=== PATIENT | female | born 1945 | race Caucasian/White ===

== ENCOUNTER → 2017-11-18 | Day surgery (SDC) | payer MEDICARE ==
[2017-11-17 08:44] VITALS: BMI 34.2
[~2017-11-18] MED LIST: Fentanyl 100 MCG/2 ML VIAL ONE; Midazolam HCl 2 mg/2 ml Vial ONE
[2017-11-18 08:33] LABS: #Eosinphils 0.1 thou/uL (0.0-0.7); #Lymphocytes 1.4 thou/uL (1.20-3.40); #Monocytes 0.7 thou/uL (0.11-0.59); #Neutrophils 5.2 thou/uL (1.40-6.50); %Basophils 0.3 % (0.0-1.0); %Lymphocytes 18.5 % (21.0-51.0); %Monocytes 9.3 % (0.0-10.0); %Neutrophils 69.9 % (42.0-75.0); Hemoglobin 14.2 g/dL (12.0-16.0); Mean Corpuscular HGB CONC 32.6 g/dL (32.0-36.0); Mean Corpuscular Hemoglobin 28.7 pg (27.0-31.0); Mean Platelet Volume 7.5 fL (7.4-10.4); Platelet Count 220 thou/uL (130-400); RBC Distribution Width 13.8 % (11.5-14.5); Red Blood Cell (RBC) Count 4.94 mill/uL (4.20-5.40); White Blood Cell (WBC) Count 7.4 thou/uL (4.8-10.8)
[2017-11-18 08:39] LABS: PTT 28.5 SEC (22.9-36.1); Prothrombin Time 12.9 SEC (12.0-14.7)
[2017-11-18 08:54] LABS: Anion Gap 9 mmol/L (10-20); BUN (Urea Nitrogen) 18 mg/dL (9.8-20.1); Calc. Creatinine Clearance 124 mL/min (70-130); Calcium 9.5 mg/dL (7.8-10.44); Carbon Dioxide 29 mmol/L (23-31); Chloride 98 mmol/L (98-107); Estimated GFR-MDRD 87; Glucose 85 mg/dL (83-110); Potassium 3.6 mmol/L (3.5-5.1); Sodium 132 mmol/L (136-145)
--- NOTE | 2017-11-18 11:54 | OP ---
DATE OF PROCEDURE: 11/18/2017 PROCEDURE: Placement of a dual chamber pacing system with His-bundle pacing and recording. CLINICAL INDICATION: 1. A remote history of atrial fibrillation previously ablated with severe intraatrial delay and a ma rkedly prolonged AL interval. This was symptomatic. 2. Underlying narrow QRS complex. SUCTION PLATE ROLLER HAND: Chester Kline M.D. ASA CLASSIFICATION: II. ANESTHESIA: Versed 2 mg, fentanyl 25 mcg. ADDITIONAL CARDIAC MEDICATIONS: None. ESTIMATED BLOOD LOSS: Less than 5 mL. TOTAL FLUOROSCOPY TIME: 12.1 minutes. ACUTE COMPLICATIONS: None. METHODS: After informed consent was obtained, the patient taken to the EP lab in fasting state, left shoulder prepped and draped. Using a 15 blade, a 1 inch incision was made in the left shoulder. Alonso vie and blunt dissection used to form a pocket in the pectoralis fascia. Using a micropuncture needl e on 2 occasions the left axillary vein was accessed and wires were inserted into the central venous systems. The wires used to place a short 9 and a short 7 [place]an sheath into the central venous syste m. The dilators were removed. The sheaths were used to deploy affixed and a deflectable sheath into the right atrium. The deflectable sheath was used to place a pacing lead in the His-bundle. The ot her sheath was used to locate a map of the His for facilitation after the His catheter was placed. T he mapping catheter was removed and an atrial lead was placed in the lateral wall of the right atrium . The sheaths were removed. Hemostasis was achieved with direct pressure. Leads were secured to th e pectoral fascia with 2-0 silk. The wound is irrigated. The leads were connected to the appropriat e ports, dual chamber pacemaker was inserted into the pocket and secured to the pectoral fascia with 2-0 silk. The pocket was closed with 2-0 and 4-0 Vicryl. Skin was closed simple running subcuticula r 5-0 Monocryl. Dermabond applied across the wound. RESULTS: 1. Pacing lead thresholds; atrial threshold acutely 1.7 volts at 0.5 milliseconds, impedance 1074 oh ms. 2. RV threshold was 0.6 volts at 0.5 milliseconds, impedance 728 ohms. This was capturing the His-b undle rather than the ventricle. 3. Signal analysis P-wave amplitude 1.6 millivolts. R-wave amplitude 2.7 millivolts. 4. Serial numbers of the device was a Medtronic model A2DR01, serial number [id number], atrial lead was a Medtronic model 3830-59, serial number was [id number], RV was a Medtronic model 3830-69, serial number [id number]. IMPRESSION: Successful insertion and testing of a dual chamber pacing system with His-bundle capture . RECOMMENDATION: Antibiotic prophylaxis.
--- NOTE | 2017-11-18 13:51 | RAD ---
CHEST 1 VIEW: Date: 11/18/17 HISTORY: Cardiac pacer placement. COMPARISON: 08/16/14. FINDINGS: Cardiac silhouette is magnified and upper limits of normal in size. Pulmonary vasculature is also upp er limits of normal. Mediastinum is midline with aortic calcification. A dual lead left subclavian ca rdiac electronic device is now in place with leads overlying the right atrium and right ventricle. Th ere is no evidence of pneumothorax. Healing right humeral shaft fracture is partially visualized. Car diac monitor leads overlie the chest. IMPRESSION: 1. Left subclavian cardiac electronic pacer is in good radiographic position. 2. Atherosclerosis. POS: [facility]
== END ==
LOC: CCL 07:29
PROVIDERS: ATTEND Internal Medicine Cardiovascular Disease
DX: I44.0 Atrioventricular block, first degree (principal); I48.1 Persistent atrial fibrillation; F31.9 Bipolar disorder, unspecified; E03.9 Hypothyroidism, unspecified; E78.5 Hyperlipidemia, unspecified; Z88.0 Allergy status to penicillin; Z88.5 Allergy status to narcotic agent; Z91.013 Allergy to seafood; Z88.8 Allergy status to other drugs, medicaments and biological substances; Z79.51 Long term (current) use of inhaled steroids; Z79.01 Long term (current) use of anticoagulants; Z79.899 Other long term (current) drug therapy
CPT/HCPCS: 33208; 71045; 80048; 85025; 85610; 85730; 93005; 93609; C1730; C1785; C1898; 93010; J2250; J3010; J3370

== ENCOUNTER 2018-07-15 05:59 | Inpatient (IN) | payer MEDICARE ==
[2018-07-15] MEDS ORDERED: Succinylcholine Chloride 20 MG/ML 10 ml SYRINGE FS ONE (06:06)
[2018-07-15] MEDS ORDERED: Propofol 1,000 MG/100 ML VIAL IV ONE (06:17)
[2018-07-15 06:21] LABS: #Eosinphils 0.4 thou/uL (0.0-0.7); #Lymphocytes 1.1 thou/uL (1.20-3.40); #Monocytes 0.5 thou/uL (0.11-0.59); #Neutrophils 5.2 thou/uL (1.40-6.50); %Basophils 0.4 % (0.0-1.0); %Eosinophils 5.1 % (0.0-10.0); %Lymphocytes 14.9 % (21.0-51.0); %Neutrophils 72.6 % (42.0-75.0); Hemoglobin 12.9 g/dL (12.0-16.0); Mean Corpuscular HGB CONC 34.3 g/dL (32.0-36.0); Mean Corpuscular Volume 87.3 fL (78.0-98.0); Mean Platelet Volume 7.7 fL (7.4-10.4); Platelet Count 202 thou/uL (130-400); RBC Distribution Width 13.3 % (11.5-14.5); Red Blood Cell (RBC) Count 4.32 mill/uL (4.20-5.40); White Blood Cell (WBC) Count 7.2 thou/uL (4.8-10.8)
[2018-07-15] MEDS ORDERED: Labetalol HCl 100 MG/20 ML VIAL ONE (06:27)
[2018-07-15 06:29] LABS: INR-International Normal Ratio 1.2; PTT 35.6 SEC (22.9-36.1); Prothrombin Time 14.9 SEC (12.0-14.7)
[2018-07-15] MEDS ORDERED: Fentanyl 100 MCG/2 ML VIAL ONE (06:32)
[2018-07-15 06:35] LABS: ALT (SGPT) 13 U/L (8-55); AST (SGOT) 16 U/L (5-34); Albumin 3.7 g/dL (3.4-4.8); Alkaline Phosphatase 121 U/L (40-150); Anion Gap 11 mmol/L (10-20); BUN (Urea Nitrogen) 19 mg/dL (9.8-20.1); Bilirubin, Total 0.4 mg/dL (0.2-1.2); Calc. Creatinine Clearance 0 mL/min (70-130); Calcium 9.7 mg/dL (7.8-10.44); Carbon Dioxide 25 mmol/L (23-31); Chloride 97 mmol/L (98-107); Estimated GFR-MDRD 82; Glucose 128 mg/dL (83-110); Protein, Total 6.7 g/dL (6.0-8.3); Sodium 129 mmol/L (136-145)
[2018-07-15] MEDS ORDERED: diphenhydrAMINE 50 MG/ML VIAL ONE (06:37)
[2018-07-15 06:39] LABS: CKMB 4.8 ng/mL (0-6.6); Troponin I Less than 0.010 ng/mL (< 0.028)
[2018-07-15 06:48] LABS: Bilirubin Negative (Negative); Blood, Urine Small (Negative); Clarity TURBID (Clear); Glucose, Urine (Dipstick) Negative (Negative); Leukocyte Negative (Negative); Nitrite Negative (Negative); Protein, Urine (Dipstick) 100 mg/dL (Neg-Trace); Specific Gravity, Urine 1.012 (1.002-1.036); Urobilinogen 0.2 mg/dL (0.2-1.0); pH, Urine 7.5 (5.0-9.0)
[2018-07-15 06:50] LABS: Bacteria/HPF None Seen HPF (None Seen); Hyaline Casts/LPF 4-6 HYALINE CAST LPF (0-3 Hyaline); Pathc Cast-AUWi Flag 0.43 (0-2.49); Squamous Epithelial 0-3 HPF (0-3); WBC/HPF 0-3 HPF (0-3)
[2018-07-15 07:21] LABS: Actual Bicarbonate (HCO3a) 25.4 mEq/L (22-28); Base Excess (BEa) -1.2 mEq/L (-2.0 to +3.0); CO2 Tension 50.6 mmHg (35.0-45.0); O2 Tension (PaO2) 73.6 mmHg (> 70.0); pH, Arterial 7.32 (7.35-7.45)
[2018-07-15 07:22] LABS: Analyzer IN Cardio ER; Calcium, Ionized 1.21 mmol/L (1.12-1.30); Carboxyhemoglobin (COHb) 0.3 gm% (0.0-3.0); Potassium - ABG Lab 3.6 mmol/L (3.70-5.30); Puncture Site RRA
[2018-07-15] MEDS ORDERED: [UNRECOGNIZED DRUG - OTHER] IV SCH (07:45)
[2018-07-15] MEDS ORDERED: HUM PROTHROMBIN CPLX IV SCH (07:45)
[2018-07-15] MEDS ORDERED: ADMIXTURE FEE IV SCH (07:45)
[2018-07-15] MEDS ORDERED: niCARdipine 20MG In NaCl 20 MG/200 ML BAG ONE (07:47)
--- NOTE | 2018-07-15 09:13 | RAD ---
RADIOGRAPH CHEST 1 VIEW: Date: 07/15/18. Time: 6:18 a.m. HISTORY: A 73-year-old female in respiratory distress. COMPARISON: 07/08/18. FINDINGS: There is a new endotracheal tube with distal tip at the level of the clavicular heads, 6 cm superior to the parrish. Again noted is the left subclavian dual-lead pacemaker. There is no interval change in the diffuse pulmonary venous engorgement and cardiomegaly. No consolidation. Lateral costophreni c angles are sharp. This is a supine image, which would be insensitive for pneumothorax detection. An NG tube has been placed, which extends inferior to the diaphragm, inferior to the field of view. IMPRESSION: 1. Status post intubation with endotracheal tube and nasogastric tube. 2. Evidence for mild congestive heart failure: cardiomegaly and pulmonary venous congestion, simila r to 07/08/18. GEOVANNA [] POS: [facility]
[2018-07-15] MEDS: Sodium Chloride 0.9% 1,000 ML IV SCH (10:16)
--- NOTE | 2018-07-15 12:29 | CT ---
PRELIMINARY REPORT/[facility]/EMERGENTY AFTER-HOURS PROCEDURE Addendum created by Beronica Sharma MD on 07/15/2018 7:20 AM Central Time ([place] & [place]) Critical results: THIS REPORT CONTAINS FINDINGS THAT MAY BE CRITICAL TO PATIENT CARE. The findings were verbally commun icated via telephone conference with OCHOA CLEMENTS at 7:20 AM CDT on 07/15/2018. The findings were a cknowledged and understood. Initial Report created on 07/15/2018 7:15 AM Central Time ([place] & [place]) CT Angiography Head With Intravenous Contrast CLINICAL HISTORY: The patient is a 73 years female; Signs and symptoms; Speech disturbance and weakness; Aphasia; Addit ional info: F73 presents to ed via ems for stroke-like symptoms including left sided weakness, diffic ult to understand speech, and right side neglect. Lsn 2330 last night. Per ems, BP was 209/102. Examination order is timed 07/15/2018 6:48 AM. TECHNIQUE: Axial computed tomographic angiography images of the head with intravenous contrast using CT angiogra phy protocol. MIP reconstructed images were created and reviewed. COMPARISON: No relevant prior studies available. FINDINGS: There are very small foci of contrast extravasation at the medial margin of the hemorrhage, Tamazight an d coronal images 40 through 42. There are multiple studies that contrast extravasation, even small ar eas with primary intracranial hemorrhage independently predicts propensity for hematoma expansion and increased mortality. (AJNR Vol. 29 (3), 2008.) There is calcification in both intracranial internal carotid arteries and intracranial left vertebral artery. There is no significant intracranial vascular stenosis or occlusion. There is no evidence of aneurysm . There is origin of bilateral posterior cerebral arteries with associated small basilar artery t erminating at level of superior cerebellar arteries. IMPRESSION: Small amount of contrast extravasation at medial margin of right basal ganglia hemorrhage which has b een shown to predict propensity for hematoma expansion and is associated with increased mortality. Thank you for allowing us to participate in the care of your patient. Dictated and Authenticated by: Beronica Sharma MD 07/15/2018 7:15 AM Central Time ([place] & [place]) FINAL REPORT CT ANGIOGRAM OF HEAD: Date: 07/15/18 HISTORY: Stroke-like symptoms. Intracranial hemorrhage. COMPARISON: None. TECHNIQUE: CT angiogram of head performed in axial plane. 3D reformatted images submitted for interpretation. FINDINGS/IMPRESSION: This report is in agreement with the preliminary report by [facility]. There is no evidence of vascular occ lusion or aneurysm noted at the comanche of [place]. With regards to the hematoma, there does appear to be a small amount of extravasated contrast along t he medial margin. Refer to preliminary report by [facility] for further details. POS: [facility]
--- NOTE | 2018-07-15 12:31 | CT ---
PRELIMINARY REPORT/[facility]/EMERGENTY AFTER-HOURS PROCEDURE CT Head Without Intravenous Contrast CLINICAL HISTORY: The patient is a 73 years female; Signs and symptoms; Speech disturbance and weakness, extremity and weakness, facial; Left; Slurred speech; Additional info: F73 presents to ed via ems for stroke-like s ymptoms including left sided weakness, difficult to understand speech, and right side neglect. Lsn 23 30 last night. Per ems, BP was 209/102. Examination order is timed 07/15/2018 6:46 AM. TECHNIQUE: Axial computed tomography images of the head/brain without intravenous contrast. COMPARISON: No relevant prior studies available. FINDINGS: BRAIN: There is a large hemorrhage centered in right basal ganglia and temporal lobe measuring 5.3 cm x 3.5 cm. There is mild surrounding edema. There is mass effect with partial effacement of the right lateral ventricle and approximately 6 mm of [id number] midline shift. Basilar cisterns are widely patent. There is intraventricular extension of hemorrhage and there is blood in right greater than l eft lateral ventricles. VENTRICLES: No hydrocephalus. BONES/JOINTS: No acute fracture. SOFT TISSUES: Unremarkable as visualized. VASCULATURE: There are bilateral carotid and left vertebral arteries calcifications. SINUSES: There is mucosal thickening in the paranasal sinuses which is greatest in left aortic sinus. There is no air-fluid level. MASTOID AIR CELLS: There is minimal opacification in the left mastoid which is typically not clinical ly significant. IMPRESSION: Large hemorrhage centered in right basal ganglia with intraventricular extension of hemorrhage and ri ght-to-left midline shift. Location suggests hypertensive etiology and correlate clinically. Critical results: THIS REPORT CONTAINS FINDINGS THAT MAY BE CRITICAL TO PATIENT CARE. The findings were verbally commun icated via telephone conference with OCHOA CLEMENTS at 7:00 AM CDT on 07/15/2018. The findings were a cknowledged and understood. Thank you for allowing us to participate in the care of your patient. Dictated and Authenticated by: Beronica Sharma MD 07/15/2018 7:00 AM Central Time ([place] & [place]) FINAL REPORT NONCONTRAST HEAD CT: Date: 07/15/18 COMPARISON: 02/12/13. FINDINGS/IMPRESSION: This report is in agreement with the preliminary report by [facility]. There is a large intraparenchymal he morrhage centered in the right basal ganglion. There is associated mass effect and midline shift as d escribed in the preliminary report by [facility]. Intraventricular hemorrhage is noted. POS: [facility]
--- NOTE | 2018-07-15 12:32 | PRG ---
DATE OF SERVICE: 07/15/2018 I personally examined the patient, spoke with the family, reviewed records and imaging and agree with documentation of Kelin Byrne PA-C dated 07/15/2018. Briefly Kerry Landaverde was brought to the emergency department by family this morning when she had a l oss of control of the left side of her body. She was intubated and CT examination of the brain revea led intracerebral hemorrhage in the basal ganglia. There was some extension into the ventricular sys tem. The hemorrhage was medium in size and caused a small amount of right to left midline shift. In our Intensive Care Unit she is beginning to follow commands. She will hold up fingers at the reques t of her nurse. She does not move the left side of her body at all, but the right side is working. CT examination of the brain will be repeated. She is on a new anticoagulants and has already been gi [place] [facility] for it. If this follow up scan shows no increase in size of the hemorrhage then I will p erform 1 more scan tomorrow morning. We will continue to follow her neurological examination. I inf ormed the family that the likelihood of dependence for care in a alf placement at first, per haps an inpatient rehabilitation thereafter. We discussed issues that will come up next week includi ng tracheostomy and gastrostomy. They understand that surgical intervention is not recommended typic ally for these hemorrhages unless they are expanding and becoming life threatening. In her case, asaf n the surgery would be extremely high risk given her anticoagulant use.
--- NOTE | 2018-07-15 13:54 | CT ---
CT BRAIN WITHOUT CONTRASTS: Comparison: 07-15-18 at 6:47 a.m. History: Intracranial hemorrhage. Technique: Multiple contiguous axial images were obtained in a CT of the brain without contrast. FINDINGS: The right basal ganglia/periventricular hemorrhage appears to have slightly enlarged compared to the prior examination. This enlargement mainly has occurred in its width. Currently it measures 5.6 x 3.7 cm in size. There is also a slight increase in the interventricular hemorrhage compared to the prior examination and slight increase size of the lateral ventricles. No abdominal herniation is seen. Mid line shift to the left is seen of approximately 8 mm. The calvarium and overlying soft tissues are unremarkable. The visualized paranasal sinuses and masto id air cells are well aerated. IMPRESSION: Slight enlargement of the right cerebral hemorrhage and slight increase in interventricular hemorrhag e. POS: [facility]
[2018-07-15] MEDS ORDERED: ISOVUE-370 76%-LOCM 1 ML ONE (14:19)
--- NOTE | 2018-07-15 21:10 | HP ---
HISTORY OF PRESENT ILLNESS: This is Ms. Landaverde, who is a 73-year-old female, who was brought to our Emergency Department transferred from home. Her is in the room and states that she was normal at about 03:30, got up and went to the bathroom, and then the next time that he checked on her, she did not respond to him. When she was nonresponsive, he called 911 and they brought her to the ER. The patient was hypertensive on exam. The patient has known atrial fibrillation, is on a blood thinner for that. She also has a history of hyperlipidemia, hypertension, and arrhythmias. The patient has had 5 ablations and a pacemaker placed. REVIEW OF SYSTEMS: Unable to obtain review of systems. The patient is intubated. ALLERGIES: CODEINE, FISH-CONTAINING PRODUCTS, PENICILLIN, PROPAFENONE, SHELLFISH DERIVATIVES. PAST MEDICAL HISTORY: Cardiac history of arrhythmias, AFib, hyperlipidemia, hypertension. PAST SURGICAL HISTORY: 5 ablations, pacemaker placement, appendectomy, cholecystectomy, and hysterectomy. PSYCHIATRIC HISTORY: Bipolar disorder. SOCIAL HISTORY: The patient denies any alcohol or drug use. She is a nonsmoker. MEDICATIONS: Per , the patient is on Xarelto; however, the patient is intubated, unable to obtain more clear medications at this time. PHYSICAL EXAMINATION: VITAL SIGNS: Blood pressure 149/81, heart rate is 60, respirations are 12 on ventilation, temperature is 96.1, and O2 sats 98% on ventilator. CONSTITUTIONAL: The patient is afebrile, hypertensive on arrival to the ED, but is on a Cardene drip and blood pressures is coming down. HEAD: Atraumatic, normocephalic. EYES: Pupils are equal, round, reactive to light. ENT: Moist mucous membranes. No bleeding in the nares. Warm mouth. RESPIRATORY: The patient is intubated and breathing normally. She is on ventilator and symmetrical chest rise. CARDIOVASCULAR: Regular heart rhythm and sounds. NEUROLOGIC: Per the ER exam, the patient is alert and oriented x1. Upon arrival to the ER she was Right facial droop, left-sided hemiparesis; however, during my exam, the patient was heavily sedated, would withdraw on painful stimuli. IMAGING: CT head shows large hemorrhage centered in right basal ganglia with some right to left midline shift with hypertensive etiology. ASSESSMENT AND PLAN: The patient has an intracerebral hemorrhage and basal ganglia, which has a small amounts of right to left midline shift. We have admitted her to the intensive care unit. We will maintain her blood pressure below 140. We will repeat the CT scan this afternoon after the reversal agents are in and another scan in the morning continue to monitor neuro checks every 2 hours. ORIN
[2018-07-15] MEDS: Lisinopril 20 MG TAB PO SCH (21:30)
[2018-07-15] MEDS: Pravastatin Sodium 20 MG TAB PO SCH (21:31)
[2018-07-15] MEDS: Pantoprazole 40 MG VIAL IVP SCH (21:31)
[2018-07-15] MEDS: Escitalopram Oxalate 20 mg Tablet PO SCH (21:31)
[2018-07-15] MEDS: TROSPIUM 20 MG TABLET PO SCH (21:31)
--- NOTE | 2018-07-16 04:13 | CON ---
DATE OF CONSULTATION: 07/15/2018 HISTORY OF PRESENT ILLNESS: Ms. Landaverde is a 73-year-old female. History obtained from her , who stated both her and her got about 4:00 in the morning go to the bathroom. When she got u p later this morning, she would not respond, he call 911, they brought her to the emergency room. He says she was gurgling in bed where she subsequently was intubated. In the emergency room, I was con sulted for assistance with her management. PAST MEDICAL HISTORY: 1. Remarkable for atrial fibrillation with multiple ablations. 2. Hypertension. 3. Anticoagulation with Xarelto prior to admission. 4. Lipid disorder. 5. Hypertension. 6. History of an appendectomy, cholecystectomy, and hysterectomy. SOCIAL HISTORY: She is a nonsmoker, nondrinker, nondrug user. REVIEW OF SYSTEMS: Unobtainable because patient is intubated. The patient will awaken and follow co mmands with her right side. PHYSICAL EXAMINATION: HEENT: Pupils react. Sclerae is anicteric. NECK: Supple. LUNGS: Clear. HEART: Regular rate and rhythm. ABDOMEN: Soft. She is left hemiplegic. EXTREMITIES: Without asymmetry or edema. LABORATORY AND X-RAY FINDINGS: Chest CT x2 has been done. Second CT shows enlargement in width of t he blood and an increase in intraventricular blood. White count 7.2, hemoglobin 12.9, platelets 202,000. Sodium 129, potassium 4, chloride 97, bicarbona te 25, BUN 19, creatinine 0.7. pH 7.32, pCO2 of 50, pO2 of 73. IMPRESSION: Status post intubation for parenchymal brain hemorrhage. The progression of the blood d oes not mean she is still bleeding in my opinion. The bleeding could have stopped easily after her a nticoagulants were reversed. Neurosurgery is following, I will be happy following the other physicians caring for her and is a patient of mine. I met with him and answered all of his questions. Obviously, she is currently not weanable. Critical care time 30 minutes.
[2018-07-16 05:35] LABS: Anion Gap 13 mmol/L (10-20); BUN (Urea Nitrogen) 21 mg/dL (9.8-20.1); Calc. Creatinine Clearance 118 mL/min (70-130); Calcium 9.3 mg/dL (7.8-10.44); Carbon Dioxide 20 mmol/L (23-31); Chloride 99 mmol/L (98-107); Estimated GFR-MDRD 81; Glucose 142 mg/dL (83-110); Potassium 4.1 mmol/L (3.5-5.1); Sodium 128 mmol/L (136-145)
[2018-07-16 05:37] LABS: Band 1 % (5-11); Hemoglobin 12.3 g/dL (12.0-16.0); Lymphocytes 1 % (21-51); MDiff Complete? YES; Mean Corpuscular HGB CONC 33.6 g/dL (32.0-36.0); Mean Corpuscular Hemoglobin 29.2 pg (27.0-31.0); Mean Corpuscular Volume 86.8 fL (78.0-98.0); Mean Platelet Volume 8.1 fL (7.4-10.4); Monocytes 4 % (0-10); Neutrophil 94 % (42-75); PLT Morphology Comment Appears Adequate; Platelet Count 190 thou/uL (130-400); RBC Distribution Width 13.4 % (11.5-14.5); RBC Morphology Normal; Red Blood Cell (RBC) Count 4.22 mill/uL (4.20-5.40); White Blood Cell (WBC) Count 8.8 thou/uL (4.8-10.8)
[2018-07-16] MEDS: Sodium Chloride 0.9% 1,000 ML IV SCH (06:07)
[2018-07-16 07:15] LABS: Actual Bicarbonate (HCO3a) 22.3 mEq/L (22-28); Base Excess (BEa) -0.9 mEq/L (-2.0 to +3.0); CO2 Tension 32.4 mmHg (35.0-45.0); Calcium, Ionized 1.21 mmol/L (1.12-1.30); Carboxyhemoglobin (COHb) 0.9 gm% (0.0-3.0); Hemoglobin (Hb) 12.3 g/dL (12.0-16.0); O2 Tension (PaO2) 84.7 mmHg (> 70.0); Potassium - ABG Lab 4.2 mmol/L (3.70-5.30); Puncture Site RR; pH, Arterial 7.46 (7.35-7.45)
--- NOTE | 2018-07-16 07:46 | PRG ---
DATE OF SERVICE: 07/16/2018 I saw Ms. Landaverde in her ICU room this morning and reviewed her imaging. Ms. Landaverde was admitted yest erday with spontaneous intracerebral hemorrhage in the setting of anticoagulation use. This involved the deep nuclei of the right hemisphere and left her with a dense left hemiparesis. She followed co mmands yesterday. Overnight, her blood pressures have been in the 140s to 150s, her heart rates in t he 70s-80s. When I am speaking with her this morning Ms. Landaverde continues to hold up 2 fingers on he r right hand when I asked her to. She wiggles her right toes when I ask her to. She responds approp riately to questions. She remains on the ventilator, however. CT image of the brain this morning looks exactly like it did yesterday afternoon. Her second follow up scan showed small increase in size in the cerebral hemorrhage from the morning scan, but there has been stability overnight. I am not going to recommend surgery for Ms. Landaverde. This intracerebral hemorrhage is nonsurgical int racerebral hemorrhage, will be managed on the medical service and we will continue to follow.
--- NOTE | 2018-07-16 08:42 | CT ---
PRELIMINARY REPORT/[facility]/EMERGENCY AFTER HOURS PROCEDURE: EXAM: CT Head Without Intravenous Contrast EXAM DATE/TIME: 07/16/2018 3:31 AM CLINICAL HISTORY: 73 years old, female; Condition or disease; Other: Ich; Patient HX: F/u ich TECHNIQUE: Axial computed tomography images of the head/brain without intravenous contrast. COMPARISON: CT Brain WO Con 07/15/2018 12:49 PM FINDINGS: Brain: Normal. No hemorrhage. No significant white matter disease. No edema. Ventricles: Stable large right basal ganglia intraparenchymal hemorrhage extending into the ventricles with stable interventricular blood and stable leftward midline shift. Bones/joints: Normal. No acute fracture. Sinuses: Dependent fluid/mucus in the left sphenoid sinus may signify sinusitis. Mastoid air cells: Normal as visualized. No mastoid effusion. Soft tissues: Normal. IMPRESSION: 1. Stable large right basal ganglia intraparenchymal hemorrhage extending into the ventricles with st able interventricular blood and stable leftward midline shift. 2. Dependent fluid/mucus in the left sphenoid sinus may signify sinusitis. Thank you for allowing us to participate in the care of your patient. Dictated and Authenticated by: Usama Fletcher MD 07/16/2018 3:46 AM Central Time ([place] & [place]) FINAL REPORT BRAIN CT WITHOUT IV CONTRAST: EMERGENCY AFTER HOURS EXAM TIME: 3:31 a.m. DATE: 05/28/18. COMPARISON: 07/15/18.. FINDINGS/IMPRESSION: Large stable right basal ganglia intraparenchymal hemorrhage with intraventricular hemorrhage with st able left-sided midline shift. No new hemorrhage. POS: [facility]
--- NOTE | 2018-07-16 09:12 | RAD ---
CHEST 1 VIEW: HISTORY: Ventilated patient. COMPARISON: Chest radiograph 07/15/18. FINDINGS: The patient is intubated with endotracheal tube tip at the level of the clavicles. Dense left retroc ardiac opacity and layering left effusion. Mild edema. Cardiac device is similar. Enteric tube tip below the diaphragm and out of the field of view. IMPRESSION: 1. Similar exam of the chest. 2. The fracture of the right humeral diaphysis appears relatively acute. Also, lucency adjacent to the fracture. This is concerning for a possible pathologic fracture versus healing as the fracture w as seen in November 18, 2017. Dedicated humeral radiograph is highly recommended. POS: [facility]
[2018-07-16] MEDS: Pantoprazole 40 MG VIAL IVP SCH ×2 (09:24→21:09)
[2018-07-16] MEDS: Amlodipine 10 MG TAB PO SCH (09:25)
[2018-07-16] MEDS: Cyanocobalamin (Vitamin B-12) 1,000 MCG TAB PO SCH (09:25)
[2018-07-16] MEDS: Lisinopril 20 MG TAB PO SCH ×2 (09:26→21:08)
[2018-07-16] MEDS: Ascorbic Acid 500 mg Chewable Tablet PO SCH (09:26)
[2018-07-16] MEDS: TROSPIUM 20 MG TABLET PO SCH ×2 (09:26→21:10)
[2018-07-16] MEDS: OXcarbazepine 300 MG TAB PO SCH (09:27)
--- NOTE | 2018-07-16 13:17 | PRG ---
DATE OF SERVICE: 07/16/2018 Ms. Landaverde has had another CT this morning. There is no progression of her bleed. There is no progr ession of her midline shift. She is still hemiplegic. She still remains mechanically ventilated. We will start nutritional support today. PHYSICAL EXAMINATION: VITAL SIGNS: Heart rate 77, blood pressure 149/68, respiratory rate per mechanical ventilation, oxim etry is 100%. LUNGS: Lungs are clear. HEART: Regular rhythm, no S3. ABDOMEN: Soft and nontender. EXTREMITIES: Without asymmetry. LABORATORY DATA: White count 8.8, hemoglobin 12.3, platelets 190. Sodium 128, potassium 4.1, chlori de 109, bicarbonate 20, BUN 21, creatinine 0.7, glucose 142. Sodium 146, potassium 3.2, pO2 84. IMPRESSION: 1. Parenchymal brain hemorrhage. 2. Status post anticoagulation for atrial fibrillation. 3. 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 She is not receiving any IV fluids at this time other than normal saline 50 mL an hour. We will defe r to Neurosurgery as to whether or not they want to give her hypertonic saline, but I would not think that would be necessary at this point. We will continue mechanical ventilation and start nutritiona l support, serial exams. I met with the family and answered all their questions. Critical care time was 30 minutes.
[2018-07-16] MEDS ORDERED: Ondansetron ODT 4 MG TAB PER TUBE PRN (16:46)
[2018-07-16] MEDS ORDERED: Famotidine/PF 20 mg/2ml Vial SLOW IVP PRN (16:46)
[2018-07-16] MEDS ORDERED: Acetaminophen 650 MG Suppository PR PRN (16:46)
[2018-07-16] MEDS ORDERED: Ondansetron HCl/PF 4 MG/2 ML Vial IVP PRN (16:46)
[2018-07-16] MEDS: Escitalopram Oxalate 20 mg Tablet PO SCH (21:08)
[2018-07-16] MEDS: Pravastatin Sodium 20 MG TAB PO SCH (21:10)
[2018-07-17] MEDS: Sodium Chloride 0.9% 1,000 ML IV SCH ×2 (02:00→16:09)
[2018-07-17] MEDS: Labetalol HCl 100 MG/20 ML VIAL SLOW IVP PRN (04:22)
[2018-07-17 08:18] LABS: Anion Gap 11 mmol/L (10-20); BUN (Urea Nitrogen) 29 mg/dL (9.8-20.1); Calc. Creatinine Clearance 125 mL/min (70-130); Calcium 9.5 mg/dL (7.8-10.44); Carbon Dioxide 20 mmol/L (23-31); Chloride 102 mmol/L (98-107); Estimated GFR-MDRD 87; Glucose 169 mg/dL (83-110); Potassium 4.1 mmol/L (3.5-5.1); Sodium 129 mmol/L (136-145)
[2018-07-17] MEDS: Lisinopril 20 MG TAB PO SCH ×2 (08:37→21:03)
[2018-07-17] MEDS: Amlodipine 10 MG TAB PO SCH (08:37)
[2018-07-17] MEDS: Ascorbic Acid 500 mg Chewable Tablet PO SCH (08:37)
[2018-07-17] MEDS: TROSPIUM 20 MG TABLET PO SCH ×2 (08:37→21:04)
[2018-07-17] MEDS: Pantoprazole 40 MG VIAL IVP SCH ×2 (08:37→21:03)
[2018-07-17] MEDS: OXcarbazepine 300 MG TAB PO SCH (08:38)
[2018-07-17] MEDS: Cyanocobalamin (Vitamin B-12) 1,000 MCG TAB PO SCH (09:13)
--- NOTE | 2018-07-17 09:26 | RAD ---
SUPINE PORTABLE CHEST 1 VIEW: History A 73-year-old female with a history of respiratory insufficiency. COMPARISON: 07/16/18. FINDINGS: Life support tubes are again noted in place. Left ICD. Bilateral vascular congestion with cardiomeg cliff and probable small pleural effusions greater on the left. No new process. IMPRESSION: Stable congestion and cardiomegaly and small pleural effusions. POS: [facility]
--- NOTE | 2018-07-17 09:56 | PRG ---
DATE OF SERVICE: 07/17/2018 SUBJECTIVE: I saw Ms. Kerry Landaverde in her ICU room this morning. Her was at the bedside and we spoke. Nurses do not report any events. She remains on the ventilator. Overnight, the T-max wa s 99.6, blood pressures have been up to the 170s. On examination, Ms. Landaverde does not open her eyes for me and asked her to lift her thumbs, she does so quickly. She wiggles her toes. She squee zes my hands. She is following commands on the right side. The left is plegic. Yesterday sodium was 128. In the next 24 hours, Ms. Landaverde is at some risk for swelling from this hemorrhage, we can minimize t hat risk by fluid restricting and bump her sodium up. If that does not work, we can use 1.5 normal s carol ann as her IV fluid of choice. We will make sure not to give her any hypotonic fluids. She contin ues to hold steady on her neurological examination, which is reassuring. I do not think she will req uire surgical intervention. I believe we can manage her with medications should swelling be an issue .
--- NOTE | 2018-07-17 09:57 | PRG ---
DATE OF SERVICE: 07/17/2018 Thirty-five minutes critical care time. SUBJECTIVE: The patient remains intubated in the ICU. According to the nurse, she will give a thumb s up some of the right side, but she is flaccid on the left side. I could not get the patient to do much at all for me this morning. Of note, she is still on a Precedex drip. PHYSICAL EXAMINATION: VITAL SIGNS: Her temperature is 100.2 and that is her maximum temperature, pulse 70, blood pressure 172/74, O2 sat 97%, 24-hour intake 2422, output 1195. HEENT: Unremarkable. Both pupils are 4 mm and reactive. Sclerae are anicteric. Oropharynx clear. NECK: No JVD. LUNGS: Clear without wheezing or rhonchi. CARDIAC: S1, S2 regular, without murmur. ABDOMEN: Soft, obese, nontender, nondistended. EXTREMITIES: No clubbing, cyanosis, or edema. LABORATORY DATA AND IMAGING: Sodium 129, potassium 4.1, chloride 102, CO2 20, BUN 29, creatinine 0.6 , glucose 169. Chest x-ray shows proper ET tube placement. She has some perihilar infiltrative corea ges. ASSESSMENT: 1. Parenchymal brain hemorrhage. 2. Status post being anticoagulated for atrial fibrillation. 3. Mild hyponatremia. PLAN: 1. She is not weanable secondary to her neurologic status. Neurosurgery is monitoring her sodium le kathy. I think she probably is somewhat overloaded with fluid. She is not getting continuous IV fluid s at this point, but is getting tube feeds. 2. Reorder labs for tomorrow. 3. I reviewed the rest of her medication. 4. Discussed with at bedside.
[2018-07-17 15:32] LABS: Anion Gap 11 mmol/L (10-20); BUN (Urea Nitrogen) 37 mg/dL (9.8-20.1); Calc. Creatinine Clearance 107 mL/min (70-130); Calcium 9.2 mg/dL (7.8-10.44); Carbon Dioxide 22 mmol/L (23-31); Chloride 101 mmol/L (98-107); Estimated GFR-MDRD 73; Glucose 140 mg/dL (83-110); Potassium 3.9 mmol/L (3.5-5.1); Sodium 130 mmol/L (136-145)
[2018-07-17] MEDS ORDERED: Pancrelipase DR 12000 1 CAP FS PRN (19:40)
[2018-07-17] MEDS ORDERED: Sodium Bicarbonate Tab 325 MG TAB PER TUBE PRN (19:40)
--- NOTE | 2018-07-17 20:52 | EKG ---
Test Reason : Blood Pressure : / mmHG Vent. Rate : 060 BPM Atrial Rate : 060 BPM P-R Int : 154 ms QRS Dur : 144 ms QT Int : 530 ms P-R-T Axes : 010 017 027 degrees QTc Int : 530 ms Poor data quality, interpretation may be adversely affected AV sequential or dual chamber electronic pacemaker Confirmed by OCHOA CLEMENTS ([id number]), editor continuity and script FRANCINE CHAVIS ([id number]) on 07/17/2018 8:51:38 PM Referred By: Confirmed By:OCHOA CLEMENTS
[2018-07-17] MEDS: Escitalopram Oxalate 20 mg Tablet PO SCH (21:03)
[2018-07-17] MEDS: Acetaminophen 325 MG TAB PER TUBE PRN (21:04)
[2018-07-17] MEDS: Pravastatin Sodium 20 MG TAB PO SCH (21:04)
[2018-07-17] MEDS ORDERED: Mannitol 12.5 GM/50 ML IV SCH (22:15)
[2018-07-18 05:30] LABS: #Lymphocytes 0.5 thou/uL (1.20-3.40); #Monocytes 0.9 thou/uL (0.11-0.59); #Neutrophils 7.6 thou/uL (1.40-6.50); %Basophils 0.1 % (0.0-1.0); %Eosinophils 0.1 % (0.0-10.0); %Lymphocytes 5.5 % (21.0-51.0); %Monocytes 10.1 % (0.0-10.0); %Neutrophils 84.2 % (42.0-75.0); Hemoglobin 11.2 g/dL (12.0-16.0); Mean Corpuscular HGB CONC 34.5 g/dL (32.0-36.0); Mean Corpuscular Hemoglobin 30.1 pg (27.0-31.0); Mean Corpuscular Volume 87.3 fL (78.0-98.0); Platelet Count 150 thou/uL (130-400); RBC Distribution Width 13.9 % (11.5-14.5); Red Blood Cell (RBC) Count 3.73 mill/uL (4.20-5.40)
[2018-07-18 05:35] LABS: Anion Gap 10 mmol/L (10-20); BUN (Urea Nitrogen) 35 mg/dL (9.8-20.1); Calc. Creatinine Clearance 118 mL/min (70-130); Calcium 9.3 mg/dL (7.8-10.44); Carbon Dioxide 23 mmol/L (23-31); Chloride 104 mmol/L (98-107); Estimated GFR-MDRD 81; Glucose 132 mg/dL (83-110); Potassium 3.6 mmol/L (3.5-5.1); Sodium 133 mmol/L (136-145)
[2018-07-18 06:59] LABS: pH, Arterial 7.51 (7.35-7.45)
[2018-07-18 07:00] LABS: Actual Bicarbonate (HCO3a) 24.2 mEq/L (22-28); Base Excess (BEa) 1.8 mEq/L (-2.0 to +3.0); CO2 Tension 30.8 mmHg (35.0-45.0); Carboxyhemoglobin (COHb) 1.1 gm% (0.0-3.0); Hemoglobin (Hb) 11.5 g/dL (12.0-16.0); O2 Tension (PaO2) 72.8 mmHg (> 70.0); Potassium - ABG Lab 3.6 mmol/L (3.70-5.30)
[2018-07-18 07:01] LABS: Calcium, Ionized 1.25 mmol/L (1.12-1.30); Puncture Site RR
--- NOTE | 2018-07-18 08:37 | CT ---
PRELIMINARY REPORT/[facility]/EMERGENTY AFTER-HOURS PROCEDURE CT Head Without Intravenous Contrast CLINICAL HISTORY: 73 years old, female; Signs and symptoms; Altered mental status/memory loss; Confusion or disorientat ion; Patient HX: AMS; Change in mental status TECHNIQUE: Axial computed tomography images of the head/brain without intravenous contrast. COMPARISON: CT Brain WO Con 07/16/2018 3:31 AM FINDINGS: Large right-sided parenchymal hemorrhage centered in the right basal ganglia measuring approximately 6.1 x 3.8 cm (AP x TV) with right greater than left extension into the lateral ventricles on both katerine es and into the fourth ventricle. Surrounding vasogenic edema effaces the right cerebral hemispheric sulci and results in 9 mm midline shift to the left and minimal right-sided uncal deviati on, grossly unchanged. Subtle left parietal subarachnoid hemorrhage also unchanged. No new hemorrhage. Orbits are unremarkable. Persistent opacification of the sphenoid sinus with high density material. Mastoid air cells are clear. No acute fracture. Soft tissues unremarkable. IMPRESSION: 1. Intracranial hemorrhages as described above, grossly unchanged from prior examination. 2. No new hemorrhage. THIS REPORT CONTAINS FINDINGS THAT MAY BE CRITICAL TO PATIENT CARE. The findings were verbally commun icated via telephone conference with LUIS ARMANDO Byrne at 1:01 AM CDT on 07/18/2018. The findings were acknowl edged and understood. Thank you for allowing us to participate in the care of your patient. Dictated and Authenticated by: Joshua Bansal MD 07/18/2018 1:02 AM Central Time ([place] & [place]) FINAL REPORT BRAIN CT WITHOUT IV CONTRAST EMERGENCY AFTER HOURS EXAM TIME: 12:45 a.m. DATE: 07/18/18. COMPARISON: 07/16/18. FINDINGS/IMPRESSION: Stable large intraparenchymal hemorrhages with considerable mass effect and midline shift as well as intraventricular hemorrhage unchanged from 07/16/18. POS: [facility]
--- NOTE | 2018-07-18 08:45 | PRG ---
DATE OF SERVICE: 07/18/2018 SUBJECTIVE: I saw Ms. Landaverde in ICU this morning. I came in to see her last night as she was not fo llowing commands that she had done before. When I saw her, her eyes were open and she had a bit of f orced up left gaze. There is some very low amplitude twitching of muscles in the right upper extremi ty. For this reason, we started Keppra. We give her half gram per kilo of mannitol and get a CAT sc an. Overnight, her blood pressures have been in the 120s to 150s. Her temperature maxed out yesterd ay at 102 degrees Fahrenheit. On neurological examination this morning, Ms. Landaverde follows commands. When I talked to her loudly enough, she does lift 2 fingers on the right hand. She holds up her th umb. She wiggles her toes. This is the response that I got prior to the episode yesterday evening. CT of the brain showed improvement in her intracerebral hemorrhage. The hemorrhage size is slightly smaller. There is edema around it. The shift is stable. There is no worse than it has been previo usly. Ms. Landaverde's sodium which was in the high 120s on admission has slowly climbed to 133, which is gener al direction that we would prefer. We will continue with her fluid restriction. We gave her a bolus of mannitol last night and that has nudged her in the correct direction. I think the chances of whitney gical intervention are quite low.
[2018-07-18 09:23] LABS: Bilirubin Negative (Negative); Blood, Urine Moderate (Negative); Clarity CLEAR (Clear); Glucose, Urine (Dipstick) Negative (Negative); Leukocyte Negative (Negative); Nitrite Negative (Negative); Protein, Urine (Dipstick) 30 mg/dL (Neg-Trace); Specific Gravity, Urine 1.026 (1.002-1.036); Urobilinogen 0.2 mg/dL (0.2-1.0); pH, Urine 5.5 (5.0-9.0)
[2018-07-18 09:25] LABS: Bacteria/HPF 1+ HPF (None Seen); Hyaline Casts/LPF 0-3 HYALINE CAST LPF (0-3 Hyaline); Pathc Cast-AUWi Flag 0.14 (0-2.49); Squamous Epithelial 0-3 HPF (0-3)
--- NOTE | 2018-07-18 09:31 | ULT ---
BILATERAL LOWER EXTREMITY VENOUS DUPLEX ULTRASOND INCLUDING COLOR AND SPECTRAL DOPPLER IMAGING: HISTORY: A 73-year-old female with inactivity, altered mental status, respiratory distress. FINDINGS: Exam performed from groin to ankle including visualized greater saphenous, common femoral, superficia l femoral, profunda femoral, popliteal, and trifurcation and posterior tibial vein regions. Visualized greater saphenous, common femoral, superficial femoral, profunda femoral, popliteal, trifu rcation, and posterior tibial vein regions demonstrate no evidence for intraluminal thrombus. There is phasic flow with normal compressibility and normal augmentation. There is some minimal lower leg subcutaneous diffuse edema. IMPRESSION: No evidence for deep venous thrombosis. Minimal superficial subcutaneous edema in the lower legs. POS: [facility]
--- NOTE | 2018-07-18 09:32 | PRG ---
DATE OF SERVICE: 07/18/2018 A 35 minutes critical care time. SUBJECTIVE: This patient remains intubated on mechanical ventilation. She had a fever last night. She was cultured and started on antibiotics. Dr. Ghotra thought she might be having seizures, and she was started on Keppra. PHYSICAL EXAMINATION: VITAL SIGNS: On exam, temperature is 98.5 with a T-max of 102.0, pulse is 68, blood pressure 159/68. A 24-hour intake 2668 and output 2735. HEENT EXAM: Does not open her eyes spontaneously. Oropharynx, endotracheal tube in place. NECK: Without adenopathy or JVD. LUNGS: Clear without wheezing or rhonchi. CARDIAC: S1 and S2 regular without audible murmur. ABDOMEN: Soft and protuberant. EXTREMITIES: No clubbing or cyanosis. She has trace edema. NEUROLOGICAL: She can move her right side to commands. IMAGING: Chest x-ray shows a properly placed endotracheal tube about 4 cm above the parrish. The jinny g may looked clear. She has cardiomegaly, so it was difficult to see the left base. LABORATORY DATA: White blood cell count 9.0, hematocrit 32.5, platelet count 150. PH 7.51, pCO2 of 30, pO2 of 72 that is on SIMV rate 14, tidal volume 500, PEEP 5, pressure support 10, FiO2 30%. Sodi um 133, potassium 3.6, chloride 104, CO2 of 23, BUN 35, creatinine 0.7, glucose 132. ASSESSMENT: 1. Acute respiratory failure, requiring mechanical ventilation. 2. Cerebrovascular accident with parenchymal brain hemorrhage. 3. Status post being anticoagulated for atrial fibrillation. 4. Hyponatremia, which is better. 5. Fever. 6. Possible seizure. PLAN: 1. I will decrease the patient's ventilatory rate. 2. I would assume she is probably going to need a tracheostomy feeding tube given that it is going t o take some time for her neurologic status to improve. 3. She was started on Levaquin last night for fever. Culture results will be followed. I spent a significant amount of time talking with the family at bedside.
[2018-07-18] MEDS: Amlodipine 10 MG TAB PO SCH (09:38)
[2018-07-18] MEDS: Ascorbic Acid 500 mg Chewable Tablet PO SCH (09:38)
[2018-07-18] MEDS: Cyanocobalamin (Vitamin B-12) 1,000 MCG TAB PO SCH (09:39)
[2018-07-18] MEDS: Lisinopril 20 MG TAB PO SCH ×2 (09:42→19:47)
[2018-07-18] MEDS: OXcarbazepine 300 MG TAB PO SCH (09:42)
[2018-07-18] MEDS: Pantoprazole 40 MG VIAL IVP SCH ×2 (09:42→19:47)
[2018-07-18] MEDS: TROSPIUM 20 MG TABLET PO SCH ×2 (09:43→19:47)
--- NOTE | 2018-07-18 09:53 | RAD ---
SEMIUPRIGHT PORTABLE CHEST 1 VIEW: HISTORY: A 73-year-old female with a history of respiratory insufficiency. COMPARISON: 07/17/18. FINDINGS: Stable left support tubes. Cardiomegaly with bilateral vascular congestion and some pleural effusion s. IMPRESSION: Stable vascular congestion and pleural effusions and cardiomegaly. Continued short-term followup. POS: [facility]
[2018-07-18 15:38] LABS: Sodium 136 mmol/L (136-145)
[2018-07-18] MEDS: Sodium Chloride 0.9% 1,000 ML IV SCH (18:12)
[2018-07-18] MEDS: Escitalopram Oxalate 20 mg Tablet PO SCH (19:46)
[2018-07-18] MEDS: Pravastatin Sodium 20 MG TAB PO SCH (19:47)
[2018-07-18] MEDS: Labetalol HCl 100 MG/20 ML VIAL SLOW IVP PRN (20:14)
[2018-07-19 03:46] LABS: #Eosinphils 0.1 thou/uL (0.0-0.7); #Lymphocytes 0.6 thou/uL (1.20-3.40); #Monocytes 0.6 thou/uL (0.11-0.59); #Neutrophils 6.7 thou/uL (1.40-6.50); %Eosinophils 1.1 % (0.0-10.0); %Lymphocytes 7.3 % (21.0-51.0); %Monocytes 7.6 % (0.0-10.0); %Neutrophils 84.1 % (42.0-75.0); Mean Corpuscular Volume 88.5 fL (78.0-98.0); Mean Platelet Volume 7.9 fL (7.4-10.4); Platelet Count 136 thou/uL (130-400); RBC Distribution Width 13.6 % (11.5-14.5); Red Blood Cell (RBC) Count 3.55 mill/uL (4.20-5.40); White Blood Cell (WBC) Count 7.9 thou/uL (4.8-10.8)
[2018-07-19 04:03] LABS: Anion Gap 9 mmol/L (10-20); BUN (Urea Nitrogen) 29 mg/dL (9.8-20.1); Calc. Creatinine Clearance 144 mL/min (70-130); Calcium 9.2 mg/dL (7.8-10.44); Carbon Dioxide 26 mmol/L (23-31); Chloride 104 mmol/L (98-107); Estimated GFR-MDRD Greater than 90; Glucose 122 mg/dL (83-110); Potassium 3.5 mmol/L (3.5-5.1); Sodium 135 mmol/L (136-145)
[2018-07-19 06:48] LABS: Actual Bicarbonate (HCO3a) 27.3 mEq/L (22-28); Base Excess (BEa) 4.4 mEq/L (-2.0 to +3.0); CO2 Tension 34.5 mmHg (35.0-45.0); Carboxyhemoglobin (COHb) 0.8 gm% (0.0-3.0); Hemoglobin (Hb) 11.6 g/dL (12.0-16.0); O2 Tension (PaO2) 72.5 mmHg (> 70.0); pH, Arterial 7.52 (7.35-7.45)
[2018-07-19 06:49] LABS: ALV-art Gradient 96.775 (0-20); Calcium, Ionized 1.24 mmol/L (1.12-1.30); Potassium - ABG Lab 3.4 mmol/L (3.70-5.30); Puncture Site RR
--- NOTE | 2018-07-19 07:33 | PRG ---
DATE OF SERVICE: 07/19/2018 SUBJECTIVE: I saw Ms. Landaverde in her ICU room this morning. Her is at the bedside. No event s were reported yesterday. She is back on Precedex for sedation and it is running in the low dose. As I entered the room, Ms. Landaverde starts to prepare her hand for her examination. She knows that I a m going to ask her to move her fingers and thumb and indeed she follows commands quite well. She patel ses her right thumb quickly. She holds up two fingers nicely. She wiggles her toes to command. The re is no movement on the left side for me. She has not opened her eyes for me yet. Ms. Landaverde is past the plateau of her intracerebral edema. I think she will be able to be managed me dically, henceforth. The likelihood of surgical intervention is quite low. We should keep her sodiu m towards the normal range as her hyponatremia will worsen any swelling. As such, she is under fluid restriction and should not get hypotonic fluids. The patient's is aware that he will be approached with questions regarding trach and PEG this week. She may wake to the point that she does not need those in the 1-2 days, but I think it is hig hly likely that she will and he understands this.
[2018-07-19] MEDS: Amlodipine 10 MG TAB PO SCH (08:23)
[2018-07-19] MEDS: Ascorbic Acid 500 mg Chewable Tablet PO SCH (08:23)
[2018-07-19] MEDS: OXcarbazepine 300 MG TAB PO SCH (08:24)
[2018-07-19] MEDS: TROSPIUM 20 MG TABLET PO SCH ×2 (08:24→20:27)
[2018-07-19] MEDS: Pantoprazole 40 MG VIAL IVP SCH ×2 (08:24→20:27)
[2018-07-19] MEDS: Lisinopril 20 MG TAB PO SCH ×2 (08:24→20:27)
--- NOTE | 2018-07-19 08:25 | RAD ---
CHEST 1 VIEW: Date: 07/19/18 COMPARISON: 07/18/18. HISTORY: Ventilated patient. Respiratory distress. FINDINGS: Portable semiupright chest radiograph demonstrates an endotracheal tube, nasogastric tube, and left-s ided transvenous pacemaker, unchanged. Large cardiac silhouette. Pulmonary vessels are prominent. Pat enrique interstitial opacities throughout the lung parenchyma. No consolidation or masses. No pneumothora x or osseous abnormalities. IMPRESSION: No significant interval change. POS: [facility]
[2018-07-19] MEDS: Cyanocobalamin (Vitamin B-12) 1,000 MCG TAB PO SCH (08:37)
[2018-07-19] MEDS ORDERED: Potassium Phosphate 9 MMOL in Sodium Chloride 0.9% 100 ML IVPB PRN ×2 (13:00→14:01)
[2018-07-19] MEDS ORDERED: Magnesium 2 GM/NS 0.9% 100 ML 2 GM in Premix Bag 1 BAG IVPB PRN ×2 (13:00→14:01)
[2018-07-19] MEDS ORDERED: Potassium Phosphate 12 MMOL in Sodium Chloride 0.9% 250 ML 250 ML IV PRN ×2 (13:00→14:01)
[2018-07-19] MEDS ORDERED: Potassium Phosphate 15 MMOL in Sodium Chloride 0.9% 250 ML 250 ML IV PRN ×2 (13:00→14:01)
[2018-07-19] MEDS ORDERED: Magnesium Oxide 400 MG TAB PO PRN ×4 (13:00→14:01)
[2018-07-19] MEDS ORDERED: Potassium Chloride 20 MEQ TAB PO PRN ×2 (13:00→14:01)
[2018-07-19] MEDS ORDERED: CCU ELECTROLYTE REPLACEMENT PROTOCOL FS PRN ×2 (13:00→14:01)
[2018-07-19] MEDS ORDERED: Potassium Chloride 40 MEQ in Premix Bag 1 BAG IVPB PRN ×2 (13:00→14:01)
[2018-07-19] MEDS ORDERED: Potassium Chloride 40 MEQ in Sodium Chloride 0.9% 250 ML 250 ML IVPB PRN ×2 (13:00→14:01)
[2018-07-19] MEDS: Sodium Chloride 0.9% 1,000 ML IV SCH (14:48)
[2018-07-19 15:21] LABS: Sodium 133 mmol/L (136-145)
--- NOTE | 2018-07-19 17:59 | PRG ---
DATE OF SERVICE: 07/19/2018 SUBJECTIVE: Monique Landaverde had been hemodynamically stable. OBJECTIVE: Blood pressure 143/57, heart rate 60, respiratory rate 16, oximetry is 95. OBJECTIVE: LUNGS: Clear. HEART: Regular rhythm. ABDOMEN: Soft. IMAGING: She had another CT done yesterday that showed no change in the parenchymal brain hemorrhage , still left hemiplegic. Chest radiograph today is unchanged. LABORATORY DATA: Blood gas shows pH 7.5, CO2 of 34, PO2 72. This is on an FIO2 of 30%. Essentially unchanged as well. IMPRESSION: Hemorrhagic cerebrovascular with midline shift, clinically stable. I doubt she will be weanable without a trach and a PEG, but will give her another couple of days and by Thursday, if the re is no significant neurological improvement, we will follow up consult surgery for the above. I me t with the and answered all of his questions.
[2018-07-19] MEDS: Escitalopram Oxalate 20 mg Tablet PO SCH (20:27)
[2018-07-19] MEDS: Pravastatin Sodium 20 MG TAB PO SCH (20:27)
[2018-07-19] MEDS: Labetalol HCl 100 MG/20 ML VIAL SLOW IVP PRN (21:43)
--- NOTE | 2018-07-20 02:17 | CON ---
DATE OF CONSULTATION: 07/19/2018 HISTORY: Kerry Landaverde is a 73-year-old white female with a history of paroxysmal atrial fibrillation and has undergone multiple ablations. In November , she had a pacemaker placed. She has been on Xarelto chronically. She initially was doing well on 07/15/2018, the morning of admission at 3:30 a.m. when she got to go the bathroom. However, when her awoke later in the morning, she was found to be unresponsive. She was taken to [facility], intubated and transferred here. She was found to have an intracranial bleed. PAST MEDICAL HISTORY: Atrial fibrillation status post ablations, hyperlipidemia , hypertension and bipolar disorder. OPERATIONS: Radiofrequency ablation of atrial fibrillation, appendectomy, pacemaker, cholecystectomy, hysterectomy. SOCIAL HISTORY: She does not smoke or drink. REVIEW OF SYSTEMS: Unobtainable due to patient being unresponsive. PHYSICAL EXAMINATION: VITAL SIGNS: Blood pressure 145/70, pulse of 64, sinus rhythm at the present time. She did have an episode of atrial fibrillation earlier today with heart rates in the 120s to 130s. HEENT: Pupils are sluggish. CHEST: Clear. CARDIAC: S1 and S2 are normal, without any S3, S4 or murmurs. ABDOMEN: Normal bowel sounds, without tenderness or organomegaly. EXTREMITIES: Revealed no clubbing, cyanosis or edema. NEUROLOGIC: Patient is unresponsive. IMAGING DATA AND LABORATORY DATA: EKG today revealed atrial fibrillation with rate of 123 per minute. The end of the tracing appears that the patient returned to sinus rhythm; however, there is ventricular spike and does not appear that there is a ventricular capture as is the case on prolonged rhythm strip that is present. Sodium 135, potassium 3.5, chloride 104, carbon dioxide 26, BUN 29, creatinine 0.58, BNP 133.1, hemoglobin 11.7, hematocrit 31.4, white count 7900, platelets 136,000. IMPRESSION: 1. Spontaneous intracranial hemorrhage. The patient's denies that she had any falls. This is while she was on Xarelto. 2. Paroxysmal atrial fibrillation status post multiple ablations. She had an episode today with heart rate of 120-130. 3. Status post pacemaker placement. It appears that the ventricular lead is not pacing. In looking at her chest films, the admission film from 07/15/2018 shows possible prolapse of the ventricular lead up into the presumably the left internal jugular vein. It also appears that there has been movement in the atrial lead. 4. Chest x-ray the following day does not have the appearance of the prolapse. However, in looking at the remainder of the films, it appears that there has been some movement in the ventricular lead, and now it has essentially formed a J in the ventricle. 5. Hyperlipidemia. 6. Hypertension. 7. History of bipolar disorder. PLAN: [employer] has been called to check the ventricular thresholds. At the present time, I am somewhat hesitant to place her on any suppressant medication for her paroxysmal atrial fibrillation until I am certain that we have normal function of the ventricular lead. Certainly with her intracranial hemorrhage, her long-term prognosis is poor. Addendum: Pacemaker was interrogated and appears to be functioning normally. The ventricular lead is positioned for His pacing. There is still narrow complex QRS with a pause just before it. However, there is definite movement of the leads appearing on chest x-rays and this may need to be addressed in the future depending upon her neurological outcome. ORIN
[2018-07-20 05:49] LABS: #Eosinphils 0.2 thou/uL (0.0-0.7); #Lymphocytes 0.5 thou/uL (1.20-3.40); #Monocytes 0.6 thou/uL (0.11-0.59); #Neutrophils 7.1 thou/uL (1.40-6.50); %Eosinophils 2.3 % (0.0-10.0); %Lymphocytes 6.2 % (21.0-51.0); %Monocytes 7.2 % (0.0-10.0); %Neutrophils 84.3 % (42.0-75.0); Mean Corpuscular HGB CONC 34.3 g/dL (32.0-36.0); Mean Corpuscular Hemoglobin 30.5 pg (27.0-31.0); Mean Corpuscular Volume 88.7 fL (78.0-98.0); Mean Platelet Volume 8.1 fL (7.4-10.4); Platelet Count 170 thou/uL (130-400); RBC Distribution Width 13.6 % (11.5-14.5); Red Blood Cell (RBC) Count 3.62 mill/uL (4.20-5.40); White Blood Cell (WBC) Count 8.4 thou/uL (4.8-10.8)
[2018-07-20 05:58] LABS: Anion Gap 10 mmol/L (10-20); BUN (Urea Nitrogen) 28 mg/dL (9.8-20.1); Calc. Creatinine Clearance 152 mL/min (70-130); Calcium 9.2 mg/dL (7.8-10.44); Carbon Dioxide 24 mmol/L (23-31); Chloride 104 mmol/L (98-107); Estimated GFR-MDRD Greater than 90; Glucose 120 mg/dL (83-110); Potassium 3.8 mmol/L (3.5-5.1); Sodium 134 mmol/L (136-145)
[2018-07-20] MEDS: OXcarbazepine 300 MG TAB PO SCH (10:50)
--- NOTE | 2018-07-20 11:22 | PRG ---
DATE OF SERVICE: 07/20/2018 Ms. Landaverde was seen in her ICU room this morning. She remains on the ventilator. Her is at the bedside. I reviewed the vital signs, they are stable. Neurological function is stable as well. To a soft voice she will squeeze my hand, she lifted her thumb, she wiggles her toes, she even attempted open her eyes when asked her to do so. She got the left and right lids open about a few millimeters. Ms. Landaverde seems to tolerate Etomidate sedation well. Her neurological function remained stable and I believe that she will not require any surgical intervention. The next step in her care would be a tracheostomy and gastrostomy and placement in a fpc until she is strong enough for rehabilitation. I would like to scan her brain in about 4 weeks. Between now and the follow up scan, I think we should avoid blood thinning medications. 15min MTDD
--- NOTE | 2018-07-20 11:23 | PRG ---
DATE OF SERVICE: 07/20/2018 Ms. Landaverde remains intubated on the ventilator, not responsive. PHYSICAL EXAMINATION: VITAL SIGNS: Blood pressure 120/60, pulse in the 70s. LUNGS: Clear. CARDIAC: Normal S1, normal S2. ABDOMEN: Soft, nontender. EXTREMITIES: Mild edema. ASSESSMENT: 1. Status post intracranial hemorrhage. 2. History of atrial fibrillation. 3. Pacemaker with increasing battery output to maintain threshold, but still functioning normally. PLAN: Continue supportive care. We will continue to follow with you.
--- NOTE | 2018-07-20 11:24 | RAD ---
PORTABLE CHEST: 07/20/2018 PROVIDED CLINICAL HISTORY: Respiratory insufficiency. COMPARISON: 07/19/2018 FINDINGS: The tip of the endotracheal tube projects slightly cranial to the thoracic inlet on the current study . An enteric catheter is again noted. There is a somewhat more conspicuous left perihilar parenchym al opacity. Prominence in each hilar region and cardiomegaly persist. No evidence for pneumothorax. Blunting of the left costophrenic angle may reflect pleural fluid. IMPRESSION: 1. Endotracheal tube positioning as above. 2. Development of left suprahilar parenchymal opacity. Followup recommended. POS: [facility]
[2018-07-20 11:31] LABS: Actual Bicarbonate (HCO3a) 25.6 mEq/L (22-28); Base Excess (BEa) 2.2 mEq/L (-2.0 to +3.0); CO2 Tension 35.3 mmHg (35.0-45.0); Hemoglobin (Hb) 11.3 g/dL (12.0-16.0); O2 Tension (PaO2) 69.9 mmHg (> 70.0); pH, Arterial 7.48 (7.35-7.45)
[2018-07-20 11:32] LABS: ALV-art Gradient 98.375 (0-20); Calcium, Ionized 1.25 mmol/L (1.12-1.30); Potassium - ABG Lab 3.69 mmol/L (3.70-5.30); Puncture Site RR
[2018-07-20] MEDS: Ascorbic Acid 500 mg Chewable Tablet PO SCH (14:46)
[2018-07-20] MEDS: Cyanocobalamin (Vitamin B-12) 1,000 MCG TAB PO SCH (14:46)
[2018-07-20] MEDS: Amlodipine 10 MG TAB PO SCH (14:46)
[2018-07-20] MEDS: Lisinopril 20 MG TAB PO SCH ×2 (14:47→19:55)
[2018-07-20] MEDS: Pantoprazole 40 MG VIAL IVP SCH ×2 (14:47→19:56)
[2018-07-20] MEDS: TROSPIUM 20 MG TABLET PO SCH ×2 (14:47→19:56)
[2018-07-20] MEDS: Sodium Chloride 0.9% 1,000 ML IV SCH (14:48)
[2018-07-20 16:10] LABS: Sodium 134 mmol/L (136-145)
--- NOTE | 2018-07-20 17:07 | PDOC.PN ---
- Subjective Encounter Start Date: 07/19/18 Encounter Start Time: 19:00 Subjective: f/u for spontaneous ICH conservatively managed remaining on mech -: ventilation. Mild response to voice and minimal movement of extremities. - Objective MAR Reviewed: Yes Vital Signs & Weight: Vital Signs (12 hours) Temp Pulse Resp BP Pulse Ox 07/20/18 14:49 73 127/66 07/20/18 14:47 141/57 H 07/20/18 14:46 67 141/57 H 07/20/18 14:00 16 07/20/18 12:30 67 141/57 H 07/20/18 12:00 15 07/20/18 10:15 60 129/47 L 07/20/18 10:00 15 07/20/18 08:00 98.3 F 67 15 95 07/20/18 07:14 63 130/60 07/20/18 07:00 98.3 F 07/20/18 06:00 18 Weight Admit Weight 229 lb 4.492 oz Weight 233 lb 11.04 oz Most Recent Monitor Data Heart Rate from ECG 65 NIBP 119/46 NIBP BP-Mean 72 Respiration from ECG 17 SpO2 98 I&O: 07/19/18 07/20/18 07/21/18 06:59 06:59 06:59 Intake Total 1510.8 2462 100 Output Total 1930 1750 370 Balance -419.2 712 -270 Result Diagrams: 07/20/18 05:28 07/20/18 15:08 Additional Labs: Microbiology 07/18/18 08:55 Urine cerna catheter Urine Culture - Final Enterococcus species 07/17/18 22:18 Venous blood - Left Hand Blood Culture - Preliminary NO GROWTH AT 48 HOURS 07/17/18 22:12 Venous blood - Right Hand Blood Culture - Preliminary NO GROWTH AT 48 HOURS Laboratory Tests 07/18/18 07/19/18 04:55 03:33 Hgb 11.2 L 11.0 L Radiology Reviewed by me: Yes (CT brain - R-sided ICH with 9mm L-shift, edema) EKG Reviewed by me: Yes (Tele - AV pacing) Phys Exam - Physical Examination minimal response to name, mech ventilated ETT in place HEENT: PERRLA, sclera anicteric, oral pharynx no lesions Neck: no nodes, no JVD, supple Respiratory: no wheezing, no rales, no rhonchi, clear to auscultation bilateral Cardiovascular: RRR, no significant murmur Gastrointestinal: soft, non-tender, no distention, positive bowel sounds Musculoskeletal: no edema, pulses present L hemiplegia, minimal response to name or commands Skin: no rash, normal turgor, cap refill <2 seconds Deviation from normal: Cerna with clear urine Dx/Plan (1) Spontaneous intraparenchymal intracranial hemorrhage, acute Code(s): I62.9 - NONTRAUMATIC INTRACRANIAL HEMORRHAGE, UNSPECIFIED Status: Acute Comment: spontaneous R-sided hemorrhage, conservative mgmt, no anticoagulation, halfway placement (2) Left hemiplegia Code(s): G81.94 - HEMIPLEGIA, UNSPECIFIED AFFECTING LEFT NONDOMINANT SIDE Status: Acute Comment: Secondary to #1, LTAC/halfway care options (3) Acute respiratory failure with hypoxia Code(s): J96.01 - ACUTE RESPIRATORY FAILURE WITH HYPOXIA Status: Acute Comment: SIMV, likely will need Trach/PEG and slow wean at LTAC (4) Atrial fibrillation Code(s): I48.91 - UNSPECIFIED ATRIAL FIBRILLATION Status: Chronic Comment: Rate-control measures, Pacer with normal functioning, no anticoagulation due to ICH - Plan continue antibiotics, PT/OT, licensed social worker, respiratory therapy, DVT proph w/ SCDs Continue critical support -: Likely will need halfway mgmt with Trach/PEG -: Nutritional support with TF's -: CM for LTAC options -: No anticoagulation or antiplatelet therapy * AM lab: BMP, CBC
--- NOTE | 2018-07-20 17:23 | PDOC.PN ---
- Subjective Encounter Start Date: 07/20/18 Encounter Start Time: 16:30 Subjective: f/u for spontaneous R-sided ICH conservatively managed on mech vent -: support. - Objective MAR Reviewed: Yes Vital Signs & Weight: Vital Signs (12 hours) Temp Pulse Resp BP Pulse Ox 07/20/18 14:49 73 127/66 07/20/18 14:47 141/57 H 07/20/18 14:46 67 141/57 H 07/20/18 14:00 16 07/20/18 12:30 67 141/57 H 07/20/18 12:00 15 07/20/18 10:15 60 129/47 L 07/20/18 10:00 15 07/20/18 08:00 98.3 F 67 15 95 07/20/18 07:14 63 130/60 07/20/18 07:00 98.3 F 07/20/18 06:00 18 Weight Admit Weight 229 lb 4.492 oz Weight 233 lb 11.04 oz Most Recent Monitor Data Heart Rate from ECG 65 NIBP 119/46 NIBP BP-Mean 72 Respiration from ECG 17 SpO2 98 I&O: 07/19/18 07/20/18 07/21/18 06:59 06:59 06:59 Intake Total 1510.8 2462 100 Output Total 1930 1750 370 Balance -419.2 712 -270 Result Diagrams: 07/20/18 05:28 07/20/18 15:08 Additional Labs: Microbiology 07/18/18 08:55 Urine cerna catheter Urine Culture - Final Enterococcus species 07/17/18 22:18 Venous blood - Left Hand Blood Culture - Preliminary NO GROWTH AT 48 HOURS 07/17/18 22:12 Venous blood - Right Hand Blood Culture - Preliminary NO GROWTH AT 48 HOURS Laboratory Tests 07/18/18 07/19/18 04:55 03:33 Hgb 11.2 L 11.0 L Radiology Reviewed by me: Yes (PCXR - no significant change, lines/tubes in place) EKG Reviewed by me: Yes (Tele - AV pacing) Phys Exam - Physical Examination sedate on mech vent ETT in place HEENT: PERRLA, sclera anicteric, oral pharynx no lesions Neck: no nodes, no JVD, supple, full ROM Respiratory: no wheezing, no rales, no rhonchi, clear to auscultation bilateral S1, S2 Cardiovascular: RRR, no significant murmur, no rub, gallop Gastrointestinal: soft, non-tender, no distention, positive bowel sounds Musculoskeletal: no edema, pulses present L hemiplegia, minimal response to stimulus Skin: no rash, normal turgor, cap refill <2 seconds Deviation from normal: Cerna with clear urine Dx/Plan (1) Spontaneous intraparenchymal intracranial hemorrhage, acute Code(s): I62.9 - NONTRAUMATIC INTRACRANIAL HEMORRHAGE, UNSPECIFIED Status: Acute Comment: spontaneous R-sided hemorrhage, conservative mgmt, no anticoagulation, jail placement options (2) Left hemiplegia Code(s): G81.94 - HEMIPLEGIA, UNSPECIFIED AFFECTING LEFT NONDOMINANT SIDE Status: Acute Comment: Secondary to #1, LTAC/jail care options (3) Acute respiratory failure with hypoxia Code(s): J96.01 - ACUTE RESPIRATORY FAILURE WITH HYPOXIA Status: Acute Comment: SIMV, likely will need Trach/PEG and slow wean at LTAC (4) Atrial fibrillation Code(s): I48.91 - UNSPECIFIED ATRIAL FIBRILLATION Status: Chronic Comment: Rate-control measures, Pacer with normal functioning, no anticoagulation due to ICH - Plan rn social services, speech therapy, respiratory therapy, DVT proph w/SCDs Continue critical support -: Likely will need Trach/PEG -: Nutritional support with TF's -: CM for LTAC options -: AM lab: BMP, CBC * PCXR in am
--- NOTE | 2018-07-20 17:41 | EKG ---
Test Reason : Blood Pressure : / mmHG Vent. Rate : 123 BPM Atrial Rate : 131 BPM P-R Int : 000 ms QRS Dur : 090 ms QT Int : 340 ms P-R-T Axes : 000 061 -67 degrees QTc Int : 486 ms Atrial fibrillation with rapid ventricular response Abnormal ECG When compared with ECG of 15-JUL-2018 06:36, Atrial fibrillation has replaced Electronic ventricular pacemaker Vent. rate has increased BY [address] Aditi CASTILLO ([id number]) on 07/20/2018 5:40:47 PM Referred By: AALIYAH Confirmed By:DR. Aditi CASTILLO
--- NOTE | 2018-07-20 18:55 | PRG ---
DATE OF SERVICE: 07/20/2018 Parten follow commands with her right side. She is still flaccid on the left. PHYSICAL EXAMINATION: VITAL SIGNS: Her vital signs remained stable. Heart rate is 85, respiratory rate is 14, blood press ure 152/82. LUNGS: Clear. HEART: Regular rhythm. ABDOMEN: Soft. IMAGING: Chest radiograph is hazy at the left base. I suspect this is just atelectasis with mucus p lugging. IMPRESSION: Respiratory failure associated with cerebrovascular accident. I have placed a consult f or tracheostomy and PEG. I met with her and answered all of his questions. He is agreeable to this approach.
[2018-07-20] MEDS: Escitalopram Oxalate 20 mg Tablet PO SCH (19:55)
[2018-07-20] MEDS: Pravastatin Sodium 20 MG TAB PO SCH (19:56)
[2018-07-21] MEDS: Sodium Chloride 0.9% 1,000 ML IV SCH ×2 (05:45→20:13)
[2018-07-21 05:50] LABS: Anion Gap 12 mmol/L (10-20); BUN (Urea Nitrogen) 24 mg/dL (9.8-20.1); Calc. Creatinine Clearance 155 mL/min (70-130); Calcium 9.2 mg/dL (7.8-10.44); Carbon Dioxide 23 mmol/L (23-31); Chloride 104 mmol/L (98-107); Estimated GFR-MDRD Greater than 90; Glucose 116 mg/dL (83-110); Sodium 135 mmol/L (136-145)
[2018-07-21 05:52] LABS: Band 1 % (5-11); Eosinophils 2 % (0-10); Hemoglobin 11.5 g/dL (12.0-16.0); Lymphocytes 10 % (21-51); MDiff Complete? YES; Mean Corpuscular HGB CONC 34.2 g/dL (32.0-36.0); Mean Corpuscular Hemoglobin 30.3 pg (27.0-31.0); Mean Corpuscular Volume 88.5 fL (78.0-98.0); Mean Platelet Volume 8.5 fL (7.4-10.4); Monocytes 3 % (0-10); Neutrophil 84 % (42-75); PLT Morphology Comment Appears Adequate; Platelet Count 206 thou/uL (130-400); RBC Distribution Width 13.5 % (11.5-14.5); Red Blood Cell (RBC) Count 3.81 mill/uL (4.20-5.40); White Blood Cell (WBC) Count 9.6 thou/uL (4.8-10.8)
[2018-07-21 07:52] LABS: Actual Bicarbonate (HCO3a) 24.2 mEq/L (22-28); Base Excess (BEa) 1.6 mEq/L (-2.0 to +3.0); CO2 Tension 31.5 mmHg (35.0-45.0); O2 Tension (PaO2) 76.8 mmHg (> 70.0)
[2018-07-21 07:53] LABS: Calcium, Ionized 1.25 mmol/L (1.12-1.30); Carboxyhemoglobin (COHb) 1.2 gm% (0.0-3.0); Hemoglobin (Hb) 11.9 g/dL (12.0-16.0); Potassium - ABG Lab 3.87 mmol/L (3.70-5.30); Puncture Site RR
[2018-07-21 07:54] LABS: ALV-art Gradient 97.725 (0-20)
--- NOTE | 2018-07-21 08:53 | CON ---
DATE OF CONSULTATION: 07/20/2018 ELECTROPHYSIOLOGIC CONSULTATION REPORT REFERRING PHYSICIAN: Brittanie Arora M.D. I am seeing Ms. Landaverde at our [facility] as an electrophysiology data governance consultant. Her problems a re: 1. Acute presentation with hemorrhagic stroke in the setting of Xarelto use. A. History of persistent atrial fibrillation to a left atrial ablation procedure on 06/30/2017 with atrial flutter in the septum and ablation of atrial flutter and in the anterior roof. B. Prior ablation on 08/26/2016. Mitral isthmus and CT ablation as well as coronary sinus ablation. C. Ablation on 12/23/2015 for atypical atrial flutter. D. Atrial ablation on 03/15/2011, isolating the pulmonary veins. E. Paroxysmal recurrence of atrial arrhythmias still documented. 2. Prolonged DC prompting a dual chamber pacemaker with His bundle and ventricular pacing on 018 with Medtronic Advisa device. A. Adequate lead parameters are seen slightly higher RV threshold was still adequately pacing. 3. MONI VASc score of 3 with hypertension, age, and gender, on Xarelto anticoagulation. 4. Bipolar disorder. 5. History of seizure disorder. 6. History of dyslipidemia. 7. History of reactive airway disease. ALLERGIES: CODEINE, FISH CONTAINING PRODUCTS, PENICILLIN, PROPAFENONE, SHELLFISH. MEDICATIONS AT HOME: Included ubidecarenone, pravastatin, Trileptal, lisinopril, Lexapro, Xarelto, v itamin C, vitamin B12, VESIcare, Webster Thyroid, amlodipine. SUBJECTIVE: Ms. Landaverde is here with symptoms of acute stroke. She was diagnosed to have an intracra nial bleed in the basal ganglia, small amount of right to left midline shift. She has been monitored since I was requested to evaluate regarding her pacemaker function and arrhythmia. Currently, she is intubated and sedated. She has signs of neurologic dysfunction, most of the histor y obtained from the chart and the family. Since that she presented in the ER on 07/15/2018 with sign s of acute mental status change, poor responsiveness, marked hypertension. She was diagnosed with __ ___ stroke based on her first CT scan. Anticoagulants were held. She is admitted for supportive jovi sures. She has no new symptoms since then. Trach and PEG tube placement will be planned in the near future. OBJECTIVE DATA: VITAL SIGNS: Blood pressure 133/57, heart rate is 71, respiration is 12. The patient is afebrile. GENERAL: Woman in no apparent distress. NECK: Supple. Jugular veins not distended. CHEST: Coarse without crackles. CARDIOVASCULAR: Heart sounds are regular to rate and rhythm. No murmur or gallop. ABDOMEN: Benign. Bowel sounds positive. EXTREMITIES: No edema, clubbing or cyanosis. NEUROLOGIC: The patient with poor responsiveness, some distribution signs, but still responds to aureliano bal stimuli per the . DATABASE: The telemetry strips reveal sinus rhythm, intermittent episodes of atrial flutter appears to be atypical atrial tachycardia. Other EKGs do reveal sinus rhythm with ventricular pacing with na rrow QRS. LABORATORY DATA: White cells are 8.1 and hemoglobin 11, platelet count is 170. Sodium 134, potassiu m 3.8, BUN is 28, creatinine 0.56. Chest x-ray is reviewed revealing adequate lead positions in the atrium and the ventricle and His bun dle. Interrogation device reveals a Trekeatronic Advisa DR dual chamber pacemaker, but longevity of 2.9 7 volts, which is up to 3 years. Lead parameters are adequate sensing 3 and 6 millivolts respectivel y. Capture thresholds in the RV is 2.75 volts at 0.6 milliseconds, RA 1 volt at 0.4 milliseconds. T he patient has intermittent atrial arrhythmias documented, but with low burden. ASSESSMENT AND PLAN: Ms. Landaverde is a 73-year-old woman with history of atrial arrhythmias, also DC p rolongation with associated fatigue. She has a dual chamber pacemaker with His bundle territory paci ng in place. Unfortunately, she is admitted for post-intracranial bleed and she is now off Xarelto. 1. I find her pacing function is adequate, slightly elevated RV/His bundle pacing thresholds, but wi th unexpected in this kind of lead position. Still adequate battery voltage left for about 2 years o f function. Continue routine monitoring. 2. Atrial arrhythmias with intermittent recurrence. At this point, she has contraindication for ant icoagulation, mostly she is in sinus rhythm, likely will hold off oral anticoagulation indefinitely. 3. Acute hemorrhagic stroke, on supportive measures. Discussed with Dr. Arora and the family, will follow with you.
--- NOTE | 2018-07-21 09:13 | RAD ---
PORTABLE AP CHEST RADIOGRAPH: DATE: 07-21-18 History: On ventilator. Comparison: 07-20-18 FINDINGS: Endotracheal tube and nasogastric tubes are stable in position. Dual lead left subclavian cardiac pac emaking device remains in place. The cardiac silhouette is enlarged. There is increase in perihilar i nterstitial densities with interstitial and patchy parenchymal changes in the right infrahilar region . Greater parenchymal opacity was appreciated within the left midlung zone on prior study. Linear sca rring versus atelectasis is seen in the right midlung zone. Again noted is partial visualization of a fracture proximal right humerus. Vascular calcification seen in the thoracic aorta. IMPRESSION: 1. Increased perihilar interstitial and patchy parenchymal densities which could be related to infect ious process or element of pulmonary edema. 2. Cardiomegaly. 3. Lines and tubes stable in position. 4. Stable remote fracture right proximal humerus. POS: [facility]
[2018-07-21] MEDS: Lisinopril 20 MG TAB PO SCH ×2 (10:08→21:04)
[2018-07-21] MEDS: Ascorbic Acid 500 mg Chewable Tablet PO SCH (10:09)
[2018-07-21] MEDS: Amlodipine 10 MG TAB PO SCH (10:10)
[2018-07-21] MEDS: OXcarbazepine 300 MG TAB PO SCH (10:11)
[2018-07-21] MEDS: TROSPIUM 20 MG TABLET PO SCH ×2 (10:11→21:04)
[2018-07-21] MEDS: Pantoprazole 40 MG VIAL IVP SCH ×2 (10:12→21:03)
[2018-07-21] MEDS: Cyanocobalamin (Vitamin B-12) 1,000 MCG TAB PO SCH (10:13)
--- NOTE | 2018-07-21 12:53 | ULT ---
BILATERAL LOWER EXTREMITY VENOUS ULTRASOUND WITH DOPPLER: Comparison: 07-18-18 History: Stroke. Risk for a DVT. Technique: Grayscale, color flow, doppler imaging using spectral waveform analysis performed of the r ight and left lower extremity venous systems. FINDINGS: Bilaterally there is compressibility, presence of flow and augmentation of the common femoral vein, f emoral vein, and popliteal vein. There is flow in bilateral posterior tibial veins, greater saphenous veins and profunda femoral veins. IMPRESSION: No evidence of thrombus in the left or right lower extremity venous system. POS: [facility]
[2018-07-21] MEDS ORDERED: Esmolol 100 MG/10 ML VIAL ONE (14:27)
--- NOTE | 2018-07-21 15:34 | HP ---
HISTORY OF PRESENT ILLNESS: Kerry Landaverde is a 73-year-old female suffering a hemorrhagic stroke with respiratory failure and dysphagia. I have been asked by Dr. Duval to place a PEG tube and trach. T his was facilitate ventilatory weaning and provide feedings. The patient had been on anticoagulants and given Kcentra. She was initially seen in the emergency room, found by her family the morning whe n she lost control left side of her body. She is intubated. CAT scan of brain revealed intracerebra l hemorrhage of the basal ganglion. into the ventricular system. was medium in size, c aused a small amount of right to left midline shift. She is treated nonoperatively, monitored in the ICU, required ventilatory support. She is followed up with CAT scans. She has been stable. She collins s had uncontrolled hypertension, she is on Precedex. PAST SURGICAL HISTORY: Laparoscopic cholecystectomy that I performed in the past, ablations in the p ast, pacemaker placement, appendectomy, hysterectomy. PAST MEDICAL HISTORY: Cardiac history of arrhythmias, atrial fibrillation, hyperlipidemia, hypertens ion. ALLERGIES: CODEINE, IODINE, PENICILLIN. REVIEW OF SYSTEMS: Not possible. DRUG USE: None. TOBACCO USE: None. MEDICATIONS: The patient has been on Xarelto as outpatient. PHYSICAL EXAMINATION: GENERAL: Patient is intubated, sedated, and not communicative. Nurses report she follows commands w ere not on sedation. VITAL SIGNS: Dashawn 5 feet, 7 inches. Weight 234 pounds, 36 BMI, pulse 72, blood pressure 154/60, he art rate 75. HEENT: Unremarkable. LUNGS: Clear to auscultation. CARDIAC: Regular rate and rhythm without murmur. ABDOMEN: Soft, nontender. EXTREMITIES: Unremarkable. ASSESSMENT AND PLAN: 1. Respiratory failure, plan tracheostomy, risks and benefits explained, she consents. 2. Dysphagia, basal ganglion hemorrhage, hypertensive stroke. Plan PEG tube. Risks and benefits di scussed, they consent. 3. History of coronary disease with tachyarrhythmias with pacemaker, defibrillator.
[2018-07-21 15:41] LABS: Sodium 136 mmol/L (136-145)
--- NOTE | 2018-07-21 15:43 | PRG ---
DATE OF SERVICE: 07/21/2018 SUBJECTIVE: I saw Ms. Landaverde in the ICU this morning. She is scheduled for trach and PEG today. I spoke with her . Ms. Landaverde continues to do well in the Precedex for sedation. allows her to participate in examination, but not be bothered by the endotracheal tube significantly. Her vital signs have been stable. Her blood pressure is being well controlled. On neurological exam ination, she attempts to open her eyes to voice. There is some opening of the right lid and lifting of the eyebrow. She does squeeze her right hand. She held up her thumb, she shows me 2 fingers and she wiggles her toes. She is not moving the left side, which is stable. Her sodium is in the low 130s, which is improved from her admission, still not up in the normal range . Ms. Landaverde is due for trach and PEG today. After that, we can start looking at placement in a [facility] acute care followed by inpatient rehabilitation. Eventually, we have to consider IVC filter plac ement and serial ultrasounds of lower extremities will be helpful in . I would not put her back on anticoagulation until resolution of this hemorrhage. Please call Neurosurgery with any further q uestions.
--- NOTE | 2018-07-21 17:42 | PRG ---
DATE OF SERVICE: 07/21/2018 SUBJECTIVE: I met with her today. He is on board with a trach and a PEG. This is scheduled for this afternoon. She had no significant change overnight. OBJECTIVE: VITAL SIGNS: Heart rates in the 70s, blood pressure has been stable, she has been afebrile. LUNGS: Clear. HEART: Regular rhythm. ABDOMEN: Soft. LABORATORY DATA: White count 9.6, hemoglobin 11.5, platelets 206,000. Sodium 135, potassium 4, chloride 104, bicarbonate 23, BUN 24, creatinine 0.55, pH 7.50, CO2 of 31, pO2 of 76. IMPRESSION: Respiratory failure after a hemorrhagic cerebrovascular accident, clinically stable. PLAN: Trach and PEG and then hopefully T-collar trial starting tomorrow. I met with the and answered all of his questions. MTDD
--- NOTE | 2018-07-21 18:06 | PRG ---
DATE OF SERVICE: 07/21/2018 ELECTROPHYSIOLOGY FOLLOWUP NOTE SUBJECTIVE: Ms. Landaverde remains intubated and sedated. No new developments overnight. OBJECTIVE DATA: VITAL SIGNS: Blood pressure is 125/84, heart rate 71, respirations 18 and temperature 99.4 degrees F ahrenheit. GENERAL: Reveals woman with no apparent distress, intubated and sedated. She has no apparent distre ss. She is somewhat poorly responsive, but responds to verbal stimuli of the . NECK: Supple. Jugular veins are not distended. CHEST: Coarse. No crackles. CARDIOVASCULAR: Heart sounds are regular to rate and rhythm. Left precordial pacing insertion site is well healed. ABDOMEN: Benign. Bowel sounds positive. EXTREMITIES: Lower extremities without edema, clubbing or cyanosis. LABORATORY DATA: White blood cells 9.6, hemoglobin 11.5, platelet count is 206,000. Sodium 135, pot assium 4, BUN is 24, creatinine 0.55. I reviewed the rhythm strips revealing sinus rhythm with His b undle pacing with intermittent atrial rhythm with variable AV conduction is seen and seems to be in a trial tachycardia with 1:1 conducted complexes. ASSESSMENT AND PLAN: Ms. Landaverde is a 73-year-old woman with history of multiple atrial arrhythmias. She has been on Xarelto for anticoagulation. She developed intracranial hemorrhage. She has an adequately functioning dual chamber pacemaker in place with His bundle pacing and the RV i s well documented. At this point, she remains stable from the arrhythmia standpoint. She has occasional atrial tachycar denver episodes, but no true atrial fibrillation. At this point, I would continue to hold anticoagulati on indefinitely. Routine monitoring of her device is advised. Intracranial hemorrhage. So far, poor recovery. She is going to receive supportive measures with PE G and trach placement and likely transfer. At this point, I will sign off. Thank you for the consult. I would be happy to see this lady back i n the future if felt necessary.
[2018-07-21] MEDS ORDERED: Lidocaine 1% (PF) 30 ML VIAL ONE (18:27)
[2018-07-21] MEDS ORDERED: Lidocaine 2% PF Inj 2 ML VIAL ONE (18:27)
[2018-07-21] MEDS ORDERED: Bupivacaine HCl 0.5%/Epinephrine 1:200,000/PF 30 ml Vial ONE (18:27)
--- NOTE | 2018-07-21 20:05 | PDOC.PN ---
- Subjective Encounter Start Date: 07/21/18 Encounter Start Time: 11:00 Subjective: f/u for resp failure and ICH. Planning Trach/PEG with nutrional support -: planned. - Objective MAR Reviewed: Yes Vital Signs & Weight: Vital Signs (12 hours) Temp Pulse Pulse Pulse Resp BP BP 07/21/18 18:25 70 138/62 07/21/18 18:00 17 07/21/18 16:00 99.4 F 17 07/21/18 14:54 73 07/21/18 14:00 18 07/21/18 12:55 71 125/84 07/21/18 12:00 99.3 F 16 07/21/18 10:40 72 154/60 H 07/21/18 10:10 71 152/64 H 07/21/18 10:08 152/64 H 07/21/18 10:00 17 07/21/18 08:45 75 74 139/61 BP Pulse Ox Pulse Ox 07/21/18 18:25 07/21/18 18:00 07/21/18 16:00 07/21/18 14:54 07/21/18 14:00 07/21/18 12:55 07/21/18 12:00 07/21/18 10:40 07/21/18 10:10 07/21/18 10:08 07/21/18 10:00 07/21/18 08:45 139/61 98 98 Weight Admit Weight 229 lb 4.492 oz Weight 234 lb 9.149 oz Most Recent Monitor Data Heart Rate from ECG 72 NIBP 138/62 NIBP BP-Mean 88 Respiration from ECG 17 SpO2 100 I&O: 07/20/18 07/21/18 07/22/18 06:59 06:59 06:59 Intake Total 2462 1559.1 312 Output Total 1750 1565 800 Balance 712 -5.9 -488 Result Diagrams: 07/21/18 04:58 07/21/18 15:22 Additional Labs: Microbiology 07/18/18 08:55 Urine cerna catheter Urine Culture - Final Enterococcus species 07/21/18 07:50 Bronchial Washing Respiratory Culture - Preliminary 07/17/18 22:18 Venous blood - Left Hand Blood Culture - Preliminary NO GROWTH AT 48 HOURS 07/17/18 22:12 Venous blood - Right Hand Blood Culture - Preliminary NO GROWTH AT 48 HOURS Laboratory Tests 07/18/18 07/19/18 04:55 03:33 Hgb 11.2 L 11.0 L Radiology Reviewed by me: Yes (LLE sono - no DVT) EKG Reviewed by me: Yes (Tele - SR, intermittent pacing) Phys Exam - Physical Examination sedate, opens eyes briefly ETT in place HEENT: sclera anicteric, oral pharynx no lesions Neck: no nodes, no JVD, supple, full ROM Respiratory: no wheezing, no rales, no rhonchi, clear to auscultation bilateral S1, S2 Cardiovascular: RRR, no significant murmur, no rub, gallop Gastrointestinal: soft, non-tender, no distention, positive bowel sounds Musculoskeletal: no edema, pulses present L hemiplegia Skin: no rash, normal turgor, cap refill <2 seconds Dx/Plan (1) Spontaneous intraparenchymal intracranial hemorrhage, acute Code(s): I62.9 - NONTRAUMATIC INTRACRANIAL HEMORRHAGE, UNSPECIFIED Status: Acute Comment: spontaneous R-sided hemorrhage, conservative mgmt, no anticoagulation, jail placement options (2) Left hemiplegia Code(s): G81.94 - HEMIPLEGIA, UNSPECIFIED AFFECTING LEFT NONDOMINANT SIDE Status: Acute Comment: Secondary to #1, LTAC/jail care options (3) Acute respiratory failure with hypoxia Code(s): J96.01 - ACUTE RESPIRATORY FAILURE WITH HYPOXIA Status: Acute Comment: SIMV, likely will need Trach/PEG and slow wean at LTAC (4) Atrial fibrillation Code(s): I48.91 - UNSPECIFIED ATRIAL FIBRILLATION Status: Chronic Comment: Rate-control measures, Pacer with normal functioning, no anticoagulation due to ICH - Plan continue antibiotics, PT/OT, social welfare administrator, DVT proph w/SCDs Continue critical support -: Plan for Trach/PEG -: Pulmonary supportive measures -: Continue Keppra 500mg IV q12h -: AM lab: BMP, CBC * .
[2018-07-21] MEDS: Pravastatin Sodium 20 MG TAB PO SCH (21:04)
[2018-07-21] MEDS: Escitalopram Oxalate 20 mg Tablet PO SCH (21:05)
--- NOTE | 2018-07-22 02:43 | OP ---
DATE OF PROCEDURE: 07/21/2018 PREOPERATIVE DIAGNOSES: Hemorrhagic basal ganglion bleed with neurological deficit respiratory failu re, dysphagia, offered general anesthesia, local 0.5% Marcaine with epinephrine 30 mL Xylocaine, 10 m L PROCEDURE PERFORMED: Percutaneous endoscopic gastrostomy tube, #8 Shiley low pressure cuff tracheost nicko tube. PROCEDURE IN DETAIL: The patient was taken to the operating room where under general anesthesia, nec k and chest prepared with ChloraPrep, draped in routine fashion. Incision made through an old thyroi dectomy scar, carried down through the skin and subcutaneous tissue. Flaps dissected free superiorly and inferiorly. Strap muscles reflected laterally. Trachea identified, cleared and strap sutures o f 3-0 Prolene placed on either side and anterior window of the trachea below the cricoid cartilage in size over two tracheal rings and under direct visualization, endotracheal tube withdrawn and #8 Shil ey low pressure cuff and tracheostomy tube inserted. Balloon inflated. Good carbon dioxide return n oted. Good hemostasis noted. Skin on either side approximated with 3-0 Prolene. Sterile dressings applied. Patient tolerated the procedure well. Endoscope placed under direct visualization and air insufflation passed out the esophagus, stomach, p ylorus identified, no gross abnormalities noted. Good indentation noted on the left subcostal area, prepared with ChloraPrep. Stab incision made and trocar catheter introduced percutaneously, visualiz ed endoscopically into the gastric lumen. A snare placed around this. A wire advanced, grasped with snare and brought out through the mouth as the endoscope was removed. Feeding tube located, connect ed to the wire and pulled back down through the mouth and fixated at the abdominal wall with fixation device, tube tailored to length and feeding device secured. Patient tolerated the procedure well.
[2018-07-22 05:19] LABS: #Eosinphils 0.1 thou/uL (0.0-0.7); #Lymphocytes 0.5 thou/uL (1.20-3.40); #Monocytes 0.6 thou/uL (0.11-0.59); #Neutrophils 9.8 thou/uL (1.40-6.50); %Basophils 0.1 % (0.0-1.0); %Eosinophils 0.8 % (0.0-10.0); %Lymphocytes 4.4 % (21.0-51.0); %Monocytes 5.2 % (0.0-10.0); %Neutrophils 89.5 % (42.0-75.0); Hemoglobin 11.3 g/dL (12.0-16.0); Mean Corpuscular HGB CONC 33.8 g/dL (32.0-36.0); Mean Corpuscular Volume 88.7 fL (78.0-98.0); Mean Platelet Volume 7.8 fL (7.4-10.4); Platelet Count 212 thou/uL (130-400); RBC Distribution Width 13.4 % (11.5-14.5); Red Blood Cell (RBC) Count 3.77 mill/uL (4.20-5.40); White Blood Cell (WBC) Count 10.9 thou/uL (4.8-10.8)
[2018-07-22 05:35] LABS: Anion Gap 12 mmol/L (10-20); BUN (Urea Nitrogen) 26 mg/dL (9.8-20.1); Calc. Creatinine Clearance 147 mL/min (70-130); Calcium 9.2 mg/dL (7.8-10.44); Carbon Dioxide 22 mmol/L (23-31); Chloride 105 mmol/L (98-107); Estimated GFR-MDRD Greater than 90; Glucose 110 mg/dL (83-110); Potassium 4.2 mmol/L (3.5-5.1); Sodium 135 mmol/L (136-145)
[2018-07-22] MEDS ORDERED: Famotidine 20 MG TAB PER TUBE PRN (07:45)
[2018-07-22 07:49] LABS: Actual Bicarbonate (HCO3a) 25.3 mEq/L (22-28); O2 Tension (PaO2) 91.3 mmHg (> 70.0); pH, Arterial 7.49 (7.35-7.45)
[2018-07-22 07:50] LABS: Base Excess (BEa) 2.3 mEq/L (-2.0 to +3.0); Calcium, Ionized 1.25 mmol/L (1.12-1.30); Carboxyhemoglobin (COHb) 0.8 gm% (0.0-3.0); Hemoglobin (Hb) 12.3 g/dL (12.0-16.0); Potassium - ABG Lab 4.19 mmol/L (3.70-5.30); Puncture Site RRA
[2018-07-22] MEDS ORDERED: Furosemide 40 MG/4 ML VIAL SLOW IVP SCH (08:45)
--- NOTE | 2018-07-22 08:53 | PRG ---
DATE OF SERVICE: 07/22/2018. SUBJECTIVE: Ms. Landaverde is up in the chair. She is awake. She responds to her , stimuli. Jen radha says when he asked her to squeeze her hands, she does. OBJECTIVE: VITAL SIGNS: Her blood pressure is 122/59, pulse 74, usually regular with occasional irregularity, l ooks like she has intermittent atrial fibrillation. LUNGS: Clear. CARDIAC: Normal S1, normal S2. X-RAY FINDINGS: Chest x-ray looks like some pulmonary vascular congestion. ASSESSMENT: 1. Congestive heart failure, diastolic. Appears volume overloaded. 2. History of hyponatremia with long-term diuretic therapy. 3. Paroxysmal atrial fibrillation. 4. Intracranial hemorrhage. PLAN: 1. Give her one dose of furosemide only, would not have her on a maintenance dose. 2. I will be out tomorrow and my partners are available if needed for consultation.
--- NOTE | 2018-07-22 09:08 | RAD ---
CHEST 1 VIEW: HISTORY: Dyspnea. COMPARISON: 07/21/18. FINDINGS: Cardiac silhouette magnified and enlarged. Pulmonary vasculature remains engorged with patchy bilate ral areas of infiltrate throughout each lung, similar in appearance to the prior study. Mediastinum is midline with aortic calcification and a dual-lead left subclavian cardiac electronic device. Trac heostomy appliance now overlies the upper midline mediastinum. Nasogastric tube is no longer visuali zed. IMPRESSION: 1. New tracheostomy appliance in good radiographic position. 2. Interval removal of nasogastric tube. 3. Pulmonary vascular congestion and other findings are otherwise stable. POS: [facility]
[2018-07-22] MEDS: Pantoprazole 40 MG VIAL IVP SCH ×2 (09:44→20:56)
[2018-07-22] MEDS: Cyanocobalamin (Vitamin B-12) 1,000 MCG TAB PO SCH (09:45)
[2018-07-22] MEDS: OXcarbazepine 300 MG TAB PO SCH (09:45)
[2018-07-22] MEDS: TROSPIUM 20 MG TABLET PO SCH ×2 (09:46→20:56)
[2018-07-22] MEDS: Lisinopril 20 MG TAB PO SCH ×2 (09:46→20:55)
[2018-07-22] MEDS: Amlodipine 10 MG TAB PO SCH (09:46)
[2018-07-22] MEDS: Ascorbic Acid 500 mg Chewable Tablet PO SCH (09:46)
[2018-07-22 15:52] LABS: Sodium 136 mmol/L (136-145)
--- NOTE | 2018-07-22 17:08 | PRG ---
DATE OF SERVICE: 07/22/2018 SUBJECTIVE: Kerry Landaverde was placed on a chair this morning. She is now on a trach collar. She is doing reasonably well on a trach collar. I met with the and daughter and suggested that we continue to try to leave her on trach collar and then nocturnally ventilated for rest. OBJECTIVE: VITAL SIGNS: Heart rates 120, respiratory rates 20, oximetry is 99, blood pressure 150/69. LUNGS: Clear. HEART: Regular rhythm. ABDOMEN: Soft. She has no signs of muscle weakness or muscle fatigue on exam. NEUROLOGIC: She still hemiparetic on the left. LABORATORY DATA: White count 10.9, hemoglobin 11.3, platelets 212. Sodium 135 , potassium 4.2, chloride 105, bicarbonate 22, BUN 26, creatinine 0.5, pH 7.9, CO2 of 34, PO2 91. IMPRESSION: Respiratory failure associated with a right hemispheric brain hemorrhage. We will continue with nocturnal ventilation, can use sedatives at night. During the day, we will try to keep her awake and off of mechanical ventilation support. The and daughter answered all their questions. Critical care time is 35 minutes. MTDD
--- NOTE | 2018-07-22 17:13 | PDOC.PN ---
- Subjective Encounter Start Date: 07/22/18 Encounter Start Time: 17:20 Subjective: f/u for R ICH with L hemiplegia on prior mech vent now with noctural vent -: planned, s/p Trach/PEG POD #1. - Objective MAR Reviewed: Yes Vital Signs & Weight: Vital Signs (12 hours) Temp Pulse Resp BP Pulse Ox 07/22/18 14:05 120 H 22 H 99 07/22/18 12:20 95 07/22/18 12:00 99 07/22/18 10:43 71 100/40 L 07/22/18 10:00 18 07/22/18 09:46 74 122/59 L 07/22/18 08:00 99.2 F 18 98 07/22/18 07:32 74 122/59 L 07/22/18 06:00 19 Weight Admit Weight 229 lb 4.492 oz Weight 236 lb 12.423 oz Most Recent Monitor Data Heart Rate from ECG 115 NIBP 136/83 NIBP BP-Mean 94 Respiration from ECG 23 SpO2 95 I&O: 07/21/18 07/22/18 07/23/18 06:59 06:59 06:59 Intake Total 1559.1 1044 40 Output Total 1565 1592 2355 Balance -5.9 545 -1235 Result Diagrams: 07/22/18 04:58 07/22/18 15:27 Additional Labs: Microbiology 07/18/18 08:55 Urine cerna catheter Urine Culture - Final Enterococcus species 07/21/18 07:50 Bronchial Washing Respiratory Culture - Preliminary 07/17/18 22:18 Venous blood - Left Hand Blood Culture - Preliminary NO GROWTH AT 48 HOURS 07/17/18 22:12 Venous blood - Right Hand Blood Culture - Preliminary NO GROWTH AT 48 HOURS Laboratory Tests 07/18/18 07/19/18 04:55 03:33 Hgb 11.2 L 11.0 L Radiology Reviewed by me: Yes (PCXR - trach in place, +pulm edema) EKG Reviewed by me: Yes (Tele - AV pacing) Phys Exam - Physical Examination awake, tracks with eyes HEENT: sclera anicteric, oral pharynx no lesions trach in place Neck: no nodes, no JVD, supple, full ROM Respiratory: no wheezing, no rales, no rhonchi, clear to auscultation bilateral S1, S2 Cardiovascular: RRR, no significant murmur, no rub, gallop PEG in place Gastrointestinal: soft, non-tender, no distention, positive bowel sounds Musculoskeletal: no edema, pulses present L hemiplegia Skin: normal turgor, cap refill <2 seconds Dx/Plan (1) Spontaneous intraparenchymal intracranial hemorrhage, acute Code(s): I62.9 - NONTRAUMATIC INTRACRANIAL HEMORRHAGE, UNSPECIFIED Status: Acute Comment: spontaneous R-sided hemorrhage, conservative mgmt, no anticoagulation, [place] [facility] placement options, s/p Trach/PEG on 07/21/18 (2) Left hemiplegia Code(s): G81.94 - HEMIPLEGIA, UNSPECIFIED AFFECTING LEFT NONDOMINANT SIDE Status: Acute Comment: Secondary to #1, LTAC/[place] [facility] care options (3) Acute respiratory failure with hypoxia Code(s): J96.01 - ACUTE RESPIRATORY FAILURE WITH HYPOXIA Status: Acute Comment: Trialing nocturnal ventilation, T-collar for daytime, pulmonary support (4) Atrial fibrillation Code(s): I48.91 - UNSPECIFIED ATRIAL FIBRILLATION Status: Chronic Comment: Rate-control measures, Pacer with normal functioning, no anticoagulation due to ICH - Plan continue antibiotics, PT/OT, social services assistant, speech therapy, respiratory therapy, DVT proph w/SCDs Continue pulmonary support -: T-collar for daytime and nocturnal ventilation per Pulmonology -: TF's with Vital High Protein with goal 60ml/h -: PT for ROM exercises -: CM for LTAC options * AM lab: BMP, CBC
--- NOTE | 2018-07-22 18:26 | PRG ---
DATE OF SERVICE: 07/22/2018 Kerry Landaverde is doing well. Tracheostomy site is healthy. There is no bleeding. Her abdomen is sof t and nontender. Tube feedings are working and tube feedings are yet to be started. The patient is doing well status post tracheostomy and PEG tube. I will see as needed. Please call if necessary.
[2018-07-22] MEDS: Sodium Chloride 0.9% 1,000 ML IV SCH (19:15)
[2018-07-22] MEDS: Pravastatin Sodium 20 MG TAB PO SCH (20:55)
[2018-07-22] MEDS: Escitalopram Oxalate 20 mg Tablet PO SCH (20:55)
[2018-07-23] MEDS: Acetaminophen 325 MG TAB PER TUBE PRN (00:34)
[2018-07-23] MEDS: Diltiazem HCl 125 MG, Admixture Fee 1 EACH in Sodium Chloride 0.9% 100 ML IVPB SCH ×2 (00:42→12:32)
[2018-07-23 03:38] LABS: #Eosinphils 0.3 thou/uL (0.0-0.7); #Lymphocytes 0.7 thou/uL (1.20-3.40); #Monocytes 0.8 thou/uL (0.11-0.59); #Neutrophils 9.3 thou/uL (1.40-6.50); %Basophils 0.1 % (0.0-1.0); %Eosinophils 2.6 % (0.0-10.0); %Lymphocytes 6.6 % (21.0-51.0); %Monocytes 7.5 % (0.0-10.0); %Neutrophils 83.2 % (42.0-75.0); Hemoglobin 12.2 g/dL (12.0-16.0); Mean Corpuscular HGB CONC 33.1 g/dL (32.0-36.0); Mean Corpuscular Hemoglobin 29.3 pg (27.0-31.0); Mean Corpuscular Volume 88.5 fL (78.0-98.0); Mean Platelet Volume 7.6 fL (7.4-10.4); Platelet Count 253 thou/uL (130-400); RBC Distribution Width 13.3 % (11.5-14.5); Red Blood Cell (RBC) Count 4.18 mill/uL (4.20-5.40); White Blood Cell (WBC) Count 11.2 thou/uL (4.8-10.8)
[2018-07-23] MEDS ORDERED: Digoxin 0.5 MG/2 ML AMP ONE (03:40)
[2018-07-23 03:56] LABS: Anion Gap 14 mmol/L (10-20); BUN (Urea Nitrogen) 23 mg/dL (9.8-20.1); Calc. Creatinine Clearance 154 mL/min (70-130); Calcium 9.5 mg/dL (7.8-10.44); Carbon Dioxide 23 mmol/L (23-31); Chloride 103 mmol/L (98-107); Estimated GFR-MDRD Greater than 90; Glucose 107 mg/dL (83-110); Potassium 3.5 mmol/L (3.5-5.1); Sodium 136 mmol/L (136-145)
[2018-07-23] MEDS ORDERED: Digoxin 0.5 MG/2 ML AMP SLOW IVP SCH (04:00)
[2018-07-23] MEDS: Amlodipine 10 MG TAB PO SCH (10:04)
[2018-07-23] MEDS: Ascorbic Acid 500 mg Chewable Tablet PO SCH (10:04)
[2018-07-23] MEDS: TROSPIUM 20 MG TABLET PO SCH ×2 (10:04→20:20)
[2018-07-23] MEDS: Lisinopril 20 MG TAB PO SCH ×2 (10:04→20:19)
[2018-07-23] MEDS: OXcarbazepine 300 MG TAB PO SCH (10:05)
[2018-07-23] MEDS: Pantoprazole 40 MG VIAL IVP SCH ×2 (10:05→20:19)
[2018-07-23] MEDS: Polyethylene Glycol 3350 17 GM Packet PER TUBE SCH (10:05)
[2018-07-23] MEDS: Cyanocobalamin (Vitamin B-12) 1,000 MCG TAB PO SCH (10:21)
[2018-07-23] MEDS ORDERED: Bisacodyl 10 MG SUPP PR PRN (11:16)
--- NOTE | 2018-07-23 11:18 | PDOC.PN ---
- Subjective Encounter Start Date: 07/23/18 Encounter Start Time: 11:17 Non-verbal. Family's concern is constipation and concern for her being able to manage secretions. - Objective Vital Signs & Weight: Vital Signs (12 hours) Temp Pulse Resp BP Pulse Ox 07/23/18 11:04 78 21 H 100 07/23/18 08:00 97.4 F L 78 L 07/23/18 06:23 75 17 100 07/23/18 06:20 100 07/23/18 06:00 17 07/23/18 05:00 98.2 F 07/23/18 04:39 118 H 07/23/18 04:00 17 07/23/18 03:41 118 H 07/23/18 02:23 130 H 124/69 07/23/18 02:22 122 H 19 100 07/23/18 02:00 17 07/23/18 00:00 20 Weight Admit Weight 229 lb 4.492 oz Weight 219 lb 9.286 oz Most Recent Monitor Data Heart Rate from ECG 80 NIBP 126/61 NIBP BP-Mean 87 Respiration from ECG 19 SpO2 100 I&O: 07/22/18 07/23/18 07/24/18 06:59 06:59 06:59 Intake Total 1044 1807 Output Total 1592 3675 150 Balance -548 -1868 -150 Result Diagrams: 07/23/18 03:15 07/23/18 03:15 Phys Exam - Physical Examination Constitutional: NAD Trach, PEG Respiratory: no wheezing, no rales, no rhonchi, clear to auscultation bilateral Cardiovascular: RRR, no significant murmur, no rub Gastrointestinal: soft, non-tender, no distention, positive bowel sounds Musculoskeletal: no edema Awake, but non-interactive. Dx/Plan (1) Acute respiratory failure with hypoxia Code(s): J96.01 - ACUTE RESPIRATORY FAILURE WITH HYPOXIA Status: Acute Comment: Trialing nocturnal ventilation, T-collar for daytime, pulmonary support (2) Left hemiplegia Code(s): G81.94 - HEMIPLEGIA, UNSPECIFIED AFFECTING LEFT NONDOMINANT SIDE Status: Acute Comment: Secondary to #1, LTAC/senior care care options (3) Spontaneous intraparenchymal intracranial hemorrhage, acute Code(s): I62.9 - NONTRAUMATIC INTRACRANIAL HEMORRHAGE, UNSPECIFIED Status: Acute Comment: spontaneous R-sided hemorrhage, conservative mgmt, no anticoagulation, senior care placement options, s/p Trach/PEG on 07/21/18 (4) Atrial fibrillation Code(s): I48.91 - UNSPECIFIED ATRIAL FIBRILLATION Status: Chronic Comment: Rate-control measures, Pacer with normal functioning, no anticoagulation due to ICH (5) Constipation Code(s): K59.00 - CONSTIPATION, UNSPECIFIED Status: Acute Comment: Miralax ordered. Add Dulcolax. - Plan * CM working on LTACH placement.
--- NOTE | 2018-07-23 12:27 | PRG ---
DATE OF SERVICE: 07/23/2018 SUBJECTIVE: Kerry Landaverde is interacting with her . She is stable on a tracheostomy collar; h owever, we will continue with nighttime ventilation. OBJECTIVE: LUNGS: Clear. HEART: Regular rhythm. ABDOMEN: Soft. LABORATORY DATA: White count 11.2, hemoglobin 12.2, platelets 253,000. Sodium 136, potassium 3.5, chloride 103, bicarbonate 23, BUN 23, creatinine 0.56. IMPRESSION: Status post parenchymal brain hemorrhage on the right with left hemiparesis and left hem ineglect. She still had some midline shift on her last CT. So, her neurological status will probabl y continue to improve slowly. We will continue to keep family updated, which I have done today. We will continue getting her up in a chair. She is constipated, so she will be given laxatives today. We will start working on long-term acute care placement during the week next week.
[2018-07-23] MEDS: Sodium Chloride 0.9% 1,000 ML IV SCH (18:35)
[2018-07-23] MEDS: Escitalopram Oxalate 20 mg Tablet PO SCH (20:18)
[2018-07-23] MEDS: Pravastatin Sodium 20 MG TAB PO SCH (20:19)
[2018-07-24] MEDS: Diltiazem HCl 125 MG, Admixture Fee 1 EACH in Sodium Chloride 0.9% 100 ML IVPB SCH (01:02)
[2018-07-24 05:43] LABS: #Eosinphils 0.2 thou/uL (0.0-0.7); #Lymphocytes 0.6 thou/uL (1.20-3.40); #Monocytes 0.7 thou/uL (0.11-0.59); #Neutrophils 7.5 thou/uL (1.40-6.50); %Basophils 0.2 % (0.0-1.0); %Eosinophils 2.3 % (0.0-10.0); %Lymphocytes 6.9 % (21.0-51.0); %Monocytes 8.1 % (0.0-10.0); %Neutrophils 82.5 % (42.0-75.0); Hemoglobin 11.6 g/dL (12.0-16.0); Mean Corpuscular HGB CONC 31.8 g/dL (32.0-36.0); Mean Corpuscular Hemoglobin 28.4 pg (27.0-31.0); Mean Corpuscular Volume 89.3 fL (78.0-98.0); Mean Platelet Volume 7.6 fL (7.4-10.4); Platelet Count 240 thou/uL (130-400); RBC Distribution Width 13.3 % (11.5-14.5); Red Blood Cell (RBC) Count 4.09 mill/uL (4.20-5.40); White Blood Cell (WBC) Count 9.1 thou/uL (4.8-10.8)
[2018-07-24 06:16] LABS: Anion Gap 11 mmol/L (10-20); BUN (Urea Nitrogen) 21 mg/dL (9.8-20.1); Calc. Creatinine Clearance 0 mL/min (70-130); Carbon Dioxide 24 mmol/L (23-31); Chloride 104 mmol/L (98-107); Estimated GFR-MDRD Greater than 90; Glucose 124 mg/dL (83-110); Potassium 3.9 mmol/L (3.5-5.1); Sodium 135 mmol/L (136-145)
[2018-07-24] MEDS ORDERED: guaiFENesin 100 MG/5 ML UDCUP PER TUBE SCH (09:30)
[2018-07-24] MEDS: Polyethylene Glycol 3350 17 GM Packet PER TUBE SCH (09:40)
[2018-07-24] MEDS: Lisinopril 20 MG TAB PO SCH ×2 (09:40→21:03)
[2018-07-24] MEDS: TROSPIUM 20 MG TABLET PO SCH ×2 (09:40→21:03)
[2018-07-24] MEDS: Pantoprazole 40 MG VIAL IVP SCH (09:40)
[2018-07-24] MEDS: Ascorbic Acid 500 mg Chewable Tablet PO SCH (09:40)
[2018-07-24] MEDS: OXcarbazepine 300 MG TAB PO SCH (09:41)
[2018-07-24] MEDS: Amlodipine 10 MG TAB PO SCH (09:41)
[2018-07-24] MEDS: Diabetic Tussin 200 MG/10 ML UDCUP PER TUBE SCH ×4 (09:56→21:04)
[2018-07-24] MEDS: Cyanocobalamin (Vitamin B-12) 1,000 MCG TAB PO SCH (10:08)
--- NOTE | 2018-07-24 10:14 | PRG ---
DATE OF SERVICE: 07/24/2018 SUBJECTIVE: Patient is nonverbal. The patient's family reports no new concerns. She did have a bow el movement. OBJECTIVE: VITAL SIGNS: T-max 100.1, pulse 87-90, BP 141/67, O2 sat 97%. GENERAL APPEARANCE: Patient is not currently interactive to external stimuli, lying comfortably with a trach in place on the trach mask. HEART: Irregular without murmurs. LUNGS: Clear anteriorly. ABDOMEN: Soft, nondistended. Bowel sounds are present. EXTREMITIES: Warm and dry without significant edema. Good pulses palpable. LABORATORY DATA: White count 9.1, hemoglobin 11.6, platelets 240. Sodium 135, potassium 3.9, BUN 21 , creatinine 0.5, glucose 124. IMPRESSION AND PLAN: 1. Acute respiratory failure with hypoxia. Patient had a trach placed and is doing well with a noct urnal ventilator support continuing to allow some recovery time from the stroke and see if she can co ntinue to wean. She did have suction or bronchial washing cultures growing Serratia and staph. She remains on the Levaquin. 2. Spontaneous intraparenchymal intracranial hemorrhage with left hemiplegia. Patient had some pers istent midline shift on the last imaging study in anticipation is that she may continue to have some improvement. Currently, she is stable with a trach and PEG. Continue to work on LTAC placement. 3. Atrial fibrillation with a reasonably good rate control on IV Cardizem. Plan is to transition to an oral Cardizem. 4. Constipation, resolved. 5. Urinary tract infection grew Enterococcus sensitive to the Levaquin. We will repeat a UA now. 6. We will repeat a chest x-ray. Nurses report increased thickening of secretions. We will add abraham e guaifenesin as well. She also has a bad IV site in the right forearm which will be removed. 7. I anticipate transitioning as much of her medications as we can over to the PEG. We will need to add some free water boluses. 8. We will discontinue the Weiss for a pureed wick external catheter system.
[2018-07-24 11:10] LABS: Bilirubin Negative (Negative); Blood, Urine Moderate (Negative); Clarity CLEAR (Clear); Glucose, Urine (Dipstick) Negative (Negative); Leukocyte Trace (Negative); Nitrite Negative (Negative); Protein, Urine (Dipstick) 100 mg/dL (Neg-Trace); pH, Urine 7.5 (5.0-9.0)
[2018-07-24 11:12] LABS: Bacteria/HPF None Seen HPF (None Seen); Hyaline Casts/LPF 0-3 HYALINE CAST LPF (0-3 Hyaline); Pathc Cast-AUWi Flag 0.14 (0-2.49); RBC/HPF 21-50 HPF (0-3); Squamous Epithelial None Seen HPF (0-3)
--- NOTE | 2018-07-24 11:19 | RAD ---
PORTABLE CHEST: Date: 07/24/18 PROVIDED CLINICAL HISTORY: Fever. FINDINGS: Comparison with 07/22/18 Cardiac and mediastinal silhouette is unchanged in appearance. Tracheostomy appliance is again seen i n similar position. Vascular calcification involves the aortic arch. Left subclavian cardiac pacing d evice is again seen. Left basilar pleural and/or parenchymal opacity may be present. Right lung appea rs free of significant opacity. There is no evidence for pneumothorax. IMPRESSION: Left basilar pleural and/or parenchymal opacity is suspected. POS: CHON
--- NOTE | 2018-07-24 11:49 | PRG ---
DATE OF SERVICE: 07/24/2018 SERVICE: Pulmonary Medicine. INTERVAL HISTORY: The patient is doing fine from a respiratory standpoint. She has a gummy material coming out of her endotracheal tube. She has started to run some low grade temperatures. Urinalysis and chest x-ray were performed this morning by Erinn. Otherwise, there has been no interval change to her condition. Her neurologic injury is roughly the same. She is now starting to move her left leg spontaneously; however. Otherwise, there were no reported events overnight. The patient cannot provide any additional elements of the history. PHYSICAL EXAMINATION: VITAL SIGNS: T-max 100.1, pulse 89, blood pressure 152/78, respirations 28, saturation 100% on T-collar at 28% FiO2. GENERAL: The patient is awake. She is alert and has her eyes open spontaneously. She looks about the room and attends. HEENT: Normocephalic, atraumatic. Sclerae are white, conjunctivae pink. Oral mucosa is moist without lesions. LUNGS: Decent air entry. There is no prolonged expiratory phase. Rhonchi are present. No wheezing or crackles are appreciated. HEART: Normal rate, regular. ABDOMEN: Soft, nontender, nondistended. Bowel sounds are positive. MUSCULOSKELETAL: No cyanosis or clubbing. There is no pitting in the bilateral lower extremities. NEUROLOGIC: The patient is spontaneously moving her bilateral lower extremities and right upper extremity. She has better strength on the right upper and lower extremity. She does have some spasticity bilaterally. Her left arm is flaccid. She is following some simple commands with the right hand and will attend. LABORATORY DATA: WBC 9.1, hemoglobin 11.6, platelets 240,000. INR 1.2. Basic metabolic profile is essentially unremarkable except for sodium of 135. BUN and creatinine fall within the normal limits. Bronchial washings from 12th are growing Serratia and Staph aureus. Both of these things are sensitive to fluoroquinolones. Blood cultures x2 remain unremarkable. IMAGING DATA: Chest x-ray demonstrates tracheostomy tube in good position. Infiltrate is identified. There appears to be a plate of atelectasis in the right mid lung zone versus fluid in the fissure. ASSESSMENT: 1. Acute hypoxic respiratory failure. 2. Healthcare-associated pneumonia secondary to MSSA and serratia. 3. Intracerebral cerebral hemorrhage, status post PEG tube and tracheostomy. DISCUSSION AND PLAN: The patient is stable for transition out of the hospital. I will interrupt her IV fluids as she is tolerating tube feeds. I will watch her volume status fairly closely. I will convert most of her medications over to p.o. equivalent. Pulmonary Critical Care will continue to follow along while patient remains in this location. ORIN
--- NOTE | 2018-07-24 17:43 | ADD-PRG ---
DATE OF SERVICE: 07/21/2018 Critical care time 30 minutes. ORIN
[2018-07-24] MEDS: Pravastatin Sodium 20 MG TAB PO SCH (21:03)
[2018-07-24] MEDS: Escitalopram Oxalate 20 mg Tablet PO SCH (21:03)
[2018-07-24] MEDS: levETIRAcetam 500 MG TAB PO SCH (21:03)
[2018-07-25] MEDS: Diabetic Tussin 200 MG/10 ML UDCUP PER TUBE SCH ×6 (01:56→21:12)
[2018-07-25] MEDS: Polyethylene Glycol 3350 17 GM Packet PER TUBE SCH (09:17)
[2018-07-25] MEDS: Ascorbic Acid 500 mg Chewable Tablet PO SCH (09:18)
[2018-07-25] MEDS: levETIRAcetam 500 MG TAB PO SCH ×2 (09:19→21:11)
[2018-07-25] MEDS: OXcarbazepine 300 MG TAB PO SCH (09:19)
[2018-07-25] MEDS: TROSPIUM 20 MG TABLET PO SCH ×2 (09:20→21:12)
[2018-07-25] MEDS: Amlodipine 10 MG TAB PO SCH (09:20)
[2018-07-25] MEDS: Lisinopril 20 MG TAB PO SCH ×2 (09:20→21:12)
--- NOTE | 2018-07-25 10:29 | PRG ---
DATE OF SERVICE: 07/25/2018 SERVICE: Pulmonary Medicine. INTERVAL HISTORY: The patient is doing fine from a respiratory standpoint. She cannot provide any additional elements of the history. She was off mechanical ventilator for over 24 hours. She is still breathing comfortably. There has been no interval change to her condition. She is up in a neuro chair today. PHYSICAL EXAMINATION: VITAL SIGNS: Afebrile, pulse 87, blood pressure 154/99, respirations 24, saturation 100% on 28% FiO2 via T-collar. GENERAL: The patient is awake. She is somnolent. HEENT: Normocephalic, atraumatic. Sclerae are white, conjunctivae pink. Oral mucosa is moist without lesions. LUNGS: Decent air entry with rhonchi present. No crackles or wheezing appreciated. There is no prolonged expiratory phase. HEART: Normal rate, regular. ABDOMEN: Soft, nontender, nondistended. Bowel sounds are positive. MUSCULOSKELETAL: No cyanosis or clubbing. There is trace pitting in the bilateral lower extremities. ASSESSMENT: 1. Acute hypoxic respiratory failure, resolving. 2. Healthcare-associated pneumonia secondary to MSSA and serratia. 3. Intracranial hemorrhage, status post PEG tube and tracheostomy, DISCUSSION AND PLAN: We will continue her mobilization efforts and have the patient work with physical therapy as much as tolerated. The ventilator will be discontinued. I had a conversation with the patient's today and he would like her to be a DNR with no chest compressions or chemical codes. That being said, if she needs to return to mechanical ventilation for the time being , he is okay with that. Pulmonary or Critical Care will continue to follow along. Hopefully, she will be able to move on an LTAC facility this week. Dr. Duval will resume care in the morning. ORIN
[2018-07-25] MEDS: Labetalol HCl 100 MG/20 ML VIAL SLOW IVP PRN (11:02)
--- NOTE | 2018-07-25 14:57 | PDOC.PN ---
- Subjective Encounter Start Date: 07/25/18 Encounter Start Time: 12:15 Non-verbal. - Objective Resuscitation Status: Resuscitation Status DNR:Do Not Resuscitate Vital Signs & Weight: Vital Signs (12 hours) Temp Pulse Resp BP Pulse Ox 07/25/18 14:08 80 23 H 100 07/25/18 11:17 78 25 H 98 07/25/18 11:02 93 181/100 H 07/25/18 10:52 98.1 F 07/25/18 09:20 87 170/101 H 07/25/18 07:49 96 07/25/18 07:00 99.4 F 07/25/18 06:28 100 07/25/18 06:25 93 22 H 100 07/25/18 04:00 100.0 F H Weight Admit Weight 229 lb 4.492 oz Weight 216 lb 11.43 oz Most Recent Monitor Data Heart Rate from ECG 82 NIBP 161/89 NIBP BP-Mean 103 Respiration from ECG 23 SpO2 100 I&O: 07/24/18 07/25/18 07/26/18 06:59 06:59 06:59 Intake Total 2581 2924.5 120 Output Total 2490 2220 700 Balance 91 704.5 -580 Result Diagrams: 07/24/18 05:31 07/24/18 05:31 Phys Exam - Physical Examination Constitutional: NAD Trach Respiratory: no wheezing, no rales, no rhonchi, clear to auscultation bilateral Cardiovascular: RRR, no significant murmur, no rub Gastrointestinal: soft, non-tender, no distention, positive bowel sounds Musculoskeletal: no edema Dx/Plan (1) Acute respiratory failure with hypoxia Code(s): J96.01 - ACUTE RESPIRATORY FAILURE WITH HYPOXIA Status: Acute Comment: Trialing nocturnal ventilation, T-collar for daytime as tolerated, pulmonary support (2) Left hemiplegia Code(s): G81.94 - HEMIPLEGIA, UNSPECIFIED AFFECTING LEFT NONDOMINANT SIDE Status: Acute Comment: Secondary to #1, LTAC/mcc care options (3) Spontaneous intraparenchymal intracranial hemorrhage, acute Code(s): I62.9 - NONTRAUMATIC INTRACRANIAL HEMORRHAGE, UNSPECIFIED Status: Acute Comment: spontaneous R-sided hemorrhage, conservative mgmt, no anticoagulation, mcc placement options, s/p Trach/PEG on 07/21/18 (4) Atrial fibrillation Code(s): I48.91 - UNSPECIFIED ATRIAL FIBRILLATION Status: Chronic Comment: Rate-control measures, Pacer with normal functioning, no anticoagulation due to ICH (5) Constipation Code(s): K59.00 - CONSTIPATION, UNSPECIFIED Status: Acute Comment: Miralax ordered. Add Dulcolax. (6) Hypertension Code(s): I10 - ESSENTIAL (PRIMARY) HYPERTENSION Status: Acute Comment: Transitioned from IV cardizem to PEG. BP up. May need titration if BP remains up. ACEI, Amlodipine as well. (7) HCAP (healthcare-associated pneumonia) Code(s): J18.9 - PNEUMONIA, UNSPECIFIED ORGANISM Status: Acute Comment: Priscilla. Respiratory support. - Plan * Stable for transition to LTAC.
[2018-07-25] MEDS: Escitalopram Oxalate 20 mg Tablet PO SCH (21:11)
[2018-07-25] MEDS: Acetaminophen 325 MG TAB PER TUBE PRN (21:12)
[2018-07-25] MEDS: Pravastatin Sodium 20 MG TAB PO SCH (21:12)
[2018-07-26] MEDS: Diabetic Tussin 200 MG/10 ML UDCUP PER TUBE SCH ×6 (01:06→20:24)
[2018-07-26 06:05] LABS: #Eosinphils 0.3 thou/uL (0.0-0.7); #Lymphocytes 1.1 thou/uL (1.20-3.40); #Monocytes 0.7 thou/uL (0.11-0.59); #Neutrophils 9.4 thou/uL (1.40-6.50); %Lymphocytes 9.6 % (21.0-51.0); %Monocytes 5.8 % (0.0-10.0); %Neutrophils 81.5 % (42.0-75.0); Hemoglobin 13.5 g/dL (12.0-16.0); Mean Corpuscular HGB CONC 32.5 g/dL (32.0-36.0); Mean Corpuscular Hemoglobin 28.9 pg (27.0-31.0); Mean Platelet Volume 7.4 fL (7.4-10.4); Platelet Count 260 thou/uL (130-400); RBC Distribution Width 13.3 % (11.5-14.5); Red Blood Cell (RBC) Count 4.67 mill/uL (4.20-5.40); White Blood Cell (WBC) Count 11.5 thou/uL (4.8-10.8)
[2018-07-26 06:29] LABS: Anion Gap 12 mmol/L (10-20); BUN (Urea Nitrogen) 26 mg/dL (9.8-20.1); Calc. Creatinine Clearance 143 mL/min (70-130); Calcium 9.6 mg/dL (7.8-10.44); Carbon Dioxide 24 mmol/L (23-31); Chloride 102 mmol/L (98-107); Estimated GFR-MDRD Greater than 90; Glucose 143 mg/dL (83-110); Potassium 4.1 mmol/L (3.5-5.1); Sodium 134 mmol/L (136-145)
[2018-07-26] MEDS ORDERED: Furosemide 20 MG/2 ML VIAL SLOW IVP SCH (09:15)
--- NOTE | 2018-07-26 09:22 | PRG ---
DATE OF SERVICE: 07/26/2018 Ms. Landaverde is sitting up in the neuro chair. She is not responsive currently. PHYSICAL EXAMINATION: VITAL SIGNS: Her blood pressure 150/105, pulse 90. LUNGS: Clear. CARDIAC: Normal S1, normal S2. ABDOMEN: Soft, nontender. EXTREMITIES: No edema. ASSESSMENT: 1. Status post intracranial hemorrhage. 2. History of paroxysmal atrial fibrillation. 3. History of mild reactive airway disease. 4. History of hyponatremia with prolonged treatment with diuretics. PLAN: 1. Give her a single dose of furosemide 20 mg IV x1. She may need this once a week. Her blood pres sure seems to be very much volume related. 2. She is currently on amlodipine and lisinopril. I am hesitant to give her beta blockers, may caus e some wheezing. If necessary, we could give her a very cardioselective beta asia such as Bystoli c.
[2018-07-26] MEDS: Lisinopril 20 MG TAB PO SCH ×2 (09:53→20:23)
[2018-07-26] MEDS: levETIRAcetam 500 MG TAB PO SCH ×2 (09:53→20:23)
[2018-07-26] MEDS: Ascorbic Acid 500 mg Chewable Tablet PO SCH (09:53)
[2018-07-26] MEDS: Amlodipine 10 MG TAB PO SCH (09:54)
[2018-07-26] MEDS: TROSPIUM 20 MG TABLET PO SCH ×2 (09:54→20:23)
[2018-07-26] MEDS: Polyethylene Glycol 3350 17 GM Packet PER TUBE SCH (09:55)
[2018-07-26] MEDS: OXcarbazepine 300 MG TAB PO SCH (09:55)
--- NOTE | 2018-07-26 16:22 | PDOC.PN ---
- Subjective Encounter Start Date: 07/26/18 Encounter Start Time: 12:30 -: non-verbal - Objective Resuscitation Status: Resuscitation Status DNR:Do Not Resuscitate Vital Signs & Weight: Vital Signs (12 hours) Temp Pulse Pulse Pulse Resp BP BP 07/26/18 14:12 86 22 H 07/26/18 13:11 99 96 144/82 H 07/26/18 12:00 99.5 F 07/26/18 10:59 97 24 H 07/26/18 09:54 96 156/107 H 07/26/18 09:53 156/107 H 07/26/18 08:07 07/26/18 08:05 88 18 07/26/18 08:00 98.8 F BP Pulse Ox Pulse Ox Pulse Ox 07/26/18 14:12 100 07/26/18 13:11 145/77 H 100 100 07/26/18 12:00 07/26/18 10:59 100 07/26/18 09:54 07/26/18 09:53 07/26/18 08:07 94 L 07/26/18 08:05 94 L 07/26/18 08:00 100 Weight Admit Weight 229 lb 4.492 oz Weight 215 lb 6.266 oz Most Recent Monitor Data Heart Rate from ECG 99 NIBP 146/84 NIBP BP-Mean 107 Respiration from ECG 26 SpO2 100 I&O: 07/25/18 07/26/18 07/27/18 06:59 06:59 06:59 Intake Total 2924.5 1673 380 Output Total 2220 1500 800 Balance 704.5 173 -420 Result Diagrams: 07/26/18 05:54 07/26/18 05:54 Phys Exam - Physical Examination Constitutional: NAD non-interactive Respiratory: no wheezing, no rales, no rhonchi, clear to auscultation bilateral Cardiovascular: RRR, no significant murmur Gastrointestinal: soft, no distention, positive bowel sounds Musculoskeletal: no edema Skin: no rash Dx/Plan (1) Acute respiratory failure with hypoxia Code(s): J96.01 - ACUTE RESPIRATORY FAILURE WITH HYPOXIA Status: Acute Comment: Discussed with Pulmonology. Continue nocturnal ventilation, T-collar for daytime as tolerated, pulmonary support (2) Left hemiplegia Code(s): G81.94 - HEMIPLEGIA, UNSPECIFIED AFFECTING LEFT NONDOMINANT SIDE Status: Acute Comment: Secondary to #1, LTAC/[facility] care options (3) Spontaneous intraparenchymal intracranial hemorrhage, acute Code(s): I62.9 - NONTRAUMATIC INTRACRANIAL HEMORRHAGE, UNSPECIFIED Status: Acute Comment: spontaneous R-sided hemorrhage, conservative mgmt, no anticoagulation, [facility] placement options, s/p Trach/PEG on 07/21/18 (4) Atrial fibrillation Code(s): I48.91 - UNSPECIFIED ATRIAL FIBRILLATION Status: Chronic Comment: Rate-control measures, Pacer with normal functioning, no anticoagulation due to ICH (5) Constipation Code(s): K59.00 - CONSTIPATION, UNSPECIFIED Status: Acute Comment: Miralax ordered. Add Dulcolax. (6) Hypertension Code(s): I10 - ESSENTIAL (PRIMARY) HYPERTENSION Status: Acute Comment: Transitioned from IV cardizem to PEG. BP up. May need titration if BP remains up. ACEI, Amlodipine as well. Better today. (7) HCAP (healthcare-associated pneumonia) Code(s): J18.9 - PNEUMONIA, UNSPECIFIED ORGANISM Status: Acute Comment: Priscilla. Respiratory support. - Plan * Working on LTAC placement.
[2018-07-26] MEDS: Escitalopram Oxalate 20 mg Tablet PO SCH (20:23)
[2018-07-26] MEDS: Pravastatin Sodium 20 MG TAB PO SCH (20:23)
--- NOTE | 2018-07-26 22:46 | PRG ---
DATE OF SERVICE: 07/26/2018 Ms. Landaverde remains on a trach collar. She is having some secretion issues. I recommended that she a gain being nocturnally ventilated. I have asked the nurse to relay this to the respiratory therapist. PHYSICAL EXAMINATION: GENERAL: She is afebrile, heart rates in the 90s, respiratory rates in the 20s. Blood pressure 136/ 81. LUNGS: Remarkable for bilateral rhonchi. HEART: Regular rhythm. ABDOMEN: Soft. EXTREMITIES: Without asymmetry. LABORATORY DATA: White count 11.5, hemoglobin 13.5, platelets 260. Sodium 135, potassium 3.9, chlor darryn 104, bicarbonate 24, BUN 21, creatinine 0.54. There is no blood gas. IMPRESSION: 1. Respiratory failure, stroke associated with a hemorrhagic cerebrovascular accident. Neurological status continues to slowly improve, although it is tiny steps each day that her sees and the n we see. 2. Retained secretions respiratory failure. I think she would benefit from continued nocturnal vent ilation. 3. Status post trach and PEG. 4. We are awaiting evaluation again for long-term acute care. At this point in time I do not think s he can be cared for in a assisted.
[2018-07-27] MEDS: Diabetic Tussin 200 MG/10 ML UDCUP PER TUBE SCH ×6 (01:14→20:37)
[2018-07-27] MEDS: Ascorbic Acid 500 mg Chewable Tablet PO SCH (08:57)
[2018-07-27] MEDS: Amlodipine 10 MG TAB PO SCH (08:57)
[2018-07-27] MEDS: levETIRAcetam 500 MG TAB PO SCH ×2 (08:57→20:36)
[2018-07-27] MEDS: TROSPIUM 20 MG TABLET PO SCH ×2 (08:58→20:37)
[2018-07-27] MEDS: Polyethylene Glycol 3350 17 GM Packet PER TUBE SCH (08:58)
[2018-07-27] MEDS: OXcarbazepine 300 MG TAB PO SCH (08:58)
[2018-07-27] MEDS: Lisinopril 20 MG TAB PO SCH ×2 (08:58→20:36)
--- NOTE | 2018-07-27 12:49 | PDOC.PN ---
- Subjective Encounter Start Date: 07/27/18 Encounter Start Time: 11:05 Non verbal. has no new concerns. - Objective Resuscitation Status: Resuscitation Status DNR:Do Not Resuscitate Vital Signs & Weight: Vital Signs (12 hours) Temp Pulse Pulse Pulse Resp BP BP 07/27/18 10:03 93 24 H 07/27/18 08:58 142/65 H 07/27/18 08:57 91 142/65 H 07/27/18 08:51 94 82 143/78 H 07/27/18 07:52 07/27/18 07:00 100.0 F H 07/27/18 06:57 87 21 H 07/27/18 06:00 22 H 07/27/18 04:00 21 H 07/27/18 03:00 98.8 F 07/27/18 02:56 88 07/27/18 02:54 07/27/18 02:00 21 H 07/27/18 01:00 89 150/82 H BP Pulse Ox Pulse Ox Pulse Ox 07/27/18 10:03 100 07/27/18 08:58 07/27/18 08:57 07/27/18 08:51 142/65 H 100 100 07/27/18 07:52 100 07/27/18 07:00 07/27/18 06:57 100 07/27/18 06:00 07/27/18 04:00 07/27/18 03:00 07/27/18 02:56 07/27/18 02:54 100 07/27/18 02:00 07/27/18 01:00 Weight Admit Weight 229 lb 4.492 oz Weight 216 lb 0.848 oz Most Recent Monitor Data Heart Rate from ECG 86 NIBP 142/65 NIBP BP-Mean 82 Respiration from ECG 22 SpO2 100 I&O: 07/26/18 07/27/18 07/28/18 06:59 06:59 06:59 Intake Total 1673 2124 Output Total 1500 1300 0 Balance 173 824 0 Result Diagrams: 07/26/18 05:54 07/26/18 05:54 Phys Exam - Physical Examination Constitutional: NAD Up in chair. Trach with mask. Appears to be sleeping. Respiratory: no wheezing, no rales, no rhonchi, clear to auscultation bilateral Cardiovascular: RRR, no significant murmur, no rub Gastrointestinal: soft, non-tender, no distention, positive bowel sounds Musculoskeletal: no edema Dx/Plan (1) Acute respiratory failure with hypoxia Code(s): J96.01 - ACUTE RESPIRATORY FAILURE WITH HYPOXIA Status: Acute Comment: Discussed with Pulmonology. Continue nocturnal ventilation, T-collar for daytime as tolerated, pulmonary support (2) Left hemiplegia Code(s): G81.94 - HEMIPLEGIA, UNSPECIFIED AFFECTING LEFT NONDOMINANT SIDE Status: Acute Comment: Secondary to #1, LTAC/snf care options (3) Spontaneous intraparenchymal intracranial hemorrhage, acute Code(s): I62.9 - NONTRAUMATIC INTRACRANIAL HEMORRHAGE, UNSPECIFIED Status: Acute Comment: spontaneous R-sided hemorrhage, conservative mgmt, no anticoagulation, snf placement options, s/p Trach/PEG on 07/21/18 (4) Atrial fibrillation Code(s): I48.91 - UNSPECIFIED ATRIAL FIBRILLATION Status: Chronic Comment: Rate-control measures, On Cardizem per PEG. Pacer with normal functioning, no anticoagulation due to ICH (5) Constipation Code(s): K59.00 - CONSTIPATION, UNSPECIFIED Status: Acute Comment: Miralax ordered. Add Dulcolax. (6) Hypertension Code(s): I10 - ESSENTIAL (PRIMARY) HYPERTENSION Status: Acute Comment: Transitioned from IV cardizem to PEG. BP up. May need titration if BP remains up. ACEI, Amlodipine as well. Better today. (7) HCAP (healthcare-associated pneumonia) Code(s): J18.9 - PNEUMONIA, UNSPECIFIED ORGANISM Status: Acute Comment: Levaquin. Respiratory support. - Plan * .
--- NOTE | 2018-07-27 13:41 | PRG ---
DATE OF SERVICE: 07/27/2018 SUBJECTIVE: Kerry Landaverde is hemodynamically stable overnight. She did well with nocturnal ventilati on. OBJECTIVE: VITAL SIGNS: Pulse is 93, blood pressure 142/65. She is on a trach collar during the day now. Inta ke and output positive 824. Weight is reportedly 216 pounds. LUNGS: Are remarkable for mild rhonchi. HEART: Regular rhythm. ABDOMEN: Soft. EXTREMITIES: Without asymmetry. Bronchial washings are growing 2 organisms, I suspect these are tracheal colonizers. LABORATORY DATA: White count is 11.5, hemoglobin 13.5, platelets 260,000. Sodium 134, potassium 4.1 , chloride 102, bicarbonate 24, BUN 26, creatinine 0.55. IMPRESSION: 1. Respiratory failure after a massive intracranial hemorrhage. We will continue with nocturnal [place] tilation. 2. Status post tracheostomy and PEG placement. We will continue attempts at placement in the long-term acute care hospital.
[2018-07-27] MEDS: Escitalopram Oxalate 20 mg Tablet PO SCH (20:36)
[2018-07-27] MEDS: Pravastatin Sodium 20 MG TAB PO SCH (20:37)
[2018-07-28] MEDS: Diabetic Tussin 200 MG/10 ML UDCUP PER TUBE SCH ×6 (01:18→21:16)
[2018-07-28] MEDS: Amlodipine 10 MG TAB PO SCH (09:51)
[2018-07-28] MEDS: Polyethylene Glycol 3350 17 GM Packet PER TUBE SCH (09:51)
[2018-07-28] MEDS: Ascorbic Acid 500 mg Chewable Tablet PO SCH (09:51)
[2018-07-28] MEDS: levETIRAcetam 500 MG TAB PO SCH ×2 (09:51→21:16)
[2018-07-28] MEDS: OXcarbazepine 300 MG TAB PO SCH (09:51)
[2018-07-28] MEDS: Lisinopril 20 MG TAB PO SCH ×2 (09:51→21:15)
[2018-07-28] MEDS: TROSPIUM 20 MG TABLET PO SCH ×2 (09:52→21:16)
--- NOTE | 2018-07-28 12:15 | CT ---
NONCONTRAST HEAD CT: HISTORY: Follow-up exam. Change in mental status. COMPARISON: 07/18/2018 FINDINGS: Redemonstration of a parenchymal hemorrhage, centered in the right deep awad matter structures, curre ntly measuring 5.5 cm anteroposterior x 3.2 cm mediolateral (previously measuring 5.6 cm x 3.3 cm). There is associated vasogenic edema, sulcal effacement, and mass effect upon the lateral ventricle. There is persistent right to left subfalcine herniation, currently measuring 1 cm (previously measuri ng 0.7 cm). There is evidence of intraventricular hemorrhage. There is evidence of right uncal olga iation with effacement of the right ambient cisterns. IMPRESSION: Redemonstration of a parenchymal hematoma, as well as intraventricular hemorrhage. There is increase d hypoattenuation, suggesting edema, in the right cerebrum. There is increased mass effect with righ t to left subfalcine herniation, as well as right uncal herniation. The results of the study were discussed with Dr. Duval on 07/28/2018 at 4:36 p.m. CODE CR POS: CHON
[2018-07-28 14:16] VITALS: BMI 34.4
--- NOTE | 2018-07-28 16:04 | PDOC.PN ---
- Subjective Encounter Start Date: 07/28/18 Encounter Start Time: 12:20 Non-verbal. - Objective Resuscitation Status: Resuscitation Status DNR:Do Not Resuscitate Vital Signs & Weight: Vital Signs (12 hours) Temp Pulse Pulse Pulse Resp BP BP 07/28/18 14:25 84 20 07/28/18 12:00 99.4 F 07/28/18 11:24 88 19 07/28/18 09:51 85 148/79 H 07/28/18 08:43 108 H 95 150/83 H 07/28/18 08:00 07/28/18 07:10 07/28/18 07:00 99.0 F 07/28/18 06:34 85 148/79 H 07/28/18 06:33 85 21 H 07/28/18 06:00 20 BP Pulse Ox Pulse Ox Pulse Ox 07/28/18 14:25 99 07/28/18 12:00 07/28/18 11:24 99 07/28/18 09:51 07/28/18 08:43 147/75 H 100 100 07/28/18 08:00 99 07/28/18 07:10 99 07/28/18 07:00 07/28/18 06:34 07/28/18 06:33 99 07/28/18 06:00 Weight Admit Weight 229 lb 4.492 oz Weight 220 lb 0.341 oz Most Recent Monitor Data Heart Rate from ECG 84 NIBP 166/79 NIBP BP-Mean 112 Respiration from ECG 23 SpO2 100 I&O: 07/27/18 07/28/18 07/29/18 06:59 06:59 06:59 Intake Total 2124 1700 60 Output Total 1300 1475 0 Balance 824 225 60 Result Diagrams: 07/26/18 05:54 07/26/18 05:54 Phys Exam - Physical Examination Constitutional: NAD Trach with collar. Respiratory: no wheezing, no rales, no rhonchi, clear to auscultation bilateral Cardiovascular: RRR, no significant murmur Gastrointestinal: soft, no distention, positive bowel sounds Musculoskeletal: no edema Status slightly variable, but generally appears to be a little less responsive and interactive. Appears to be asleep basically all of the time Dx/Plan (1) Acute respiratory failure with hypoxia Code(s): J96.01 - ACUTE RESPIRATORY FAILURE WITH HYPOXIA Status: Acute Comment: Discussed with Pulmonology. Continue nocturnal ventilation, T-collar for daytime as tolerated, pulmonary support (2) Left hemiplegia Code(s): G81.94 - HEMIPLEGIA, UNSPECIFIED AFFECTING LEFT NONDOMINANT SIDE Status: Acute Comment: Secondary to #1, LTAC/senior living care options (3) Spontaneous intraparenchymal intracranial hemorrhage, acute Code(s): I62.9 - NONTRAUMATIC INTRACRANIAL HEMORRHAGE, UNSPECIFIED Status: Acute Comment: spontaneous R-sided hemorrhage, conservative mgmt, no anticoagulation, senior living placement options, s/p Trach/PEG on 07/21/18. Repeat CT today with some blood in the ventrical. Possibly some slight progression of the midline shift. (4) Atrial fibrillation Code(s): I48.91 - UNSPECIFIED ATRIAL FIBRILLATION Status: Chronic Comment: Rate-control measures, On Cardizem per PEG. Pacer with normal functioning, no anticoagulation due to ICH (5) Constipation Code(s): K59.00 - CONSTIPATION, UNSPECIFIED Status: Acute Comment: Miralax, Dulcolax ordered. (6) Hypertension Code(s): I10 - ESSENTIAL (PRIMARY) HYPERTENSION Status: Acute Comment: Transitioned from IV cardizem to PEG. BP up. May need titration if BP remains up. ACEI, Amlodipine as well. Better today. (7) HCAP (healthcare-associated pneumonia) Code(s): J18.9 - PNEUMONIA, UNSPECIFIED ORGANISM Status: Acute Comment: Levaquin. Respiratory support. - Plan * Continuing to try to wean off of the trach. LTAC process ongoing. .
--- NOTE | 2018-07-28 16:30 | PRG ---
DATE OF SERVICE: 07/28/2018 Ms. Landaverde seemed a little less responsive this morning. I did get her to weakly hold up two fingers . She still has a right lateral gaze preference and left hemiplegia. PHYSICAL EXAMINATION: VITAL SIGNS: Blood pressures 140/64 this afternoon, heart rate 84, respirations 20. She is still sl eeping with mechanical ventilation and is not mechanically ventilated during the day. At this point, she is handling her secretions reasonably well. LUNGS: Remarkable for mild rhonchi. HEART: Regular rhythm. ABDOMEN: Soft and nontender. LABORATORY DATA: White count 11.5, hemoglobin 13.5, platelets 260. Sodium 134, potassium 4.1, chloride 102, bicarb 24, BUN 26, creatinine 0.55, pH 7.49, CO2 of 34, PO2 91 on the . We are were no longer doing blood gases on her during the day. Head CT was ordered, which shows more midline shift on her CT with some intraventricular blood. Plan to discuss this with Neurosurgery. I was paged by Radiology this morning and they placed in their dictation that they contacted me, they did not. They left a message with my office to return a call and within 5 minutes, I returned the c all. I am in a position interpreting the film, was not available. I placed a call to Neurosurgery and will make further recommendations after that. We will continue n octurnal ventilation for now.
--- NOTE | 2018-07-28 19:03 | PRG ---
DATE OF SERVICE: 07/28/2018 NEUROSURGERY PROGRESS NOTE I was called by colleagues in Pulmonary Medicine/Critical Care to evaluate a CT scan done today on Joshua Landaverde. Evidently, she did not follow commands today and interaction with her has been m ore limited. A CT scan was done and I have reviewed it. When I measured the midline shift at the fo ramen of [place] or in the body of the third ventricle, I see improvement from the scan done 10 days ag o. The blood products seem to be resolving. The intraparenchymal clot is less. There is a temporal evolution of the subarachnoid blood in the ventricles and less density. There is some surrounding e dawn around the hemorrhages there often is, but in all, there has been significant an expected in sca donta since her last scan. The waxing and waning neurological symptoms could be related to hyponatrem ia, urinary tract infection or the temporal evolution of the intraparenchymal clot. I do not recomme nd any surgical intervention and I have discussed the case with Dr. Duval.
--- NOTE | 2018-07-28 19:26 | PRG ---
DATE OF SERVICE: 07/28/2018 I reviewed Ms. Landaverde's CT with Dr. Ghotra. He actually feels that the evolution of her CT scan i s normal evolution of a hemorrhagic stroke and he does not feel the midline shift is worse. This aft ernoon, she was more alert than she was this morning. We will continue to support her.
[2018-07-28] MEDS: Pravastatin Sodium 20 MG TAB PO SCH (21:15)
[2018-07-28] MEDS: Escitalopram Oxalate 20 mg Tablet PO SCH (21:15)
[2018-07-29] MEDS: Diabetic Tussin 200 MG/10 ML UDCUP PER TUBE SCH ×4 (02:13→13:16)
[2018-07-29] MEDS: Amlodipine 10 MG TAB PO SCH (08:58)
[2018-07-29] MEDS: TROSPIUM 20 MG TABLET PO SCH (08:58)
[2018-07-29] MEDS: Ascorbic Acid 500 mg Chewable Tablet PO SCH (08:58)
[2018-07-29] MEDS: OXcarbazepine 300 MG TAB PO SCH (08:58)
[2018-07-29] MEDS: Lisinopril 20 MG TAB PO SCH (08:58)
[2018-07-29] MEDS: Polyethylene Glycol 3350 17 GM Packet PER TUBE SCH (08:59)
[2018-07-29] MEDS: levETIRAcetam 500 MG TAB PO SCH (08:59)
[2018-07-29 10:12] VITALS: BP 134/76
--- NOTE | 2018-07-29 15:41 | PRG ---
DATE OF SERVICE: 07/29/2018 SUBJECTIVE: Kerry Landaverde is better today. Still weakly follows commands. She made eye contact with her earlier. He thinks she is better than she was yesterday. OBJECTIVE: VITAL SIGNS: Heart rate 85, respiratory 23, oximetry is 100% on trach collar, blood pressure 157/75. LUNGS: Clear. HEART: Regular rhythm. ABDOMEN: Soft. There is no new lab. IMPRESSION: 1. Status post hemorrhagic cerebrovascular accident. 2. Respiratory failure with nocturnal ventilation to help atelectasis and facilitation for secretion clearance. 3. Status post trach and PEG. PLAN: Continued neurological close surveillance. It is reasonable for her to be transferred to a [facility] at this time. In my opinion, I met with her and answered all of his questions.
[2018-07-29 15:42] VITALS: TEMP 98.6
--- NOTE | 2018-07-31 09:28 | PDOC.PN ---
- Subjective Encounter Start Date: 07/29/18 Encounter Start Time: 11:00 -: non-verbal - Objective Resuscitation Status: Resuscitation Status DNR:Do Not Resuscitate Vital Signs & Weight: Weight Admit Weight 229 lb 4.492 oz Weight 216 lb 14.958 oz Most Recent Monitor Data Heart Rate from ECG 86 NIBP 132/63 NIBP BP-Mean 86 Respiration from ECG 22 SpO2 100 I&O: 07/30/18 07/31/18 08/01/18 06:59 06:59 06:59 Intake Total 1014 Balance 1014 Result Diagrams: 07/26/18 05:54 07/26/18 05:54 Phys Exam - Physical Examination Constitutional: NAD Up in chair with trach collar. Non-responsive. Respiratory: no wheezing, no rales, no rhonchi, clear to auscultation bilateral Cardiovascular: no significant murmur Gastrointestinal: soft, no distention Appears asleep. Does not respond to voice. Dx/Plan (1) Acute respiratory failure with hypoxia Code(s): J96.01 - ACUTE RESPIRATORY FAILURE WITH HYPOXIA Status: Acute Comment: Discussed with Pulmonology. Continue nocturnal ventilation, T-collar for daytime as tolerated, pulmonary support (2) Left hemiplegia Code(s): G81.94 - HEMIPLEGIA, UNSPECIFIED AFFECTING LEFT NONDOMINANT SIDE Status: Acute Comment: Secondary to #1, LTAC/correction care options (3) Spontaneous intraparenchymal intracranial hemorrhage, acute Code(s): I62.9 - NONTRAUMATIC INTRACRANIAL HEMORRHAGE, UNSPECIFIED Status: Acute Comment: spontaneous R-sided hemorrhage, conservative mgmt, no anticoagulation, correction placement options, s/p Trach/PEG on 07/21/18. Repeat CT today with some blood in the ventrical. Possibly some slight progression of the midline shift. Per Neurosurg, normal evolutionary changes. (4) Atrial fibrillation Code(s): I48.91 - UNSPECIFIED ATRIAL FIBRILLATION Status: Chronic Comment: Rate-control measures, On Cardizem per PEG. Pacer with normal functioning, no anticoagulation due to ICH (5) Constipation Code(s): K59.00 - CONSTIPATION, UNSPECIFIED Status: Acute Comment: Miralax, Dulcolax ordered. (6) Hypertension Code(s): I10 - ESSENTIAL (PRIMARY) HYPERTENSION Status: Acute Comment: Transitioned from IV cardizem to PEG. BP up. May need titration if BP remains up. ACEI, Amlodipine as well. Better today. (7) HCAP (healthcare-associated pneumonia) Code(s): J18.9 - PNEUMONIA, UNSPECIFIED ORGANISM Status: Acute Comment: Priscilla. Respiratory support. - Plan * Patient was accepted to LTAC. Transfer papers signed.
--- NOTE | 2018-07-31 13:40 | DIS ---
DATE OF ADMISSION: 07/15/2018 DATE OF DISCHARGE: 07/29/2018 DISCHARGE DIAGNOSES: 1. Spontaneous intraparenchymal intracranial hemorrhage. 2. Acute respiratory failure with hypoxia. 3. Left hemiplegia. 4. Atrial fibrillation. 5. Hypertension. 6. Constipation. 7. Healthcare-acquired pneumonia, hospital-acquired pneumonia. HISTORY: This patient is a 73-year-old female with a history of atrial fibrillation and multiple abl ations. The patient remained on Xarelto. She was in her usual health until the day of admission. A t that time, the patient had gotten up to go to the bathroom and subsequently the found her u nresponsive. The patient was subsequently brought to the emergency department where a stroke alert w as called and the patient subsequently had a CT scan of the brain showing a large hemorrhage centered in the right basal ganglia and right intraventricular extension of the hemorrhage with a right to le ft midline shift. Neurosurgery was called to evaluate the patient. She had reversal agents for the Xarelto and was subsequently admitted to the hospital. The patient was unresponsive enough and she r equired intubation for airway support. Follow up CT scans did not show progressive bleeds. HOSPITAL COURSE: The patient remained in the ICU and maintained on ventilator support with ultimatel y require vent for a trach placement and PEG tube as she was not showing signs of significant neurolo gical recovery. The patient did have some improvement at times being able to respond modestly to her . She was tolerating the trach and the PEG tube feeds well. She did develop some low grade fever, white count and a chest x-ray was consistent with possible early pneumonia, now which was subs equently appropriately treated with antibiotic regimen. She also developed some constipation x1 requ iring treatment, but was most concerned at best. With the patient on the trach and the PEG tube, she had a slight regression with less responsiveness and a repeat CT scan was obtained which only reveal ed a normal evolutionary changes of the cerebral hemorrhage. With patient's weaning from the trach a nd requiring nocturnal ventilator support, it was felt that this would be a slow growing process and she would benefit from long-term treatment. Therefore, the patient was evaluated for and accepted to [facility] in [place]. The patient will be transferred to that facility and further treatment will be per their care plan.
== END 2018-07-29 16:40 | DRG 4 ==
LOC: ERS 05:59 → CCU 07:36
PROVIDERS: ADMIT Neurological Surgery; ATTEND Neurological Surgery
PROC: 0B110F4 Bypass Trachea to Cutaneous with Tracheostomy Device, Open Approach (ICD-10-PCS; principal; 2018-07-21)
PROC: 5A1955Z Respiratory Ventilation, Greater than 96 Consecutive Hours (ICD-10-PCS; 2018-07-21)
PROC: 0DH63UZ Insertion of Feeding Device into Stomach, Percutaneous Approach (ICD-10-PCS; 2018-07-21)
DX: I62.9 Nontraumatic intracranial hemorrhage, unspecified (principal); J96.01 Acute respiratory failure with hypoxia; J18.9 Pneumonia, unspecified organism; G93.6 Cerebral edema; G81.94 Hemiplegia, unspecified affecting left nondominant side; I16.1 Hypertensive emergency; E22.2 Syndrome of inappropriate secretion of antidiuretic hormone; J98.11 Atelectasis; N39.0 Urinary tract infection, site not specified; I50.32 Chronic diastolic (congestive) heart failure; Y95 Nosocomial condition; I48.91 Unspecified atrial fibrillation; E78.5 Hyperlipidemia, unspecified; Z88.5 Allergy status to narcotic agent; Z88.0 Allergy status to penicillin; Z91.048 Other nonmedicinal substance allergy status; Z95.810 Presence of automatic (implantable) cardiac defibrillator; R13.10 Dysphagia, unspecified; I10 Essential (primary) hypertension; Z91.013 Allergy to seafood; F31.9 Bipolar disorder, unspecified; R29.810 Facial weakness; B95.61 Methicillin susceptible Staphylococcus aureus infection as the cause of diseases classified elsewhere; B96.89 Other specified bacterial agents as the cause of diseases classified elsewhere; Z66 Do not resuscitate; K59.00 Constipation, unspecified; B96.20 Unspecified Escherichia coli [E. coli] as the cause of diseases classified elsewhere; R56.9 Unspecified convulsions; Z79.899 Other long term (current) drug therapy; Z79.01 Long term (current) use of anticoagulants
CPT/HCPCS: 31500; 36415; 36416; 51702; 70450; 70496; 71045; 80048; 80053; 81001; 81003; 81015; 82553; 82805; 83880; 84295; 84484; 85007; 85025; 85027; 85610; 85730; 87040; 87070; 87077; 87086; 87186; 87205; 93005; 93010; 93970; 94002; 94003; 94640; 94760; 96365; 96366; 96375; C9113; C9132; G8978-GP-CN; G8979-GP-CK; G8979-GP-CL; G8987-GO-CN; G8988-GO-CJ; G9159-GN-CN; G9160-GN-CM; J0670; J1160; J1200; J1940; J1953; J1956; J2001; J2150; J2270; J2704; J3010; J7050; J7620

== ENCOUNTER 2018-10-05 13:11 | Inpatient (IN) | payer MEDICARE ==
[2018-10-05] MEDS ORDERED: Ketorolac Tromethamine 30 MG/ML VIAL ONE (16:27)
[2018-10-05] MEDS ORDERED: Morphine 4 MG/ML VIAL ONE (19:32)
[2018-10-05] MEDS: cefTRIAXone\\ROCEPHIN 1 GM in Sodium Chloride 0.9% 100 ML IVPB SCH (22:36)
[2018-10-05] MEDS ORDERED: Simvastatin 5 MG TAB PER TUBE SCH (23:00)
[2018-10-05] MEDS ORDERED: OXcarbazepine 300 MG TAB PER TUBE SCH (23:00)
[2018-10-05] MEDS ORDERED: OXcarbazepine 600 MG TAB PER TUBE SCH (23:00)
[2018-10-05] MEDS ORDERED: Escitalopram Oxalate 20 mg Tablet PER TUBE SCH (23:00)
[2018-10-05] MEDS ORDERED: Lisinopril 20 MG TAB PER TUBE SCH (23:00)
[2018-10-05 23:41] VITALS: BMI 38.7
[2018-10-06 05:11] LABS: #Eosinphils 0.2 thou/uL (0.0-0.7); #Lymphocytes 0.7 thou/uL (1.20-3.40); #Monocytes 0.5 thou/uL (0.11-0.59); #Neutrophils 3.4 thou/uL (1.40-6.50); %Basophils 0.4 % (0.0-1.0); %Eosinophils 4.5 % (0.0-10.0); %Monocytes 10.7 % (0.0-10.0); %Neutrophils 70.5 % (42.0-75.0); Hemoglobin 10.1 g/dL (12.0-16.0); Mean Corpuscular HGB CONC 33.9 g/dL (32.0-36.0); Mean Corpuscular Hemoglobin 29.3 pg (27.0-31.0); Mean Corpuscular Volume 86.5 fL (78.0-98.0); Mean Platelet Volume 8.1 fL (7.4-10.4); Platelet Count 204 thou/uL (130-400); RBC Distribution Width 14.6 % (11.5-14.5); Red Blood Cell (RBC) Count 3.44 mill/uL (4.20-5.40); White Blood Cell (WBC) Count 4.9 thou/uL (4.8-10.8)
--- NOTE | 2018-10-06 05:16 | HP ---
CHIEF COMPLAINT: Shortness of breath. HISTORY OF PRESENT ILLNESS: This patient is a 73-year-old female known to me from previous admission in July, at which time, the patient had a hemorrhagic and a parenchymal CVA with severe left-sided paralysis. The patient had a history of atrial fibrillation with multiple ablations and was on anticoagulation when, I believe, it occurred. The patient subsequently required a trach and a PEG and remained fairly encephalopathic. She was discharged from the hospital and transferred to [facility]. The patient was noted to have DVT soon afterward in her left lower extremity. The patient then was transferred to [facility], where she had an IVC filter placed and was referred back to the [facility]. At the [facility], the patient completed her course of treatment and had her trach removed and was subsequently transferred to the [facility] in [place], [place]. The patient stayed there for a period of time and improved with her rehab and was subsequently transferred to [facility], where she has been for approximately 1 week. Today, they noted that the patient just did not appear right, therefore, in assessing her, they did find that her oxygen levels were low. She was subsequently given oxygen and sent to the [facility]. The patient was unable to describe much else in the way of symptoms. The patient denies any cough, chest pain, fevers, or chills. Also note, that the patient has had the indwelling Weiss catheter persistently since she was discharged from this facility. It has been changed out appropriately, but no one has attempted to discontinue that. REVIEW OF SYSTEMS: All systems were reviewed and pertinent positives and negatives noted in the history of present illness. PAST MEDICAL HISTORY: Notable for the above-mentioned CVA with left-sided paralysis; COPD; dysphagia; CHF; hypothyroidism; atrial fibrillation, status post multiple ablations; hyperlipidemia; and hypertension. PAST SURGICAL HISTORY: Multiple cardiac ablations, pacemaker placement, appendectomy, cholecystectomy, hysterectomy, trach placement with removal and PEG tube placement. SOCIAL HISTORY: The patient is a nondrinker, nonsmoker, non-drug user. She is . Her is her surrogate decision maker and she is FULL CODE. FAMILY HISTORY: Reviewed, nothing pertinent to the current admission. ALLERGIES: CODEINE, FISH PRODUCTS, PENICILLIN, PROPAFENONE, SHELLFISH. CURRENT MEDICATIONS: 1. Amlodipine 5 mg one per PEG daily. 2. Bruner Thyroid 120 mg one per PEG daily. 3. CoQ10 100 mg one per PEG daily. 4. Escitalopram 20 mg per PEG at bedtime. 5. Lisinopril 20 mg b.i.d. 6. Pravastatin 20 mg daily. 7. Trileptal 300 mg p.o. q.a.m. and 600 mg p.o. at bedtime. 8. VESIcare 5 mg daily. 9. B12 1000 mcg daily. 10. Vitamin C 500 mg daily. 11. Xarelto 20 mg at bedtime. PHYSICAL EXAMINATION: VITAL SIGNS: Blood pressure 157/71, pulse 62, respirations 20, O2 saturation 95% on 1 L oxygen. GENERAL APPEARANCE: Age-appropriate female. She is awake and alert and conversant. HEENT: PERRL. No OP lesions. NECK: Supple and symmetrical. HEART: Regular rate and rhythm without murmurs. LUNGS: Clear bilaterally. ABDOMEN: Soft, nontender, and nondistended. Positive bowel sounds. PEG tube in place and appears healthy. EXTREMITIES: Left lower extremity has significant pitting edema. Right lower extremity has no edema. NEUROLOGIC: The patient has persistent left-sided paralysis; however, her mental status alertness has substantially improved from her previous stay at the time of her previous discharge in July. LABORATORY DATA: White count 9.0, hemoglobin 10.5, and platelets 240. Sodium 131, potassium 4.2, chloride 94, CO2 is 31, BUN 12, creatinine 0.65, glucose 139, calcium 9.3. Troponin less than 0.01. BNP 402. Urinalysis; moderate blood, positive nitrites, moderate leukocyte esterase, 11 to 20 red cells, greater than 50 white cells, and 3+ bacteria. Chest x-ray shows cardiomegaly with some pulmonary edema. IMPRESSION AND PLAN: 1. Acute respiratory failure with O2 saturations at 88% in the fdc requiring some supplemental oxygen, appears to be improving. 2. Acute congestive heart failure. The patient has some pulmonary edema on her chest x-ray, likely accounting for her hypoxia and acute respiratory failure. The patient has received a dose of Lasix in the emergency department. She seems to be significantly improved with that. At this point, we will obtain an echocardiogram. Continue with her usual home medications including the KISHAN inhibitor. She may need to have her pacemaker interrogated as well to determine if she is still having any arrhythmia that might be accounting for her decompensation. 3. Urinary tract infection. The patient has a chronic indwelling Weiss catheter since her previous stroke. I am not sure that there is a strong indication to continue with that. She has obviously had it for a couple of months now, will need some aggressive bladder training should that be removed. 4. History of hemorrhagic cerebrovascular accident with left-sided weakness. Dr. Ghotra felt this apparently reached out to the patient's about the patient getting a followup CT scan. I do not see there is a strong indication for that now, but I will try to talk to Neurosurgery about that. We will also discuss with them the ongoing use of the Xarelto. 5. Hypertension. Continue with amlodipine and lisinopril. 6. Hyperlipidemia. Continue with pravastatin. 7. History of hypothyroidism. Continue with Bruner Thyroid. 8. Continue with Trileptal for seizure prophylaxis. Job ID: [id number]
[2018-10-06 05:26] LABS: Anion Gap 11 mmol/L (10-20); BUN (Urea Nitrogen) 14 mg/dL (9.8-20.1); Calc. Creatinine Clearance 130 mL/min (70-130); Calcium 9.7 mg/dL (7.8-10.44); Carbon Dioxide 29 mmol/L (23-31); Chloride 95 mmol/L (98-107); Estimated GFR-MDRD Greater than 90; Glucose 88 mg/dL (83-110); Potassium 3.8 mmol/L (3.5-5.1); Sodium 131 mmol/L (136-145)
[2018-10-06] MEDS: Lisinopril 20 MG TAB PER TUBE SCH ×2 (08:35→22:03)
[2018-10-06] MEDS: OXcarbazepine 300 MG TAB PER TUBE SCH ×2 (08:35→22:04)
[2018-10-06] MEDS ORDERED: Amlodipine 5 MG TAB PER TUBE SCH (09:00)
[2018-10-06] MEDS ORDERED: Escitalopram Oxalate 10 mg Tablet PER TUBE SCH (09:00)
[2018-10-06] MEDS ORDERED: Lisinopril 20 MG TAB PER TUBE SCH (09:00)
--- NOTE | 2018-10-06 09:36 | RAD ---
PORTABLE CHEST: History: Respiratory distress. Comparison: Prior day's exam. FINDINGS: Heart size is enlarged. A pacemaker is present. Hilar regions are slightly prominent centrally which appears to be related to pulmonary vessels. No interval change since the prior exam. IMPRESSION: Cardiomegaly. Chronic lung change. Stable exam. POS: DERICK
--- NOTE | 2018-10-06 12:43 | PDOC.PN ---
- Subjective Encounter Start Date: 10/06/18 Encounter Start Time: 10:30 Feeling better in general. Breathing is ok. No new complaints. reports that the ED provider in [facility] said she would be going back to a swing bed at discharge. - Objective Resuscitation Status - Order Detail: 10/05/18 21:11 Resuscitation Status Routine Resuscitation Status: FULL: Full Resuscitation Discussed with: patient, Vital Signs & Weight: Vital Signs (12 hours) Temp Pulse Resp BP Pulse Ox 10/06/18 11:08 97.0 F L 71 15 150/74 H 96 10/06/18 08:35 67 10/06/18 08:31 97.8 F 67 15 148/67 H 95 10/06/18 03:05 97.5 F L 70 15 107/56 L 95 Weight Admit Weight 225 lb 4.8 oz Weight 225 lb 4.8 oz I&O: 10/05/18 10/06/18 10/07/18 06:59 06:59 06:59 Intake Total 115 Output Total 200 Balance -85 Result Diagrams: 10/06/18 04:27 10/06/18 04:27 Phys Exam - Physical Examination Constitutional: NAD Sleepy, but awakens easily. Appropriate. Respiratory: no wheezing, no rales, no rhonchi Cardiovascular: RRR, no significant murmur, no rub Gastrointestinal: soft, non-tender, no distention, positive bowel sounds PEG. Musculoskeletal: no edema Left hemiplegia. Psychiatric: normal affect Deviation from normal: A little somnolent Dx/Plan (1) Hx of spontaneous intraparenchymal intracranial hemorrhage Code(s): Z86.79 - PERSONAL HISTORY OF OTHER DISEASES OF THE CIRCULATORY SYSTEM Status: Acute (2) CHF (congestive heart failure) Code(s): I50.9 - HEART FAILURE, UNSPECIFIED Status: Acute (3) Acute respiratory failure with hypoxia Code(s): J96.01 - ACUTE RESPIRATORY FAILURE WITH HYPOXIA Status: Acute Comment: Discussed with Pulmonology. Continue nocturnal ventilation, T-collar for daytime as tolerated, pulmonary support (4) Hypertension Code(s): I10 - ESSENTIAL (PRIMARY) HYPERTENSION Status: Acute Comment: Transitioned from IV cardizem to PEG. BP up. May need titration if BP remains up. ACEI, Amlodipine as well. Better today. (5) Left hemiplegia Code(s): G81.94 - HEMIPLEGIA, UNSPECIFIED AFFECTING LEFT NONDOMINANT SIDE Status: Acute Comment: Secondary to #1, LTAC/penitentiary care options (6) Atrial fibrillation Code(s): I48.91 - UNSPECIFIED ATRIAL FIBRILLATION Status: Chronic Comment: Rate-control measures, On Cardizem per PEG. Pacer with normal functioning, no anticoagulation due to ICH - Plan * Resuming PEG feeds with pureed food and thickened liquids. * PT/OT consult. * Talked with Dr. Ghotra. He had recommended the CT head in follow up to determine if the patient could potentially go back on oral anticoagulation. * Clarified with patient's . She was not on any anticoagulation since the bleed. * Echo results pending. * Urine cx pending.
--- NOTE | 2018-10-06 14:01 | CT ---
CT BRAIN NONCONTRAST: DATE: 10/06/2018. TIME: 11:51 a.m. HISTORY: A 73-year-old female for followup of hemorrhagic CVA. COMPARISON: CT of 07/28/2018. FINDINGS: The previously demonstrated 5.5 x 3.5 cm hematoma occupying the entire right basal ganglia has become much lower in density. It is currently approximately 4.5 x 3.5 cm and has moderately low attenuatio n. Its center has density that is similar to brain parenchyma. The extrinsic mass effect, including compression and distortion of the ventricles, has improved. Currently, there is a mildly degree of extrinsic compression of the right lateral ventricle. The previously demonstrated subfalcine herniat ion has improved. At the level of the bodies of the lateral ventricles, the septum pellucidum is abdiaziz fted onlu 0.2 cm to the left of midline now. There is no acute new hemorrhage. No calvarial fractur e. IMPRESSION: Interval decrease in density of the large, late subacute hematoma in the right basal ganglia, with in terval decrease in the associated mass effect. GEOVANNA Gayle POS: CHON
[2018-10-06] MEDS: traMADol HCl 50 MG TAB PO PRN ×2 (16:09→22:16)
[2018-10-06] MEDS ORDERED: OXcarbazepine 600 MG TAB PER TUBE SCH (21:00)
[2018-10-06] MEDS ORDERED: Pravastatin Sodium 40 MG TAB PER TUBE SCH (21:00)
[2018-10-06] MEDS: cefTRIAXone\\ROCEPHIN 1 GM in Sodium Chloride 0.9% 100 ML IVPB SCH (22:01)
[2018-10-06] MEDS: Simvastatin 5 MG TAB PER TUBE SCH (22:03)
[2018-10-06] MEDS: Escitalopram Oxalate 20 mg Tablet PER TUBE SCH (22:03)
[2018-10-07 05:40] LABS: #Eosinphils 0.3 thou/uL (0.0-0.7); #Lymphocytes 0.8 thou/uL (1.20-3.40); #Monocytes 0.6 thou/uL (0.11-0.59); #Neutrophils 4.9 thou/uL (1.40-6.50); %Basophils 0.2 % (0.0-1.0); %Eosinophils 4.7 % (0.0-10.0); %Lymphocytes 11.9 % (21.0-51.0); %Monocytes 8.6 % (0.0-10.0); %Neutrophils 74.6 % (42.0-75.0); Hemoglobin 9.4 g/dL (12.0-16.0); Mean Corpuscular HGB CONC 34.2 g/dL (32.0-36.0); Mean Corpuscular Hemoglobin 29.3 pg (27.0-31.0); Mean Corpuscular Volume 85.9 fL (78.0-98.0); Mean Platelet Volume 7.6 fL (7.4-10.4); Platelet Count 230 thou/uL (130-400); RBC Distribution Width 14.5 % (11.5-14.5); Red Blood Cell (RBC) Count 3.22 mill/uL (4.20-5.40); White Blood Cell (WBC) Count 6.5 thou/uL (4.8-10.8)
[2018-10-07 05:48] LABS: Anion Gap 9 mmol/L (10-20); BUN (Urea Nitrogen) 13 mg/dL (9.8-20.1); Calc. Creatinine Clearance 146 mL/min (70-130); Calcium 9.1 mg/dL (7.8-10.44); Carbon Dioxide 30 mmol/L (23-31); Chloride 95 mmol/L (98-107); Estimated GFR-MDRD Greater than 90; Glucose 142 mg/dL (83-110); Potassium 3.3 mmol/L (3.5-5.1); Sodium 131 mmol/L (136-145)
[2018-10-07] MEDS: OXcarbazepine 300 MG TAB PER TUBE SCH ×2 (10:03→20:06)
[2018-10-07] MEDS: Lisinopril 20 MG TAB PER TUBE SCH ×2 (10:04→20:07)
[2018-10-07] MEDS: traMADol HCl 50 MG TAB PO PRN ×2 (10:04→20:06)
[2018-10-07] MEDS: Carvedilol 3.125 MG TAB PO SCH ×2 (10:04→17:31)
--- NOTE | 2018-10-07 14:24 | PDOC.PN ---
- Subjective Encounter Start Date: 10/07/18 Encounter Start Time: 12:40 Feels well today. No specific complaints. - Objective Resuscitation Status - Order Detail: 10/05/18 21:11 Resuscitation Status Routine Resuscitation Status: FULL: Full Resuscitation Discussed with: patient, Vital Signs & Weight: Vital Signs (12 hours) Temp Pulse Pulse Resp BP BP Pulse Ox 10/07/18 13:43 97.9 F 60 17 123/65 97 10/07/18 09:54 98.2 F 61 16 179/84 H 97 10/07/18 09:05 60 186/86 H 10/07/18 04:00 98.6 F 67 19 144/67 H 96 Weight Admit Weight 225 lb 4.8 oz Weight 225 lb 5 oz I&O: 10/06/18 10/07/18 10/08/18 06:59 06:59 06:59 Intake Total 115 1317 Output Total 200 1700 Balance -85 -383 Result Diagrams: 10/07/18 05:23 10/07/18 05:23 Phys Exam - Physical Examination Constitutional: NAD Respiratory: no wheezing, no rales, no rhonchi, clear to auscultation bilateral Cardiovascular: RRR, no significant murmur, no rub Gastrointestinal: soft, non-tender, no distention, positive bowel sounds Musculoskeletal: no edema Left hemiplegia Psychiatric: normal affect, A&O x 3 Dx/Plan (1) Hx of spontaneous intraparenchymal intracranial hemorrhage Code(s): Z86.79 - PERSONAL HISTORY OF OTHER DISEASES OF THE CIRCULATORY SYSTEM Status: Acute Comment: Still has some residual blood products on CT. Avoid anticoag. (2) CHF (congestive heart failure) Code(s): I50.9 - HEART FAILURE, UNSPECIFIED Status: Acute Qualifiers: Heart failure type: diastolic Heart failure chronicity: acute Qualified Code(s): I50.31 - Acute diastolic (congestive) heart failure Comment: Started on Coreg. Add Lasix 20 mg per PEG qod. (3) Acute respiratory failure with hypoxia Code(s): J96.01 - ACUTE RESPIRATORY FAILURE WITH HYPOXIA Status: Acute Comment: Improved with resolution of the pulmonary edema. Wean oxygen. (4) Hypertension Code(s): I10 - ESSENTIAL (PRIMARY) HYPERTENSION Status: Acute Comment: Stopped amlodipine and started coreg. Continue lisinopril. (5) Left hemiplegia Code(s): G81.94 - HEMIPLEGIA, UNSPECIFIED AFFECTING LEFT NONDOMINANT SIDE Status: Acute Comment: Post hemorrhagic cva. (6) Atrial fibrillation Code(s): I48.91 - UNSPECIFIED ATRIAL FIBRILLATION Status: Chronic Comment: NSR now. Off anticoag. (7) UTI (urinary tract infection) Status: Acute Comment: Pseudomonas. Attempt to discontinue the Weiss. Rocephin. (8) Pseudomonas aeruginosa infection Code(s): A49.8 - OTHER BACTERIAL INFECTIONS OF UNSPECIFIED SITE Status: Acute Comment: Await sensitivities. (9) Weiss catheter in place Code(s): Z92.89 - PERSONAL HISTORY OF OTHER MEDICAL TREATMENT Status: Acute Comment: Has had Weiss for almost two months now. Attempt to remove. - Plan * Discussed plan with patient and her daughter.
[2018-10-07] MEDS: Escitalopram Oxalate 20 mg Tablet PER TUBE SCH (20:06)
[2018-10-07] MEDS: Simvastatin 5 MG TAB PER TUBE SCH (21:57)
[2018-10-07] MEDS: cefTRIAXone\\ROCEPHIN 1 GM in Sodium Chloride 0.9% 100 ML IVPB SCH (21:57)
--- NOTE | 2018-10-08 01:48 | CON ---
DATE OF CONSULTATION: HISTORY OF PRESENT ILLNESS: The patient is a 73-year-old female who is status post intracranial hemorrhage and percutaneous endoscopic gastrostomy placement. She went to [facility] for a while and returned because of acute respiratory difficulties. The nursing personnel here have noticed difficulty with her PEG infusions with PEG tube feedings being difficult to place. She denies any abdominal pain. PAST MEDICAL HISTORY: Includes cerebrovascular accident, COPD, congestive heart failure, atrial fibrillation, hyperlipidemia, hypertension. PAST SURGICAL HISTORY: Includes cardiac ablation, pacemaker, appendectomy, cholecystectomy, hysterectomy, PEG placement. SOCIAL HISTORY: She does not smoke or drink. MEDICATIONS: Include, 1. Norvasc 5 mg per PEG daily. 2. [place] Thyroid 120 mg per PEG daily. 3. CoQ10 one per PEG daily. 4. Citalopram 20 mg per PEG at bedtime. 5. Lisinopril 20 mg b.i.d. per PEG. 6. Pravastatin 20 mg p.o. q.p.m. per PEG. 7. Trileptal 300 mg q.a.m. and 600 mg p.o. at bedtime per PEG. 8. VESIcare 5 mg per PEG daily. 9. Vitamin C 500 mg per PEG daily. 10. Xarelto 20 mg p.o. at bedtime. ALLERGIES: CODEINE, FISH PRODUCTS, PENICILLIN, SHELLFISH. FAMILY HISTORY: Negative for GI or liver disease. REVIEW OF SYSTEMS: CONSTITUTIONAL: No fever or chills. No weight loss. EYES: No blurred vision or double vision. ENT: No sore throat or ear aches. CARDIOVASCULAR: No chest pain or palpitation. PULMONARY: No shortness of breath, cough, or wheeze. GI: See above. : No hematuria or dysuria. MUSCULOSKELETAL: No joint pain or muscle weakness. SKIN: No rashes. NEUROLOGIC: No numbness. PHYSICAL EXAMINATION: GENERAL: Shows a female, in no acute distress. VITAL SIGNS: Temperature is 97.9, pulse is 60, respiratory rate is 16, blood pressure 123/65. HEENT: Unremarkable. NECK: Supple. CHEST: Clear. CARDIOVASCULAR: Regular rate and rhythm. ABDOMEN: Soft and nontender without organomegaly or masses. The PEG site appears normal. There is no erythema or tenderness around the PEG bumper. Trying to flush the PEG is quite difficult and resistant. EXTREMITIES: Normal. NEUROLOGIC: Shows sequelae over previous intracerebral bleed. LABORATORY DATA: CBC shows a hemoglobin of 9.4, hematocrit 27.6, white blood cell count 6.5. Chemistries show a sodium of 133, potassium 3.3, creatinine 0.56, glucose 142. ASSESSMENT: Percutaneous endoscopic gastrostomy dysfunction - I am not sure why the patient's percutaneous endoscopic gastrostomy is having resistant. It possibly could have a distal clog or the bumper could be misplaced. RECOMMENDATIONS: To Radiology for tube check. Job ID: [id number]
[2018-10-08] MEDS: Lisinopril 20 MG TAB PER TUBE SCH ×2 (08:57→20:46)
[2018-10-08] MEDS: OXcarbazepine 300 MG TAB PER TUBE SCH ×2 (08:58→20:46)
[2018-10-08] MEDS: traMADol HCl 50 MG TAB PO PRN ×2 (08:58→15:58)
[2018-10-08] MEDS: Carvedilol 3.125 MG TAB PO SCH ×2 (08:58→15:59)
--- NOTE | 2018-10-08 12:08 | PQF ---
CLINICAL DOCUMENTATION IMPROVEMENT CLARIFICATION FORM: ICD-10 Updated PLEASE DO AN ADDENDUM TO THE PROGRESS NOTE WITH ANY DOCUMENTATION UPDATES OR ADDITIONS AND CARRY THROUGH TO DC SUMMARY. THANK YOU. DATE: 10/08/18 ATTN: Dr. Pham Please exercise your independent, professional judgment in responding to the clarification form. Clinical indicators are provided on the bottom of this form for your review Please check appropriate box(s): [ x ] UTI please specify if due to or related to (as applicable): [ x ] Indwelling archibald catheter [ ] Unable to determine etiology [ ] Other diagnosis [ ] Unable to determine In addition, please specify: Present on Admission (POA): [ x ] Yes [ ] No [ ] Unable to determine For continuity of documentation, please document condition throughout progress notes and discharge summary. Thank You. CLINICAL INDICATORS - SIGNS / SYMPTOMS / LABS PN 10/07: UTI. Acute. Pseudomonas RISKS: H&P 10/05: Urinary tract infection. The pt has a chronic indwelling Archibald catheter since her previous stroke. Hx of Atrial fib; COPD; CHF; HTN TREATMENT: ORDER 10/05: IV ROCEPHIN 1 GM ORDER 10/07: DISCONTINUE ARCHIBALD NOW Thank you, Gisella (This form is maintained as a part of the permanent medical record) 2014 [employer], [email or web address]. All Rights Reserved Gisella Griffin RN, BSN [email or web address] Office: [phone] [facility] CENTERJermaine
--- NOTE | 2018-10-08 12:08 | RAD ---
GASTROGRAFIN FLUOROSCOPIC TUBE CHECK: INDICATIONS: Malfunctioning percutaneous endoscopic gastrostomy tube. FINDINGS: A PEG catheter is seen within the region of the proximal gastric body and fundus, and [address] was injected into the PEG tube, which demonstrated an intraluminal gastric folds in the region of the fundus and proximal body. There is no evidence of leak. The visualized bowel gas pattern is ene bstructed. The lung bases are clear. There is an IVC filter seen to the right of the midline, at L3 -L4. There is diffuse osteopenia. IMPRESSION: The percutaneous endoscopic gastrostomy tube catheter is in the expected position, in the region of t he proximal gastric body. There is contrast opacification of the intraluminal space of the stomach, indicative of intraluminal placement of the catheter. Gastrografin 30 mL was administered into the c atheter via antegrade forward push. Findings were called to Dr. Villareal at 10:30 a.m. on 10/08/2018. CODE ROHAN POS: CHON
--- NOTE | 2018-10-08 15:41 | PRG ---
DATE OF SERVICE: 10/08/2018 SUBJECTIVE: The patient is without new complaints. OBJECTIVE: VITAL SIGNS: Temperature 99.2, pulse 60, respiratory rate 20, and blood pressure 160/70. CHEST: Clear. CARDIOVASCULAR: Regular rate and rhythm. ABDOMEN: Benign. PEG site is normal. The patient underwent a tube check by Radiology, and the tube check showed that the PEG was in the expected position. ASSESSMENT: Percutaneous endoscopic gastrostomy complication. RECOMMENDATIONS: 1. We will review tube check with the radiologist. 2. We will resume tube feedings. 3. We will resume PEG use for medications. 4. Recall if more problems with percutaneous endoscopic gastrostomy. Job ID: [id number]
[2018-10-08] MEDS: Escitalopram Oxalate 20 mg Tablet PER TUBE SCH (20:46)
[2018-10-08] MEDS: Simvastatin 5 MG TAB PER TUBE SCH (20:46)
[2018-10-08 20:47] VITALS: BP 172/71
[2018-10-08 22:08] VITALS: TEMP 98.2
--- NOTE | 2018-10-08 22:43 | CON ---
DATE OF CONSULTATION: 10/08/2018 REASON FOR CONSULTATION: Evaluation of urinary tract findings. HISTORY OF PRESENT ILLNESS: A 73-year-old patient with a history of prior CVA with hemorrhagic transformation and a severe left-sided plegia, atrial fibrillation and prior ablations, who required a tracheostomy and gastrostomy tube placement in the past and was transferred to [facility]. She developed a deep vein thrombosis in the left lower extremity and had an IVC filter placed. Subsequently, tracheostomy was removed and she was [facility] in [place], [place]. She improved with rehabilitation and had transferred to [facility] for about a week and then she developed hypoxemia and labored breathing. She did not have any headaches. No visual symptoms. No sore throat, odynophagia, or dysphagia. No vomiting. No evidence of aspiration. No cough. No chest pain. No abdominal pain. The patient has had an indwelling Weiss catheter since the transfer from [facility]. Initial findings; BP 150/70, pulse is 62, respirations 20, O2 saturation 95% Neck supple. Showed s1s2, no s3, regular rate. With clear lung sounds Soft and not distended. Gastrostomy tube appeared well with normal-appearing . There was pitting edema in the lower extremities, on the left side mostly. She has a persistent left-sided plegia, but much improved mental state, able to interact with examiner and have a conversation.Initial white cell count 9000, hemoglobin 10. Sodium 131, creatinine 0.65. BNP is 402. Urinalysis with greater than 50 wbc's. Chest x-ray with cardiomegaly. The patient has had 2 sets of blood cultures, which have been negative at 48 hours and Pseudomonas aeruginosa retrieved from the Weiss catheter from 2 different samples obtained on the . First organism was resistant to quinolones, piperacillin, tazobactam, and aztreonam. The 2nd organism with a similar profile. The patient was given ceftriaxone on the . Voiding without difficulty, without any dysuria after removal of the Weiss catheter. PMHx: CVA with hemorrhagic transformation, Atrial fibrillation, ablations, trach and peg (tracheostomy removed), HTN, hyperlipidemia, hypothyroidism PSHx: cholecystectomy, hysterectomy, pacemaker placement Social history: never smoker, Allergy history: PCN, codeine FHx: non contributory PEx: The T-max was 99.2, blood pressure 160/70, pulse 60. Skin exam with no areas of skin breakdown. The patient had a Weiss catheter, has been removed recently, peripheral IV access. G-tube exit site appears normal. Ocular movements conjugate. Oral cavity is moist with no lesions. Neck is supple to flexion and extension, and jugular vein distention is not present. Lungs with symmetric clear breath sounds. Her heart exam showed S1, S2 with regular rate without murmurs. Abdomen is soft, not distended or tender, maybe mild tenderness around the gastrostomy tube site. The suprapubic area appears normal. She has a left hemiplegia, and some edema in the left lower extremity. Pulses 1+ in dorsalis pedis. The right side, she moves well. She is awake, oriented, follows commands, recognizes her family members in the room, pleasant. Latest labs revealed a sodium 131, creatinine 0.56. White cell count 6.5, hemoglobin 9.4, platelets 230 with 74% neutrophils. Urinalysis with greater than 50 wbc's and 3+ bacteria. ASSESSMENT: 1. Atrial fibrillation with prior ablations. 2. Prior ischemic cerebrovascular accident with hemorrhagic transformation. 3. Prior deep vein thrombosis and inferior vena cava filter. 4. Development of hypoxemia with admission for that. 5. Abnormal urinalysis in the setting of indwelling Weiss catheter with the organisms as described above. DISCUSSION: At this point in time, there is no a firm clinical or laboratory evidence to suggest an invasive urinary tract infection. I would recommend withholding antimicrobial therapy at this point in time in preparation for discharge planning. Consider repeating the urinalysis and the urine culture in the next few days. The patient is at risk for development of invasive UTIs if she does not have proper emptying of her bladder and I would verify proper post-void residual following removal of the Weiss catheter. Job ID: [id number] [facility]
== END 2018-10-08 21:31 | disposition swing bed (61) | DRG 291 ==
LOC: ERS 13:11 → ERHOLD 15:57 → 2NO 22:06
PROVIDERS: ADMIT Family Medicine; ATTEND Family Medicine
DX: I11.0 Hypertensive heart disease with heart failure (principal); J96.01 Acute respiratory failure with hypoxia; T83.511A Infection and inflammatory reaction due to indwelling urethral catheter, initial encounter; I69.354 Hemiplegia and hemiparesis following cerebral infarction affecting left non-dominant side; N39.0 Urinary tract infection, site not specified; J44.9 Chronic obstructive pulmonary disease, unspecified; R13.10 Dysphagia, unspecified; E03.9 Hypothyroidism, unspecified; Z95.0 Presence of cardiac pacemaker; E78.5 Hyperlipidemia, unspecified; Z88.5 Allergy status to narcotic agent; Z88.0 Allergy status to penicillin; Z91.013 Allergy to seafood; Z79.899 Other long term (current) drug therapy; Z79.01 Long term (current) use of anticoagulants; Z86.718 Personal history of other venous thrombosis and embolism; Y84.6 Urinary catheterization as the cause of abnormal reaction of the patient, or of later complication, without mention of misadventure at the time of the procedure
CPT/HCPCS: 36415; 70450; 71045; 76000; 80048; 85025; 87077; 87086; 87186; 93306; 96374; 96375; G8978-GP-CN; G8979-GP-CL; G8981-GP-CN; G8982-GP-CL; G8987-GO-CM; G8988-GO-CK; G8996-GN-CL; G8997-GN-CK; J0696; J1885; J2270; J7050

== ENCOUNTER 2018-11-08 13:42 | Inpatient (IN) | payer MEDICARE ==
[2018-11-08 14:13] LABS: #Eosinphils 0.1 thou/uL (0.0-0.7); #Lymphocytes 0.6 thou/uL (1.20-3.40); #Monocytes 0.3 thou/uL (0.11-0.59); %Basophils 0.1 % (0.0-1.0); %Eosinophils 0.8 % (0.0-10.0); %Lymphocytes 4.8 % (21.0-51.0); %Neutrophils 92.3 % (42.0-75.0); Hemoglobin 10.8 g/dL (12.0-16.0); Mean Corpuscular HGB CONC 33.4 g/dL (32.0-36.0); Mean Corpuscular Hemoglobin 29.3 pg (27.0-31.0); Mean Corpuscular Volume 87.7 fL (78.0-98.0); Mean Platelet Volume 7.2 fL (7.4-10.4); Platelet Count 257 thou/uL (130-400); RBC Distribution Width 14.9 % (11.5-14.5); Red Blood Cell (RBC) Count 3.68 mill/uL (4.20-5.40)
[2018-11-08 14:20] LABS: PTT 32.4 SEC (22.9-36.1); Prothrombin Time 13.4 SEC (12.0-14.7)
[2018-11-08 14:28] LABS: ALT (SGPT) 14 U/L (8-55); AST (SGOT) 20 U/L (5-34); Albumin 3.2 g/dL (3.4-4.8); Alkaline Phosphatase 90 U/L (40-150); Anion Gap 15 mmol/L (10-20); BUN (Urea Nitrogen) 13 mg/dL (9.8-20.1); Bilirubin, Total 0.4 mg/dL (0.2-1.2); CK (CPK) 98 U/L (29-168); Calc. Creatinine Clearance 0 mL/min (70-130); Calcium 10.3 mg/dL (7.8-10.44); Carbon Dioxide 29 mmol/L (23-31); Chloride 91 mmol/L (98-107); Estimated GFR-MDRD Greater than 90; Globulin 3.6 g/dL (2.4-3.5); Glucose 102 mg/dL (83-110); Lipase Less than 4 U/L (8-78); Potassium 4.4 mmol/L (3.5-5.1); Protein, Total 6.8 g/dL (6.0-8.3); Sodium 131 mmol/L (136-145)
[2018-11-08 14:32] LABS: Bilirubin Negative (Negative); Blood, Urine Negative (Negative); Clarity CLEAR (Clear); Glucose, Urine (Dipstick) Negative (Negative); Leukocyte Large (Negative); Nitrite Negative (Negative); Protein, Urine (Dipstick) Negative (Neg-Trace); pH, Urine 6.5 (5.0-9.0)
[2018-11-08 14:34] LABS: Bacteria/HPF None Seen HPF (None Seen); Pathc Cast-AUWi Flag 1.59 (0-2.49); Squamous Epithelial 0-3 HPF (0-3)
[2018-11-08 14:43] LABS: Crystals/HPF 2+ CA OXALATE HPF (Negative); Hyaline Casts/LPF 0-3 HYALINE CAST LPF (0-3 Hyaline); Other Casts/LPF None Seen LPF (0-3 Hyaline)
--- NOTE | 2018-11-08 15:06 | CT ---
NONCONTRAST CT HEAD: DATE: 11/08/2018. HISTORY: Patient with a history of recent hemorrhagic CVA. The patient presents today with new onset of left- sided facial weakness and visual change as well as facial droop. COMPARISON: 10/06/2018 and 07/28/2018. FINDINGS: Expected evolutionary changes in blood products is noted. The previously noted hematoma occupying th e entire right basal ganglia is again lower in density compared to the prior study on 10/06 and certa inly much lower in density than on the study of 07/28/2018. The area of hemorrhage has decreased in s ize over successive CT scan examinations. The area of hemorrhage and adjacent edema on the study of 10/06/2018 measured 6.1 cm x 3.5 cm, and a similar slice selection of this measures 5.7 cm x 3.2 cm. There is persistent very slight mass effect on the right lateral ventricle, but there is no hydrocep halus. There does not appear to be significant shift of the midline structures. No new area of acute hemorrhage is visualized. No acute cortical infarction is seen on this examinat ion and, again, the overall distribution of the low-density area occupying the entire right basal angie glia is similar in craniocaudal dimensions as well. There is a stable low-density area within the right donato likely related to a lacunar infarction of in determinate age, but this is stable compared to the study on 10/06/2018 and was also probably present on the study of 07/28/2018, although there is artifact through this region on that exam. There has been no other interval change compared to the prior exam. IMPRESSION: 1. Continued interval decrease in density of the large, late subacute hematoma in the right basal ga nglia. While there is slight extrinsic compression on the body of the right lateral ventricle, there is no shift of the midline structures. 2. No new area of hemorrhage or infarction is seen. 3. Low-density area within the right posterior limb internal capsule extending into the right cerebr al peduncle and right pona is again seen and stable compared to prior studies. 4. The above findings were discussed with Dr. Tucker in the emergency department at 11/08/2018 at 135 4 hours. CODE CR POS: CHON
[2018-11-08] MEDS ORDERED: cefTRIAXone\\ROCEPHIN 1 GM VIAL ONE (15:26)
--- NOTE | 2018-11-08 15:30 | RAD ---
PORTABLE AP CHEST X-RAY: 11/08/2018 HISTORY: Altered mental status. COMPARISON: 10/06/2018 FINDINGS: A dual-lead left subclavian cardiac pacemaker device remains in place. The cardiac silhouette is mag nified by projection but does appear enlarged. Again noted is prominence of the central pulmonary va sculature, similar to the prior exam. There is linear increased density seen in the region of the mi nor fissure, which is seen on prior studies, including a study on 07/19/2018, that may represent [facility] pleural thickening or a small amount of fluid within the minor fissure. No new focal area of cons olidation or pleural fluid is seen. No other interval change. IMPRESSION: 1. Cardiomegaly and mild pulmonary vascular congestion with greater prominence of the central pulmon yancy vasculature. 2. Fluid versus pleural thickening within the region of the minor fissure. 3. Findings probably related to a remote fracture of the right proximal humerus, incompletely imaged , seen on prior study of 10/05/2018. POS: CHON
[2018-11-08] MEDS ORDERED: Acetaminophen 325 MG TAB ONE (15:43)
[2018-11-08] MEDS ORDERED: Senokot S 8.6-50 MG TAB PO PRN (16:49)
[2018-11-08] MEDS ORDERED: Furosemide 20 MG TAB PO SCH (18:00)
[2018-11-08] MEDS ORDERED: Polyethylene Glycol 3350 17 GM Packet PO PRN (18:00)
[2018-11-08 18:04] VITALS: BMI 35.1
--- NOTE | 2018-11-08 18:17 | RAD ---
ABDOMEN ONE VIEW: HISTORY: A 73-year-old female with a history of abdominal pain. FINDINGS: Monitor leads overly the chest. Gas and fecal material throughout the colon and dilated rectum. IVC filter in place. Evidence for cholecystectomy. Gastrostomy tube in place. IMPRESSION: Extensive solid fecal material throughout the colon with dilated rectum. No evidence for other signi ficant acute process. POS: [facility]
[2018-11-08] MEDS: levETIRAcetam 500 MG TAB PO SCH (20:28)
[2018-11-08] MEDS: Escitalopram Oxalate 20 mg Tablet PER TUBE SCH (20:29)
[2018-11-08] MEDS: Carvedilol 6.25 MG TAB PO SCH (20:29)
[2018-11-08] MEDS: Oxybutynin 5 MG TAB PO SCH (20:29)
[2018-11-08] MEDS: hydrALAZINE 25 MG TAB PO SCH (20:29)
[2018-11-08] MEDS: Famotidine/PF 20 mg/2ml Vial SLOW IVP SCH (20:30)
[2018-11-08] MEDS: Lisinopril 20 MG TAB PO SCH (20:30)
[2018-11-08] MEDS: OXcarbazepine 300 MG TAB PO SCH (20:36)
[2018-11-08] MEDS: Acetaminophen 325 MG TAB PO PRN (20:53)
--- NOTE | 2018-11-09 00:21 | HP ---
CHIEF COMPLAINT: Worsening left-sided droop. HISTORY OF PRESENT ILLNESS: The patient is a 73-year-old female with history of hemorrhagic CVA while being on Xarelto, atrial fibrillation, status post 5 ablations, currently in sinus, hypothyroidism, who was brought into the hospital for possible worsening left-sided weakness. The patient has had a history of intraparenchymal bleed which causing her to have left hemiplegia and severe dysphagia, requiring her to have a PEG tube placement. The patient also, however, currently is able to eat a mechanical soft diet per and currently does not have a tracheostomy tube. The patient's who is at the bedside states that she currently appears at her normal baseline; however, he stated that he was told that she did have some worsening left-sided droopiness. Per the patient's , he stated that she was recently treated for pneumonia with Levaquin, which ended on Thursday. The patient denies any fevers or chills. No nausea, vomiting, or diarrhea. The patient's also states that she has a history of DVTs and currently has an IVC filter, most of the DVTs were on the left leg. The patient was having some urinary frequency and some incontinence at this time. She underwent a Weiss catheter placed on Thursday. PAST MEDICAL HISTORY: 1. The patient has a history of CVA, hemorrhagic with left-sided weakness. She also has a history of dysphagia. Currently, she is on PEG tube, but also is able to tolerate orals. She has history of atrial fibrillation with status post 5 ablations, currently in sinus. 2. Hypothyroidism. 3. Hyperlipidemia. 4. Hypertension. 5. COPD. PAST SURGICAL HISTORY: 1. She has had multiple cardiac ablations. 2. Pacemaker placement. 3. Appendectomy. 4. Cholecystectomy. 5. Hysterectomy. 6. Trach placement and removal. 7. PEG placement. SOCIAL HISTORY: The patient is a nondrinker, nonsmoker. Currently, she is a full code. She currently lives in a fpc, however, her is her decision maker. FAMILY HISTORY: No history of heart disease or cancer or strokes. ALLERGIES: SHE IS ALLERGIC TO CODEINE, FISH PRODUCTS, PENICILLIN, SHELLFISH, AND PROPAFENONE. CURRENT MEDICATIONS: She is on; 1. Amlodipine 5 mg daily. 2. [place] thyroid 120 mg daily. 3. Escitalopram 20 mg daily. 4. Lisinopril 20 mg b.i.d. 5. Pravastatin 20 mg daily. 6. Trileptal 300 mg in the morning and 600 at bedtime. 7. VESIcare 5 mg daily. PHYSICAL EXAMINATION: VITAL SIGNS: Are as of the following; she is afebrile at 98.8. Her heart rate is 64, respirations 16, saturation 96% on 3 L, and blood pressure 137/87. GENERAL: She is awake, alert, and oriented x3. Does not appear in any distress. CV: S1, S2 present. Regularly regular. LUNGS: Clear to auscultation. No rhonchi or wheezes noted. ABDOMEN: Bowel sounds are present x2. Mild pain upon tenderness to her suprapubic area. EXTREMITIES: She has flaccid paralysis on her left lower extremity. She is able to move her right. NEUROLOGIC: She has flaccid paralysis on her left upper extremity and left lower extremity. She does have some mild facial droop on the left lip area. However, the patient is able to follow commands and has 5/5 strength to her right upper extremity and 5/5 to her left lower extremity. SKIN: Intact. No cuts, lesions, or bruises noted. The patient does have a Weiss catheter. HEENT: Normocephalic, atraumatic. No lymphadenopathy noted. LABORATORY DATA: As of the following; WBCs of 13.0, hemoglobin of 10.8, hematocrit of 32.2, and platelets of 257. Chemistry; sodium of 131, potassium of 4.4, BUN of 13, and creatinine 0.64. Her proBNP is elevated at 288.6. Her lipase is 4. Her urine had large amount of leukocyte esterase and had 11 to 20 wbc's, no squamous epithelial cells. She did have a chest x-ray, which appeared similar. No acute abnormalities were noted. She had a brain CT, which indicated no acute changes; however, had some decrease intensity to her subacute hematoma in the right basal ganglia. ASSESSMENT AND PLAN: The patient is a very pleasant 73-year-old female who presents to the hospital for possible worsening left-sided facial droop. 1. Possible worsening left-sided facial droop. The patient's CT head was stable from her prior, actually her hematoma was residing. We will get an MRI of the brain tomorrow to make sure that these are no significant changes from her prior scans. The patient's is at the bedside states that she appears to be stable and back to her baseline. Also, we will treat her with antibiotics for possible urinary tract infection; however, she recently had two antibiotics which she finished on Thursday. We will await cultures. If cultures are negative, may discontinue the antibiotics. 2. History of atrial fibrillation, currently in sinus. The patient is currently not on any aspirin given her recent significant bleed, which was about 3 months ago. 3. Hypothyroidism. We will continue her home medications. 4. Mild hyponatremia. We will continue to monitor. We will check a serum osmolality on this patient and also urine sodium and urine osmolality. 5. Deep venous thrombosis prophylaxis. We will put the patient on some sequential compression devices. Job ID: [id number]
[2018-11-09 05:12] LABS: #Eosinphils 0.3 thou/uL (0.0-0.7); #Lymphocytes 0.5 thou/uL (1.20-3.40); #Monocytes 0.4 thou/uL (0.11-0.59); #Neutrophils 3.5 thou/uL (1.40-6.50); %Basophils 0.5 % (0.0-1.0); %Eosinophils 5.4 % (0.0-10.0); %Monocytes 8.5 % (0.0-10.0); %Neutrophils 75.6 % (42.0-75.0); Hemoglobin 8.8 g/dL (12.0-16.0); Mean Corpuscular HGB CONC 33.1 g/dL (32.0-36.0); Mean Corpuscular Hemoglobin 29.2 pg (27.0-31.0); Mean Corpuscular Volume 88.1 fL (78.0-98.0); Mean Platelet Volume 7.6 fL (7.4-10.4); Platelet Count 183 thou/uL (130-400); RBC Distribution Width 14.7 % (11.5-14.5); Red Blood Cell (RBC) Count 3.02 mill/uL (4.20-5.40); White Blood Cell (WBC) Count 4.7 thou/uL (4.8-10.8)
[2018-11-09 05:32] LABS: Anion Gap 11 mmol/L (10-20); BUN (Urea Nitrogen) 15 mg/dL (9.8-20.1); Calc. Creatinine Clearance 138 mL/min (70-130); Calcium 9.8 mg/dL (7.8-10.44); Carbon Dioxide 32 mmol/L (23-31); Chloride 92 mmol/L (98-107); Estimated GFR-MDRD Greater than 90; Glucose 85 mg/dL (83-110); Potassium 3.7 mmol/L (3.5-5.1); Sodium 131 mmol/L (136-145)
[2018-11-09] MEDS: Famotidine/PF 20 mg/2ml Vial SLOW IVP SCH ×2 (08:29→21:14)
[2018-11-09] MEDS: Atorvastatin Calcium 10 MG TAB PO SCH (08:34)
[2018-11-09] MEDS: Carvedilol 6.25 MG TAB PO SCH ×2 (08:35→21:13)
[2018-11-09] MEDS: Lisinopril 20 MG TAB PO SCH ×2 (08:36→21:14)
[2018-11-09] MEDS: OXcarbazepine 300 MG TAB PO SCH ×2 (08:36→21:13)
[2018-11-09] MEDS: hydrALAZINE 25 MG TAB PO SCH ×3 (08:36→21:14)
[2018-11-09] MEDS: Oxybutynin 5 MG TAB PO SCH ×2 (08:36→21:14)
[2018-11-09] MEDS: levETIRAcetam 500 MG TAB PO SCH ×2 (08:36→21:14)
--- NOTE | 2018-11-09 12:21 | PDOC.PN ---
- Subjective Encounter Start Date: 11/09/18 Encounter Start Time: 12:19 Patient seen and examined, no new issues or complaints per , he states that the patient looks the same as she always has, however, upon further questioning, the patient's states that the patient had not urinated before placing the cerna and also that she has been sleeping more lately, also states that the patient has not had a proper BM, albeit she has not had her tube feeds given either. Patient seen and examined, at bedside, all questions answered. - Objective Resuscitation Status - Order Detail: 11/08/18 16:49 Resuscitation Status Routine Resuscitation Status: FULL: Full Resuscitation Discussed with: pt and Vital Signs & Weight: Vital Signs (12 hours) Temp Pulse Resp BP BP Pulse Ox 11/09/18 11:14 98.4 F 65 18 129/58 L 96 11/09/18 08:36 61 138/58 L 11/09/18 08:35 138/58 L 11/09/18 07:31 97.8 F 61 16 138/58 L 97 11/09/18 04:07 98.1 F 60 20 151/72 H 96 11/09/18 01:00 97.9 F 60 18 124/66 96 Weight Weight 231 lb 1.6 oz I&O: 11/08/18 11/09/18 11/10/18 06:59 06:59 06:59 Intake Total 890 1 Output Total 525 Balance 365 1 Result Diagrams: 11/09/18 04:18 11/09/18 04:18 Additional Labs: Accuchecks 11/08/18 13:47 POC Glucose 112 H Phys Exam - Physical Examination Constitutional: NAD HEENT: PERRLA, moist MMs, sclera anicteric Neck: no nodes, no JVD, supple Respiratory: no wheezing, no rales, no rhonchi Cardiovascular: RRR, no significant murmur, no rub Gastrointestinal: soft, non-tender, no distention, positive bowel sounds PEG in place Musculoskeletal: pulses present, edema present (trace) Left sided paralysis left sided facial droop Dx/Plan (1) CHF (congestive heart failure) Code(s): I50.9 - HEART FAILURE, UNSPECIFIED Status: Acute Qualifiers: Heart failure type: diastolic Heart failure chronicity: acute Qualified Code(s): I50.31 - Acute diastolic (congestive) heart failure Comment: Started on Coreg. Add Lasix 20 mg per PEG qod. (2) Hypertension Code(s): I10 - ESSENTIAL (PRIMARY) HYPERTENSION Status: Acute Comment: Stopped amlodipine and started coreg. Continue lisinopril. (3) Left hemiplegia Code(s): G81.94 - HEMIPLEGIA, UNSPECIFIED AFFECTING LEFT NONDOMINANT SIDE Status: Acute Comment: Post hemorrhagic cva. (4) UTI (urinary tract infection) Status: Acute Comment: Pseudomonas. Attempt to discontinue the Cerna. Rocephin. - Plan * significantly constipated, will give fleet enema, if that fails will consult GI for disimpaction * MRI pending * labs in AM * hold off on TUBE feedings for now, will do free water flushes 250cc q6hrs * if MRI negative and patient has a good BM can likely DC in AM * case and plan d/w patient's and sister at length, they understand and agree with this plan
[2018-11-09] MEDS ORDERED: Mineral Oil ENEMA PR SCH (12:30)
[2018-11-09] MEDS: cefTRIAXone\\ROCEPHIN 1 GM in Sodium Chloride 0.9% 100 ML IVPB SCH (15:08)
[2018-11-09] MEDS: Acetaminophen 325 MG TAB PO PRN (15:59)
[2018-11-09] MEDS: Escitalopram Oxalate 20 mg Tablet PER TUBE SCH (21:14)
[2018-11-09] MEDS: traMADol HCl 50 MG TAB PO PRN (21:23)
[2018-11-10] MEDS: Acetaminophen 325 MG TAB PO PRN ×3 (00:23→20:57)
[2018-11-10] MEDS: traMADol HCl 50 MG TAB PO PRN ×3 (04:02→19:09)
[2018-11-10 05:11] LABS: #Eosinphils 0.2 thou/uL (0.0-0.7); #Lymphocytes 0.6 thou/uL (1.20-3.40); #Monocytes 0.6 thou/uL (0.11-0.59); #Neutrophils 3.6 thou/uL (1.40-6.50); %Basophils 0.1 % (0.0-1.0); %Eosinophils 4.2 % (0.0-10.0); %Lymphocytes 12.6 % (21.0-51.0); %Monocytes 11.3 % (0.0-10.0); %Neutrophils 71.7 % (42.0-75.0); Hemoglobin 8.8 g/dL (12.0-16.0); Mean Corpuscular HGB CONC 33.8 g/dL (32.0-36.0); Mean Corpuscular Hemoglobin 29.3 pg (27.0-31.0); Mean Corpuscular Volume 86.9 fL (78.0-98.0); Mean Platelet Volume 7.8 fL (7.4-10.4); Platelet Count 187 thou/uL (130-400); RBC Distribution Width 14.8 % (11.5-14.5)
[2018-11-10 05:29] LABS: Anion Gap 11 mmol/L (10-20); BUN (Urea Nitrogen) 12 mg/dL (9.8-20.1); Calc. Creatinine Clearance 148 mL/min (70-130); Calcium 9.5 mg/dL (7.8-10.44); Carbon Dioxide 31 mmol/L (23-31); Chloride 93 mmol/L (98-107); Estimated GFR-MDRD Greater than 90; Glucose 96 mg/dL (83-110); Potassium 3.6 mmol/L (3.5-5.1); Sodium 131 mmol/L (136-145)
[2018-11-10] MEDS: Famotidine/PF 20 mg/2ml Vial SLOW IVP SCH ×2 (08:06→20:58)
[2018-11-10] MEDS: OXcarbazepine 300 MG TAB PO SCH ×2 (08:06→20:57)
[2018-11-10] MEDS: Oxybutynin 5 MG TAB PO SCH ×2 (08:07→20:56)
[2018-11-10] MEDS: Carvedilol 6.25 MG TAB PO SCH ×2 (08:08→20:57)
[2018-11-10] MEDS: Atorvastatin Calcium 10 MG TAB PO SCH (08:08)
[2018-11-10] MEDS: levETIRAcetam 500 MG TAB PO SCH ×2 (08:09→20:57)
[2018-11-10] MEDS: hydrALAZINE 25 MG TAB PO SCH ×3 (08:09→20:58)
[2018-11-10] MEDS: Lisinopril 20 MG TAB PO SCH ×2 (08:10→20:56)
--- NOTE | 2018-11-10 10:50 | PDOC.PN ---
- Subjective Encounter Start Date: 11/10/18 Encounter Start Time: 10:48 Patient seen and examined, patient and state they'd like to hold off on doing the MBS for now, no other issues overnight, all questions answered. - Objective Resuscitation Status - Order Detail: 11/08/18 16:49 Resuscitation Status Routine Resuscitation Status: FULL: Full Resuscitation Discussed with: pt and Vital Signs & Weight: Vital Signs (12 hours) Temp Pulse Resp BP BP Pulse Ox 11/10/18 08:10 162/72 H 11/10/18 08:09 64 162/72 H 11/10/18 08:08 162/72 H 11/10/18 07:54 98.0 F 64 18 162/72 H 94 L 11/10/18 03:55 98.4 F 69 16 150/72 H 96 11/10/18 00:00 99.9 F H 70 18 119/55 L 97 Weight Weight 231 lb 1.6 oz I&O: 11/09/18 11/10/18 11/11/18 06:59 06:59 06:59 Intake Total 890 251 Output Total 525 600 Balance 365 -349 Result Diagrams: 11/10/18 04:21 11/10/18 04:21 Phys Exam - Physical Examination Constitutional: NAD HEENT: PERRLA, moist MMs, sclera anicteric Neck: no nodes, no JVD, supple Respiratory: no wheezing, no rales, no rhonchi Cardiovascular: RRR, no significant murmur, no rub Gastrointestinal: soft, non-tender, no distention Musculoskeletal: pulses present, edema present (trace) Dx/Plan (1) CHF (congestive heart failure) Code(s): I50.9 - HEART FAILURE, UNSPECIFIED Status: Acute Qualifiers: Heart failure type: diastolic Heart failure chronicity: acute Qualified Code(s): I50.31 - Acute diastolic (congestive) heart failure Comment: Started on Coreg. Add Lasix 20 mg per PEG qod. (2) Hypertension Code(s): I10 - ESSENTIAL (PRIMARY) HYPERTENSION Status: Acute Comment: Stopped amlodipine and started coreg. Continue lisinopril. (3) Left hemiplegia Code(s): G81.94 - HEMIPLEGIA, UNSPECIFIED AFFECTING LEFT NONDOMINANT SIDE Status: Acute Comment: Post hemorrhagic cva. (4) UTI (urinary tract infection) Status: Acute Comment: Pseudomonas. Attempt to discontinue the Weiss. Rocephin. - Plan * continue current plan of care * PEG tube function d/w nurse, will flush to make sure its working * MRI pending * no changes in plan of care for now * will formulate a more concrete plan once image studies available * case and plan d/w patient's at length, he understood and agreed with this plan.
[2018-11-10] MEDS: cefTRIAXone\\ROCEPHIN 1 GM in Sodium Chloride 0.9% 100 ML IVPB SCH (16:30)
--- NOTE | 2018-11-10 16:31 | RAD ---
AP ABDOMEN: History: KUB for PEG tube check. FINDINGS: AP view lower chest/upper abdomen obtained and demonstrate a dual-lead intra cardiac pacing device. I VC filter is in place. There appears to be a PEG tube over the left upper quadrant of the abdomen. Injected contrast appears to be within the gastric lumen with rugae visualized. A large amount of stool is seen in the colon. IMPRESSION: PEG tube in place appearing to be in the region of the gastric fundus. POS: [facility]
[2018-11-10] MEDS ORDERED: MD-Gastroview 120 ML BOT ONE (16:34)
--- NOTE | 2018-11-10 19:03 | CT ---
HEAD CT WITHOUT CONTRAST 11/10/18 COMPARISON: 11/08/18, 10/06/18, 07/28/18. HISTORY: Stroke, neurological changes. TECHNIQUE: Axial CT imaging at 5 mm intervals from vertex through skull without contrast. FINDINGS: An intra-axial hemorrhage was noted on the 07/28/18 examination within the basal ganglia on the right. On today's exam, there is residual hypodensity in this region, measuring approximately 5.1 x 2.9 cm, slightly less conspicuous than on the most recent prior examination. On today's exam, there is no mi dline shift. No new intracranial hemorrhage. Imaged paranasal sinuses and mastoid air cells demonstrate no acute findings. No displaced calvarial fracture. Stable hypodensity within the right aspect of the donato and the right cerebral peduncle note d which may be on the basis of Wallerian degeneration. IMPRESSION: Intra-axial hypodensity in the basal ganglia on the right, evidence of resolving hematoma. No new hem orrhage. POS: [facility]
[2018-11-10] MEDS: Escitalopram Oxalate 20 mg Tablet PER TUBE SCH (20:56)
[2018-11-11] MEDS: Acetaminophen 325 MG TAB PO PRN ×2 (03:44→13:26)
[2018-11-11] MEDS: traMADol HCl 50 MG TAB PO PRN ×2 (08:44→16:43)
[2018-11-11] MEDS: hydrALAZINE 25 MG TAB PO SCH ×3 (08:50→21:51)
[2018-11-11] MEDS: Atorvastatin Calcium 10 MG TAB PO SCH (08:51)
[2018-11-11] MEDS: OXcarbazepine 300 MG TAB PO SCH ×2 (08:51→21:53)
[2018-11-11] MEDS: levETIRAcetam 500 MG TAB PO SCH ×2 (08:51→21:52)
[2018-11-11] MEDS: Carvedilol 6.25 MG TAB PO SCH ×2 (08:52→21:50)
[2018-11-11] MEDS: Lisinopril 20 MG TAB PO SCH ×2 (08:52→21:52)
[2018-11-11] MEDS: Oxybutynin 5 MG TAB PO SCH ×2 (08:53→21:53)
[2018-11-11] MEDS: Famotidine/PF 20 mg/2ml Vial SLOW IVP SCH (08:53)
[2018-11-11] MEDS ORDERED: GoLYTELY 4,000 ml Bottle PER TUBE SCH (11:45)
--- NOTE | 2018-11-11 13:47 | CON ---
DATE OF CONSULTATION: 11/11/2018 REASON FOR CONSULTATION: Possible impaction. HISTORY: Ms. 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 At that time, she underwent a tracheostomy and gastrostomy feeding tube placement and was subsequently transferred to [facility]. She was subsequently diagnosed with left lower extremity DVT with subsequent IVC filter placement. She has been able to tolerate pureed diet with nighttime tube feeding. She was admitted to [facility] three days ago for worsening of left-sided facial droop. CT of her brain thus far has not shown any new acute events. MRI is still pending. Abdominal x-ray performed showed a large amount of stools. She has had a small volume of bowel movements prior to transfer. She is supposed to be on daily MiraLAX, but has been not sure whether she was getting this scheduled medication or not. The patient reports having vague abdominal discomfort, but not any significant localizing pain. There is no nausea or vomiting. She has had regular interval surveillance colonoscopy by me for history of polyps prior to her stroke. PAST MEDICAL HISTORY: 1. CVA as above with left hemiplegia and hemiparesis. 2. Hypothyroidism. 3. Hyperlipidemia. 4. Hypertension. 5. COPD. 6. History of atrial fibrillation, now in sinus rhythm. 7. Recent DVT. 8. Status post appendectomy/cholecystectomy/hysterectomy/tracheostomy/PEG placement/IVC filter. MEDICATIONS: Include amlodipine, [place] Thyroid, escitalopram, lisinopril, pravastatin, Trileptal, and VESIcare. ALLERGIES: CODEINE, PENICILLIN, SHELLFISH, AND PROPAFENONE. SOCIAL HISTORY: The patient has been in a detention since her stroke. She has no tobacco or alcohol usage. FAMILY HISTORY: Negative for any known GI problem, liver disease, or GI malignancy. REVIEW OF SYSTEMS: 10-point review of systems did not show any other pertinent positives or negatives. PHYSICAL EXAMINATION: VITAL SIGNS: Temperature is 98.2, blood pressure 146/85, and pulse of 69. GENERAL: She is alert, conversant, no distress. HEENT: Showed anicteric sclerae. Oropharynx clear. NECK: Supple. CV: Shows normal S1 and S2. Regular rate and rhythm. CHEST: Shows normal breath sounds. No adventitious sound. ABDOMEN: Very protuberant, but no tympany. No significant distention. She has active bowel sounds. There is no appreciable tenderness. No guarding or rebound. EXTREMITIES: Shows no edema. RECTAL: Showed large amount of stool. The patient was positioned in the left lateral recumbent. Using large amount of lubricant, manual disimpaction was performed with large amount of hard to soft tannish to brownish stool evacuated. Total time spent disimpaction at bedside with nursing assistance was 25 minutes. ASSESSMENT: 1. Constipation with fecal impaction, status post bedside disimpaction. 2. Recent cerebrovascular accident with subsequent gastrostomy tube placement. The patient appears to tolerate oral intake fairly well at this point without any clinical signs of aspiration. 3. Status post basal ganglia, hemorrhagic cerebrovascular accident. 4. Recent deep venous thrombosis, status post IVC filter placement. 5. Hypertension. 6. Chronic obstructive pulmonary disease. RECOMMENDATIONS: 1. We will attempt to flush the rest of her stools using PEG solution given through the PEG tube, 2 L within the next 6 hours. 2. We will obtain a KUB in a.m. Job ID: [id number]
--- NOTE | 2018-11-11 14:51 | PDOC.PN ---
- Subjective Encounter Start Date: 11/11/18 Encounter Start Time: 14:49 Patient seen and examined, no new issues or complaints, at bedside, all questions answered. - Objective Resuscitation Status - Order Detail: 11/08/18 16:49 Resuscitation Status Routine Resuscitation Status: FULL: Full Resuscitation Discussed with: pt and Vital Signs & Weight: Vital Signs (12 hours) Temp Pulse Pulse Resp BP BP BP 11/11/18 11:55 64 161/77 H 11/11/18 11:51 98.6 F 63 20 135/65 11/11/18 08:52 146/85 H 11/11/18 08:50 69 146/85 H 11/11/18 08:44 11/11/18 08:00 98.2 F 69 20 146/85 H 11/11/18 04:00 97.5 F L 72 19 167/75 H Pulse Ox 11/11/18 11:55 11/11/18 11:51 96 11/11/18 08:52 11/11/18 08:50 11/11/18 08:44 92 L 11/11/18 08:00 92 L 11/11/18 04:00 96 Weight Admit Weight 231 lb 1.6 oz Weight 231 lb 1.6 oz I&O: 11/10/18 11/11/18 11/12/18 06:59 06:59 06:59 Intake Total 251 1380 Output Total 600 1125 Balance -349 255 Result Diagrams: 11/10/18 04:21 11/10/18 04:21 Phys Exam - Physical Examination Constitutional: NAD HEENT: PERRLA, moist MMs, sclera anicteric Neck: no nodes, no JVD, supple Respiratory: no wheezing, no rales, no rhonchi Cardiovascular: RRR, no significant murmur, no rub Gastrointestinal: soft, non-tender, no distention, positive bowel sounds Musculoskeletal: pulses present, edema present (trace) Neurological: normal sensation left sided paralysis Dx/Plan (1) CHF (congestive heart failure) Code(s): I50.9 - HEART FAILURE, UNSPECIFIED Status: Acute Qualifiers: Heart failure type: diastolic Heart failure chronicity: acute Qualified Code(s): I50.31 - Acute diastolic (congestive) heart failure Comment: Started on Coreg. Add Lasix 20 mg per PEG qod. (2) Hypertension Code(s): I10 - ESSENTIAL (PRIMARY) HYPERTENSION Status: Acute Comment: Stopped amlodipine and started coreg. Continue lisinopril. (3) Left hemiplegia Code(s): G81.94 - HEMIPLEGIA, UNSPECIFIED AFFECTING LEFT NONDOMINANT SIDE Status: Acute Comment: Post hemorrhagic cva. (4) UTI (urinary tract infection) Status: Acute Comment: Pseudomonas. Attempt to discontinue the Weiss. Rocephin. - Plan * PEG functional, significant constipation noted on KUB, patient has been getting fleet enemas but with no success, GI consultation placed for possible disimpaction or any other recommendations * for now will continue current plan of care * CT scan of brain shows much improvement since last scan, overall prognosis appears to be stable-good * once good bowel movements are established, will get patient ready for discharge * DC plans in 24-48hrs once stable BMs established and clearance obtained from GI * case and plan d/w patient's at length, they understand and agree with this plan.
[2018-11-11] MEDS: cefTRIAXone\\ROCEPHIN 1 GM in Sodium Chloride 0.9% 100 ML IVPB SCH (15:15)
[2018-11-11] MEDS: Escitalopram Oxalate 20 mg Tablet PER TUBE SCH (21:51)
[2018-11-11] MEDS: Heparin 5,000 UNITS/ML VIAL SC SCH (21:51)
[2018-11-11] MEDS: Famotidine 20 MG TAB PO SCH (21:51)
[2018-11-12] MEDS: Oxybutynin 5 MG TAB PO SCH ×2 (08:35→22:08)
[2018-11-12] MEDS: Atorvastatin Calcium 10 MG TAB PO SCH (08:35)
[2018-11-12] MEDS: Lisinopril 20 MG TAB PO SCH ×2 (08:35→22:08)
[2018-11-12] MEDS: Carvedilol 6.25 MG TAB PO SCH ×2 (08:35→22:08)
[2018-11-12] MEDS: levETIRAcetam 500 MG TAB PO SCH ×2 (08:35→22:08)
[2018-11-12] MEDS: hydrALAZINE 25 MG TAB PO SCH ×3 (08:36→22:08)
[2018-11-12] MEDS: Famotidine 20 MG TAB PO SCH ×2 (08:36→22:09)
[2018-11-12] MEDS: Heparin 5,000 UNITS/ML VIAL SC SCH ×2 (08:36→22:09)
--- NOTE | 2018-11-12 08:41 | RAD ---
AP ABDOMINAL RADIOGRAPH: 11/12/2018 HISTORY: Constipation. Follow-up evaluation. COMPARISON: 11/10/2018 FINDINGS: The previously noted contrast within the stomach is no longer visualized. A gastrostomy tube again o verlies the left upper quadrant. Partial visualization of cardiac pacemaker leads are noted. Surgic al clips over the right upper quadrant with an IVC filter again seen to the right of midline, at the L1-L2 and L2-L3 levels. The bowel gas pattern is nonspecific. There is a persistent moderate amount of retained fecal material seen throughout the colon. Degenerative change is seen of the spine. Ph leboliths overly the pelvis. Vascular calcifications are seen in the abdominal aorta. There is curv ilinear calcification seen at the L3-L4 and L4-L5 levels, to the left of midline, which are probably related to a tortuous abdominal aorta, but the opposing side of the abdominal aorta is unable to be v isualized, and an abdominal aortic aneurysm could not be entirely excluded. There are increased interstitial densities seen at each lung base with a pleural-based density at the left lung base, which may be related to left pleural effusion. IMPRESSION: 1. Nonspecific bowel gas pattern with a moderate amount of retained fecal material seen throughout t he colon. 2. Curvilinear calcifications to the left of midline at the L3-L4 and L4-L5 levels, probably related to calcifications in a tortuous abdominal aorta; although, an abdominal aortic aneurysm could not be excluded on this examination. No recent CT scan examination is available, but a CT examination in 2 013 did demonstrate tortuosity of the abdominal aorta at this level, which may account for this findi ng. 3. Small left pleural effusion with mild increased interstitial densities at each lung base. POS: [facility]
[2018-11-12] MEDS: Acetaminophen 325 MG TAB PO PRN ×2 (08:44→13:44)
[2018-11-12] MEDS: OXcarbazepine 300 MG TAB PO SCH ×2 (10:44→22:07)
[2018-11-12] MEDS: traMADol HCl 50 MG TAB PO PRN ×2 (11:10→22:34)
[2018-11-12] MEDS: hydrALAZINE 20 MG/ML VIAL SLOW IVP PRN (12:43)
--- NOTE | 2018-11-12 13:12 | PDOC.PN ---
- Subjective Encounter Start Date: 11/12/18 Encounter Start Time: 13:11 Patient seen and examined, no new issues or complaints, per nursing staff the patient had a some BMs but thats it, no other issues overnight, no family at bedside. - Objective Resuscitation Status - Order Detail: 11/08/18 16:49 Resuscitation Status Routine Resuscitation Status: FULL: Full Resuscitation Discussed with: pt and Vital Signs & Weight: Vital Signs (12 hours) Temp Pulse Resp BP BP Pulse Ox 11/12/18 12:43 65 175/80 H 11/12/18 11:48 99.1 F 63 20 176/82 H 93 L 11/12/18 08:36 69 123/58 L 11/12/18 08:35 123/58 L 11/12/18 07:51 98.5 F 69 16 123/58 L 98 11/12/18 04:00 98.5 F 70 19 144/67 H 97 Weight Admit Weight 231 lb 1.6 oz Weight 231 lb 1.6 oz I&O: 11/11/18 11/12/18 11/13/18 06:59 06:59 06:59 Intake Total 1380 490 Output Total 1125 300 Balance 255 190 Result Diagrams: 11/10/18 04:21 11/10/18 04:21 Phys Exam - Physical Examination Constitutional: NAD HEENT: PERRLA, moist MMs, sclera anicteric Neck: no nodes, no JVD, supple Respiratory: no wheezing, no rales, no rhonchi Cardiovascular: RRR, no significant murmur, no rub Gastrointestinal: soft, non-tender, no distention Musculoskeletal: pulses present, edema present (trace) left sided hemiplagia AAO x 3 Dx/Plan (1) CHF (congestive heart failure) Code(s): I50.9 - HEART FAILURE, UNSPECIFIED Status: Acute Qualifiers: Heart failure type: diastolic Heart failure chronicity: acute Qualified Code(s): I50.31 - Acute diastolic (congestive) heart failure Comment: Started on Coreg. Add Lasix 20 mg per PEG qod. (2) Hypertension Code(s): I10 - ESSENTIAL (PRIMARY) HYPERTENSION Status: Acute Comment: Stopped amlodipine and started coreg. Continue lisinopril. (3) Left hemiplegia Code(s): G81.94 - HEMIPLEGIA, UNSPECIFIED AFFECTING LEFT NONDOMINANT SIDE Status: Acute Comment: Post hemorrhagic cva. (4) UTI (urinary tract infection) Status: Acute Comment: Pseudomonas. Attempt to discontinue the Weiss. Rocephin. - Plan * finish golytely via PEG, KUB shows stool in colon howveer is much improved from prior KUB * for now plan will be to finish kayexelate and golytely and all the patient to have a good BM and clean out her colon as she did have significant constipation * possible DC in 24-48hrs if ok with GI and patient has had some good BMs to help clear up her constipation * no family at bedside
[2018-11-12] MEDS: cefTRIAXone\\ROCEPHIN 1 GM in Sodium Chloride 0.9% 100 ML IVPB SCH (15:15)
--- NOTE | 2018-11-12 16:07 | PRG ---
DATE OF SERVICE: 11/12/2018 SUBJECTIVE: The patient has not had any significant bowel movement, no result from GoLYTELY. The GoLYTELY infusion through the G-tube was stopped last night because of concerned leakage around the G-tube. She does not have any nausea or vomiting. Denies any significant abdominal pain. OBJECTIVE: VITAL SIGNS: Temperature is 99.1, blood pressure 175/80, and pulse of 65. GENERAL: She is alert, no distress. HEENT: Sclerae anicteric. NECK: Supple. CV: Shows normal S1 and S2. Regular rate and rhythm. CHEST: Shows breath sounds. ABDOMEN: Very protuberant, but no tympany. No distention. No significant tenderness. RECTAL: Still showed significant amount of stool in the rectal vault. The patient was further disimpacted with large amount of stool extracted. DIAGNOSTIC DATA: Abdominal x-rays do show significant amount of stool throughout the colon. ASSESSMENT: Fecal impaction with severe constipation and large amount of stool on x-rays. The patient has been disimpacted twice yesterday and today. RECOMMENDATIONS: 1. We will finish all 4 L of GoLYTELY. 2. Monitor for result, may need further GoLYTELY and disimpaction. 3. Dr. Aggarwal to cover for GI Services. Job ID: [id number]
--- NOTE | 2018-11-12 18:15 | PQF ---
SALLY ROMERO RADHA EDWARDS [id number] [id number] CLINICAL DOCUMENTATION IMPROVEMENT CLARIFICATION FORM: ICD-10 Updated PLEASE DO AN ADDENDUM TO THE PROGRESS NOTE WITH ANY DOCUMENTATION UPDATES OR ADDITIONS AND CARRY THROUGH TO DC SUMMARY. THANK YOU. DATE: 11/12/2018 ATTN: DR. EDWARDS Please exercise your independent, professional judgment in responding to the clarification form. Clinical indicators are provided on the bottom of this form for your review Please check appropriate box(s): [ x ] UTI please specify if due to or related to (as applicable): [ ] Indwelling catheter [ ] Other diagnosis [ ] Unable to determine In addition, please specify: Present on Admission (POA): [ x ] Yes [ ] No [ ] Unable to determine For continuity of documentation, please document condition throughout progress notes and discharge summary. Thank You. CLINICAL INDICATORS - SIGNS / SYMPTOMS / LABS Positive urinalysis: LARGE LEUK ESTERASE; 11-20 WBCs. Positive urine culture: PSEUDOMONAS AERUGINOSA ON URINE CULTURE. Documentation: UTI DIAGNOSIS RISK FACTORS HISTORY OF ARCHIBALD CATHETER PLACED AT RESIDENTIAL Debility / senior living resident HISTORY CVA WITH RESIDUAL LEFT HEMIPLEGIA TREATMENT: Antibiotics; ROCEPHIN EVERY 24 HOURS IVF ATTEMPTED Archibald cath REMOVAL Thank you, Venessa Cazares RN, CDIS [email or web address] [phone] (This form is maintained as a part of the permanent medical record) 2014 [employer]. All Rights Reserved [facility]
[2018-11-12] MEDS: Escitalopram Oxalate 20 mg Tablet PER TUBE SCH (22:09)
[2018-11-13] MEDS: Acetaminophen 325 MG TAB PO PRN ×2 (08:32→14:35)
[2018-11-13] MEDS: Oxybutynin 5 MG TAB PO SCH ×2 (08:32→19:55)
[2018-11-13] MEDS: Carvedilol 6.25 MG TAB PO SCH ×2 (08:32→19:54)
[2018-11-13] MEDS: OXcarbazepine 300 MG TAB PO SCH ×2 (08:32→19:57)
[2018-11-13] MEDS: Atorvastatin Calcium 10 MG TAB PO SCH (08:33)
[2018-11-13] MEDS: levETIRAcetam 500 MG TAB PO SCH ×2 (08:33→19:54)
[2018-11-13] MEDS: hydrALAZINE 25 MG TAB PO SCH ×3 (08:33→19:53)
[2018-11-13] MEDS: Lisinopril 20 MG TAB PO SCH ×2 (08:34→19:54)
[2018-11-13] MEDS: Heparin 5,000 UNITS/ML VIAL SC SCH ×2 (08:34→19:55)
[2018-11-13] MEDS: Famotidine 20 MG TAB PO SCH ×2 (08:34→19:55)
[2018-11-13] MEDS: traMADol HCl 50 MG TAB PO PRN ×2 (10:24→17:15)
--- NOTE | 2018-11-13 13:27 | PDOC.PN ---
- Subjective Encounter Start Date: 11/13/18 Encounter Start Time: 13:26 Patient seen and examined, had a good BM this AM, no other issues or complaints , at bedside, all questions answered. - Objective Resuscitation Status - Order Detail: 11/08/18 16:49 Resuscitation Status Routine Resuscitation Status: FULL: Full Resuscitation Discussed with: pt and Vital Signs & Weight: Vital Signs (12 hours) Temp Pulse Resp BP BP Pulse Ox 11/13/18 11:47 97.6 F 63 18 149/69 H 96 11/13/18 08:34 186/84 H 11/13/18 08:33 65 186/84 H 11/13/18 08:32 186/84 H 11/13/18 07:54 98.4 F 68 16 191/90 H 97 11/13/18 04:00 98.4 F 72 19 124/66 95 Weight Admit Weight 231 lb 1.6 oz Weight 231 lb 1.6 oz I&O: 11/12/18 11/13/18 11/14/18 06:59 06:59 06:59 Intake Total 490 Output Total 300 600 Balance 190 -600 Result Diagrams: 11/10/18 04:21 11/10/18 04:21 Phys Exam - Physical Examination Constitutional: NAD HEENT: PERRLA, moist MMs, sclera anicteric Neck: no nodes, no JVD, supple Respiratory: no wheezing, no rales, no rhonchi Cardiovascular: RRR, no significant murmur, no rub Gastrointestinal: soft, non-tender, no distention Musculoskeletal: pulses present, edema present (trace) Dx/Plan (1) CHF (congestive heart failure) Code(s): I50.9 - HEART FAILURE, UNSPECIFIED Status: Acute Qualifiers: Heart failure type: diastolic Heart failure chronicity: acute Qualified Code(s): I50.31 - Acute diastolic (congestive) heart failure Comment: Started on Coreg. Add Lasix 20 mg per PEG qod. (2) Hypertension Code(s): I10 - ESSENTIAL (PRIMARY) HYPERTENSION Status: Acute Comment: Stopped amlodipine and started coreg. Continue lisinopril. (3) Left hemiplegia Code(s): G81.94 - HEMIPLEGIA, UNSPECIFIED AFFECTING LEFT NONDOMINANT SIDE Status: Acute Comment: Post hemorrhagic cva. (4) UTI (urinary tract infection) Status: Acute Comment: Pseudomonas. Attempt to discontinue the Weiss. Rocephin. - Plan * repeat KUB in AM * had a good BM today * DC plans in AM if ok with GI and KUB shows improvement * case and plan d/w patient and at length, they understand and agree with this plan.
--- NOTE | 2018-11-13 13:59 | PRG ---
DATE OF SERVICE: 11/13/2018 SUBJECTIVE: Ms. Landaverde had a large mushy bowel movements this morning. She has no abdominal pain. She is tolerating her diet. OBJECTIVE: VITAL SIGNS: Temperature 97.6, pulse 63, blood pressure 149/69. GENERAL: She is in no acute distress. She is awake and alert. LUNGS: Clear to auscultation bilaterally. HEART: Regular rate and rhythm. ABDOMEN: Soft, nontender, and nondistended. Bowel sounds are present. EXTREMITIES: 2+ pitting lower extremity edema. RECTAL: Exam reveals no solid stool in the rectal vault. IMPRESSION: Fecal impaction and chronic constipation in a patient with prior stroke and immobility. She underwent disimpaction and GoLYTELY given by Dr. Sommers. She had excellent results with the disimpaction and GoLYTELY. Now, the primary goal is prevention and will restart osmotic laxatives. RECOMMENDATIONS: 1. Start MiraLAX twice daily. 2. GI will sign off for now. Please call, if we can be of assistance. Job ID: [id number]
[2018-11-13] MEDS: cefTRIAXone\\ROCEPHIN 1 GM in Sodium Chloride 0.9% 100 ML IVPB SCH (15:59)
[2018-11-13] MEDS: Escitalopram Oxalate 20 mg Tablet PER TUBE SCH (19:54)
[2018-11-14] MEDS: hydrALAZINE 20 MG/ML VIAL SLOW IVP PRN (04:54)
[2018-11-14] MEDS: traMADol HCl 50 MG TAB PO PRN ×2 (05:04→14:52)
[2018-11-14] MEDS ORDERED: Lisinopril 20 MG TAB PO SCH ×2 (07:52→09:00)
[2018-11-14] MEDS: Atorvastatin Calcium 10 MG TAB PO SCH (09:11)
[2018-11-14] MEDS: OXcarbazepine 300 MG TAB PO SCH (09:11)
[2018-11-14] MEDS: Acetaminophen 325 MG TAB PO PRN (09:12)
[2018-11-14] MEDS: Heparin 5,000 UNITS/ML VIAL SC SCH (09:12)
[2018-11-14] MEDS: levETIRAcetam 500 MG TAB PO SCH (09:12)
[2018-11-14] MEDS: hydrALAZINE 25 MG TAB PO SCH ×2 (09:12→14:54)
[2018-11-14] MEDS: Carvedilol 6.25 MG TAB PO SCH (09:13)
[2018-11-14] MEDS: Oxybutynin 5 MG TAB PO SCH (09:13)
[2018-11-14] MEDS: Famotidine 20 MG TAB PO SCH (09:14)
--- NOTE | 2018-11-14 10:49 | PDOC.EVN ---
Event Note - Event Note Event Note: DC SUMMARY #[id number]
--- NOTE | 2018-11-14 12:49 | RAD ---
ABDOMEN 1 VIEW: Date: 11/14/18 HISTORY: Abdominal pain. Fecal impaction. COMPARISON: 11/12/18. FINDINGS: Gas overlies the colon and rectum. Amount of stool has decreased significantly. Percutaneous feeding tube and inferior vena cava filter are in place. Other radiopaque linear densiti es over the abdomen are favored to represent extrinsic artifact. IMPRESSION: Significant interval improvement in radiographic appearance of bowel gas pattern. Stool over the colo n has decreased. POS: [facility]
[2018-11-14] MEDS: cefTRIAXone\\ROCEPHIN 1 GM in Sodium Chloride 0.9% 100 ML IVPB SCH (14:55)
[2018-11-14 15:49] VITALS: TEMP 99.1
[2018-11-14 16:04] VITALS: BP 160/72
--- NOTE | 2018-11-15 08:28 | DIS ---
DATE OF ADMISSION: 11/10/2018 DATE OF DISCHARGE: 11/14/2018 ADMITTING DIAGNOSES: 1. Sepsis. 2. Constipation. 3. Left-sided hemiplegia. 4. History of cerebrovascular accident. 5. Hypertension. 6. Hypothyroidism. 7. Hyperlipidemia. DISCHARGE DIAGNOSES: 1. Constipation, resolved. 2. Sepsis, resolved. 3. Left-sided hemiplegia, stable. 4. History of cerebrovascular accident, stable. 5. Hypertension, stable. 6. Hypothyroidism, stable. 7. Hyperlipidemia, stable. HISTORY OF PRESENT ILLNESS: This is a 73-year-old female who was admitted to the hospital with sepsis and significant constipation. The patient was found to have colitis, given antibiotics, GI and Internal Medicine evaluation completed. The patient had disimpaction done and then enemas as well as GoLYTELY through the PEG tube. The patient had a significant large bowel movement 24 hours prior to discharge and bowel function was back to normal. At point in time of discharge, the patient's functional status was significantly improved as well. The patient was discharged back to [facility] [address], where she came from, given prescription for 5 days of Levaquin, was also advised to have free water flushes through PEG tube as she was very dry when she initially was admitted to the hospital. The patient otherwise at point in time of discharge, per , was back to baseline with no complaints. The patient was to follow up with PCP within 1 week for further management and care. Case and plan discussed with patient's at length, he understood and agrees with the plan. DISPOSITION: [facility]. FOLLOWUP: Follow up with PCP in 1 week. ACTIVITY: As tolerated with assistance as needed. DIET: Tube-feed diet. PROGNOSIS: Guarded. CONDITION: Stable. MEDICATIONS: See MAR. Case and plan discussed with the patient's at length. He understood and agreed with this plan. Job ID: [id number]
== END 2018-11-14 16:10 | DRG 871 ==
LOC: ERS 13:42 → 2SE 15:41 → OBSVTOIN 11-10 09:19
PROVIDERS: ADMIT Internal Medicine; ATTEND Internal Medicine
DX: A41.52 Sepsis due to Pseudomonas (principal); I50.31 Acute diastolic (congestive) heart failure; E87.1 Hypo-osmolality and hyponatremia; I69.254 Hemiplegia and hemiparesis following other nontraumatic intracranial hemorrhage affecting left non-dominant side; N39.0 Urinary tract infection, site not specified; K56.41 Fecal impaction; I48.91 Unspecified atrial fibrillation; E03.9 Hypothyroidism, unspecified; J44.9 Chronic obstructive pulmonary disease, unspecified; Z95.0 Presence of cardiac pacemaker; Z93.1 Gastrostomy status; Z88.6 Allergy status to analgesic agent; Z88.0 Allergy status to penicillin; Z91.013 Allergy to seafood; I69.291 Dysphagia following other nontraumatic intracranial hemorrhage; R13.10 Dysphagia, unspecified; K52.9 Noninfective gastroenteritis and colitis, unspecified; E78.5 Hyperlipidemia, unspecified; I11.0 Hypertensive heart disease with heart failure; Z79.890 Hormone replacement therapy; Z86.718 Personal history of other venous thrombosis and embolism
CPT/HCPCS: 36415; 36416; 70450; 71045; 74018; 80048; 80053; 81003; 81015; 82550; 83605; 83690; 83880; 83930; 83935; 84146; 84300; 84443; 85025; 85610; 85730; 87077; 87086; 87186; 93005; 96361; 96365; J0360; J0696; J1644; J7050; S0028

== ENCOUNTER 2018-11-21 01:48 | Observation (INO) | payer MEDICARE ==
[2018-11-21] MEDS ORDERED: Acetaminophen 650 MG Suppository ONE (03:11)
[2018-11-21] MEDS ORDERED: Lorazepam 2 MG/ML VIAL SLOW IVP PRN (08:35)
--- NOTE | 2018-11-21 08:36 | CON ---
DATE OF CONSULTATION: HISTORY OF PRESENT ILLNESS: The patient is a 73-year-old female, who was sent to the [place] emergency Room yesterday because of difficulty with her percutaneous endoscopic gastrostomy. A CT was performed and showed that the presumed gastrostomy tube in left upper abdomen, only extended into the anterior abdominal wall and did not extend into the stomach. The PEG tube had been hard to irrigate prior to this ER evaluation. The PEG tube was removed and she was transferred here. They were unable to replace the PEG here in the emergency room. PAST MEDICAL HISTORY: Includes cerebrovascular accident, COPD, oropharyngeal dysphagia, congestive heart failure, and hypothyroidism. PAST SURGICAL HISTORY: Includes pacemaker placement, cardiac ablation, appendectomy, cholecystectomy, and hysterectomy. MEDICATIONS: Include; 1. Keppra 500 mg 1 p.o. b.i.d. 2. Oxcarbazepine 600 mg 1 p.o. daily. 3. MiraLAX 17 g one p.o. daily. 4. Oxybutynin 1 p.o. b.i.d. 5. Lipitor 10 mg 1 p.o. daily. 6. [place] Thyroid one p.o. daily. 7. Lisinopril 20 mg 1 p.o. daily. 8. Coreg 6.25 mg 1 p.o. b.i.d. 9. Lexapro 20 mg 1 p.o. daily. 10. Albuterol nebulizers. 11. Clotrimazole cream 1% applied to the area daily. 12. Hydralazine 25 mg 1 p.o. t.i.d. 13. Lasix 40 mg 1 p.o. b.i.d. 14. Potassium chloride 10 mEq 1 p.o. b.i.d. ALLERGIES: INCLUDE CODEINE, FISH PRODUCTS, PENICILLIN, PROPAFENONE, AND SHELLFISH. SOCIAL HISTORY: She is a [facility] resident. Does not smoke or drink. FAMILY HISTORY: Negative for GI or liver disease. REVIEW OF SYSTEMS: CONSTITUTIONAL: No fever or chills. No weight loss. EYES: No blurred vision or double vision. ENT: No sore throat or earaches. CARDIOVASCULAR: No chest pain or palpitations. PULMONARY: No shortness of breath, cough, or wheezing. GASTROINTESTINAL: See above. GENITOURINARY: No hematuria or dysuria. MUSCULOSKELETAL: No joint pain or muscle weakness. NEUROLOGIC: Positive for sequelae of her cerebrovascular accident. PHYSICAL EXAMINATION: GENERAL: Shows an obese white female, in no acute distress. VITAL SIGNS: Stable. She is afebrile. HEENT: Unremarkable. NECK: Supple. CHEST: Clear. CARDIOVASCULAR: Regular rate and rhythm. ABDOMEN: Soft, nontender without organomegaly or masses. Bowel sounds are present, normoactive. PEG site seems to be in good position. No erythema or other abnormalities are noted. LABORATORY DATA: Shows a hemoglobin of 9.8, hematocrit of 29.6. Chemistry shows sodium of 131, chloride 93, CO2 of 32, creatinine 0.54, and albumin 3.2. ASSESSMENT: 1. Gastrostomy complications. 2. Cerebrovascular accident. 3. Oropharyngeal dysphagia. 4. Congestive heart failure. RECOMMENDATIONS: EGD and percutaneous endoscopic gastrostomy replacement. Job ID: [id number]
[2018-11-21] MEDS ORDERED: Famotidine/PF 20 mg/2ml Vial ONE (09:04)
--- NOTE | 2018-11-21 09:06 | HP ---
CHIEF COMPLAINT: Abdominal pain. HISTORY OF PRESENT ILLNESS: This is a 73-year-old female, who was recently admitted and discharged from the hospital due to constipation, presenting to the hospital with significant abdominal pain. The patient was found to have a malfunctioning PEG tube, evaluated by GI in the ER and admission recommended for PEG tube replacement. The patient otherwise denies having any complaints. The initial problem of constipation that was evaluated in the hospital prior, it is not currently present, having had a bowel movement yesterday as well as this morning prior to arrival. The patient otherwise denies any other associated symptoms. No nausea, vomiting, diarrhea, constipation, chest pain, shortness of breath, simple abdominal pain with no alleviating or aggravating factors. The patient states that she has had this pain on and off, it has been worsening in nature after her discharge. The patient is seen and examined in the ER. at bedside. All questions answered. ALLERGIES: SEE LIST. HOME MEDICATIONS: See MAR. PAST MEDICAL HISTORY: Positive for left-sided hemiplegia, history of CVA, hypertension, hypothyroidism, hyperlipidemia, and constipation. FAMILY HISTORY: Noncontributory. SOCIAL HISTORY: No smoking or drinking. REVIEW OF SYSTEMS: All systems reviewed. Pertinent positives in HPI, otherwise negative. PHYSICAL EXAMINATION: VITAL SIGNS: Blood pressure is 123/43, pulse of 60, respiratory rate of 20, O2 saturation 96% on 3 L nasal cannula, and temperature is 98%. GENERAL: The patient is lying in bed, appears in no distress. HEENT: Pupils are equal, round, and reactive to light and accommodation. Extraocular muscles are intact. Oral cavity moist and pink. PULMONARY: Clear to auscultation bilaterally. No respiratory distress. No increase in AP diameter. CARDIOVASCULAR: Regular rate and rhythm. S1 and S2. No murmurs or gallops appreciated. ABDOMEN: Positive bowel sounds. Soft. Tender to palpation around the prior PEG tube area. PEG tube noted in place. No pus or drainage noted. Mild erythema around site noted. No rebound or guarding tenderness noted. EXTREMITIES: 2+ peripheral pulses. Trace edema in bilateral lower extremities. The patient's body habitus is rather large. NEUROLOGICAL: Cranial nerves II through XII intact. Left-sided hemiparesis. Otherwise, alert and oriented x3 with some difficulty talking. DIAGNOSTIC DATA: Abdominal CT scan shows small hiatal hernia, status post cholecystectomy and diverticulosis with no diverticulitis. Small bilateral pleural effusions with minimal compared to prior and some mild constipation. ASSESSMENT: 1. Malfunctioning percutaneous endoscopic gastrostomy tube. 2. History of cerebrovascular accident. 3. Hypertension. 4. Hypothyroidism. 5. Hyperlipidemia. 6. History of constipation. PLAN: Admit the patient to observation. The patient has been evaluated by GI in the ER. Consent obtained for PEG tube replacement. At this point in time, we will start the patient on IV fluids. Keep her n.p.o. for procedure and then start tube feeds in the evening from 10:00 p.m. to 6:00 a.m. at 60 mL an hour. I do not really know what sort of tube feeds they have at this facility, however, Jevity is available, we can do that. Otherwise, dietitian to decide. PEG tube was functioning overnight, can discharge the patient tomorrow. The patient has normal habit of nutritional intake as they eat during daytime, however, much she can. However, due to reduced caloric intake and inability to meet her caloric demands, she takes PEG tube feeds at night. The patient's wishes her to be a full code at this point in time. The was at bedside. Case and plan discussed with the patient and family at length. They understand and agree with this plan. Job ID: [id number]
[2018-11-21] MEDS: Sodium Chloride 0.9% 1,000 ML IV SCH ×2 (09:10→23:44)
[2018-11-21] MEDS: Famotidine/PF 20 mg/2ml Vial SLOW IVP SCH ×2 (09:10→20:16)
[2018-11-21] MEDS ORDERED: Morphine 2 MG/ML SYRINGE ONE (10:08)
[2018-11-21] MEDS ORDERED: Acetaminophen 325 MG Suppository ONE (10:08)
[2018-11-21] MEDS ORDERED: Clindamycin/D5W 900 mg/50 ml Premix Bag ONE (11:05)
[2018-11-21] MEDS ORDERED: Levofloxacin 500 mg/D5W 100 ml Premix Bag ONE (11:05)
[2018-11-21] MEDS ORDERED: KETAMINE 100 MG/ML (5ML VIAL) ONE (11:37)
[2018-11-21] MEDS ORDERED: Ondansetron HCl/PF 4 MG/2 ML Vial IVP PRN (12:10)
[2018-11-21] MEDS ORDERED: Morphine Sulfate 2 MG/ML SYRINGE SLOW IVP PRN (12:10)
[2018-11-21] MEDS ORDERED: Promethazine HCl 25 MG/ML VIAL SLOW IVP PRN (12:10)
[2018-11-21] MEDS ORDERED: Promethazine HCl 25 MG/ML VIAL IM PRN (12:10)
[2018-11-21] MEDS ORDERED: PACU-Morphine 4MG/ML VIAL SLOW IVP PRN (12:10)
[2018-11-21 15:14] VITALS: BMI 32.3
[2018-11-21] MEDS ORDERED: PROPOFOL 200 MG/20 ML VIAL ONE (15:46)
[2018-11-21] MEDS: Acetaminophen 325 MG TAB PO PRN (20:16)
[2018-11-21] MEDS ORDERED: Prevnar 13-Val Conj/PF 0.5 ML SYRINGE IM ONE (21:00)
[2018-11-22 06:45] LABS: #Eosinphils 0.3 thou/uL (0.0-0.7); #Lymphocytes 0.6 thou/uL (1.20-3.40); #Monocytes 0.5 thou/uL (0.11-0.59); %Basophils 0.7 % (0.0-1.0); %Eosinophils 5.6 % (0.0-10.0); %Lymphocytes 11.1 % (21.0-51.0); %Monocytes 8.8 % (0.0-10.0); %Neutrophils 73.8 % (42.0-75.0); Hemoglobin 9.7 g/dL (12.0-16.0); Mean Corpuscular HGB CONC 33.1 g/dL (32.0-36.0); Mean Corpuscular Hemoglobin 29.2 pg (27.0-31.0); Mean Corpuscular Volume 88.1 fL (78.0-98.0); Mean Platelet Volume 7.9 fL (7.4-10.4); Platelet Count 245 thou/uL (130-400); RBC Distribution Width 14.7 % (11.5-14.5); Red Blood Cell (RBC) Count 3.32 mill/uL (4.20-5.40); White Blood Cell (WBC) Count 5.5 thou/uL (4.8-10.8)
[2018-11-22 07:11] LABS: Anion Gap 11 mmol/L (10-20); BUN (Urea Nitrogen) 11 mg/dL (9.8-20.1); Calc. Creatinine Clearance 149 mL/min (70-130); Calcium 9.3 mg/dL (7.8-10.44); Carbon Dioxide 26 mmol/L (23-31); Chloride 98 mmol/L (98-107); Estimated GFR-MDRD Greater than 90; Glucose 127 mg/dL (83-110); Potassium 4.2 mmol/L (3.5-5.1); Sodium 131 mmol/L (136-145)
[2018-11-22 07:43] VITALS: TEMP 98.5
[2018-11-22] MEDS: Famotidine/PF 20 mg/2ml Vial SLOW IVP SCH (08:22)
[2018-11-22] MEDS ORDERED: Ondansetron ODT 4 MG TAB SL PRN (08:52)
[2018-11-22] MEDS ORDERED: Bisacodyl 10 MG SUPP PR PRN (08:52)
[2018-11-22] MEDS ORDERED: Non-Formulary Item 1 EACH (Acetaminophen [Acetaminophen] 650 MG) PO PRN (08:52)
[2018-11-22] MEDS ORDERED: traMADol HCl 50 MG TAB PO PRN (08:52)
[2018-11-22] MEDS ORDERED: Albuterol Sulfate 2.5 mg/3 ml Neb NEB PRN ×2 (08:52→09:02)
[2018-11-22] MEDS ORDERED: Polyethylene Glycol 3350 17 GM Packet PO PRN (08:52)
[2018-11-22] MEDS ORDERED: Lisinopril 20 MG TAB PO SCH (09:00)
[2018-11-22] MEDS ORDERED: Oxybutynin 5 MG TAB PO SCH (09:00)
[2018-11-22] MEDS ORDERED: THYROID PORK 180 MG PO SCH (09:00)
[2018-11-22] MEDS ORDERED: Furosemide 40 MG TAB PO SCH (09:00)
[2018-11-22] MEDS ORDERED: ENTERAL NUTRITION FORMULA PER TUBE SCH (09:00)
[2018-11-22] MEDS ORDERED: OXcarbazepine 600 MG TAB PO SCH (09:00)
[2018-11-22] MEDS ORDERED: OXcarbazepine 300 MG TAB PO SCH ×2 (09:00)
[2018-11-22] MEDS ORDERED: Atorvastatin Calcium 10 MG TAB PO SCH (09:00)
[2018-11-22] MEDS ORDERED: Ascorbic Acid 500 mg Chewable Tablet PO SCH (09:00)
[2018-11-22] MEDS ORDERED: Escitalopram Oxalate 20 mg Tablet PO SCH (09:00)
[2018-11-22] MEDS ORDERED: levETIRAcetam 500 MG TAB PO SCH (09:00)
[2018-11-22] MEDS ORDERED: [UNRECOGNIZED DRUG - OTHER] PER TUBE SCH (09:00)
[2018-11-22] MEDS ORDERED: hydrALAZINE 25 MG TAB PO SCH (09:00)
[2018-11-22] MEDS ORDERED: Carvedilol 6.25 MG TAB PO SCH (09:00)
[2018-11-22] MEDS ORDERED: Potassium Chloride 20 MEQ TAB PO SCH (09:00)
[2018-11-22] MEDS: Acetaminophen 325 MG TAB PO PRN (09:56)
[2018-11-22 09:57] VITALS: BP 178/84
--- NOTE | 2018-11-22 10:42 | DIS ---
DATE OF ADMISSION: 11/21/2018 DATE OF DISCHARGE: 11/22/2018 PRIMARY CARE PHYSICIAN: Dr. Bong Winters. DISCHARGE DISPOSITION: [facility]. PRIMARY DISCHARGE DIAGNOSIS: PEG tube malfunction, status post replacement. SECONDARY DISCHARGE DIAGNOSES: Seizure disorder, obesity with BMI 32, hypothyroidism, hypertension, history of CVA with residual weakness, seizure, normocytic normochromic anemia, anxiety and depression, dyslipidemia. PRIMARY PROCEDURE/OPERATION: PEG tube replacement. RADIOLOGICAL INVESTIGATION: None. SIGNIFICANT LABORATORY DATA: WBC 5.5, hemoglobin 9.7, platelet 245. Sodium 131, potassium 4.2, BUN 11, creatinine 0.52, calcium 9.3. DISCHARGE MEDICATIONS: 1. Albuterol sulfate nebulization q.4 hourly p.r.n. 2. DuoNeb q.4 hourly p.r.n. 3. Zofran 4 mg q.6 hourly p.r.n. 4. Tramadol 50 mg q.6 hourly p.r.n. 5. Tylenol 650 mg q.4 hourly p.r.n. 6. Vitamin C 500 mg daily. 7. Dulcolax 10 mg per rectum daily p.r.n. 8. Coreg 6.25 mg p.o. b.i.d. 9. Lexapro 20 mg p.o. daily. 10. Lasix 40 mg b.i.d. 11. Jevity 1.2 at bedtime. 12. Keppra 500 mg p.o. b.i.d. 13. Lisinopril 20 mg daily. 14. Trileptal 300 mg daily. 15. Oxybutynin 500 mg p.o. b.i.d. 16. MiraLAX 17 g p.o. daily. 17. Potassium chloride 20 mEq p.o. daily. 18. [place] Thyroid 180 mg daily. 19. Lipitor 5 mg p.o. daily. 20. Hydralazine 25 mg p.o. t.i.d. CONTRAINDICATION: None. CODE STATUS: Full code. INPATIENT FILER FINISH: Dr. Villareal was consulted while in hospital. TEST RESULTS PENDING ON DISCHARGE: None. ALLERGIES: CODEINE, FISH, PENICILLIN, PROPAFENONE. DISCHARGE PLAN: Posthospital, the patient is discharged back to [facility]. Subsequently, the patient will follow up with primary care physician. HOSPITAL COURSE: A 73-year-old female with above-mentioned medical problem, who was admitted by Dr. Raimundo Shah. Please see his H and P for further details. The patient was living at [facility]. She is using PEG tube feeding only during nighttime, but she is able to have modified diet with puree texture and nectar thick liquids without any problems. She is also taking some medication by mouth. This patient had PEG tube malfunction and that is why she was sent to emergency room for evaluation. [employer]ice was consulted in the emergency room and the patient had PEG tube replaced. After that, the patient was observed overnight in the hospital, PEG tube was functioning properly. We resumed all her previous medications while in hospital. She will also continue all her previous medications at [facility] without any change. I have seen and examined the patient at bedside today. PHYSICAL EXAMINATION: VITAL SIGNS: Currently, temperature 98.5, pulse 70, respiratory rate 20, saturation 95%, and blood pressure 117/73. Weight 213 pounds. GENERAL: The patient is currently alert and awake, in no obvious acute distress. Follows all commands. HEENT: Head; normocephalic and atraumatic. Eyes; pupils round and reactive to light. Extraocular muscle intact. ENT, oropharynx within normal limits. LUNGS: Clear to auscultation without any rhonchi or rales. CARDIAC: S1 and S2, regular without any murmur. ABDOMEN: Soft and benign without any tenderness. EXTREMITIES: No edema. NEUROLOGIC: Nonfocal examination other than residual weakness from previous stroke. Paperwork for discharge done. Discharge medication reconciliation done. The patient is medically stable for discharge today. Job ID: [id number]
--- NOTE | 2018-11-22 12:42 | OP ---
DATE OF PROCEDURE: 11/21/2018 PREOPERATIVE DIAGNOSES: 1. Gastrostomy complication. 2. Oropharyngeal dysphagia secondary to cerebrovascular accident. DESCRIPTION OF PROCEDURE: After informed consent was obtained, the patient was placed in a supine position. Anesthesia was administered per the Anesthesia Department. Forward-viewing endoscope was inserted into the esophagus under direct visualization with ease and passed to the second portion of the duodenum with ease. Second portion of duodenum and duodenal bulb were normal. The pylorus, antrum, body, fundus, and cardia were normal. Previously noted PEG site was seen and without abnormalities. The area was prepped and draped in usual manner. No anesthesia was applied. A guidewire was passed through the existing ostomy and into the gastric lumen, it was snared, brought out of the mouth. The PEG tube was attached and pulled through the existing ostomy without difficulty. Reinserted the endoscope showed the PEG bumper to be in good position. ASSESSMENT: 1. Percutaneous endoscopic gastrostomy placement through existing ostomy site. 2. Otherwise normal esophagogastroduodenoscopy. RECOMMENDATIONS: 1. Begin tube feedings. 2. Stable for discharge from GI standpoint. Job ID: [id number]
[2018-11-22] MEDS ORDERED: Potassium Chloride 10 MEQ TAB PO SCH (17:00)
== END 2018-11-22 13:24 ==
LOC: ERS 01:48 → ERHOLD 04:00 → T4-A 14:22
PROVIDERS: ADMIT Internal Medicine; ATTEND Internal Medicine
PROC: 0DH63UZ Insertion of Feeding Device into Stomach, Percutaneous Approach (ICD-10-PCS; principal; 2018-11-21)
DX: K94.23 Gastrostomy malfunction (principal); I69.391 Dysphagia following cerebral infarction; R13.12 Dysphagia, oropharyngeal phase; E03.9 Hypothyroidism, unspecified; E78.5 Hyperlipidemia, unspecified; I48.91 Unspecified atrial fibrillation; M19.042 Primary osteoarthritis, left hand; M19.041 Primary osteoarthritis, right hand; F41.9 Anxiety disorder, unspecified; F32.9 Major depressive disorder, single episode, unspecified; I69.354 Hemiplegia and hemiparesis following cerebral infarction affecting left non-dominant side; J44.9 Chronic obstructive pulmonary disease, unspecified; I11.0 Hypertensive heart disease with heart failure; I50.9 Heart failure, unspecified; E66.9 Obesity, unspecified; Z68.32 Body mass index [BMI] 32.0-32.9, adult; Z79.899 Other long term (current) drug therapy; Z88.0 Allergy status to penicillin; Z88.5 Allergy status to narcotic agent; Z91.013 Allergy to seafood; Z95.0 Presence of cardiac pacemaker
CPT/HCPCS: 43246; 80048; 82962; 85025; 86301; 96361; 96374; 96375; 96376 ×2; 99284; G0378 ×2; 36415; 36416; J1956; J2270; J2704; J3490; S0028

== ENCOUNTER 2019-04-14 06:00 | Inpatient (IN) | payer MEDICARE, OTHER ==
[2019-04-14] MEDS ORDERED: Ondansetron PF 4 MG/2 ML Vial ONE (06:38)
[2019-04-14 06:55] LABS: Hemoglobin 9.7 g/dL (12.0-16.0); Mean Corpuscular HGB CONC 33.1 g/dL (32.0-36.0); Mean Corpuscular Hemoglobin 28.6 pg (27.0-31.0); Mean Corpuscular Volume 86.4 fL (78.0-98.0); Mean Platelet Volume 8.2 fL (7.4-10.4); Platelet Count 135 thou/uL (130-400); RBC Distribution Width 14.2 % (11.5-14.5); White Blood Cell (WBC) Count 17.2 thou/uL (4.8-10.8)
[2019-04-14 07:08] LABS: ALT (SGPT) 29 U/L (8-55); AST (SGOT) 26 U/L (5-34); Albumin 3.1 g/dL (3.4-4.8); Alkaline Phosphatase 87 U/L (40-150); Anion Gap 11 mmol/L (10-20); BUN (Urea Nitrogen) 26 mg/dL (9.8-20.1); Bilirubin, Total 0.6 mg/dL (0.2-1.2); Calc. Creatinine Clearance 0 mL/min (70-130); Calcium 10.5 mg/dL (7.8-10.44); Carbon Dioxide 31 mmol/L (23-31); Chloride 91 mmol/L (98-107); Estimated GFR-MDRD 68; Globulin 3.1 g/dL (2.4-3.5); Glucose 137 mg/dL (83-110); Lipase Less than 4 U/L (8-78); Potassium 4.5 mmol/L (3.5-5.1); Protein, Total 6.2 g/dL (6.0-8.3); Sodium 128 mmol/L (136-145)
[2019-04-14 07:17] LABS: Band 24 % (5-11); Lymphocytes 6 % (21-51); MDiff Complete? YES; Metamyelocyte 1 % (0-0); Monocytes 5 % (0-10); Neutrophil 64 % (42-75); Platelet Morphology Comment Appears Adequate; Polychromasia SLIGHT = 2-3 cells (100X) (0-2/hpf)
--- NOTE | 2019-04-14 07:17 | CT ---
CT ABDOMEN AND PELVIS NONCONTRAST RENAL CALCULUS PROTOCOL: Date: 04/14/19 COMPARISON: 11/20/18. INDICATION: Abdominal pain with nausea, vomiting, and fever. FINDINGS: There has been development of moderate right hydronephrosis and generalized mild distention of the ri ght ureter. There is punctate right nephrolithiasis, although no discrete ureteral or bladder calculu s. There is progressive calcification at the lower pole of the left kidney. There is a stable exophyt ic hypodensity emanating from the posterior margin of the left kidney. Urinary bladder is decompresse d with an indwelling Weiss catheter. Incomplete assessment of patchy opacities at the lung bases. There is trace pericardial fluid. Eviden ce of prior cholecystectomy. Generalized moderate volume of retained fecal material throughout the co milton is present and there are colonic diverticula. Left upper quadrant gastrostomy is seen. There is d iffuse vascular disease. No pneumoperitoneum. IVC filter is in place. Evaluation is otherwise limited on the basis of noncontrast technique. IMPRESSION: 1. Moderate right hydronephrosis and mild generalized distention of the right ureter without a discr ete ureteral calculus. There is punctate right nephrolithiasis. Slight degree of associated perirenal /renal fat stranding is present. There is focal kinking of the junction of the right renal pelvis and ureter, which could provide source for the distention of the renal collecting system. In addition, r ecommend correlation with urinary laboratory values to exclude the possibility of an ascending urinar y tract infection. 2. Left nephrolithiasis, progressive. Stable exophytic hypodensity emanating from the posterior aspe ct of the left kidney, although incompletely evaluated on the basis of noncontrast imaging. 3. Constipation. POS: GUSTABO
[2019-04-14 07:27] LABS: Clarity Clear (Clear)
[2019-04-14 07:28] LABS: Specific Gravity, Urine 1.015 (1.005-1.030)
[2019-04-14 07:29] LABS: Bilirubin Negative (Negative); Blood, Urine Negative (Negative); Glucose, Urine (Dipstick) Negative (Negative); Leukocyte Moderate (Negative); Nitrite Negative (Negative); Protein, Urine (Dipstick) 100 mg/dL (Neg-Trace); RBC/HPF 0-3 HPF (0-3); Squamous Epithelial 0-3 HPF (0-3); WBC/HPF 21-50 HPF (0-3)
[2019-04-14 07:30] LABS: Bacteria/HPF 2+ HPF (None Seen); Crystals/HPF 1+ CA OXALATE HPF (Negative)
[2019-04-14] MEDS ORDERED: cefTRIAXone\\ROCEPHIN 2 GM VIAL ONE (07:31)
[2019-04-14] MEDS ORDERED: Labetalol HCl 100 MG/20 ML VIAL SLOW IVP PRN (10:43)
[2019-04-14] MEDS ORDERED: Diabetic Tussin 200 MG/10 ML UDCUP PO PRN (10:43)
[2019-04-14] MEDS ORDERED: hydrALAZINE 20 MG/ML VIAL SLOW IVP PRN (10:43)
[2019-04-14] MEDS ORDERED: Cepastat Lozenges 1 LOZ PO PRN (10:43)
[2019-04-14] MEDS ORDERED: Senokot S 8.6-50 MG TAB PO PRN (10:43)
[2019-04-14] MEDS ORDERED: Calcium Carbonate 500 MG ChewTAB PO PRN (10:43)
[2019-04-14] MEDS ORDERED: Loperamide HCl 2 MG CAP PO PRN (10:43)
[2019-04-14] MEDS ORDERED: Zolpidem Tartrate 5 MG TAB PO PRN (10:43)
[2019-04-14] MEDS ORDERED: Saccharomyces boulardii 250 MG CAP PO SCH ×2 (10:43→11:00)
[2019-04-14] MEDS ORDERED: Famotidine 20 MG TAB PO SCH ×2 (10:43→11:00)
[2019-04-14] MEDS ORDERED: Loratadine 10 MG TAB PO PRN (10:43)
[2019-04-14] MEDS ORDERED: Ondansetron PF 4 MG/2 ML Vial IVP PRN (10:43)
[2019-04-14] MEDS ORDERED: Bisacodyl 5 MG TAB PO PRN (10:43)
[2019-04-14] MEDS ORDERED: Sodium Chloride 0.65% Nasal 44 ML BOT EA NARE PRN (10:43)
[2019-04-14] MEDS ORDERED: Ondansetron ODT 4 MG TAB PO PRN (10:43)
[2019-04-14] MEDS ORDERED: Enoxaparin Sodium 40 MG/0.4 ML SYRINGE SC SCH ×2 (10:43→11:00)
[2019-04-14] MEDS ORDERED: Bisacodyl 10 MG SUPP PR PRN (10:43)
[2019-04-14 10:57] VITALS: BMI 29.7
[2019-04-14] MEDS: Acetaminophen 325 MG TAB PO PRN (11:30)
[2019-04-14] MEDS: Sodium Chloride 0.9% 1,000 ML IV SCH (11:36)
--- NOTE | 2019-04-14 12:37 | HP ---
PRIMARY CARE PHYSICIAN: Bong Winters MD REASON FOR ADMISSION: Sepsis, complicated urinary tract infection. HISTORY OF PRESENT ILLNESS: A 74-year-old female, who lives at [facility]. She has previous history of CVA with residual left-sided weakness with PEG tube in place, who is mostly bedbound and she also has chronic indwelling Weiss catheter for a long period of time. Her is present, who provided most of the history. The patient's reports that he normally visits her every day at halfway. She was recently diagnosed with urinary tract infection and she finished antibiotic course with Cipro. Her last dose of antibiotic therapy was on Thursday. Per with this treatment, the patient was doing relatively well. Again on Thursday, the patient's noticed that the patient was more lethargic. She was more confused. She also had episode of vomiting at halfway. On Thursday, the patient had Weiss catheter exchanged. Since then, the patient was having increasing amount of discomfort in her bladder area. She was also having low-grade fever yesterday entire day and the patient was feeling miserable yesterday at halfway. Last night, she was also having fever and that is why the patient was sent to emergency room for evaluation. In the emergency room today, CT abdomen and pelvis showed right-sided hydronephrosis and right-sided distention of ureter without any obstructive pathology. Dr. Waterman, ER physician, spoke with the Urology on-call about this patient. At this point, the patient has received antibiotic therapy in the emergency room. She is hemodynamically stable. She is planned for admission to medical floor. In the emergency room, she was given IV fluid, Zofran, Rocephin, and vancomycin. PAST MEDICAL HISTORY: 1. History of CVA with left-sided paralysis. The patient has history of hemorrhagic CVA with left-sided paralysis with oropharyngeal dysphagia and PEG tube. She is mostly bedbound. She requires complete assistance to get out of bed. She is mostly bedbound. She recently started doing again PT/OT while in bed. 2. Hypertension. 3. Dyslipidemia. 4. Hypothyroidism. 5. Atrial fibrillation. PAST SURGICAL HISTORY: Ablation for atrial fibrillation x5, pacemaker placement , appendicectomy, cholecystectomy, hysterectomy, and PEG tube placement. PAST PSYCHIATRIC HISTORY: Anxiety, depression, and bipolar disorder. SOCIAL HISTORY: The patient is , lives at [facility]. No history of tobacco, alcohol, or illicit drug abuse. FAMILY HISTORY: No family history of coronary artery disease, stroke, or cancer. ALLERGIES: CODEINE, FISH CONTAINING PRODUCT, PENICILLIN, PROPAFENONE, SHELLFISH. CURRENT HOME MEDICATIONS: 1. [place] Thyroid 120 mg daily. 2. Lisinopril 20 mg twice daily. 3. Ascorbic acid 500 mg daily. 4. Tramadol 50 mg q.6 hourly p.r.n. 5. Oxybutynin 5 mg twice daily. 6. Lipitor 5 mg daily. 7. Bisacodyl 10 mg daily. 8. Keppra 500 mg twice daily. 9. Oxcarbamazepine 600 mg at bedtime. 10. Lexapro 20 mg p.o. daily. 11. DuoNeb q.6 hourly p.r.n. 12. Hydralazine 25 mg 3 times daily. 13. Coreg 6.25 mg daily. 14. Lasix 40 mg twice daily. 15. Potassium chloride 10 mEq p.o. daily. 16. Pepcid 20 mg at bedtime. EMERGENCY ROOM COURSE: The patient has received vancomycin, Rocephin, Zofran, and IV fluid. REVIEW OF SYSTEM: All review of system reviewed and negative except as mentioned in HPI. PHYSICAL EXAMINATION: VITAL SIGNS: Currently in the emergency room; blood pressure 120/66, pulse 80, respiratory rate 15, temperature 99.2, and saturation 96% on 2 L oxygen. Weight is 91.6 kg. GENERAL: The patient is currently alert, awake. No obvious acute distress. HEENT: Head; normocephalic, atraumatic. Eyes; pupils are round and reactive to light. Extraocular muscle intact. ENT; oropharynx within normal limits. Moist mucous membranes. No oral lesion. No pharyngeal erythema. No exudate. NECK: Supple. No JVD. No thyromegaly. No carotid bruit. LUNGS: Clear to auscultation without any rhonchi or rales. The patient is on oxygen. CARDIAC: S1 and S2 regular. No murmur. No gallop. No rub. ABDOMEN: Soft. Obesity present. The patient does have PEG tube in place. GENITALIA: The patient does have Weiss catheter in place, which was present on admission. EXTREMITIES: Upper extremities; passive movement of all joints are normal. Lower extremities, passive movement of all joints are normal with toe deformity on both side. NEUROLOGIC: The patient does have left upper and lower extremity weakness with mild stiffness. No new focal neurological deficit noted. SKIN: No skin rash. No decubitus ulcer. PSYCHIATRIC: Normal affect. HEMATOLOGICAL SYSTEM: No lymphadenopathy. SIGNIFICANT LABORATORY DATA: CT abdomen and pelvis showing constipation, left nephrolithiasis, progressive moderate right hydronephrosis, mild distention of right ureter without any ureteral calculi. There is kinking at the junction of the right renal pelvis and ureter. CBC; WBC 17.2, hemoglobin 9.7, platelet 135 with bandemia. BMP; sodium 128, potassium 4.5, chloride 91, carbon dioxide 31, BUN 26, creatinine 0.82, glucose 137, and calcium 10.5. Lactic acid 0.9. LFT; AST 26, ALT 29, alkaline phosphatase 87, and albumin 3.1. Lipase less than 4. Urinalysis suggestive of UTI. ASSESSMENT AND PLAN: 1. Acute encephalopathy. This patient was lethargic, confused at halfway. The patient does not have any new focal neurological deficit. She does have old stroke with residual weakness. She has currently sepsis and hyponatremia that can explain her altered mental status. Her altered mental status is related with sepsis and metabolic parameters. Currently, the patient appears to be baseline after emergency room treatment. 2. Severe sepsis. The patient is hemodynamically stable. She does have sepsis criteria with leukocytosis, altered mental status, leukocyte bandemia, and source of infection is urinary tract. The patient is given Rocephin and vancomycin in emergency room to increased broader coverage. We will start meropenem and vancomycin. We will continue with IV fluid and we will monitor on medical floor. At this point, the patient is stable enough to be transferred to medical floor for admission. 3. Complicated urinary tract infection. This patient has long-term indwelling Weiss catheter, which was present on admission. She has associated right hydronephrosis as well as nephrolithiasis. This patient recently required catheter exchange and that might have precipitated her urinary tract infection and she has recently finished antibiotic course. Because of all this, they will start meropenem and vancomycin for broad coverage. We will follow up on culture result and based on culture result, we will change antibiotic therapy accordingly. Urology health has been consulted as well as ID will be consulted. 4. Right hydronephrosis with distention of right ureter, most likely related with kinking at the junction of the right renal pelvis and ureter. Urology has been consulted and we will defer further plan to them. 5. Hyponatremia, hypochloremia. We will continue with NS at 100 mL/h and we will repeat labs tomorrow. 6. Chronic obstructive pulmonary disease/asthma. We will continue DuoNeb therapy q.6 hourly p.r.n. 7. History of cerebrovascular accident with residual left-sided weakness and oropharyngeal dysphagia. This patient will need PT/OT while in the hospital, supportive care. This patient is taking by mouth mechanical soft diet and thin liquid at halfway. She is also using percutaneous endoscopic gastrostomy tube for nutrition, which we will continue while in hospital. 8. Seizure disorder. We will continue Keppra 500 mg p.o. b.i.d. 9. Hypertension. The patient's blood pressure is currently marginal. We will hold on lisinopril and hydralazine therapy and Coreg therapy for now. If blood pressure is going up, then we will resume all those medication as well. Because of sepsis, we will watch blood pressure and then decide whether all these medicine needs to be restarted. 10. Hypothyroidism. We will continue [place] Thyroid as per home dosage. 11. Dyslipidemia. We will continue Lipitor as per home dosage. 12. Anxiety, depression, and bipolar disorder. We will continue Trileptal as per home dosage as well as Lexapro as per home dosage. 13. Chronic constipation. We will continue with MiraLAX 17 g p.o. b.i.d. as well as other stool softener on p.r.n. basis. 14. Deep venous thrombosis prophylaxis. Lovenox 40 mg subcu daily to prevent deep venous thrombosis. 15. Gastrointestinal prophylaxis, Pepcid 20 mg p.o. b.i.d. 16. Code status: I spoke with the patient's at bedside and the patient is full code. The patient's is surrogate decision maker. 17. Disposition plan: Based on clinical course, we are expecting the patient's stay in hospital more than 2 midnights. Plan of care discussed with the patient and her and answered all of his question in detail. Job ID: [id number] [facility]
[2019-04-14] MEDS ORDERED: Vancomycin HCl 750 MG in Sodium Chloride 0.9% 250 ML 250 ML IVPB SCH ×2 (13:00→21:00)
[2019-04-14] MEDS: MEROPENEM 1 GM/50 ML 1 GM in Premix Bag 1 BAG IVPB SCH ×2 (13:52→23:41)
[2019-04-14] MEDS ORDERED: Heparin 1,000 UNITS/ML VIAL ONE (15:00)
[2019-04-14] MEDS: Famotidine 20 MG TAB PO SCH (20:37)
[2019-04-14] MEDS: Polyethylene Glycol 3350 17 GM Packet PO SCH (20:37)
[2019-04-14] MEDS ORDERED: Iothalamate Meglumine 60% 50 ML VIAL FS ONE (21:02)
[2019-04-14] MEDS ORDERED: Promethazine HCl 25 MG/ML VIAL SLOW IVP PRN (22:18)
[2019-04-14] MEDS ORDERED: Promethazine HCl 25 MG/ML VIAL IM PRN (22:18)
[2019-04-14] MEDS ORDERED: Ondansetron HCl/PF 4 MG/2 ML Vial IVP PRN (22:18)
--- NOTE | 2019-04-14 22:24 | RAD ---
EXAM: XR IVP Retrograde PROVIDED CLINICAL HISTORY: Right hydronephrosis and hydroureter. Right ureteral calculus. COMPARISON: CT abdomen and pelvis on 04/14/2019. FINDINGS/IMPRESSION: Single fluoroscopic image of the abdomen is obtained. Image demonstrates contrast within a dilated ri ght renal collecting system and ureter with a double pigtail right ureteral stent noted in place with proximal portion overlying the renal pelvis and distal portion overlying the urinary bladder. IV C filter is noted overlying the lumbar spine. Surgical clips overlie the right upper quadrant. Correlation with intraoperative findings is recommended.
[2019-04-14] MEDS ORDERED: Fentanyl 100 MCG/2 ML VIAL ONE (22:32)
[2019-04-14 23:49] LABS: Bilirubin Negative (Negative); Blood, Urine Large (Negative); Clarity TURBID (Clear); Glucose, Urine (Dipstick) Negative (Negative); Leukocyte Small (Negative); Nitrite Negative (Negative); Protein, Urine (Dipstick) 100 mg/dL (Neg-Trace); Specific Gravity, Urine 1.019 (1.002-1.036); Urobilinogen 0.2 mg/dL (0.2-1.0)
[2019-04-14 23:55] LABS: Bacteria/HPF None Seen HPF (None Seen); WBC/HPF 21-50 HPF (0-3)
[2019-04-15 00:09] LABS: Pathc Cast-AUWi Flag 4.48 (0-2.49); Yeast-AUWi Flag 34.9 (0-25.0)
[2019-04-15 00:12] LABS: Hyaline Casts/LPF NONE SEEN LPF (0-3 Hyaline)
[2019-04-15 00:13] LABS: Other Casts/LPF None Seen LPF (0-3 Hyaline); Renal Epithelial None Seen HPF (0-3); Transitional Epithelial NONE SEEN HPF (0-3); Yeast-All Forms None Seen HPF (None Seen)
--- NOTE | 2019-04-15 00:19 | CON ---
DATE OF CONSULTATION: 04/14/2019 REASON FOR CONSULTATION: Sepsis. HISTORY OF PRESENT ILLNESS: A 74-year-old, whom I had seen in September of 2018, when she presented with a history of prior CVA with hemorrhagic transformation, severe left-sided plegia, atrial fibrillation with ablation in the past. The patient required trach and PEG. The trach was removed and she still has gastrostomy tube for feedings. She also had DVT in the lower extremity on the left side and had an IVC filter placed. In September, she had abnormal urinalysis. She did have hypoxemia at that time. No evidence of pyuria or leukocytosis, and we did not recommend treatment at that time. A postvoid residual was checked and she had retention, had to have indwelling Weiss catheter reinserted and she still has the Weiss catheter and she keeps it even in the longterm. In November 2018, she had an abdomen and pelvis CT and this showed minimal pleural effusions, cardiomegaly, and nonobstructing left renal calculus. In October 2018, she came in with respiratory symptoms and was diagnosed with diastolic CHF. EF on the echo was 55% to 60% with diastolic dysfunction, moderate AI, and elevated pulmonary artery pressures, 75 to 100,000 CFUs of Pseudomonas, but no leukocytosis. In November 2018, the patient was admitted with sepsis and she had impaction. She had enemas with disimpaction and she was discharged with 5 days of levofloxacin. A few days later, she developed gastrostomy tube malfunction, had to have it replaced, was a quick admission. Now, 6 months later, she presents with vomiting and initially was afebrile, but then developed a temperature in the emergency room. The abdomen and pelvis CT which showed moderate right hydronephrosis and generalized mild distention of the right ureter. There is a punctate right nephrolithiasis, but no stone noted in the ureter. There is progression of the prior nephrolithiasis in the lower pole of the left kidney. The bladder was decompressed. Currently, Ms. Landaverde is awake. She denies any headaches. No sore throat, odynophagia, or dysphagia. No dyspnea or chest pain. No abdominal pain. She carries an indwelling Weiss catheter even when she is in the longterm. PAST MEDICAL HISTORY: Includes prior CVA with hemorrhagic transformation, atrial fibrillation, prior ablations, tracheostomy and gastrostomy tube feedings, hypertension, hyperlipidemia, and hypothyroidism. PAST SURGICAL HISTORY: Cholecystectomy, hysterectomy, and pacemaker. SOCIAL HISTORY: Never smoker and . ALLERGIES: 1. PENICILLIN WITH A RASH. 2. CODEINE, GASTROINTESTINAL SIDE EFFECTS. 3. ALLERGIC TO PENICILLIN AND PROPAFENONE WELL. FAMILY HISTORY: Noncontributory. PHYSICAL EXAMINATION: VITAL SIGNS: T-max 102.5, now 101.7, blood pressure 111/67, pulse 70, respirations 16. GENERAL: Appears no distress, a little bit diaphoretic. The patient has a Weiss catheter in place and a peripheral IV access. No lymphadenopathy. HEENT: Ocular movements conjugate. Sclerae white. Pupils are equal. Conjunctivae normal. Nasal passages patent. Oral cavity, moist, still quite a few teeth in place. NECK: Supple. No jugular venous distention. LUNGS: Symmetric breath sounds. Few crackles, scattered intermittently. No wheezing. HEART: S1 and S2, regular rate. ABDOMEN: Soft, not distended or tender. No ascites. No bladder distention. No organomegaly. EXTREMITIES: She has quite significant paresis on the left side. 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 Plantar responses are indifferent. No evidence of clonus. She has somewhat stereotypical voice emission with limited repertoire of vocabulary and she has a flat affect. She knows her name and recognizes and knows the hospital, but could not tell me the date. LABORATORY DATA: White cell count 17,000, hemoglobin 9.7, platelets 135, 24% bands. Sodium 128, creatinine 0.82, glucose 137, calcium 10.5, AST 26, ALT 29. Urinalysis 21 to 50 wbc's. Microbiology; the latest cultures from 03/26 which is more than 2 weeks ago with Klebsiella pneumoniae, which had a very broad susceptibility, and then at the end of January, she had Pseudomonas and Enterococcus Faecalis. Pseudomonas was resistant to quinolones, and she also had E faecalis again. In September, she had a Pseudomonas again identified with similar susceptibility profiles, likewise in a few days in September before that. The imaging study has been reviewed above. It does not look like she had a chest x-ray. ASSESSMENT: 1. Brain infarct with hemorrhagic transformation in the past with a dense left hemiplegia and weakness on the right side. 2. Prior deep vein thrombosis with vena cava filter. 3. Recurrent episodes of hypoxemia with labored breathing, probably had a pulmonary embolism in the past that was not documented and she also has evidence to suggest heart failure with diastolic dysfunction and pulmonary hypertension. She recently had a diagnosis of urinary tract infection and was given quinolones, and according to improved, but now has had exacerbation. 4. Evidence of moderate hydronephrosis on the right side, but no obvious obstructing stone. She does have a growing stone in the left kidney, but this does not seem to be obstructing either. DISCUSSION: The most likely scenario is an invasive urinary tract infection with pyelonephritis and no obvious areas of obstruction. Urology has been consulted and probably they will continue monitoring this area of hydronephrosis and wait for the results of the treatment with antimicrobials. She may need a stent placed. The initial organism was Klebsiella few days ago, but she does not seem to be responding to the quinolone that was given few days ago, which raises the possibility that the Pseudomonas aeruginosa has had likely is colonizing her upper tract has taken over the role as the pathogen here. We will see what the culture results show and continue meropenem. At this time, she will need at least 4 weeks of treatment, PICC line placed if the organism is felt found to be resistant to quinolones. Job ID: [id number]
--- NOTE | 2019-04-15 01:29 | CON ---
DATE OF CONSULTATION: 04/14/2019 REQUESTING PHYSICIAN: Hospitalist Service. REASON FOR CONSULTATION: Right hydronephrosis and UTI. HISTORY OF PRESENT ILLNESS: Ms. Landaverde is a 74-year-old female who lives in [facility]. She had a history of a CVA in July of 2018 with severe left-sided hemiparesis. The patient is mostly bed bound and has only the use of the right side of her body. She has had an indwelling Weiss catheter since her admission to the [facility] in August 2018. She is unable to provide any history given her current condition and her provides this history. The patient was being treated over the past 2 weeks for UTI. She had been on Cipro twice daily. Her antibiotics concluded 5 days ago. Over the past 3 days, she progressively has become more confused at baseline. She is alert and oriented x3. She feeds herself and is able to carry on conversations. She noticed a slow decline in this. From yesterday morning throughout the day, this progressively worsened and now the patient is obtunded, more or less unresponsive to questions. Her facility transferred here this morning. The patient became febrile to 102.6. A CT scan was performed, which demonstrated right-sided hydronephrosis and hydroureter and a decompressed bladder with Weiss catheter in place. Urology was consulted for further evaluation. The patient's states she has never seen a urologist. Her Weiss catheter is exchanged approximately every 3 weeks in her facility. No history of kidney stones or prior urologic surgeries. No major abdominal surgery. No other complaints. In the emergency department, she was given Rocephin and vancomycin. These are being continued. REVIEW OF SYSTEMS: Unable to obtain secondary to patient's condition. PAST MEDICAL HISTORY: History of CVA with left-sided hemiparesis, hypertension, dyslipidemia, hypothyroidism, atrial fibrillation. PAST SURGICAL HISTORY: Ablation for atrial fibrillation x5, pacemaker, appendectomy, cholecystectomy, hysterectomy, PEG tube. PAST PSYCHIATRIC HISTORY: Bipolar disorder, anxiety and depression. SOCIAL HISTORY: She lives in [facility]. She is . No history of any alcohol, tobacco, or drug abuse. FAMILY HISTORY: Noncontributory. ALLERGIES: CODEINE, "FISH CONTAINING PRODUCTS." PENICILLIN, PROPAFENONE AND SHELLFISH. HOME MEDICATIONS: 1. [place] Thyroid. 2. Lisinopril. 3. Vitamin C. 4. Tramadol. 5. Oxybutynin b.i.d. 6. Lipitor. 7. Bisacodyl. 8. Keppra. 9. Lexapro. 10. DuoNeb. 11. Hydralazine. 12. Core. 13. Lasix. 14. Potassium chloride. 15. Pepcid. PHYSICAL EXAMINATION: VITAL SIGNS: Temperature at admission to ER was 102.5 Fahrenheit, throughout the day has been in the 100s to 101.7 range. Currently 99.4, pulse 68 to 79, blood pressure is 103-111/60s, oxygen saturation 100% on 3 L nasal cannula, respiration 24. GENERAL: She is obtunded, does not respond to questions, but responds to painful stimuli. HEENT: Normocephalic, atraumatic. NECK: Supple. No masses or lymphadenopathy. Tracheostomy scar in place. CARDIOVASCULAR: Regular rate and rhythm. PULMONARY: Tachypneic, but otherwise nonlabored. ABDOMEN: Soft, nontender/nondistended. PEG tube in place. No masses or organomegaly. No suprapubic tenderness to palpation. No CVA tenderness. GENITOURINARY: Weiss catheter is in place draining cloudy urine. NEUROLOGIC: No focal deficits. EXTREMITIES: Warm and well perfused. No edema. LABORATORY DATA: White blood cell count 17.3, hemoglobin 9.7, platelets 135. Sodium 128, potassium 4.5, chloride 91, bicarb 31, BUN 26, creatinine 0.82. RADIOLOGY DATA: CT of the abdomen and pelvis demonstrates constipation, right hydronephrosis with distention of the right ureter without any obstructing stone. ASSESSMENT: A 74-year-old female with urinary tract infection, sepsis, right hydronephrosis, acute encephalopathy. PLAN: I discussed the case with the patient's at length. Overall, she has decreased steadily from her baseline. She is somewhat tachypneic now, but otherwise her vital signs are normal. Fever is resolving, but she continues to have low-grade fever. Given her condition and the fact she has been like this for now for over 24 hours, I recommended right ureteral stent placement to decompress her right collecting system. Continue broad-spectrum antibiotics. This will be performed later today. Continue n.p.o. status until then. If for some reason we are unable to perform this in a timely fashion, percutaneous nephrostomy may be indicated. Job ID: [id number]
[2019-04-15] MEDS: Sodium Chloride 0.9% 1,000 ML IV SCH ×3 (03:45→18:38)
--- NOTE | 2019-04-15 04:15 | OP ---
DATE OF PROCEDURE: 04/14/2019 [facility] CONSULTANT: None. PREPROCEDURE DIAGNOSES: 1. Right hydroureteronephrosis. 2. Sepsis secondary to urinary tract infection. 3. Neurogenic bladder with indwelling Weiss catheter. POSTPROCEDURE DIAGNOSES: 1. Right hydroureteronephrosis. 2. Sepsis secondary to urinary tract infection. 3. Neurogenic bladder with indwelling Weiss catheter. PROCEDURES: 1. Cystoscopy with right ureteral stent placement. 2. Right retrograde ureteropyelogram. ANESTHESIA: LMA anesthesia. COMPLICATIONS: None. FLUIDS: See Anesthesia record. BLOOD LOSS: None. SPECIMENS: Right renal pelvis, urine for culture. POSTPROCEDURE STATUS: Satisfactory. INDICATIONS FOR PROCEDURE: Ms. Landaverde is a 74-year-old female with history of CVA with significant left-sided hemiparesis. She is a resident of a nursing facility in [place]. She has been treated as an outpatient over the past 2 weeks for UTI with Cipro. The patient's last dose of Cipro was 5 days ago. Over the past 3 days, she has had progressively worsening mental status and started developing low-grade fever. She was transferred to the [facility] in [place] and was found to be febrile to 102.5 degrees Fahrenheit. The patient was minimally responsive to questions and only responsive to painful stimuli. She was started on broad-spectrum antibiotics and imaged. CT scan demonstrated right-sided hydroureteronephrosis down to the level of the bladder, a Weiss catheter was within the bladder and the bladder was decompressed. The patient remained febrile throughout the day and therefore was taken to the operating room for a right ureteral stent placement. DESCRIPTION OF PROCEDURE: The patient was taken to the operating room and after successful induction of LMA anesthesia, she was placed in the dorsal lithotomy position and her genitalia was prepped and draped in usual sterile fashion. A time-out was performed following which a 22-[place] rigid cystoscope sheath was inserted in the patient's urethra and into her bladder. Her bladder was drained. Cystoscopy was performed with a 30-degree cystoscope and there were no mucosal abnormalities of concern. She had inflammatory changes throughout the bladder consistent with her indwelling Weiss catheter. Ureteral orifices were in the normal orthotopic location. The right ureteral orifice was identified and cannulated with a Sensor guidewire, which was advanced up to the level of the right renal pelvis. Cystoscope was removed. 5-[place] open-ended ureteral catheter was placed over the wire up to the level of the right renal pelvis. Wire was removed. There was a hydronephrotic drip and this urine was sent for culture. It was somewhat cloudy. A retrograde pyelogram was performed with a 50:50 mix of SP contrast and saline. We then replaced the wire and curled it within the right renal pelvis. A 6-[place]amaican x 24 cm double-J ureteral stent was placed over the wire and upon wire removal, a good curl was achieved proximally within the right renal pelvis and distally within the bladder. A 16-[place] Weiss catheter was placed and 10 cc of sterile water was placed in the balloon. The patient tolerated the procedure well, was awoken from anesthesia and transferred to the PACU in satisfactory condition. Job ID: [id number]
[2019-04-15] MEDS: Acetaminophen 325 MG TAB PO PRN ×2 (05:09→18:44)
[2019-04-15 05:25] LABS: ALT (SGPT) 22 U/L (8-55); AST (SGOT) 18 U/L (5-34); Albumin 2.8 g/dL (3.4-4.8); Alkaline Phosphatase 77 U/L (40-150); Anion Gap 8 mmol/L (10-20); BUN (Urea Nitrogen) 24 mg/dL (9.8-20.1); Bilirubin, Total 0.3 mg/dL (0.2-1.2); Calc. Creatinine Clearance 93 mL/min (70-130); Calcium 10.3 mg/dL (7.8-10.44); Carbon Dioxide 30 mmol/L (23-31); Chloride 99 mmol/L (98-107); Estimated GFR-MDRD 72; Glucose 113 mg/dL (83-110); Potassium 4.4 mmol/L (3.5-5.1); Protein, Total 5.8 g/dL (6.0-8.3); Sodium 133 mmol/L (136-145)
[2019-04-15 05:41] LABS: Band 12 % (5-11); Hemoglobin 8.8 g/dL (12.0-16.0); Lymphocytes 1 % (21-51); MDiff Complete? YES; Mean Corpuscular HGB CONC 32.6 g/dL (32.0-36.0); Mean Corpuscular Hemoglobin 28.6 pg (27.0-31.0); Mean Corpuscular Volume 87.9 fL (78.0-98.0); Mean Platelet Volume 8.9 fL (7.4-10.4); Monocytes 9 % (0-10); Neutrophil 78 % (42-75); Platelet Count 107 thou/uL (130-400); Platelet Morphology Comment Appears Decreased; RBC Distribution Width 14.2 % (11.5-14.5); RBC Morphology Normal; Red Blood Cell (RBC) Count 3.06 mill/uL (4.20-5.40); White Blood Cell (WBC) Count 9.2 thou/uL (4.8-10.8)
[2019-04-15] MEDS: Enoxaparin Sodium 40 MG/0.4 ML SYRINGE SC SCH (07:40)
[2019-04-15] MEDS: MEROPENEM 1 GM/50 ML 1 GM in Premix Bag 1 BAG IVPB SCH ×2 (07:40→15:40)
[2019-04-15] MEDS: Polyethylene Glycol 3350 17 GM Packet PO SCH ×2 (07:40→20:32)
[2019-04-15] MEDS: Famotidine 20 MG TAB PO SCH ×2 (07:41→20:30)
[2019-04-15] MEDS: Saccharomyces boulardii 250 MG CAP PO SCH (07:41)
[2019-04-15] MEDS ORDERED: Vancomycin HCl 1.75 GM in Sodium Chloride 0.9% 500 ML IVPB SCH (09:00)
--- NOTE | 2019-04-15 11:05 | PDOC.PN ---
- Subjective Encounter Start Date: 04/15/19 Encounter Start Time: 07:45 -: old records requested/rev pt is sleepy, bedside, still has fever Patient seen and examined. s/p stent placement yesterday. No overnight events - Objective Resuscitation Status - Order Detail: 04/14/19 08:29 Resuscitation Status Routine Resuscitation Status: FULL: Full Resuscitation MAR Reviewed: Yes Vital Signs & Weight: Vital Signs (12 hours) Temp Pulse Resp BP Pulse Ox 04/15/19 07:24 99.3 F 62 20 124/64 100 04/15/19 05:57 101.3 F H 04/15/19 04:53 101.1 F H 71 16 144/81 H 100 04/15/19 00:04 98.5 F 60 14 104/66 100 04/14/19 23:09 97.9 F 61 20 109/69 100 Weight Weight 201 lb 4.8 oz I&O: 04/14/19 04/15/19 04/16/19 06:59 06:59 06:59 Intake Total 1781 Output Total 400 Balance 1381 Result Diagrams: 04/15/19 04:43 04/15/19 04:43 Phys Exam - Physical Examination Constitutional: NAD HEENT: PERRLA, moist MMs, sclera anicteric Neck: no JVD, supple Respiratory: no wheezing, no rales, no rhonchi Cardiovascular: RRR, no significant murmur, no rub Gastrointestinal: soft, non-tender, no distention, positive bowel sounds peg tube in place cerna+ Musculoskeletal: no edema, pulses present left side weakness Lymphatic: no nodes Psychiatric: normal affect Skin: no rash, normal turgor Dx/Plan (1) Encephalopathy acute Code(s): G93.40 - ENCEPHALOPATHY, UNSPECIFIED Status: Acute (2) Hyponatremia Code(s): E87.1 - HYPO-OSMOLALITY AND HYPONATREMIA Status: Acute (3) Severe sepsis Code(s): A41.9 - SEPSIS, UNSPECIFIED ORGANISM; R65.20 - SEVERE SEPSIS WITHOUT SEPTIC SHOCK Status: Acute (4) Thrombocytopenia Code(s): D69.6 - THROMBOCYTOPENIA, UNSPECIFIED Status: Acute (5) UTI (urinary tract infection) due to urinary indwelling Cerna catheter Code(s): T83.511A - I/I REACT D/T INDWELLING URETHRAL CATHETER, INIT; N39.0 - URINARY TRACT INFECTION, SITE NOT SPECIFIED Status: Acute (6) Anemia, normocytic normochromic Code(s): D64.9 - ANEMIA, UNSPECIFIED Status: Chronic (7) Anxiety and depression Code(s): F41.9 - ANXIETY DISORDER, UNSPECIFIED; F32.9 - MAJOR DEPRESSIVE DISORDER, SINGLE EPISODE, UNSPECIFIED Status: Chronic (8) Asthma Code(s): J45.909 - UNSPECIFIED ASTHMA, UNCOMPLICATED Status: Chronic (9) Dyslipidemia Code(s): E78.5 - HYPERLIPIDEMIA, UNSPECIFIED Status: Chronic (10) H/O: CVA (cerebrovascular accident) Code(s): Z86.73 - PRSNL HX OF TIA (TIA), AND CEREB INFRC W/O RESID DEFICITS Status: Chronic (11) Hydronephrosis, right Code(s): N13.30 - UNSPECIFIED HYDRONEPHROSIS Status: Chronic (12) Hypertension Code(s): I10 - ESSENTIAL (PRIMARY) HYPERTENSION Status: Chronic Comment: (13) Hypothyroidism Code(s): E03.9 - HYPOTHYROIDISM, UNSPECIFIED Status: Chronic (14) Seizure disorder Code(s): G40.909 - EPILEPSY, UNSP, NOT INTRACTABLE, WITHOUT STATUS EPILEPTICUS Status: Chronic - Plan cont current plan of care, plan discussed w/ family, continue antibiotics * continue IVF * continue meropenam and vancomycin * follow culture * medication reviewed as below * symptomatic treatment * start nutritional supplement. Review of Systems - Review of Systems Constitutional: fever, weakness, malaise. negative: chills, sweats, other Respiratory: negative: Cough, Dry, Shortness of Breath, Hemoptysis, SOB with Excertion, Pleuritic Pain, Sputum, Wheezing Cardiovascular: negative: chest pain, palpitations, orthopnea, paroxysmal nocturnal dyspnea, edema, light headedness, other Gastrointestinal: negative: Nausea, Vomiting, Abdominal Pain, Diarrhea, Constipation, Melena, Hematochezia, Other Genitourinary: negative: Dysuria, Frequency, Incontinence, Hematuria, Retention , Other Musculoskeletal: negative: Neck Pain, Shoulder Pain, Arm Pain, Back Pain, Hand Pain, Leg Pain, Foot Pain, Other - Medications/Allergies Allergies/Adverse Reactions: Allergies Allergy/AdvReac Type Severity Reaction Status Date / Time codeine Allergy Verified 10/05/18 22:52 Fish Containing Products Allergy Verified 10/05/18 22:52 Penicillins Allergy Verified 10/05/18 22:52 propafenone HCl Allergy Verified 10/05/18 22:52 [From Rythmol] shellfish derived Allergy Verified 10/05/18 22:52 Medications: Current Medications Acetaminophen (Tylenol) 650 mg PO Q4H PRN PRN Reason: Headache/Fever/Mild Pain (1-3) Last Admin: 04/15/19 05:09 Dose: 650 mg Bisacodyl (Dulcolax) 10 mg [place] DAILYPRN PRN PRN Reason: Constipation Bisacodyl (Dulcolax) 10 mg PO DAILYPRN PRN PRN Reason: Constipation Calcium Carbonate (Tums) 1,000 mg PO Q4H PRN PRN Reason: Heartburn or Indigestion Enoxaparin Sodium (Lovenox) 40 mg SC 0900 [facility] Last Admin: 04/15/19 07:40 Dose: 40 mg Famotidine (Pepcid) 20 mg PO BID [facility] Last Admin: 04/15/19 07:41 Dose: 20 mg Guaifenesin (Robitussin Sf) 200 mg PO Q4H PRN PRN Reason: Cough Hydralazine HCl (Apresoline) 10 mg SLOW IVP Q4H PRN PRN Reason: SBP > 180 and HR < 70 Sodium Chloride (Normal Saline 0.9%) 1,000 mls @ 100 mls/hr IV .Q10H [facility] Last Admin: 04/15/19 03:46 Dose: Not Given Vancomycin HCl 1.75 gm/ Sodium (Chloride) 500 mls @ 250 mls/hr IVPB Q24HR [facility] Meropenem 1 gm/ Device 50 mls @ 200 mls/hr IVPB 0800,1600,2359 [facility] Last Admin: 04/15/19 07:40 Dose: 50 mls Labetalol HCl (Normodyne) 20 mg SLOW IVP Q4H PRN PRN Reason: SBP > 180 and HR >/= 70 Loperamide HCl (Imodium) 2 mg PO PRN PRN PRN Reason: Diarrhea/Loose Stools Loratadine (Claritin) 10 mg PO DAILYPRN PRN PRN Reason: Sinus Symptoms Miscellaneous Medication (Pharmacy To Dose) 1 each IVPB ASDIR [facility] Ondansetron HCl (Zofran Odt) 4 mg PO Q6H PRN PRN Reason: Nausea/Vomiting Ondansetron HCl (Zofran) 4 mg IVP Q6H PRN PRN Reason: Nausea/Vomiting Pneumococcal 13-Valent Conj Vacc (Prevnar) 0.5 ml IM .ONCE ONE Stop: 04/15/19 21:01 Polyethylene Glycol (Miralax) 17 gm PO Q12HR [facility] Last Admin: 04/15/19 07:40 Dose: 17 gm Saccharomyces Boulardii (Florastor) 250 mg PO DAILY [facility] Last Admin: 04/15/19 07:41 Dose: 250 mg Senna/Docusate Sodium (Senokot S) 2 tab PO BID PRN PRN Reason: Constipation Sodium Chloride ([place] Nasal [place] 0.65%) 0 ml EA NARE QIDPRN PRN PRN Reason: Nasal Congestion Sodium Chloride (Flush - Normal Saline) 10 ml IVF Q12HR [facility] Last Admin: 04/15/19 07:41 Dose: 10 ml Sodium Chloride (Flush - Normal Saline) 10 ml IVF PRN PRN PRN Reason: Saline Flush Throat Lozenges (Cepastat Lozenges) 1 gladys PO Q2H PRN PRN Reason: Sore Throat Zolpidem Tartrate (Ambien) 5 mg PO HSPRN PRN PRN Reason: Insomnia
--- NOTE | 2019-04-15 14:30 | PRG ---
DATE OF SERVICE: 04/15/2019 SUBJECTIVE: The patient is doing well. She is resting comfortably. Her reports she slept well until sometime around 3:00 a.m., at which point she became somewhat restless and then fell back to sleep earlier this morning. She did have a fever during the night up to 101.3. She has not been tachycardic and her blood pressure has been stable. OBJECTIVE: VITAL SIGNS: T-max 101.3, current temperature 99.3, pulse 62, respirations 18, oxygen saturation 100% on 2 L nasal cannula, blood pressure 124/64. GENERAL: She is resting comfortably, in no apparent distress. CARDIOVASCULAR: Regular rate and rhythm. PULMONARY: Breathing unlabored. ABDOMEN: Soft, nontender/nondistended. No masses or organomegaly. No suprapubic tenderness to palpation. No CVA tenderness. GENITOURINARY: Weiss catheter draining clear yellow urine. EXTREMITIES: Warm and well perfused. No edema. LABORATORY DATA: White blood cell count 9.2, hemoglobin 8.8, hematocrit 26.9, and platelets 107. Sodium 133, potassium 4.4, chloride 99, bicarb 30, BUN 24, creatinine 0.78. Urine culture demonstrates two separate gram-negative rods. Endoscopic urine culture from her right renal pelvis is negative so far. Blood cultures are negative so far. ASSESSMENT: A 74-year-old female with neurogenic bladder with indwelling Weiss, sepsis secondary to urinary tract infection, right hydronephrosis postoperative day #1, status post right ureteral stent placement. PLAN: I reviewed the patient's clinical condition with her in detail. I explained that the ureteral stent should remain in place. Throughout the time, she is on culture-specific antibiotics, which will likely be at least 2 weeks. She can follow up with Urology in 2 weeks for stent removal. The patient should establish care with Urology anyway for her neurogenic bladder and issues she has had with her indwelling Weiss and recurrent UTIs. Thank you for allowing me to participate in the care of this patient. Please schedule her for followup with Dr. Shin in Urology for stent removal within 2 weeks. Job ID: [id number]
[2019-04-15] MEDS ORDERED: Prevnar 13-Val Conj/PF 0.5 ML SYRINGE IM ONE (21:00)
[2019-04-16] MEDS: MEROPENEM 1 GM/50 ML 1 GM in Premix Bag 1 BAG IVPB SCH ×3 (00:02→15:43)
[2019-04-16] MEDS: Sodium Chloride 0.9% 1,000 ML IV SCH (02:12)
[2019-04-16] MEDS: hydrALAZINE 25 MG TAB PO SCH ×3 (08:19→21:45)
[2019-04-16] MEDS: OXcarbazepine 300 MG TAB PO SCH ×2 (08:20→21:46)
[2019-04-16] MEDS: Furosemide 40 MG TAB PO SCH ×2 (08:20→21:45)
[2019-04-16] MEDS: Carvedilol 6.25 MG TAB PO SCH ×2 (08:20→21:45)
[2019-04-16] MEDS: Lisinopril 20 MG TAB PO SCH ×2 (08:20→21:46)
[2019-04-16] MEDS: levETIRAcetam 500 MG TAB PO SCH ×2 (08:20→21:46)
[2019-04-16] MEDS: Famotidine 20 MG TAB PO SCH ×2 (08:20→21:45)
[2019-04-16] MEDS: Saccharomyces boulardii 250 MG CAP PO SCH (08:21)
[2019-04-16] MEDS: Potassium Chloride 10 MEQ TAB PO SCH ×2 (08:21→21:47)
[2019-04-16] MEDS: Ascorbic Acid 500 mg Chewable Tablet PO SCH (08:21)
[2019-04-16] MEDS: Enoxaparin Sodium 40 MG/0.4 ML SYRINGE SC SCH (08:22)
[2019-04-16] MEDS: Polyethylene Glycol 3350 17 GM Packet PO SCH ×2 (08:23→21:42)
[2019-04-16] MEDS: Oxybutynin 5 MG TAB PO SCH ×2 (08:25→21:47)
[2019-04-16] MEDS: Acetaminophen 325 MG TAB PO PRN ×2 (08:25→21:57)
[2019-04-16 08:26] LABS: Vancomycin, Trough 12.9 ug/mL
[2019-04-16] MEDS: Chlorhexidine Gluconate 15 ML UDCUP SSP SCH ×2 (09:50→21:44)
--- NOTE | 2019-04-16 11:07 | PDOC.PN ---
- Subjective Encounter Start Date: 04/16/19 Encounter Start Time: 10:00 Patient seen and examined. No new complaints. No overnight events - Objective Resuscitation Status - Order Detail: 04/14/19 08:29 Resuscitation Status Routine Resuscitation Status: FULL: Full Resuscitation MAR Reviewed: Yes Vital Signs & Weight: Vital Signs (12 hours) Temp Pulse Resp BP BP Pulse Ox 04/16/19 08:20 194/103 H 04/16/19 08:19 63 194/103 H 04/16/19 08:07 99.3 F 63 16 194/103 H 98 04/16/19 08:00 98 04/16/19 04:03 64 176/82 H 04/16/19 03:50 98.3 F 63 14 180/78 H 99 04/16/19 03:43 100 04/16/19 00:13 98.1 F 60 16 158/81 H 100 Weight Weight 214 lb 9.6 oz I&O: 04/15/19 04/16/19 04/17/19 06:59 06:59 06:59 Intake Total 1781 3545 Output Total 400 1000 Balance 1381 2545 Result Diagrams: 04/15/19 04:43 04/15/19 04:43 Phys Exam - Physical Examination Constitutional: NAD HEENT: PERRLA, moist MMs, sclera anicteric Neck: no JVD, supple Respiratory: no wheezing, no rales, no rhonchi Cardiovascular: RRR, no significant murmur, no rub Gastrointestinal: soft, non-tender, no distention, positive bowel sounds cerna+ Musculoskeletal: no edema, pulses present residual weakness Psychiatric: normal affect, A&O x 3 Skin: no rash, normal turgor Dx/Plan (1) Encephalopathy acute Code(s): G93.40 - ENCEPHALOPATHY, UNSPECIFIED Status: Resolved (2) Hyponatremia Code(s): E87.1 - HYPO-OSMOLALITY AND HYPONATREMIA Status: Acute Comment: improving (3) Severe sepsis Code(s): A41.9 - SEPSIS, UNSPECIFIED ORGANISM; R65.20 - SEVERE SEPSIS WITHOUT SEPTIC SHOCK Status: Acute Comment: improving (4) Thrombocytopenia Code(s): D69.6 - THROMBOCYTOPENIA, UNSPECIFIED Status: Acute (5) UTI (urinary tract infection) due to urinary indwelling Cerna catheter Code(s): T83.511A - I/I REACT D/T INDWELLING URETHRAL CATHETER, INIT; N39.0 - URINARY TRACT INFECTION, SITE NOT SPECIFIED Status: Acute (6) Anemia, normocytic normochromic Code(s): D64.9 - ANEMIA, UNSPECIFIED Status: Chronic (7) Anxiety and depression Code(s): F41.9 - ANXIETY DISORDER, UNSPECIFIED; F32.9 - MAJOR DEPRESSIVE DISORDER, SINGLE EPISODE, UNSPECIFIED Status: Chronic (8) Asthma Code(s): J45.909 - UNSPECIFIED ASTHMA, UNCOMPLICATED Status: Chronic (9) Dyslipidemia Code(s): E78.5 - HYPERLIPIDEMIA, UNSPECIFIED Status: Chronic (10) H/O: CVA (cerebrovascular accident) Code(s): Z86.73 - PRSNL HX OF TIA (TIA), AND CEREB INFRC W/O RESID DEFICITS Status: Chronic (11) Hydronephrosis, right Code(s): N13.30 - UNSPECIFIED HYDRONEPHROSIS Status: Chronic (12) Hypertension Code(s): I10 - ESSENTIAL (PRIMARY) HYPERTENSION Status: Chronic Comment: (13) Hypothyroidism Code(s): E03.9 - HYPOTHYROIDISM, UNSPECIFIED Status: Chronic (14) Seizure disorder Code(s): G40.909 - EPILEPSY, UNSP, NOT INTRACTABLE, WITHOUT STATUS EPILEPTICUS Status: Chronic (15) Bacteremia due to Gram-negative bacteria Code(s): R78.81 - BACTEREMIA Status: Acute Comment: proteus mirabilis - Plan cont current plan of care, plan discussed w/ family, continue antibiotics * today will DC IVF * start her home medication for hypertension * medication reviewed as below * symptomatic treatment * DC vancomycin based on culture result * continue meropenam * will ask Dr smallwood about his final recommendation on antibiotics * discussed with . Review of Systems - Review of Systems ENT: negative: Ear Pain, Ear Discharge, Nose Pain, Nose Discharge, Nose Congestion, Mouth Pain, Mouth Swelling, Throat Pain, Throat Swelling, Other Respiratory: negative: Cough, Dry, Shortness of Breath, Hemoptysis, SOB with Excertion, Pleuritic Pain, Sputum, Wheezing Cardiovascular: negative: chest pain, palpitations, orthopnea, paroxysmal nocturnal dyspnea, edema, light headedness, other Gastrointestinal: negative: Nausea, Vomiting, Abdominal Pain, Diarrhea, Constipation, Melena, Hematochezia, Other Genitourinary: negative: Dysuria, Frequency, Incontinence, Hematuria, Retention , Other Musculoskeletal: negative: Neck Pain, Shoulder Pain, Arm Pain, Back Pain, Hand Pain, Leg Pain, Foot Pain, Other - Medications/Allergies Allergies/Adverse Reactions: Allergies Allergy/AdvReac Type Severity Reaction Status Date / Time codeine Allergy Verified 10/05/18 22:52 Fish Containing Products Allergy Verified 10/05/18 22:52 Penicillins Allergy Verified 10/05/18 22:52 propafenone HCl Allergy Verified 10/05/18 22:52 [From Rythmol] shellfish derived Allergy Verified 10/05/18 22:52 Medications: Current Medications Acetaminophen (Tylenol) 650 mg PO Q4H PRN PRN Reason: Headache/Fever/Mild Pain (1-3) Last Admin: 04/16/19 08:25 Dose: 650 mg Albuterol/Ipratropium (Duoneb) 3 ml NEB E8HA-MD PRN PRN Reason: SOB &/or Wheezing Ascorbic Acid (Vitamin C) 500 mg PO DAILY [facility] Last Admin: 04/16/19 08:21 Dose: 500 mg Atorvastatin Calcium (Lipitor) 5 mg PO HS [facility] Bisacodyl (Dulcolax) 10 mg [place] DAILYPRN PRN PRN Reason: Constipation Bisacodyl (Dulcolax) 10 mg PO DAILYPRN PRN PRN Reason: Constipation Calcium Carbonate (Tums) 1,000 mg PO Q4H PRN PRN Reason: Heartburn or Indigestion Carvedilol (Coreg) 6.25 mg PO BID [facility] Last Admin: 04/16/19 08:20 Dose: 6.25 mg Chlorhexidine Gluconate (Chlorhexidine Gluconate) 15 ml SSP BID [facility] Last Admin: 04/16/19 09:50 Dose: 15 ml Enoxaparin Sodium (Lovenox) 40 mg SC 0900 [facility] Last Admin: 04/16/19 08:22 Dose: 40 mg Escitalopram Oxalate (Lexapro) 20 mg PO HS [facility] Famotidine (Pepcid) 20 mg PO BID [facility] Last Admin: 04/16/19 08:20 Dose: 20 mg Furosemide (Lasix) 40 mg PO BID [facility] Last Admin: 04/16/19 08:20 Dose: 40 mg Guaifenesin (Robitussin Sf) 200 mg PO Q4H PRN PRN Reason: Cough Hydralazine HCl (Apresoline) 10 mg SLOW IVP Q4H PRN PRN Reason: SBP > 180 and HR < 70 Hydralazine HCl (Apresoline) 25 mg PO TID [facility] Last Admin: 04/16/19 08:19 Dose: 25 mg Meropenem 1 gm/ Device 50 mls @ 200 mls/hr IVPB 0800,1600,2359 [facility] Last Admin: 04/16/19 08:21 Dose: 50 mls Labetalol HCl (Normodyne) 20 mg SLOW IVP Q4H PRN PRN Reason: SBP > 180 and HR >/= 70 Levetiracetam (Keppra) 500 mg PO BID [facility] Last Admin: 04/16/19 08:20 Dose: 500 mg Lisinopril (Zestril) 20 mg PO BID [facility] Last Admin: 04/16/19 08:20 Dose: 20 mg Loperamide HCl (Imodium) 2 mg PO PRN PRN PRN Reason: Diarrhea/Loose Stools Loratadine (Claritin) 10 mg PO DAILYPRN PRN PRN Reason: Sinus Symptoms Ondansetron HCl (Zofran Odt) 4 mg PO Q6H PRN PRN Reason: Nausea/Vomiting Ondansetron HCl (Zofran) 4 mg IVP Q6H PRN PRN Reason: Nausea/Vomiting Last Admin: 04/15/19 18:36 Dose: 4 mg Oxcarbazepine (Trileptal) 600 mg PO QPM [facility] Oxcarbazepine (Trileptal) 300 mg PO DAILY [facility] Last Admin: 04/16/19 08:20 Dose: 300 mg Oxybutynin Chloride (Ditropan) 5 mg PO BID [facility] Last Admin: 04/16/19 08:25 Dose: Not Given Polyethylene Glycol (Miralax) 17 gm PO Q12HR [facility] Last Admin: 04/16/19 08:23 Dose: 17 gm Potassium Chloride (Klor-Con 10) 10 meq PO BID [facility] Last Admin: 04/16/19 08:21 Dose: 10 meq Saccharomyces Boulardii (Florastor) 250 mg PO DAILY [facility] Last Admin: 04/16/19 08:21 Dose: 250 mg Senna/Docusate Sodium (Senokot S) 2 tab PO BID PRN PRN Reason: Constipation Sodium Chloride ([place] Nasal [place] 0.65%) 0 ml EA NARE QIDPRN PRN PRN Reason: Nasal Congestion Sodium Chloride (Flush - Normal Saline) 10 ml IVF Q12HR [facility] Last Admin: 04/16/19 08:23 Dose: Not Given Sodium Chloride (Flush - Normal Saline) 10 ml IVF PRN PRN PRN Reason: Saline Flush Throat Lozenges (Cepastat Lozenges) 1 gladys PO Q2H PRN PRN Reason: Sore Throat Thyroid ([place] Thyroid) 180 mg PO DAILY [facility] Last Admin: 04/16/19 09:50 Dose: 180 mg Zolpidem Tartrate (Ambien) 5 mg PO HSPRN PRN PRN Reason: Insomnia
[2019-04-16] MEDS: Atorvastatin Calcium 10 MG TAB PO SCH (21:45)
[2019-04-16] MEDS: Escitalopram Oxalate 20 mg Tablet PO SCH (21:45)
[2019-04-17] MEDS: MEROPENEM 1 GM/50 ML 1 GM in Premix Bag 1 BAG IVPB SCH ×2 (00:01→08:58)
[2019-04-17] MEDS: OXcarbazepine 300 MG TAB PO SCH ×2 (08:59→21:08)
[2019-04-17] MEDS: Lisinopril 20 MG TAB PO SCH ×2 (08:59→21:08)
[2019-04-17] MEDS: Furosemide 40 MG TAB PO SCH ×2 (08:59→21:07)
[2019-04-17] MEDS: Potassium Chloride 10 MEQ TAB PO SCH ×2 (08:59→21:09)
[2019-04-17] MEDS: Famotidine 20 MG TAB PO SCH ×2 (08:59→21:11)
[2019-04-17] MEDS: hydrALAZINE 25 MG TAB PO SCH ×3 (09:00→21:07)
[2019-04-17] MEDS: Carvedilol 6.25 MG TAB PO SCH ×2 (09:00→21:06)
[2019-04-17] MEDS: levETIRAcetam 500 MG TAB PO SCH ×2 (09:00→21:07)
[2019-04-17] MEDS: Saccharomyces boulardii 250 MG CAP PO SCH (09:00)
[2019-04-17] MEDS: Chlorhexidine Gluconate 15 ML UDCUP SSP SCH ×2 (09:00→21:06)
[2019-04-17] MEDS: Ascorbic Acid 500 mg Chewable Tablet PO SCH (09:00)
[2019-04-17] MEDS: Enoxaparin Sodium 40 MG/0.4 ML SYRINGE SC SCH (09:00)
[2019-04-17] MEDS: Oxybutynin 5 MG TAB PO SCH ×2 (09:01→21:09)
[2019-04-17] MEDS: Polyethylene Glycol 3350 17 GM Packet PO SCH ×2 (09:01→21:04)
--- NOTE | 2019-04-17 12:24 | PDOC.PN ---
- Subjective Encounter Start Date: 04/17/19 Encounter Start Time: 09:30 Patient seen and examined. No new complaints. No overnight events - Objective Resuscitation Status - Order Detail: 04/14/19 08:29 Resuscitation Status Routine Resuscitation Status: FULL: Full Resuscitation MAR Reviewed: Yes Vital Signs & Weight: Vital Signs (12 hours) Temp Pulse Resp BP BP Pulse Ox 04/17/19 12:00 97.9 F 61 18 166/76 H 100 04/17/19 09:00 60 155/74 H 04/17/19 08:59 155/74 H 04/17/19 08:00 100 04/17/19 07:16 97.7 F 60 17 155/74 H 100 04/17/19 04:00 97.9 F 60 15 133/76 100 Weight Weight 214 lb 9.6 oz I&O: 04/16/19 04/17/19 04/18/19 06:59 06:59 06:59 Intake Total 3545 1970 Output Total 1000 2525 Balance 2545 -555 Result Diagrams: 04/15/19 04:43 04/15/19 04:43 Phys Exam - Physical Examination Constitutional: NAD HEENT: PERRLA, moist MMs, sclera anicteric Neck: no JVD, supple Respiratory: no wheezing, no rales, no rhonchi Cardiovascular: RRR, no significant murmur, no rub Gastrointestinal: soft, non-tender, no distention, positive bowel sounds cerna+ Musculoskeletal: no edema, pulses present residual weakness Lymphatic: no nodes Psychiatric: normal affect, A&O x 3 Skin: no rash, normal turgor Dx/Plan (1) Encephalopathy acute Code(s): G93.40 - ENCEPHALOPATHY, UNSPECIFIED Status: Resolved (2) Hyponatremia Code(s): E87.1 - HYPO-OSMOLALITY AND HYPONATREMIA Status: Acute Comment: improving (3) Severe sepsis Code(s): A41.9 - SEPSIS, UNSPECIFIED ORGANISM; R65.20 - SEVERE SEPSIS WITHOUT SEPTIC SHOCK Status: Acute Comment: improving (4) Thrombocytopenia Code(s): D69.6 - THROMBOCYTOPENIA, UNSPECIFIED Status: Acute (5) UTI (urinary tract infection) due to urinary indwelling Cerna catheter Code(s): T83.511A - I/I REACT D/T INDWELLING URETHRAL CATHETER, INIT; N39.0 - URINARY TRACT INFECTION, SITE NOT SPECIFIED Status: Acute (6) Anemia, normocytic normochromic Code(s): D64.9 - ANEMIA, UNSPECIFIED Status: Chronic (7) Anxiety and depression Code(s): F41.9 - ANXIETY DISORDER, UNSPECIFIED; F32.9 - MAJOR DEPRESSIVE DISORDER, SINGLE EPISODE, UNSPECIFIED Status: Chronic (8) Asthma Code(s): J45.909 - UNSPECIFIED ASTHMA, UNCOMPLICATED Status: Chronic (9) Dyslipidemia Code(s): E78.5 - HYPERLIPIDEMIA, UNSPECIFIED Status: Chronic (10) H/O: CVA (cerebrovascular accident) Code(s): Z86.73 - PRSNL HX OF TIA (TIA), AND CEREB INFRC W/O RESID DEFICITS Status: Chronic (11) Hydronephrosis, right Code(s): N13.30 - UNSPECIFIED HYDRONEPHROSIS Status: Chronic (12) Hypertension Code(s): I10 - ESSENTIAL (PRIMARY) HYPERTENSION Status: Chronic Comment: (13) Hypothyroidism Code(s): E03.9 - HYPOTHYROIDISM, UNSPECIFIED Status: Chronic (14) Seizure disorder Code(s): G40.909 - EPILEPSY, UNSP, NOT INTRACTABLE, WITHOUT STATUS EPILEPTICUS Status: Chronic - Plan cont current plan of care, plan discussed w/ family, continue antibiotics * continue meropenam * seems like she may need IV antibiotics on discharge, will ask Dr smallwood about that, in that case she will need PICC line tomorrow * discussed with * medication reviewed as below * symptomatic treatment. * repeat labs including blood culture tomorrow Review of Systems - Review of Systems ENT: negative: Ear Pain, Ear Discharge, Nose Pain, Nose Discharge, Nose Congestion, Mouth Pain, Mouth Swelling, Throat Pain, Throat Swelling, Other Respiratory: negative: Cough, Dry, Shortness of Breath, Hemoptysis, SOB with Excertion, Pleuritic Pain, Sputum, Wheezing Cardiovascular: negative: chest pain, palpitations, orthopnea, paroxysmal nocturnal dyspnea, edema, light headedness, other Gastrointestinal: negative: Nausea, Vomiting, Abdominal Pain, Diarrhea, Constipation, Melena, Hematochezia, Other Genitourinary: negative: Dysuria, Frequency, Incontinence, Hematuria, Retention , Other Musculoskeletal: negative: Neck Pain, Shoulder Pain, Arm Pain, Back Pain, Hand Pain, Leg Pain, Foot Pain, Other - Medications/Allergies Allergies/Adverse Reactions: Allergies Allergy/AdvReac Type Severity Reaction Status Date / Time codeine Allergy Verified 10/05/18 22:52 Fish Containing Products Allergy Verified 10/05/18 22:52 Penicillins Allergy Verified 10/05/18 22:52 propafenone HCl Allergy Verified 10/05/18 22:52 [From Rythmol] shellfish derived Allergy Verified 10/05/18 22:52 Medications: Current Medications Acetaminophen (Tylenol) 650 mg PO Q4H PRN PRN Reason: Headache/Fever/Mild Pain (1-3) Last Admin: 04/16/19 21:57 Dose: 650 mg Albuterol/Ipratropium (Duoneb) 3 ml NEB [id number] PRN PRN Reason: SOB &/or Wheezing Ascorbic Acid (Vitamin C) 500 mg PO DAILY [facility] Last Admin: 04/17/19 09:00 Dose: 500 mg Atorvastatin Calcium (Lipitor) 5 mg PO HS [facility] Last Admin: 04/16/19 21:45 Dose: 5 mg Bisacodyl (Dulcolax) 10 mg [place] DAILYPRN PRN PRN Reason: Constipation Bisacodyl (Dulcolax) 10 mg PO DAILYPRN PRN PRN Reason: Constipation Calcium Carbonate (Tums) 1,000 mg PO Q4H PRN PRN Reason: Heartburn or Indigestion Carvedilol (Coreg) 6.25 mg PO BID [facility] Last Admin: 04/17/19 09:00 Dose: 6.25 mg Chlorhexidine Gluconate (Chlorhexidine Gluconate) 15 ml SSP BID [facility] Last Admin: 04/17/19 09:00 Dose: 15 ml Enoxaparin Sodium (Lovenox) 40 mg SC 0900 [facility] Last Admin: 04/17/19 09:00 Dose: 40 mg Escitalopram Oxalate (Lexapro) 20 mg PO HS [facility] Last Admin: 04/16/19 21:45 Dose: 20 mg Famotidine (Pepcid) 20 mg PO BID [facility] Last Admin: 04/17/19 08:59 Dose: 20 mg Furosemide (Lasix) 40 mg PO BID [facility] Last Admin: 04/17/19 08:59 Dose: 40 mg Guaifenesin (Robitussin Sf) 200 mg PO Q4H PRN PRN Reason: Cough Hydralazine HCl (Apresoline) 10 mg SLOW IVP Q4H PRN PRN Reason: SBP > 180 and HR < 70 Hydralazine HCl (Apresoline) 25 mg PO TID [facility] Last Admin: 04/17/19 09:00 Dose: 25 mg Meropenem 1 gm/ Device 50 mls @ 200 mls/hr IVPB 0800,1600,2359 [facility] Last Admin: 04/17/19 08:58 Dose: 50 mls Labetalol HCl (Normodyne) 20 mg SLOW IVP Q4H PRN PRN Reason: SBP > 180 and HR >/= 70 Levetiracetam (Keppra) 500 mg PO BID [facility] Last Admin: 04/17/19 09:00 Dose: 500 mg Lisinopril (Zestril) 20 mg PO BID [facility] Last Admin: 04/17/19 08:59 Dose: 20 mg Loperamide HCl (Imodium) 2 mg PO PRN PRN PRN Reason: Diarrhea/Loose Stools Loratadine (Claritin) 10 mg PO DAILYPRN PRN PRN Reason: Sinus Symptoms Ondansetron HCl (Zofran Odt) 4 mg PO Q6H PRN PRN Reason: Nausea/Vomiting Ondansetron HCl (Zofran) 4 mg IVP Q6H PRN PRN Reason: Nausea/Vomiting Last Admin: 04/15/19 18:36 Dose: 4 mg Oxcarbazepine (Trileptal) 600 mg PO QPM [facility] Last Admin: 04/16/19 21:46 Dose: 600 mg Oxcarbazepine (Trileptal) 300 mg PO DAILY [facility] Last Admin: 04/17/19 08:59 Dose: 300 mg Oxybutynin Chloride (Ditropan) 5 mg PO BID [facility] Last Admin: 04/17/19 09:01 Dose: Not Given Polyethylene Glycol (Miralax) 17 gm PO Q12HR [facility] Last Admin: 04/17/19 09:01 Dose: Not Given Potassium Chloride (Klor-Con 10) 10 meq PO BID [facility] Last Admin: 04/17/19 08:59 Dose: 10 meq Saccharomyces Boulardii (Florastor) 250 mg PO DAILY [facility] Last Admin: 04/17/19 09:00 Dose: 250 mg Senna/Docusate Sodium (Senokot S) 2 tab PO BID PRN PRN Reason: Constipation Sodium Chloride ([place] Nasal [place] 0.65%) 0 ml EA NARE QIDPRN PRN PRN Reason: Nasal Congestion Sodium Chloride (Flush - Normal Saline) 10 ml IVF Q12HR [facility] Last Admin: 04/17/19 09:01 Dose: 10 ml Sodium Chloride (Flush - Normal Saline) 10 ml IVF PRN PRN PRN Reason: Saline Flush Throat Lozenges (Cepastat Lozenges) 1 gladys PO Q2H PRN PRN Reason: Sore Throat Thyroid ([place] Thyroid) 180 mg PO DAILY [facility] Last Admin: 04/17/19 09:01 Dose: 180 mg Zolpidem Tartrate (Ambien) 5 mg PO HSPRN PRN PRN Reason: Insomnia
[2019-04-17] MEDS: Cefepime 2 GM in Sodium Chloride 0.9% 100 ML IVPB SCH (14:35)
[2019-04-17] MEDS: Acetaminophen 325 MG TAB PO PRN (21:04)
[2019-04-17] MEDS: Atorvastatin Calcium 10 MG TAB PO SCH (21:05)
[2019-04-17] MEDS: Escitalopram Oxalate 20 mg Tablet PO SCH (21:06)
[2019-04-18] MEDS: Cefepime 2 GM in Sodium Chloride 0.9% 100 ML IVPB SCH ×2 (03:35→14:29)
[2019-04-18 05:25] LABS: #Eosinphils 0.2 thou/uL (0.0-0.7); #Lymphocytes 0.6 thou/uL (1.20-3.40); #Monocytes 0.5 thou/uL (0.11-0.59); %Basophils 0.3 % (0.0-1.0); %Eosinophils 5.4 % (0.0-10.0); %Lymphocytes 14.2 % (21.0-51.0); %Monocytes 11.8 % (0.0-10.0); %Neutrophils 68.3 % (42.0-75.0); Hemoglobin 8.9 g/dL (12.0-16.0); Mean Corpuscular HGB CONC 34.9 g/dL (32.0-36.0); Mean Corpuscular Hemoglobin 30.6 pg (27.0-31.0); Mean Corpuscular Volume 87.8 fL (78.0-98.0); Mean Platelet Volume 8.7 fL (7.4-10.4); Platelet Count 139 thou/uL (130-400); White Blood Cell (WBC) Count 4.4 thou/uL (4.8-10.8)
[2019-04-18 05:52] LABS: ALT (SGPT) 34 U/L (8-55); AST (SGOT) 24 U/L (5-34); Albumin 2.8 g/dL (3.4-4.8); Alkaline Phosphatase 99 U/L (40-150); Anion Gap 11 mmol/L (10-20); BUN (Urea Nitrogen) 17 mg/dL (9.8-20.1); Bilirubin, Total 0.4 mg/dL (0.2-1.2); Calc. Creatinine Clearance 130 mL/min (70-130); Calcium 9.5 mg/dL (7.8-10.44); Carbon Dioxide 32 mmol/L (23-31); Chloride 98 mmol/L (98-107); Estimated GFR-MDRD Greater than 90; Globulin 3.1 g/dL (2.4-3.5); Glucose 95 mg/dL (83-110); Potassium 3.5 mmol/L (3.5-5.1); Protein, Total 5.9 g/dL (6.0-8.3); Sodium 137 mmol/L (136-145)
--- NOTE | 2019-04-18 11:09 | SPC ---
SPC CVP LINE PICC INITAL >5 History: Long-term IV access Comparison: None. Findings: Patient was brought to the specials suite. All questions were answered. Informed consent wa s obtained. Timeout performed. The patient's right arm was prepped and draped in normal sterile fashion. Initially the right brachia l vein was accessed. A wire could not be passed through the brachial vein due to scarring and fibrosis from prior humeral fracture. Subsequently the right cephalic vein was accessed. Over a wire and through a peel-away sheath using u ltrasound and fluoroscopic guidance a PICC was placed with tip at the inferior SVC. Patient tolerated the procedure well without complication. Impression: Technically successful right upper extremity PICC line placement. Fluoroscopy time: 0.9. Minute
--- NOTE | 2019-04-18 12:09 | PDOC.PN ---
- Subjective Encounter Start Date: 04/18/19 Encounter Start Time: 08:30 Patient seen and examined. No new complaints. No overnight events - Objective Resuscitation Status - Order Detail: 04/14/19 08:29 Resuscitation Status Routine Resuscitation Status: FULL: Full Resuscitation MAR Reviewed: Yes Vital Signs & Weight: Vital Signs (12 hours) Temp Pulse Resp BP Pulse Ox 04/18/19 08:18 98.1 F 60 16 169/91 H 100 04/18/19 08:00 100 04/18/19 03:57 97.7 F 60 15 172/84 H 100 Weight Weight 214 lb 9.6 oz I&O: 04/17/19 04/18/19 04/19/19 06:59 06:59 06:59 Intake Total 1970 1322 Output Total 4217 9250 Balance -555 1029 Result Diagrams: 04/18/19 04:55 04/18/19 04:52 Phys Exam - Physical Examination Constitutional: NAD HEENT: PERRLA, moist MMs, sclera anicteric Neck: no JVD, supple Respiratory: no wheezing, no rales, no rhonchi Cardiovascular: RRR, no significant murmur, no rub Gastrointestinal: soft, non-tender, no distention, positive bowel sounds cerna+ Musculoskeletal: no edema, pulses present residual weakness Lymphatic: no nodes Psychiatric: normal affect, A&O x 3 Skin: no rash, normal turgor Dx/Plan (1) Encephalopathy acute Code(s): G93.40 - ENCEPHALOPATHY, UNSPECIFIED Status: Resolved (2) Hyponatremia Code(s): E87.1 - HYPO-OSMOLALITY AND HYPONATREMIA Status: Acute Comment: improving (3) Severe sepsis Code(s): A41.9 - SEPSIS, UNSPECIFIED ORGANISM; R65.20 - SEVERE SEPSIS WITHOUT SEPTIC SHOCK Status: Acute Comment: improving (4) Thrombocytopenia Code(s): D69.6 - THROMBOCYTOPENIA, UNSPECIFIED Status: Acute (5) UTI (urinary tract infection) due to urinary indwelling Cerna catheter Code(s): T83.511A - I/I REACT D/T INDWELLING URETHRAL CATHETER, INIT; N39.0 - URINARY TRACT INFECTION, SITE NOT SPECIFIED Status: Acute (6) Anemia, normocytic normochromic Code(s): D64.9 - ANEMIA, UNSPECIFIED Status: Chronic (7) Anxiety and depression Code(s): F41.9 - ANXIETY DISORDER, UNSPECIFIED; F32.9 - MAJOR DEPRESSIVE DISORDER, SINGLE EPISODE, UNSPECIFIED Status: Chronic (8) Asthma Code(s): J45.909 - UNSPECIFIED ASTHMA, UNCOMPLICATED Status: Chronic (9) Dyslipidemia Code(s): E78.5 - HYPERLIPIDEMIA, UNSPECIFIED Status: Chronic (10) H/O: CVA (cerebrovascular accident) Code(s): Z86.73 - PRSNL HX OF TIA (TIA), AND CEREB INFRC W/O RESID DEFICITS Status: Chronic (11) Hydronephrosis, right Code(s): N13.30 - UNSPECIFIED HYDRONEPHROSIS Status: Chronic (12) Hypertension Code(s): I10 - ESSENTIAL (PRIMARY) HYPERTENSION Status: Chronic Comment: (13) Hypothyroidism Code(s): E03.9 - HYPOTHYROIDISM, UNSPECIFIED Status: Chronic (14) Seizure disorder Code(s): G40.909 - EPILEPSY, UNSP, NOT INTRACTABLE, WITHOUT STATUS EPILEPTICUS Status: Chronic - Plan cont current plan of care, plan discussed w/ family, cerna catheter, continue antibiotics, PT/OT, long term care social worker * continue cefepime as per ID team * will need PICC line today * protective services case worker to arrange IV antibiotics at swing bed * medication reviewed as below * symptomatic treatment * discussed with . Review of Systems - Review of Systems ENT: negative: Ear Pain, Ear Discharge, Nose Pain, Nose Discharge, Nose Congestion, Mouth Pain, Mouth Swelling, Throat Pain, Throat Swelling, Other Respiratory: negative: Cough, Dry, Shortness of Breath, Hemoptysis, SOB with Excertion, Pleuritic Pain, Sputum, Wheezing Cardiovascular: negative: chest pain, palpitations, orthopnea, paroxysmal nocturnal dyspnea, edema, light headedness, other Gastrointestinal: negative: Nausea, Vomiting, Abdominal Pain, Diarrhea, Constipation, Melena, Hematochezia, Other Genitourinary: negative: Dysuria, Frequency, Incontinence, Hematuria, Retention , Other Musculoskeletal: negative: Neck Pain, Shoulder Pain, Arm Pain, Back Pain, Hand Pain, Leg Pain, Foot Pain, Other - Medications/Allergies Allergies/Adverse Reactions: Allergies Allergy/AdvReac Type Severity Reaction Status Date / Time codeine Allergy Verified 10/05/18 22:52 Fish Containing Products Allergy Verified 10/05/18 22:52 Penicillins Allergy Verified 10/05/18 22:52 propafenone HCl Allergy Verified 10/05/18 22:52 [From Rythmol] shellfish derived Allergy Verified 10/05/18 22:52 Medications: Current Medications Acetaminophen (Tylenol) 650 mg PO Q4H PRN PRN Reason: Headache/Fever/Mild Pain (1-3) Last Admin: 04/17/19 21:04 Dose: 650 mg Albuterol/Ipratropium (Duoneb) 3 ml NEB [id number] PRN PRN Reason: SOB &/or Wheezing Ascorbic Acid (Vitamin C) 500 mg PO DAILY [facility] Last Admin: 04/17/19 09:00 Dose: 500 mg Atorvastatin Calcium (Lipitor) 5 mg PO HS [facility] Last Admin: 04/17/19 21:05 Dose: 5 mg Bisacodyl (Dulcolax) 10 mg [place] DAILYPRN PRN PRN Reason: Constipation Bisacodyl (Dulcolax) 10 mg PO DAILYPRN PRN PRN Reason: Constipation Calcium Carbonate (Tums) 1,000 mg PO Q4H PRN PRN Reason: Heartburn or Indigestion Carvedilol (Coreg) 6.25 mg PO BID [facility] Last Admin: 04/17/19 21:06 Dose: 6.25 mg Chlorhexidine Gluconate (Chlorhexidine Gluconate) 15 ml SSP BID [facility] Last Admin: 04/17/19 21:06 Dose: 15 ml Enoxaparin Sodium (Lovenox) 40 mg SC 0900 [facility] Last Admin: 04/17/19 09:00 Dose: 40 mg Escitalopram Oxalate (Lexapro) 20 mg PO HS [facility] Last Admin: 04/17/19 21:06 Dose: 20 mg Famotidine (Pepcid) 20 mg PO BID [facility] Last Admin: 04/17/19 21:11 Dose: 20 mg Furosemide (Lasix) 40 mg PO BID [facility] Last Admin: 04/17/19 21:07 Dose: 40 mg Guaifenesin (Robitussin Sf) 200 mg PO Q4H PRN PRN Reason: Cough Hydralazine HCl (Apresoline) 10 mg SLOW IVP Q4H PRN PRN Reason: SBP > 180 and HR < 70 Hydralazine HCl (Apresoline) 25 mg PO TID [facility] Last Admin: 04/17/19 21:07 Dose: 25 mg Cefepime HCl 2 gm/ Sodium (Chloride) 100 mls @ 200 mls/hr IVPB 0300,1500 [facility] Last Admin: 04/18/19 03:35 Dose: 100 mls Labetalol HCl (Normodyne) 20 mg SLOW IVP Q4H PRN PRN Reason: SBP > 180 and HR >/= 70 Levetiracetam (Keppra) 500 mg PO BID [facility] Last Admin: 04/17/19 21:07 Dose: 500 mg Lisinopril (Zestril) 20 mg PO BID [facility] Last Admin: 04/17/19 21:08 Dose: 20 mg Loperamide HCl (Imodium) 2 mg PO PRN PRN PRN Reason: Diarrhea/Loose Stools Loratadine (Claritin) 10 mg PO DAILYPRN PRN PRN Reason: Sinus Symptoms Ondansetron HCl (Zofran Odt) 4 mg PO Q6H PRN PRN Reason: Nausea/Vomiting Ondansetron HCl (Zofran) 4 mg IVP Q6H PRN PRN Reason: Nausea/Vomiting Last Admin: 04/15/19 18:36 Dose: 4 mg Oxcarbazepine (Trileptal) 600 mg PO QPM [facility] Last Admin: 04/17/19 21:08 Dose: 600 mg Oxcarbazepine (Trileptal) 300 mg PO DAILY [facility] Last Admin: 04/17/19 08:59 Dose: 300 mg Oxybutynin Chloride (Ditropan) 5 mg PO BID [facility] Last Admin: 04/17/19 21:09 Dose: Not Given Polyethylene Glycol (Miralax) 17 gm PO Q12HR [facility] Last Admin: 04/17/19 21:04 Dose: 17 gm Potassium Chloride (Klor-Con 10) 10 meq PO BID [facility] Last Admin: 04/17/19 21:09 Dose: 10 meq Saccharomyces Boulardii (Florastor) 250 mg PO DAILY [facility] Last Admin: 04/17/19 09:00 Dose: 250 mg Senna/Docusate Sodium (Senokot S) 2 tab PO BID PRN PRN Reason: Constipation Sodium Chloride ([place] Nasal [place] 0.65%) 0 ml EA NARE QIDPRN PRN PRN Reason: Nasal Congestion Sodium Chloride (Flush - Normal Saline) 10 ml IVF Q12HR [facility] Last Admin: 04/17/19 21:09 Dose: 10 ml Sodium Chloride (Flush - Normal Saline) 10 ml IVF PRN PRN PRN Reason: Saline Flush Throat Lozenges (Cepastat Lozenges) 1 gldays PO Q2H PRN PRN Reason: Sore Throat Thyroid ([place] Thyroid) 180 mg PO DAILY [facility] Last Admin: 04/17/19 09:01 Dose: 180 mg Zolpidem Tartrate (Ambien) 5 mg PO HSPRN PRN PRN Reason: Insomnia
[2019-04-18] MEDS: Enoxaparin Sodium 40 MG/0.4 ML SYRINGE SC SCH (12:19)
[2019-04-18] MEDS: Famotidine 20 MG TAB PO SCH ×2 (12:20→21:09)
[2019-04-18] MEDS: Potassium Chloride 10 MEQ TAB PO SCH ×2 (12:20→21:17)
[2019-04-18] MEDS: Ascorbic Acid 500 mg Chewable Tablet PO SCH (12:20)
[2019-04-18] MEDS: Saccharomyces boulardii 250 MG CAP PO SCH (12:20)
[2019-04-18] MEDS: OXcarbazepine 300 MG TAB PO SCH ×3 (12:21→21:19)
[2019-04-18] MEDS: Carvedilol 6.25 MG TAB PO SCH ×2 (12:21→21:08)
[2019-04-18] MEDS: levETIRAcetam 500 MG TAB PO SCH ×2 (12:22→21:16)
[2019-04-18] MEDS: hydrALAZINE 25 MG TAB PO SCH ×3 (12:22→21:09)
[2019-04-18] MEDS: Furosemide 40 MG TAB PO SCH ×2 (12:22→21:09)
[2019-04-18] MEDS: Lisinopril 20 MG TAB PO SCH ×2 (12:22→21:16)
[2019-04-18] MEDS: Chlorhexidine Gluconate 15 ML UDCUP SSP SCH ×2 (12:23→21:08)
[2019-04-18] MEDS: Polyethylene Glycol 3350 17 GM Packet PO SCH ×2 (12:23→21:06)
[2019-04-18] MEDS: Oxybutynin 5 MG TAB PO SCH ×2 (12:25→21:17)
[2019-04-18] MEDS: Acetaminophen 325 MG TAB PO PRN ×2 (14:44→21:06)
[2019-04-18] MEDS: Atorvastatin Calcium 10 MG TAB PO SCH (21:07)
[2019-04-18] MEDS: Escitalopram Oxalate 20 mg Tablet PO SCH (21:09)
[2019-04-19] MEDS: Cefepime 2 GM in Sodium Chloride 0.9% 100 ML IVPB SCH (04:18)
[2019-04-19] MEDS: OXcarbazepine 300 MG TAB PO SCH (08:40)
[2019-04-19] MEDS: Oxybutynin 5 MG TAB PO SCH (08:40)
[2019-04-19] MEDS: hydrALAZINE 25 MG TAB PO SCH (08:40)
[2019-04-19] MEDS: Famotidine 20 MG TAB PO SCH (08:40)
[2019-04-19] MEDS: Lisinopril 20 MG TAB PO SCH (08:41)
[2019-04-19] MEDS: Saccharomyces boulardii 250 MG CAP PO SCH (08:41)
[2019-04-19] MEDS: Potassium Chloride 10 MEQ TAB PO SCH (08:41)
[2019-04-19] MEDS: Enoxaparin Sodium 40 MG/0.4 ML SYRINGE SC SCH (08:41)
[2019-04-19] MEDS: Carvedilol 6.25 MG TAB PO SCH (08:41)
[2019-04-19] MEDS: Furosemide 40 MG TAB PO SCH (08:41)
[2019-04-19] MEDS: levETIRAcetam 500 MG TAB PO SCH (08:41)
[2019-04-19] MEDS: Ascorbic Acid 500 mg Chewable Tablet PO SCH (08:41)
[2019-04-19] MEDS: Polyethylene Glycol 3350 17 GM Packet PO SCH (08:42)
--- NOTE | 2019-04-19 11:21 | DIS ---
DATE OF ADMISSION: 04/14/2019 DATE OF DISCHARGE: 04/19/2019 PRIMARY CARE PHYSICIAN: Bong Winters MD DISCHARGE DISPOSITION: [facility] bed. PRIMARY DISCHARGE DIAGNOSES: 1. Acute septic encephalopathy, resolved. 2. Severe sepsis. 3. Thrombocytopenia due to sepsis. 4. Hyponatremia due to volume depletion. 5. Bacteremia due to Proteus mirabilis. 6. Urinary tract infection due to chronic indwelling Weiss catheter. 7. Hydronephrosis on the right side, status post stent placement. SECONDARY DISCHARGE DIAGNOSES: Seizure disorder, hypothyroidism, hypertension, history of cerebrovascular accident with residual weakness, dyslipidemia, asthma, anxiety and depression, and normocytic normochromic anemia. PRIMARY PROCEDURE/OPERATION: PICC line placement and cystoscopy with right ureteral stent placement and right retrograde ureteral pyelogram. RADIOLOGICAL INVESTIGATION: Abdomen and pelvis CT scan showed right-sided hydronephrosis. Retrograde pyelogram was performed. SIGNIFICANT LABORATORY DATA: WBC 4.4, hemoglobin 8.9, and platelet 139. Sodium 137, potassium 3.5, BUN 17, creatinine 0.59, and calcium 9.5. AST 24, ALT 34, alkaline phosphatase 99, and albumin 2.8. Urinalysis is suggestive of UTI. Urine culture grew Proteus mirabilis and Pseudomonas. Blood culture grew Proteus mirabilis. DISCHARGE MEDICATIONS: The patient will get IV cefepime 2 g IV q.12 hourly until April 30, 2019. The patient will have Florastor 250 mg p.o. daily. The patient will continue following medication. 1. Albuterol sulfate nebulization q.4 hourly p.r.n. 2. DuoNeb q.4 hourly p.r.n. 3. Zofran 4 mg sublingual q.6 hourly p.r.n. 4. Tramadol 50 mg q.6 hourly p.r.n. 5. Tylenol 650 mg q.4 hourly p.r.n. 6. Vitamin C 500 mg p.o. daily. 7. Lipitor 5 mg p.o. at bedtime. 8. Dulcolax 10 mg per rectum daily p.r.n. 9. Coreg 6.25 mg per tube b.i.d. 10. Chlorhexidine mouthwash b.i.d. 11. Lexapro 20 mg p.o. at bedtime. 12. Pepcid 20 mg daily. 13. Lasix 40 mg b.i.d. 14. Keppra 500 mg p.o. b.i.d. 15. Lisinopril 20 mg p.o. b.i.d. 16. Claritin 10 mg p.o. daily p.r.n. 17. Trileptal 300 mg p.o. daily and 600 mg in the evening. 18. Oxybutynin 5 mg p.o. b.i.d. 19. MiraLAX 17 g p.o. daily. 20. K-Dur 10 mEq p.o. daily. 21. [place] Thyroid 180 mg p.o. daily. 22. Hydralazine 25 mg p.o. t.i.d. CONTRAINDICATION: None. CODE STATUS: Full code. INPATIENT PROP SAWYER: Dr. De La Torre was consulted while in hospital, who recommended IV antibiotic therapy. DISCHARGE PLAN: Post hospital, the patient is planned for discharge to [facility] for IV antibiotic therapy, and subsequently, the patient will go to [facility]. HOSPITAL COURSE: This is a 74-year-old female, who has underlying history of stroke with residual weakness and she has bed-bound status. She has chronic indwelling Weiss catheter. She was treated for urinary tract infection with Cipro without any improvement. The patient was encephalopathic, confused, lethargic at long term, and she was also started having fever, and that is why the patient was sent to emergency room for evaluation. The patient was appeared septic upon arrival to emergency room. She was found with right hydronephrosis. She had leukocytosis with bandemia. She also had hyponatremia and thrombocytopenia from sepsis. Her source of infection was urinary tract related with chronic indwelling Weiss catheter. Urology was consulted and they did a cystoscopy and right ureteral stent placement for hydronephrosis. The patient will follow up with Urology for stent removal in 2 weeks. The patient has chronic indwelling Weiss catheter, which causing recurrent urinary tract infection and that is why we discussed with the family member about the discussion of suprapubic catheter upon followup visit with Urology. Her blood culture was positive for Proteus mirabilis. Her urine culture was positive for Proteus mirabilis and Pseudomonas. Based on culture and sensitivity result, Dr. De La Torre recommended to continue cefepime 2 g IV q.12 hourly for few more days IV until April 30, 2019. With the help of returned case inspector, we arranged [facility] bed for IV antibiotic therapy per family request. The patient's encephalopathy improved. Her sodium has been improved. Her leuko-sepsis resolved. We also did repeat blood culture while in the hospital. At this point, the patient is medically stable for discharge. She will continue to get antibiotic therapy. Initially, on admission, her blood pressure was running low and that is why we hold her blood pressure medication, but subsequently we resumed all her previous medications while in hospital as well as on discharge. I have seen and examined the patient at bedside today. All review of systems reviewed with her are negative. Plan of care discussed with the patient and the patient's . PHYSICAL EXAMINATION: VITAL SIGNS: Currently temperature 97.9, pulse 62, respiratory rate 16, saturation 100%, blood pressure 159/67, and weight 214 pounds. GENERAL: The patient is currently alert, awake, in no obvious acute distress. HEENT: Head; normocephalic, atraumatic. Eyes; pupils round and reactive to light, extraocular muscle intact. ENT; oropharynx within normal limits. LUNGS: Clear without any rhonchi or rales. CARDIAC: S1 and S2 regular. No murmur. ABDOMEN: Soft and benign. EXTREMITIES: No edema. NEUROLOGIC: Grossly nonfocal examination, but she does have residual weakness from previous stroke. Paperwork for discharge done and discharge medication reconciliation done. Total time spent on discharge day, 31 minutes. Job ID: [id number]
[2019-04-19] MEDS: Chlorhexidine Gluconate 15 ML UDCUP SSP SCH (11:27)
[2019-04-19 11:52] VITALS: BP 125/73; TEMP 98
== END 2019-04-19 13:35 | disposition swing bed (61) | DRG 659 ==
LOC: ERS 06:00 → T4-B 09:55
PROVIDERS: ADMIT Internal Medicine; ATTEND Internal Medicine
PROC: 0T768DZ Dilation of Right Ureter with Intraluminal Device, Via Natural or Artificial Opening Endoscopic (ICD-10-PCS; principal; 2019-04-14)
PROC: BT1D1ZZ Fluoroscopy of Right Kidney, Ureter and Bladder using Low Osmolar Contrast (ICD-10-PCS; 2019-04-14)
PROC: 02HV33Z Insertion of Infusion Device into Superior Vena Cava, Percutaneous Approach (ICD-10-PCS; 2019-04-18)
DX: T83.511A Infection and inflammatory reaction due to indwelling urethral catheter, initial encounter (principal); G93.41 Metabolic encephalopathy; R65.20 Severe sepsis without septic shock; A41.59 Other Gram-negative sepsis; I69.354 Hemiplegia and hemiparesis following cerebral infarction affecting left non-dominant side; E87.1 Hypo-osmolality and hyponatremia; N13.6 Pyonephrosis; I10 Essential (primary) hypertension; E78.5 Hyperlipidemia, unspecified; R13.12 Dysphagia, oropharyngeal phase; Y84.6 Urinary catheterization as the cause of abnormal reaction of the patient, or of later complication, without mention of misadventure at the time of the procedure; E03.9 Hypothyroidism, unspecified; I48.91 Unspecified atrial fibrillation; F41.9 Anxiety disorder, unspecified; F31.9 Bipolar disorder, unspecified; E66.9 Obesity, unspecified; E87.8 Other disorders of electrolyte and fluid balance, not elsewhere classified; N31.9 Neuromuscular dysfunction of bladder, unspecified; G40.909 Epilepsy, unspecified, not intractable, without status epilepticus; D69.6 Thrombocytopenia, unspecified; D64.9 Anemia, unspecified; J45.909 Unspecified asthma, uncomplicated; E86.9 Volume depletion, unspecified; K59.09 Other constipation; Z74.01 Bed confinement status; I69.391 Dysphagia following cerebral infarction; Z88.8 Allergy status to other drugs, medicaments and biological substances; Z88.0 Allergy status to penicillin; Z88.5 Allergy status to narcotic agent; Z95.0 Presence of cardiac pacemaker; Z90.49 Acquired absence of other specified parts of digestive tract; Z90.710 Acquired absence of both cervix and uterus; Z91.013 Allergy to seafood; Z79.2 Long term (current) use of antibiotics; Z79.52 Long term (current) use of systemic steroids; Z79.899 Other long term (current) drug therapy; Z93.1 Gastrostomy status
CPT/HCPCS: 36415; 36569; 74176; 74420; 80053; 80202; 81003; 81015; 83605; 83690; 85025; 87040; 87077; 87086; 87149; 87186; 90471; 90670; 96361; 96365; 96367; 96375; C1751; C1758; C1769; G0009; J0360; J0692; J0696; J1644; J1650; J2185; J2405; J3010; J3370; J3490; J7050; Q9961

== ENCOUNTER → 2019-10-14 | Day surgery (SDC) | payer MEDICARE, MEDICAID ==
[~2019-10-14] MED LIST changes: +Acetaminophen 500 MG TAB ONE; +Clindamycin/D5W 900 mg/50 ml Premix Bag ONE; +Iopamidol 370 76% 50 ML VIAL FS ONE; +Levofloxacin 500 mg/D5W 100 ml Premix Bag ONE; +Lidocaine 1% (PF) 30 ML VIAL ONE; +PROPOFOL 40 ML ONE; +Vancomycin HCl 500 MG VIAL ONE
[2019-10-14 09:10] LABS: #Eosinphils 0.3 thou/uL (0.0-0.7); #Monocytes 0.6 thou/uL (0.11-0.59); #Neutrophils 6.8 thou/uL (1.40-6.50); %Basophils 0.3 % (0.0-1.0); %Eosinophils 2.9 % (0.0-10.0); %Lymphocytes 11.8 % (21.0-51.0); %Monocytes 6.3 % (0.0-10.0); %Neutrophils 78.6 % (42.0-75.0); Hemoglobin 11.6 g/dL (12.0-16.0); Mean Corpuscular HGB CONC 32.3 g/dL (32.0-36.0); Mean Corpuscular Hemoglobin 28.1 pg (27.0-31.0); Mean Corpuscular Volume 87.1 fL (78.0-98.0); Mean Platelet Volume 7.6 fL (7.4-10.4); Platelet Count 228 thou/uL (130-400); RBC Distribution Width 12.7 % (11.5-14.5); Red Blood Cell (RBC) Count 4.12 mill/uL (4.20-5.40); White Blood Cell (WBC) Count 8.6 thou/uL (4.8-10.8)
[2019-10-14 09:16] LABS: Anion Gap 12 mmol/L (10-20); BUN (Urea Nitrogen) 24 mg/dL (9.8-20.1); Calc. Creatinine Clearance 74 mL/min (70-130); Calcium 10.5 mg/dL (7.8-10.44); Carbon Dioxide 28 mmol/L (23-31); Chloride 98 mmol/L (98-107); Estimated GFR-MDRD 61; Glucose 93 mg/dL (83-110); Potassium 4.4 mmol/L (3.5-5.1); Sodium 134 mmol/L (136-145)
[2019-10-14 09:17] LABS: PTT 35.5 SEC (22.9-36.1); Prothrombin Time 13.3 SEC (12.0-14.7)
--- NOTE | 2019-10-14 14:23 | RAD ---
XR Chest 1 View Portable HISTORY: Postop lead revision COMPARISON: 11/08/2018 FINDINGS: The heart is enlarged. The aorta is tortuous. There is mild pulmonary vascular congestion. A left sided pacemaker device is noted with bipolar leads in the right atrium and right ventricle. No pneumothoraces are seen. There is an old fracture of the right humeral shaft.
--- NOTE | 2019-10-14 17:58 | EKG ---
Test Reason : PREOP Blood Pressure : / mmHG Vent. Rate : 061 BPM Atrial Rate : 061 BPM P-R Int : 168 ms QRS Dur : 138 ms QT Int : 466 ms P-R-T Axes : 059 -07 069 degrees QTc Int : 469 ms AV sequential or dual chamber electronic pacemaker When compared with ECG of 08-NOV-2018 13:57, Vent. rate has decreased BY 6 BPM Confirmed by Hannah GUERRA ([id number]) on 10/14/2019 5:58:02 PM Referred By: RADHA Confirmed By:Hannah GUERRA
--- NOTE | 2019-10-14 18:00 | EKG ---
Test Reason : LEAD REVISION Blood Pressure : / mmHG Vent. Rate : 060 BPM Atrial Rate : 060 BPM P-R Int : 144 ms QRS Dur : 184 ms QT Int : 502 ms P-R-T Axes : 035 -77 084 degrees QTc Int : 502 ms AV sequential or dual chamber electronic pacemaker When compared with ECG of 14-OCT-2019 09:12, (Unconfirmed) No significant change was found Confirmed by Hannah GUERRA ([id number]) on 10/14/2019 6:00:20 PM Referred By: RADHA Confirmed By:Hannah GUERRA
--- NOTE | 2019-10-17 09:39 | OP ---
DATE OF PROCEDURE: 10/14/2019 PROCEDURES PERFORMED: 1. Right ventricular lead revision. 2. Removal of old right ventricular lead. PROCEDURE IN DETAIL: The patient came to the EP lab in the postabsorptive state. Informed consent was obtained. A time-out was called. The patient was sedated by member of the anesthesia staff. Once the patient was adequately sedated, a 10 mL venogram demonstrated patency of the left subclavian vein system. The left chest area was prepped and draped in the usual sterile fashion. Lidocaine was injected subcutaneously along the existing pacemaker scar. A 4 cm incision was made along the existing pacemaker scar. The incision was carried down to the pacemaker pocket using combination of electrocautery and blunt dissection. The old pacemaker was carefully removed and the leads were inspected. Access was obtained x1 into the subclavian vein. A 7-Tajik peel-away sheath was placed through this. A Medtronic [id number], 52 cm lead, serial #[id number], was advanced and placed in the right ventricular apical area. Once adequate sensing and thresholds were obtained, the lead was secured by extension of the helix. The lead was then secured to the prepectoral fascia with 0 silk suture x2 and a new Medtronic pacemaker, model #[id number], serial #[id number] was placed with care to ensure that the lead went all the way to the end of the pin block. The existing right atrial lead, which was functional, was then placed into the new pacemaker and the old pacemaker was then removed. The existing right ventricular lead, which was a His bundle lead. This was 3830, 69 cm lead. It was then retracted and unscrewed and removed from the body without any difficulty. This lead was explanted. Final numbers were as follows. P-wave is 1.5, atrial impedance 494, atrial threshold 1.5 V at 0.4 milliseconds. RV was paced, impedance 589 ohms, threshold 0.5 V at 0.4 milliseconds. Programed to DDDR at a low rate of 60 beats per minute. The pocket was copiously irrigated with antibiotic solution. The pacemaker and the leads were placed in the pocket with care to ensure that the leads were underneath the device and the pocket was then closed with combination of 2-0, 3-0, and 4-0 Vicryl sutures followed by Dermabond for the skin. The patient tolerated the procedure well and was discharged from the EP lab in stable condition. CONCLUSIONS: 1. Successful implantation of right ventricular lead. 2. Successful explantation of old right ventricular His lead. 3. Successful removal of old pacemaker device. 4. Successful implantation of new pacemaker device. RECOMMENDATIONS: The patient will be at bedrest. COMPLICATIONS: None acute. ESTIMATED BLOOD LOSS: Less than 30 mL. Job ID: [id number]
== END ==
LOC: CCL 07:59
PROVIDERS: ATTEND Specialist
PROC: 0JH606Z Insertion of Pacemaker, Dual Chamber into Chest Subcutaneous Tissue and Fascia, Open Approach (ICD-10-PCS; principal; 2019-10-14)
PROC: 02HK3JZ Insertion of Pacemaker Lead into Right Ventricle, Percutaneous Approach (ICD-10-PCS; 2019-10-14)
PROC: 02PA3MZ Removal of Cardiac Lead from Heart, Percutaneous Approach (ICD-10-PCS; 2019-10-14)
PROC: 0JPT0PZ Removal of Cardiac Rhythm Related Device from Trunk Subcutaneous Tissue and Fascia, Open Approach (ICD-10-PCS; 2019-10-14)
DX: I48.19 Other persistent atrial fibrillation (principal); I44.0 Atrioventricular block, first degree; E89.0 Postprocedural hypothyroidism; M19.90 Unspecified osteoarthritis, unspecified site; F31.9 Bipolar disorder, unspecified; E78.5 Hyperlipidemia, unspecified; G40.909 Epilepsy, unspecified, not intractable, without status epilepticus; Z86.73 Personal history of transient ischemic attack (TIA), and cerebral infarction without residual deficits; Z79.899 Other long term (current) drug therapy; Z88.0 Allergy status to penicillin; Z88.5 Allergy status to narcotic agent; Z88.8 Allergy status to other drugs, medicaments and biological substances; Z91.013 Allergy to seafood
CPT/HCPCS: 33208; 33216; 33228; 33233; 33235; 36005; 36415; 71045; 75820; 80048; 85025; 85610; 85730; 93005; 93010; C1785; C1898; J1956; J2001; J2250; J2704; J3010; J3370; J3490; Q9967

== ENCOUNTER 2020-09-27 16:11 | Inpatient (IN) | payer MEDICARE, MEDICAID ==
[2020-09-27 17:00] LABS: #Eosinphils 0.2 thou/uL (0.0-0.7); #Lymphocytes 1.1 thou/uL (1.20-3.40); #Monocytes 0.6 thou/uL (0.11-0.59); #Neutrophils 5.2 thou/uL (1.40-6.50); %Basophils 0.3 % (0.0-1.0); %Eosinophils 2.6 % (0.0-10.0); %Lymphocytes 15.4 % (21.0-51.0); %Monocytes 7.8 % (0.0-10.0); Hemoglobin 9.9 g/dL (12.0-16.0); Mean Corpuscular Hemoglobin 29.7 pg (27.0-31.0); Platelet Count 205 thou/uL (130-400); RBC Distribution Width 12.9 % (11.5-14.5); Red Blood Cell (RBC) Count 3.33 mill/uL (4.20-5.40); White Blood Cell (WBC) Count 7.1 thou/uL (4.8-10.8)
[2020-09-27 17:20] LABS: ALT (SGPT) 8 U/L (8-55); AST (SGOT) 14 U/L (5-34); Alkaline Phosphatase 129 U/L (40-110); Anion Gap 15 mmol/L (10-20); BUN (Urea Nitrogen) 31 mg/dL (9.8-20.1); Bilirubin, Total 0.3 mg/dL (0.2-1.2); Calc. Creatinine Clearance 0 mL/min (70-130); Calcium 9.5 mg/dL (7.8-10.44); Carbon Dioxide 27 mmol/L (23-31); Chloride 101 mmol/L (98-107); Estimated GFR-MDRD 55; Globulin 3.6 g/dL (2.4-3.5); Glucose 95 mg/dL (83-110); Lipase 12 U/L (8-78); Potassium 4.6 mmol/L (3.5-5.1); Protein, Total 6.6 g/dL (6.0-8.3); Sodium 138 mmol/L (136-145)
[2020-09-27 17:55] LABS: Bacteria/HPF 4+ HPF (None Seen); Bilirubin Negative (Negative); Blood, Urine Trace (Negative); Clarity Turbid (Clear); Glucose, Urine (Dipstick) Normal (Negative); Ketone, Urine Negative (Negative); Leukocyte 500 Leu/uL (Negative); Nitrite Negative (Negative); Protein, Urine (Dipstick) 20 mg/dL (Neg-Trace); Specific Gravity, Urine 1.011 (1.002-1.036); Squamous Epithelial None Seen HPF (0-3); Urobilinogen Normal mg/dL (Less than 2); WBC/HPF Greater than 50 HPF (0-3); pH, Urine 6.5 (5.0-9.0)
--- NOTE | 2020-09-27 18:04 | RAD ---
RADIOGRAPH CHEST 1 VIEW: DATE: 09/27/2020 HISTORY: 75-year-old female with anorexia FINDINGS: The thoracic aorta is tortuous and ectatic. There is no evidence of airspace density, pulmonary edema , or pneumothorax. The lateral costophrenic angles are not effaced. Transvenous permanent pacemaker with left-sided generator. IMPRESSION: 1) No acute pulmonary findings. 2) ectasia of thoracic aorta. 3) pacemaker.
[2020-09-27] MEDS ORDERED: cefTRIAXone\\ROCEPHIN 1 GM VIAL ONE (18:28)
[2020-09-27] MEDS ORDERED: EPINEPHrine 1 MG/ML AMP ONE (19:57)
[2020-09-27] MEDS ORDERED: Norepinephrine 8 MG in Dextrose 5% in Water 242 ML IVPB PRN (20:30)
[2020-09-27] MEDS ORDERED: Vancomycin 1 GM/200 ML BAG ONE (20:39)
[2020-09-27] MEDS ORDERED: Norepinephrine 8 MG/0.9% NS 250 ML IVPB PRN (20:53)
[2020-09-27] MEDS ORDERED: Vancomycin 1 GM in Premix Bag 1 BAG IVPB SCH (21:00)
--- NOTE | 2020-09-27 23:10 | RAD ---
RADIOGRAPH CHEST 1 VIEW: DATE: 09/27/2020 HISTORY: 75-year-old female with anorexia FINDINGS: The thoracic aorta is tortuous and ectatic. There is no evidence of airspace density, pulmonary edema , or pneumothorax. The lateral costophrenic angles are not effaced. Left subclavian dual lead pacemaker. IMPRESSION: 1) No acute pulmonary findings. 2) ectasia of thoracic aorta. 3) pacemaker.
--- NOTE | 2020-09-27 23:28 | PDOC.BPN ---
- Brief Progress Note [id number] HP dictated
[2020-09-27 23:58] LABS: SARS-CoV-2 NAA Rapid Test Not Detected (NotDetected)
[2020-09-28] MEDS: Sodium Chloride 0.9% 1,000 ML IV SCH ×3 (01:28→21:29)
[2020-09-28] MEDS: methylPREDNISolone Sod Succ 40 MG VIAL IVP SCH ×5 (01:29→21:36)
[2020-09-28] MEDS: Famotidine/PF 20 mg/2ml Vial SLOW IVP SCH ×3 (02:22→21:29)
--- NOTE | 2020-09-28 02:22 | HP ---
CHIEF COMPLAINT: Failure to thrive and weakness. HISTORY OF PRESENT ILLNESS: Ms. Landaverde is a 75-year-old female, who presents to the emergency room with possible failure to thrive and generalized weakness. The patient is from [facility] and apparently has not been eating or drinking in the last few days, she had a PEG tube. She does have a sacral ulcer. She has a previous CVA with left side deficit. She did have COVID infection two months ago, but recovered from that. She denies fever or cough. She does have a suprapubic catheter in place. She is on 2 L/minute nasal cannula at the facility. She apparently, per the call, the patient has been more difficult to awaken and lethargic. Workup in the emergency room, the patient was found to have UTI. The patient was given IV ceftriaxone and as per ER physician, her blood pressure dropped after that. No rash. No shortness of breath. It was believed that the patient may have an allergic reaction by ED physician after giving ceftriaxone. The patient was given intramuscular epinephrine, but the patient remained hypotensive. ED physician is putting a central venous catheter and the patient will be started on Levophed and admitted to the critical care unit. PAST MEDICAL HISTORY: 1. CVA with left-sided weakness. 2. Dysphagia. 3. COPD. 4. Congestive heart failure. 5. Hypothyroidism. 6. Cardiac arrhythmias/atrial fibrillation. 7. Hyperlipidemia. 8. Hypertension. 9. Sacral ulcer. PAST SURGICAL HISTORY: 1. Five ablations. 2. Appendectomy. 3. Cholecystectomy. 4. Hysterectomy. 5. PEG tube. PAST PSYCHIATRIC HISTORY: Depression. FAMILY HISTORY: Reviewed and noncontributory. HOME MEDICATIONS: See home medication reconciliation form for updated medications. ALLERGIES: ALLERGIC TO CODEINE, PENICILLIN, PROPAFENONE, AND ? CEFTRIAXONE. REVIEW OF SYSTEMS: Negative except what is mentioned in the history of present illness. PHYSICAL EXAMINATION: GENERAL: The patient is awake with left-sided weakness. NECK: Supple. HEAD AND NECK: Normocephalic and atraumatic. NECK: Supple. No JVD. CHEST: Decreased air entry bilaterally. HEART: S1 and S2. Regular. ABDOMEN: Soft. Bowel sounds present. NEUROLOGIC: Awake. Left-sided weakness. GENITOURINARY: Suprapubic catheter. LABORATORY DATA: Chest x-ray, no acute finding. Urinalysis is positive for rbc's, wbc's, leukocytes, and bacteria. Labs; albumin is 3.0, alkaline phosphatase is 129, BUN is 31, and creatinine is 0.9. WBC 7.1, hemoglobin 9.9, and platelets 205. ASSESSMENT: 1. Hypotension ? septic shock ? versus anaphylactic/allergic reaction to ceftriaxone, the patient became hypotensive after ceftriaxone, was given epinephrine by ED, but remained hypotensive. 2. Acute urinary tract infection. 3. Suprapubic catheter. 4. History of cerebrovascular accident with left-sided weakness. 5. Chronic obstructive pulmonary disease history. 6. Congestive heart failure history, chronic. 7. Hypothyroidism. 8. History of atrial fibrillation. PLAN: 1. Admit. 2. Septic workup including urine cultures. 3. IV antibiotics. We will place the patient on vancomycin and levofloxacin, the patient had an allergic reaction to penicillin and ? ceftriaxone. 4. Central venous catheter being placed by ED physician. The patient will be started on Levophed, cautious IV fluid hydration. Reassess in a.m. 5. Consult home energy inspector in a.m. for evaluation and further recommendations. 6. Reconcile home medications. 7. DVT prophylaxis as appropriate. 8. Expected stay 2 midnights or more. Job ID: [id number]
[2020-09-28 04:54] LABS: Hemoglobin 9.2 g/dL (12.0-16.0); Mean Corpuscular HGB CONC 32.1 g/dL (32.0-36.0); Mean Corpuscular Hemoglobin 28.7 pg (27.0-31.0); Mean Corpuscular Volume 89.3 fL (78.0-98.0); Mean Platelet Volume 8.6 fL (7.4-10.4); Platelet Count 264 thou/uL (130-400)
[2020-09-28 04:56] LABS: ALT (SGPT) 12 U/L (8-55); AST (SGOT) 26 U/L (5-34); Alkaline Phosphatase 126 U/L (40-110); Anion Gap 18 mmol/L (10-20); BUN (Urea Nitrogen) 24 mg/dL (9.8-20.1); Bilirubin, Total 0.2 mg/dL (0.2-1.2); Calc. Creatinine Clearance 85 mL/min (70-130); Calcium 8.6 mg/dL (7.8-10.44); Carbon Dioxide 16 mmol/L (23-31); Chloride 107 mmol/L (98-107); Estimated GFR-MDRD 65; Glucose 193 mg/dL (83-110); Potassium 4.9 mmol/L (3.5-5.1); Sodium 136 mmol/L (136-145)
[2020-09-28 04:58] LABS: Band 13 % (5-11); Lymphocytes 5 % (21-51); MDiff Complete? YES; Monocytes 1 % (0-10); Neutrophil 81 % (42-75); Platelet Morphology Comment Appears Adequate
[2020-09-28] MEDS: Norepinephrine 8 MG in Dextrose 5% in Water 242 ML IVPB PRN ×2 (09:41→09:47)
--- NOTE | 2020-09-28 11:42 | CON ---
DATE OF CONSULTATION: HISTORY OF PRESENT ILLNESS: Kerry Landaverde is a 75-year-old female from the senior care 2 years ago with a CVA with right-sided weakness. She presented with inability to eat, swallow, confusion, hypertension, encephalopathy. She has had previous recurrent Proteus infection UTI for which she received Maxipime in the past. She also apparently had previous hydronephrosis reviewing the old records. Right basal ganglia hemorrhage neurogenic bladder, left hemiparesis, PEG tube not working, diastolic dysfunction, chronic atrial fibrillation with apparently a pacemaker inserted. She has hypothyroidism, asthma, history of DVT, has had a filter in place, and constipation. All of her information is from her primary care physician in [place]. The patient is presently on Levophed. She had a previous coronavirus infection several months ago, which apparently has since resolved. is at the bedside with large sacral decubitus. PAST MEDICAL HISTORY: Left-sided CVA, COPD, dysphagia, asthma, CHF, cardiac arrhythmias. PREVIOUS SURGERIES: ablation, pacemaker, PEG in place, previous trach in place, senior care, depression. SOCIAL HISTORY: No alcohol or tobacco abuse. ALLERGIES: PENICILLIN, CODEINE. HOME MEDICATIONS: Include: 1. Thyroid 180. 2. Pepcid. 3. Celexa. 4. Coreg 6.25. 5. Lasix 40. 6. Keppra 500. 7. Hydralazine. 8. DuoNeb. REVIEW OF SYSTEMS: Otherwise, 10-point negative. PHYSICAL EXAMINATION: GENERAL: She is responsive, slightly aphasic. VITAL SIGNS: Temperature 96; blood pressure 119/62, on Levophed; saturations 100% on 2 L; pulse 80. CHEST: Bilateral rhonchi and crackles. CARDIAC: Normal S1 and S2. No gallops. ABDOMEN: No masses. LABORATORY DATA: White count 12,000, H and H of 9 and 28, platelet 264, 81 segs, 13 bands. Lytes are normal. Urine shows UTI. ASSESSMENT: Sepsis, urinary tract infection, decubitus ulcer, cerebrovascular accident, history of congestive heart failure, history of atrial fibrillation, nonsmoker. PLAN: Added Maxipime for gram-negative coverage. Otherwise, continue Levophed, IV fluids, supportive care, steroids. Consultation note, 70 minutes, 50% direct patient care. Job ID: [id number]
[2020-09-28] MEDS: Cefepime 2 GM in Sodium Chloride 0.9% 100 ML IVPB SCH ×2 (12:16→21:28)
--- NOTE | 2020-09-28 16:59 | PDOC.HOSPP ---
- Subjective Encounter Date: 09/28/20 Encounter Time: 16:40 Subjective: f/u for sepsis due to UTI/suprapubic cath receiving Cefepime/Vancomycin/Levaquin/Levophed. Pt states she feels better overall and more alert. - Objective Vital Signs & Weight: Vital Signs (12 hours) Temp Pulse Ox 09/28/20 16:00 98.3 F 09/28/20 12:00 99.5 F 09/28/20 08:00 98.5 F 09/28/20 07:43 100 Weight Weight 3.252 oz Most Recent Monitor Data Heart Rate from ECG 113 NIBP 104/73 NIBP BP-Mean 83 Respiration from ECG 16 SpO2 100 I&O: 09/27/20 09/28/20 09/29/20 06:59 06:59 06:59 Intake Total 620 Output Total 800 700 Balance -800 -80 Result Diagrams: 09/28/20 04:06 09/28/20 04:06 Additional Labs: Microbiology 07/18/18 08:55 Urine cerna catheter Urine Culture - Final Enterococcus species 07/21/18 07:50 Bronchial Washing Respiratory Culture - Preliminary 07/17/18 22:18 Venous blood - Left Hand Blood Culture - Preliminary NO GROWTH AT 48 HOURS 07/17/18 22:12 Venous blood - Right Hand Blood Culture - Preliminary NO GROWTH AT 48 HOURS Laboratory Tests 07/18/18 07/19/18 09/27/20 04:55 03:33 16:46 WBC Hgb 11.2 L 11.0 L Neutrophils % (Manual) Band Neuts % (Manual) BUN 31 H Creatinine 0.98 SARS-CoV-2 Rap RNA(RT-PCR) 09/27/20 09/27/20 09/28/20 16:46 22:00 04:06 WBC 7.1 Hgb 9.9 L Neutrophils % (Manual) 81 H Band Neuts % (Manual) 13 H BUN Creatinine SARS-CoV-2 Rap RNA(RT-PCR) Not Detected Radiology Reviewed by me: Yes (PCXR - no acute process/PM in place) EKG Reviewed by me: Yes (Tele - paced in 70's) Hospitalist ROS - Medication Medications: Active Medications Generic Name Dose Route Start Last Admin Trade Name Freq PRN Reason Stop Dose Admin Famotidine 20 mg 09/27/20 21:00 09/28/20 09:42 Famotidine/Pf 20 Mg/2ml Vial SLOW IVP 20 mg Q12HR MONICA Administration Sodium Chloride 1,000 mls @ 75 mls/hr 09/27/20 21:00 09/28/20 12:30 Normal Saline 0.9% IV 1,000 mls .[id number] MONICA Administration Levofloxacin 750 mg/ Device 150 mls @ 100 mls/hr 09/28/20 03:00 09/28/20 02:53 IVPB 150 mls 0300 MONICA Administration Norepinephrine Bitartrate 8 mg 250 mls @ 0 mls/hr 09/28/20 08:00 09/28/20 09:47 / Dextrose/Water IVPB 250 mls INF PRN Administration Blood Pressure Protocol As Directed Cefepime HCl 2 gm/ Sodium 100 mls @ 200 mls/hr 09/28/20 11:00 09/28/20 12:16 Chloride IVPB 100 mls 1100,2300 MONICA Administration Methylprednisolone Sodium Succinate 40 mg 09/27/20 23:59 09/28/20 12:15 Methylprednisolone Sod Succ 40 Mg Vial IVP 40 mg Q6HR MONICA Administration - Exam General Appearance: awake alert, ill appearing General - other findings: responsive to questions Eye: PERRL, anicteric sclera ENT: normocephalic atraumatic, no oropharyngeal lesions Neck: supple, symmetric, no JVD, no thyromegaly, no lymphadenopathy Heart: RRR, no gallops, no rubs, normal peripheral pulses Heart - other findings: S1, S2 Respiratory: no wheezes, no rales, no ronchi, no tachypnea Respiratory - other findings: diminished in bases Gastrointestinal: soft, non-tender, non-distended, normal bowel sounds, no palpable masses Gastrointestinal - other findings: PEG in place, flushes Extremities: no cyanosis, no clubbing, no edema Skin: normal turgor Neurological: cranial nerve grossly intact, no new deficit Neurological - other findings: L hemiplegia, mild dysarthria Musculoskeletal: generalized weakness Musculoskeletal - other findings: L arm contracture Psychiatric: oriented to person, oriented to place Hosp A/P (1) Severe sepsis with septic shock Code(s): A41.9 - SEPSIS, UNSPECIFIED ORGANISM; R65.21 - SEVERE SEPSIS WITH SEPTIC SHOCK Status: Acute Plan: Continue Cefepime/Levaquin/Vancomycin pending final cx results, IVF's/Levophed (2) UTI (urinary tract infection) due to urinary indwelling Cerna catheter Code(s): T83.511A - I/I REACT D/T INDWELLING URETHRAL CATHETER, INIT; N39.0 - URINARY TRACT INFECTION, SITE NOT SPECIFIED Status: Acute Plan: Await Ucx results, continue Cefepime/Levaquin/Vancomycin (3) COPD (chronic obstructive pulmonary disease) Status: Chronic Plan: Stable currently, no exacerbation, O2 PRN (4) Left hemiplegia Code(s): G81.94 - HEMIPLEGIA, UNSPECIFIED AFFECTING LEFT NONDOMINANT SIDE Status: Chronic Plan: s/p CVA, continue positioning changes/turning protocol (5) Hypothyroidism Code(s): E03.9 - HYPOTHYROIDISM, UNSPECIFIED Status: Chronic Plan: Resume [place] Thyroid - Plan continue antibiotics, social security assessor, speech therapy, respiratory therapy, DVT proph w/SCDs Consults: Palliative Care Continue critical support Wean Levophed as clinically indicated Continue Cefepime/Levaquin/Vancomycin Continue Solumedrol Await final Ucx/Blood cx results AM lab: CMP, CBC, Vanc trough
[2020-09-28] MEDS: Vancomycin 1.5 GRAM/300 ML BAG 1.5 GM in Premix Bag 1 BAG IVPB SCH (18:24)
[2020-09-28] MEDS: levETIRAcetam 500 MG TAB PO SCH (21:28)
[2020-09-28] MEDS: OXcarbazepine 300 MG TAB PO SCH (21:28)
[2020-09-28] MEDS: Potassium Chloride 10 MEQ TAB PO SCH (21:28)
[2020-09-28] MEDS: Escitalopram Oxalate 20 mg Tablet PO SCH (21:28)
[2020-09-28] MEDS: Latanoprost 0.005% Ophth Soln 2.5 ml Bottle L EYE SCH (21:36)
[2020-09-28] MEDS: Chlorhexidine Gluconate 15 ML UDCUP SSP SCH (21:36)
[2020-09-29] MEDS: methylPREDNISolone Sod Succ 40 MG VIAL IVP SCH ×2 (05:18→21:52)
[2020-09-29 06:06] LABS: ALT (SGPT) 8 U/L (8-55); AST (SGOT) 13 U/L (5-34); Alkaline Phosphatase 92 U/L (40-110); Anion Gap 14 mmol/L (10-20); BUN (Urea Nitrogen) 20 mg/dL (9.8-20.1); Bilirubin, Total 0.2 mg/dL (0.2-1.2); Calc. Creatinine Clearance 0 mL/min (70-130); Carbon Dioxide 19 mmol/L (23-31); Chloride 111 mmol/L (98-107); Estimated GFR-MDRD 73; Globulin 2.9 g/dL (2.4-3.5); Glucose 107 mg/dL (83-110); Potassium 4.2 mmol/L (3.5-5.1); Protein, Total 5.9 g/dL (6.0-8.3); Sodium 140 mmol/L (136-145)
[2020-09-29 06:16] LABS: Band 2 % (5-11); Hemoglobin 7.5 g/dL (12.0-16.0); Lymphocytes 10 % (21-51); MDiff Complete? YES; Mean Corpuscular HGB CONC 31.9 g/dL (32.0-36.0); Mean Corpuscular Hemoglobin 28.4 pg (27.0-31.0); Mean Platelet Volume 8.1 fL (7.4-10.4); Monocytes 4 % (0-10); Neutrophil 84 % (42-75); Platelet Count 146 thou/uL (130-400); Red Blood Cell (RBC) Count 2.65 mill/uL (4.20-5.40); White Blood Cell (WBC) Count 4.9 thou/uL (4.8-10.8)
[2020-09-29] MEDS: Ascorbic Acid 500 mg Chewable Tablet PO SCH (10:18)
[2020-09-29] MEDS: Cefepime 2 GM in Sodium Chloride 0.9% 100 ML IVPB SCH (10:18)
[2020-09-29] MEDS: levETIRAcetam 500 MG TAB PO SCH ×2 (10:19→21:52)
[2020-09-29] MEDS: Potassium Chloride 10 MEQ TAB PO SCH ×2 (10:19→21:52)
[2020-09-29] MEDS: Famotidine/PF 20 mg/2ml Vial SLOW IVP SCH ×2 (10:19→21:52)
[2020-09-29] MEDS: Lactinex Tablet PO SCH (10:19)
[2020-09-29] MEDS: Chlorhexidine Gluconate 15 ML UDCUP SSP SCH ×2 (10:25→21:52)
[2020-09-29] MEDS: OXcarbazepine 300 MG TAB PO SCH ×2 (10:29→21:52)
[2020-09-29] MEDS ORDERED: Bacteriostatic Water 30 ML VIAL FS PRN (10:45)
--- NOTE | 2020-09-29 10:49 | PRG ---
DATE OF SERVICE: 09/29/2020 SUBJECTIVE: This morning, she remains in the ICU, much more awake and responsive, off all pressors. OBJECTIVE: VITAL SIGNS: Temperature 97.4, O2 saturations 97% on 2 L, heart rate 79, and blood pressure 136/78. Good urine output. CHEST: No wheezing. No crackles. CARDIAC: Normal S1 and S2. No gallops. ABDOMEN: No masses. LABORATORY DATA: Labs are remarkable for H and H are 7 and 27, otherwise unremarkable. ASSESSMENT: Sepsis syndrome and cerebrovascular accident. PLAN: Continue steroids. De-escalate once we get cultures back. Supportive care and PT. She can probably be transferred out of the ICU. Job ID: [id number]
--- NOTE | 2020-09-29 11:19 | PDOC.HOSPP ---
- Subjective Encounter Date: 09/29/20 Encounter Time: 11:17 Subjective: Ms. Landaverde was seen today in follow-up of UTI with sepsis. Her is at the bedside/ He says she has been a bit better in his opinion. She sats up and ate a full breakfast this morning which is more than she has done in a few days. She was also talking with him more. - Objective Vital Signs & Weight: Vital Signs (12 hours) Temp Pulse Ox 09/29/20 11:06 95 09/29/20 07:33 97 09/29/20 04:00 97.4 F L 09/29/20 01:01 100 09/29/20 01:00 97.2 F L Weight Admit Weight 3.171 oz Weight 3.252 oz Most Recent Monitor Data Heart Rate from ECG 80 NIBP 136/78 NIBP BP-Mean 97 Respiration from ECG 18 SpO2 97 I&O: 09/28/20 09/29/20 09/30/20 06:59 06:59 06:59 Intake Total 2838 Output Total 800 1700 Balance -800 1138 Result Diagrams: 09/29/20 05:30 09/29/20 05:30 Hospitalist ROS - Medication Medications: Active Medications Generic Name Dose Route Start Last Admin Trade Name Freq PRN Reason Stop Dose Admin Acidophilus 1 tab 09/29/20 09:00 09/29/20 10:19 Lactinex Tablet PO 1 tab DAILY MONICA Administration Ascorbic Acid 500 mg 09/29/20 09:00 09/29/20 10:18 Ascorbic Acid 500 Mg Chewable Tablet PO 500 mg DAILY MONICA Administration Chlorhexidine Gluconate 15 ml 09/28/20 21:00 09/29/20 10:25 Chlorhexidine Gluconate 15 Ml Udcup SSP 15 ml BID MONICA Administration Escitalopram Oxalate 20 mg 09/28/20 21:00 09/28/20 21:28 Escitalopram Oxalate 20 Mg Tablet PO 20 mg HS MONICA Administration Famotidine 20 mg 09/27/20 21:00 09/29/20 10:19 Famotidine/Pf 20 Mg/2ml Vial SLOW IVP 20 mg Q12HR MONICA Administration Sodium Chloride 1,000 mls @ 75 mls/hr 09/27/20 21:00 09/28/20 21:29 Normal Saline 0.9% IV 1,000 mls .[id number] MONICA Administration Levofloxacin 750 mg/ Device 150 mls @ 100 mls/hr 09/28/20 03:00 09/29/20 05:17 IVPB 150 mls 0300 MONICA Administration Vancomycin HCl 1.5 gm/ Device 300 mls @ 200 mls/hr 09/28/20 18:00 09/28/20 18:24 IVPB 300 mls 1800 MONICA Administration Norepinephrine Bitartrate 8 mg 250 mls @ 0 mls/hr 09/28/20 08:00 09/28/20 09:47 / Dextrose/Water IVPB 250 mls INF PRN Administration Blood Pressure Protocol As Directed Cefepime HCl 2 gm/ Sodium 100 mls @ 200 mls/hr 09/28/20 11:00 09/29/20 10:18 Chloride IVPB 100 mls 1100,2300 MONICA Administration Latanoprost 1 drop 09/28/20 21:00 09/28/20 21:36 Latanoprost 0.005% Ophth Soln 2.5 Ml Bottle L EYE Not Given HS MONICA Levetiracetam 500 mg 09/28/20 21:00 09/29/20 10:19 Levetiracetam 500 Mg Tab PO 500 mg BID MONICA Administration Oxcarbazepine 600 mg 09/28/20 21:00 09/28/20 21:28 Oxcarbazepine 300 Mg Tab PO 600 mg QPM MONICA Administration Oxcarbazepine 300 mg 09/29/20 09:00 09/29/20 10:29 Oxcarbazepine 300 Mg Tab PO 300 mg DAILY MONICA Administration Potassium Chloride 10 meq 09/28/20 21:00 09/29/20 10:19 Potassium Chloride 10 Meq Tab PO 10 meq BID MONICA Administration Thyroid 180 mg 09/29/20 09:00 09/29/20 10:30 Thyroid 90 Mg Tab PO 180 mg DAILY MONICA Administration - Exam Eye: PERRL, anicteric sclera Heart: RRR, no murmur, no gallops, no rubs, normal peripheral pulses Respiratory: CTAB, no wheezes, no rales, no ronchi, normal chest expansion, no tachypnea, normal percussion Gastrointestinal: soft, non-tender, non-distended, normal bowel sounds, no palpable masses, no hepatomegaly Extremities: no cyanosis, no edema Hosp A/P (1) UTI (urinary tract infection) Status: Acute (2) Septic shock Code(s): A41.9 - SEPSIS, UNSPECIFIED ORGANISM; R65.21 - SEVERE SEPSIS WITH SEPTIC SHOCK Status: Acute (3) H/O: CVA (cerebrovascular accident) Code(s): Z86.73 - PRSNL HX OF TIA (TIA), AND CEREB INFRC W/O RESID DEFICITS Status: Chronic (4) Hypertension Code(s): I10 - ESSENTIAL (PRIMARY) HYPERTENSION Status: Chronic (5) Hypothyroidism Code(s): E03.9 - HYPOTHYROIDISM, UNSPECIFIED Status: Chronic (6) Seizure disorder Code(s): G40.909 - EPILEPSY, UNSP, NOT INTRACTABLE, WITHOUT STATUS EPILEPTICUS Status: Chronic - Plan * UTI with septic shock-continue Levaquin, Cefepime and Vancomycin- urine culture was not done * Sepsis- resolving * Consider deescalting antibiotics in a few days * Seizure disorder- continue Keppra and Trileptal * Continue to encourage oral intake' * Consider PT- will need to determine what her baseline level of functioning was * Hypothyroidism- she is clinically euthyroid
[2020-09-29] MEDS: Sodium Chloride 0.9% 1,000 ML IV SCH (13:57)
--- NOTE | 2020-09-29 17:13 | EKG ---
Test Reason : Blood Pressure : / mmHG Vent. Rate : 068 BPM Atrial Rate : 068 BPM P-R Int : 170 ms QRS Dur : 186 ms QT Int : 454 ms P-R-T Axes : 085 -73 093 degrees QTc Int : 482 ms Electronic ventricular pacemaker Confirmed by SHARON SIDDIQI DO ([id number]), material expeditor MANNY HERNANDEZ ([id number]) on 09/29/2020 5:12:37 PM Referred By: Confirmed By:SHARON SIDDIQI DO
[2020-09-29] MEDS: Vancomycin 1.5 GRAM/300 ML BAG 1.5 GM in Premix Bag 1 BAG IVPB SCH (18:24)
[2020-09-29 18:44] LABS: Vancomycin, Trough 16.7 ug/mL
[2020-09-29] MEDS: Latanoprost 0.005% Ophth Soln 2.5 ml Bottle L EYE SCH (20:17)
[2020-09-29] MEDS: Escitalopram Oxalate 20 mg Tablet PO SCH (21:52)
[2020-09-30] MEDS: Cefepime 2 GM in Sodium Chloride 0.9% 100 ML IVPB SCH ×2 (00:47→11:24)
[2020-09-30 05:09] LABS: ALT (SGPT) 10 U/L (8-55); AST (SGOT) 15 U/L (5-34); Albumin 2.8 g/dL (3.4-4.8); Alkaline Phosphatase 85 U/L (40-110); Anion Gap 13 mmol/L (10-20); BUN (Urea Nitrogen) 23 mg/dL (9.8-20.1); Bilirubin, Total 0.2 mg/dL (0.2-1.2); Calc. Creatinine Clearance 78 mL/min (70-130); Carbon Dioxide 17 mmol/L (23-31); Chloride 111 mmol/L (98-107); Estimated GFR-MDRD 60; Glucose 124 mg/dL (83-110); Potassium 4.4 mmol/L (3.5-5.1); Protein, Total 5.8 g/dL (6.0-8.3); Sodium 137 mmol/L (136-145)
[2020-09-30] MEDS: Sodium Chloride 0.9% 1,000 ML IV SCH ×2 (05:09→11:31)
[2020-09-30 06:08] LABS: Band 15 % (5-11); Hemoglobin 7.9 g/dL (12.0-16.0); Lymphocytes 7 % (21-51); MDiff Complete? YES; Mean Corpuscular HGB CONC 32.1 g/dL (32.0-36.0); Mean Corpuscular Hemoglobin 28.7 pg (27.0-31.0); Mean Corpuscular Volume 89.2 fL (78.0-98.0); Mean Platelet Volume 8.2 fL (7.4-10.4); Neutrophil 78 % (42-75); Platelet Count 154 thou/uL (130-400); RBC Distribution Width 13.3 % (11.5-14.5); Red Blood Cell (RBC) Count 2.76 mill/uL (4.20-5.40); White Blood Cell (WBC) Count 8.5 thou/uL (4.8-10.8)
[2020-09-30] MEDS: Ascorbic Acid 500 mg Chewable Tablet PO SCH (08:56)
[2020-09-30] MEDS: Potassium Chloride 10 MEQ TAB PO SCH ×2 (08:56→20:21)
[2020-09-30] MEDS: levETIRAcetam 500 MG TAB PO SCH ×2 (08:56→20:20)
[2020-09-30] MEDS: Famotidine/PF 20 mg/2ml Vial SLOW IVP SCH ×2 (08:56→20:20)
[2020-09-30] MEDS: methylPREDNISolone Sod Succ 40 MG VIAL IVP SCH (08:57)
[2020-09-30] MEDS: Lactinex Tablet PO SCH (09:22)
[2020-09-30] MEDS: OXcarbazepine 300 MG TAB PO SCH ×2 (09:22→20:20)
[2020-09-30] MEDS: Chlorhexidine Gluconate 15 ML UDCUP SSP SCH ×2 (11:24→20:55)
--- NOTE | 2020-09-30 12:37 | PDOC.HOSPP ---
- Subjective Encounter Date: 09/30/20 Encounter Time: 12:35 Subjective: Ms. Landaverde was seen today in follow-up of UTI and sepsis. She is sitting up, and much more alert today. She denies nausea, but notes some abdominal soreness, but this is usually when she sits up. - Objective Vital Signs & Weight: Vital Signs (12 hours) Temp Pulse Resp BP Pulse Ox 09/30/20 11:52 98.5 F 78 18 118/63 99 09/30/20 08:00 95 09/30/20 07:39 97.8 F 73 18 122/65 95 09/30/20 03:16 98.8 F 72 20 124/60 97 Weight Admit Weight 3.171 oz Weight 202 lb 14.4 oz Most Recent Monitor Data Heart Rate from ECG 79 NIBP 123/58 NIBP BP-Mean 79 Respiration from ECG 14 SpO2 100 I&O: 09/29/20 09/30/20 10/01/20 06:59 06:59 06:59 Intake Total 2838 1878 Output Total 1700 1200 Balance 1138 678 Result Diagrams: 09/30/20 04:31 09/30/20 04:31 Hospitalist ROS - Medication Medications: Active Medications Generic Name Dose Route Start Last Admin Trade Name Freq PRN Reason Stop Dose Admin Acidophilus 1 tab 09/29/20 09:00 09/30/20 09:22 Lactinex Tablet PO 1 tab DAILY MONICA Administration Ascorbic Acid 500 mg 09/29/20 09:00 09/30/20 08:56 Ascorbic Acid 500 Mg Chewable Tablet PO 500 mg DAILY MONICA Administration Chlorhexidine Gluconate 15 ml 09/28/20 21:00 09/30/20 11:24 Chlorhexidine Gluconate 15 Ml Udcup SSP 15 ml BID MONICA Administration Escitalopram Oxalate 20 mg 09/28/20 21:00 09/29/20 21:52 Escitalopram Oxalate 20 Mg Tablet PO 20 mg HS MONICA Administration Famotidine 20 mg 09/27/20 21:00 09/30/20 08:56 Famotidine/Pf 20 Mg/2ml Vial SLOW IVP 20 mg Q12HR MONICA Administration Sodium Chloride 1,000 mls @ 75 mls/hr 09/27/20 21:00 09/30/20 11:31 Normal Saline 0.9% IV 1,000 mls .[id number] MONICA Administration Levofloxacin 750 mg/ Device 150 mls @ 100 mls/hr 09/28/20 03:00 09/30/20 05:10 IVPB 150 mls 0300 MONICA Administration Cefepime HCl 2 gm/ Sodium 100 mls @ 200 mls/hr 09/28/20 11:00 09/30/20 11:24 Chloride IVPB 100 mls 1100,2300 MONICA Administration Latanoprost 1 drop 09/28/20 21:00 09/29/20 20:17 Latanoprost 0.005% Ophth Soln 2.5 Ml Bottle L EYE Not Given HS MONICA Levetiracetam 500 mg 09/28/20 21:00 09/30/20 08:56 Levetiracetam 500 Mg Tab PO 500 mg BID MONICA Administration Oxcarbazepine 600 mg 09/28/20 21:00 09/29/20 21:52 Oxcarbazepine 300 Mg Tab PO 600 mg QPM MONICA Administration Oxcarbazepine 300 mg 09/29/20 09:00 09/30/20 09:22 Oxcarbazepine 300 Mg Tab PO 300 mg DAILY MONICA Administration Potassium Chloride 10 meq 09/28/20 21:00 09/30/20 08:56 Potassium Chloride 10 Meq Tab PO 10 meq BID MONICA Administration Thyroid 180 mg 09/29/20 09:00 09/30/20 09:22 Thyroid 90 Mg Tab PO 180 mg DAILY MONICA Administration - Exam Eye: PERRL, anicteric sclera Heart: RRR, no murmur, no gallops, no rubs, normal peripheral pulses Respiratory: CTAB, no wheezes, no rales, no ronchi, normal chest expansion, no tachypnea Gastrointestinal: soft, non-distended, normal bowel sounds, tender to palpation (+ mild tenderness) Extremities: no cyanosis, no edema Hosp A/P (1) UTI (urinary tract infection) Status: Acute (2) Septic shock Code(s): A41.9 - SEPSIS, UNSPECIFIED ORGANISM; R65.21 - SEVERE SEPSIS WITH SEPTIC SHOCK Status: Acute (3) H/O: CVA (cerebrovascular accident) Code(s): Z86.73 - PRSNL HX OF TIA (TIA), AND CEREB INFRC W/O RESID DEFICITS Status: Chronic (4) Hypertension Code(s): I10 - ESSENTIAL (PRIMARY) HYPERTENSION Status: Chronic (5) Hypothyroidism Code(s): E03.9 - HYPOTHYROIDISM, UNSPECIFIED Status: Chronic (6) Seizure disorder Code(s): G40.909 - EPILEPSY, UNSP, NOT INTRACTABLE, WITHOUT STATUS EPILEPTICUS Status: Chronic - Plan * UTI with septic shock.- she is no longer on pressors, and has been moved out of the ICU * Urine culture is growing a gram negative nita. Will discontinue Vancomycin * Seizure disorder- continue Keppra and Trileptal * Continue to encourage oral intake and will re-start tube feeds which her states, she normally gets most of her nutrition. * Patient is bed-bound at baseline * Hypothyroidism- she is clinically euthyroid
--- NOTE | 2020-09-30 13:51 | PRG ---
DATE OF SERVICE: 09/30/2020 SUBJECTIVE: Kerry Landaverde was transferred out of the ICU. She is no longer hypotensive. OBJECTIVE: VITAL SIGNS: Blood pressure temperature 98, pulse 78. CHEST: No wheezing, no crackles. CARDIAC: Normal S1, S2. No gallops. ABDOMEN: No masses. LABORATORY DATA: She has 8.5 white count with 78 segs, 15 bands. Lytes are normal. Urine is growing gram-negative nita. ASSESSMENT AND PLAN: Cerebrovascular accident, septic syndrome, probably UTI, poor intake, left hemiparesis. Continue present antibiotics, supportive care. Switch over to oral antibiotics once we get all the cultures back. Pulmonary is going to follow at a distance. Job ID: [id number]
[2020-09-30] MEDS: Latanoprost 0.005% Ophth Soln 2.5 ml Bottle L EYE SCH (20:19)
[2020-09-30] MEDS: Escitalopram Oxalate 20 mg Tablet PO SCH (20:20)
[2020-10-01] MEDS: Cefepime 2 GM in Sodium Chloride 0.9% 100 ML IVPB SCH ×3 (00:12→23:23)
[2020-10-01] MEDS: Sodium Chloride 0.9% 1,000 ML IV SCH ×2 (03:07→20:43)
[2020-10-01 05:18] LABS: ALT (SGPT) 8 U/L (8-55); AST (SGOT) 13 U/L (5-34); Albumin 2.6 g/dL (3.4-4.8); Alkaline Phosphatase 79 U/L (40-110); Anion Gap 11 mmol/L (10-20); BUN (Urea Nitrogen) 22 mg/dL (9.8-20.1); Bilirubin, Total 0.3 mg/dL (0.2-1.2); Calc. Creatinine Clearance 72 mL/min (70-130); Calcium 8.7 mg/dL (7.8-10.44); Carbon Dioxide 17 mmol/L (23-31); Chloride 110 mmol/L (98-107); Estimated GFR-MDRD 53; Globulin 2.8 g/dL (2.4-3.5); Glucose 126 mg/dL (83-110); Potassium 3.8 mmol/L (3.5-5.1); Protein, Total 5.4 g/dL (6.0-8.3); Sodium 134 mmol/L (136-145)
[2020-10-01 05:48] LABS: Hemoglobin 7.5 g/dL (12.0-16.0); Mean Corpuscular HGB CONC 32.4 g/dL (32.0-36.0); Mean Corpuscular Hemoglobin 28.4 pg (27.0-31.0); Mean Corpuscular Volume 87.5 fL (78.0-98.0); Mean Platelet Volume 8.9 fL (7.4-10.4); Platelet Count 149 thou/uL (130-400); RBC Distribution Width 13.3 % (11.5-14.5); Red Blood Cell (RBC) Count 2.65 mill/uL (4.20-5.40); White Blood Cell (WBC) Count 8.9 thou/uL (4.8-10.8)
[2020-10-01 05:49] LABS: Band 1 % (5-11); Lymphocytes 11 % (21-51); MDiff Complete? YES; Monocytes 1 % (0-10); Neutrophil 86 % (42-75)
[2020-10-01] MEDS: levETIRAcetam 500 MG TAB PO SCH ×2 (10:14→20:45)
[2020-10-01] MEDS: OXcarbazepine 300 MG TAB PO SCH ×2 (10:14→20:44)
[2020-10-01] MEDS: Lactinex Tablet PO SCH (10:14)
[2020-10-01] MEDS: Famotidine/PF 20 mg/2ml Vial SLOW IVP SCH ×2 (10:14→20:44)
[2020-10-01] MEDS: Potassium Chloride 10 MEQ TAB PO SCH ×2 (10:14→20:45)
[2020-10-01] MEDS: Ascorbic Acid 500 mg Chewable Tablet PO SCH (10:14)
--- NOTE | 2020-10-01 10:57 | PDOC.HOSPP ---
- Subjective Encounter Date: 10/01/20 Encounter Time: 10:52 Subjective: Ms. Landaverde was seen today in follow-up of UTI and sepsis. Her is at the bedside. He feels she is not as interactive as she had been yesterday. - Objective Vital Signs & Weight: Vital Signs (12 hours) Temp Pulse Resp BP Pulse Ox 10/01/20 07:25 99.3 F 77 20 119/55 L 96 10/01/20 05:34 94 L 10/01/20 03:53 99.1 F 76 18 103/60 95 10/01/20 00:00 99.2 F 58 L 18 113/54 L 96 Weight Admit Weight 203 lb 4.8 oz Weight 206 lb 14.4 oz Most Recent Monitor Data Heart Rate from ECG 79 NIBP 123/58 NIBP BP-Mean 79 Respiration from ECG 14 SpO2 100 I&O: 09/30/20 10/01/20 10/02/20 06:59 06:59 06:59 Intake Total 1878 2227.25 Output Total 1200 1300 Balance 678 927.25 Result Diagrams: 10/01/20 04:30 10/01/20 04:30 Hospitalist ROS - Medication Medications: Active Medications Generic Name Dose Route Start Last Admin Trade Name Freq PRN Reason Stop Dose Admin Acidophilus 1 tab 09/29/20 09:00 10/01/20 10:14 Lactinex Tablet PO 1 tab DAILY MONICA Administration Ascorbic Acid 500 mg 09/29/20 09:00 10/01/20 10:14 Ascorbic Acid 500 Mg Chewable Tablet PO 500 mg DAILY MONICA Administration Chlorhexidine Gluconate 15 ml 09/28/20 21:00 09/30/20 20:55 Chlorhexidine Gluconate 15 Ml Udcup SSP 15 ml BID MONICA Administration Escitalopram Oxalate 20 mg 09/28/20 21:00 09/30/20 20:20 Escitalopram Oxalate 20 Mg Tablet PO 20 mg HS MONICA Administration Famotidine 20 mg 09/27/20 21:00 10/01/20 10:14 Famotidine/Pf 20 Mg/2ml Vial SLOW IVP 20 mg Q12HR MONICA Administration Sodium Chloride 1,000 mls @ 75 mls/hr 09/27/20 21:00 10/01/20 03:07 Normal Saline 0.9% IV 1,000 mls .[id number] MONICA Administration Levofloxacin 750 mg/ Device 150 mls @ 100 mls/hr 09/28/20 03:00 10/01/20 03:07 IVPB 150 mls 0300 MONICA Administration Cefepime HCl 2 gm/ Sodium 100 mls @ 200 mls/hr 09/28/20 11:00 10/01/20 10:15 Chloride IVPB 100 mls 1100,2300 MONICA Administration Latanoprost 1 drop 09/28/20 21:00 09/30/20 20:19 Latanoprost 0.005% Ophth Soln 2.5 Ml Bottle L EYE 1 drop HS MONICA Administration Levetiracetam 500 mg 09/28/20 21:00 10/01/20 10:14 Levetiracetam 500 Mg Tab PO 500 mg BID MONICA Administration Oxcarbazepine 600 mg 09/28/20 21:00 09/30/20 20:20 Oxcarbazepine 300 Mg Tab PO 600 mg QPM MONICA Administration Oxcarbazepine 300 mg 09/29/20 09:00 10/01/20 10:14 Oxcarbazepine 300 Mg Tab PO 300 mg DAILY MONICA Administration Potassium Chloride 10 meq 09/28/20 21:00 10/01/20 10:14 Potassium Chloride 10 Meq Tab PO 10 meq BID MONICA Administration Thyroid 180 mg 09/29/20 09:00 10/01/20 10:15 Thyroid 90 Mg Tab PO 180 mg DAILY MONICA Administration - Exam Eye: PERRL, anicteric sclera Heart: RRR, no murmur, no gallops, no rubs, normal peripheral pulses Respiratory: CTAB, no wheezes, no rales, no ronchi, normal chest expansion, no tachypnea, normal percussion Gastrointestinal: soft, non-tender, non-distended, normal bowel sounds, no palpable masses, no hepatomegaly Extremities: no cyanosis, no clubbing, 1+ LE edema Neurological: hemiplegia (left hemiplegia) Hosp A/P (1) UTI (urinary tract infection) Status: Acute (2) Septic shock Code(s): A41.9 - SEPSIS, UNSPECIFIED ORGANISM; R65.21 - SEVERE SEPSIS WITH SEPTIC SHOCK Status: Acute (3) H/O: CVA (cerebrovascular accident) Code(s): Z86.73 - PRSNL HX OF TIA (TIA), AND CEREB INFRC W/O RESID DEFICITS Status: Chronic (4) Hypertension Code(s): I10 - ESSENTIAL (PRIMARY) HYPERTENSION Status: Chronic (5) Hypothyroidism Code(s): E03.9 - HYPOTHYROIDISM, UNSPECIFIED Status: Chronic (6) Seizure disorder Code(s): G40.909 - EPILEPSY, UNSP, NOT INTRACTABLE, WITHOUT STATUS EPILEPTICUS Status: Chronic - Plan * UTI - sepsis has resolved- Urine culture is growing a gram negative nita, awaiting sensitivities * Continue Levaquin and Cefepime * Seizure disorder- continue Keppra and Trileptal * Continue to encourage oral intake and will re-start tube feeds which her states, she normally gets most of her nutrition. * Patient is bed-bound at baseline due to left hemiplegia, and has been bed bound for several years * Rest Tremor, and " masked face" - suspicious for Parkinson's- will review her records, and may consider Neurology evaluation, as this may explain some of her mental status changes. * Hypothyroidism- she is clinically euthyroid- continue thyroid hormone replacement
[2020-10-01] MEDS: Metoclopramide HCl 10 MG TAB PO SCH ×3 (12:41→20:45)
[2020-10-01] MEDS: Chlorhexidine Gluconate 15 ML UDCUP SSP SCH ×2 (12:42→20:44)
[2020-10-01] MEDS: Latanoprost 0.005% Ophth Soln 2.5 ml Bottle L EYE SCH (20:43)
[2020-10-01] MEDS: Escitalopram Oxalate 20 mg Tablet PO SCH (20:45)
[2020-10-02] MEDS: Sodium Chloride 0.9% 1,000 ML IV SCH ×2 (03:10→17:05)
[2020-10-02 05:29] LABS: Iron 15 ug/dL (50-170); Iron Binding Capacity, Total 81 mcg/dL (265-497)
[2020-10-02 06:04] LABS: Band 9 % (5-11); Eosinophils 1 % (0-10); Hemoglobin 7.2 g/dL (12.0-16.0); Lymphocytes 10 % (21-51); MDiff Complete? YES; Mean Corpuscular HGB CONC 33.2 g/dL (32.0-36.0); Mean Corpuscular Hemoglobin 29.3 pg (27.0-31.0); Mean Corpuscular Volume 88.3 fL (78.0-98.0); Mean Platelet Volume 8.8 fL (7.4-10.4); Monocytes 2 % (0-10); Neutrophil 78 % (42-75); Platelet Count 108 thou/uL (130-400); Platelet Morphology Comment Appears Decreased; RBC Distribution Width 13.4 % (11.5-14.5); Red Blood Cell (RBC) Count 2.46 mill/uL (4.20-5.40); White Blood Cell (WBC) Count 5.1 thou/uL (4.8-10.8)
[2020-10-02] MEDS: Metoclopramide HCl 10 MG TAB PO SCH ×4 (10:34→23:59)
[2020-10-02] MEDS: OXcarbazepine 300 MG TAB PO SCH ×2 (10:34→22:28)
[2020-10-02] MEDS: Ascorbic Acid 500 mg Chewable Tablet PO SCH (10:34)
[2020-10-02] MEDS: Lactinex Tablet PO SCH (10:34)
[2020-10-02] MEDS: levETIRAcetam 500 MG TAB PO SCH (10:34)
[2020-10-02] MEDS: Famotidine/PF 20 mg/2ml Vial SLOW IVP SCH (10:34)
[2020-10-02] MEDS: Potassium Chloride 10 MEQ TAB PO SCH ×2 (10:34→23:59)
[2020-10-02] MEDS: Cefepime 2 GM in Sodium Chloride 0.9% 100 ML IVPB SCH (10:35)
[2020-10-02] MEDS: Chlorhexidine Gluconate 15 ML UDCUP SSP SCH ×3 (10:36→22:28)
--- NOTE | 2020-10-02 14:01 | PDOC.HOSPP ---
- Subjective Encounter Date: 10/02/20 Encounter Time: 13:59 Subjective: Ms. Landaverde was seen today in follow-up of UTI and sepsis. She is a bit more interactive. She does not have any complaints. - Objective Vital Signs & Weight: Vital Signs (12 hours) Temp Pulse Resp BP Pulse Ox 10/02/20 11:39 98.3 F 84 20 141/53 H 95 10/02/20 07:50 96 10/02/20 07:24 97.4 F L 74 12 158/74 H 96 10/02/20 04:11 97.5 F L 72 16 125/57 L 95 Weight Admit Weight 203 lb 4.8 oz Weight 208 lb 1.6 oz Most Recent Monitor Data Heart Rate from ECG 79 NIBP 123/58 NIBP BP-Mean 79 Respiration from ECG 14 SpO2 100 I&O: 10/01/20 10/02/20 10/03/20 06:59 06:59 06:59 Intake Total 2227.25 987 379 Output Total 1300 1399 Balance 927.25 -412 379 Result Diagrams: 10/02/20 04:51 10/01/20 04:30 Hospitalist ROS - Medication Medications: Active Medications Generic Name Dose Route Start Last Admin Trade Name Freq PRN Reason Stop Dose Admin Acidophilus 1 tab 09/29/20 09:00 10/02/20 10:34 Lactinex Tablet PO 1 tab DAILY MONICA Administration Ascorbic Acid 500 mg 09/29/20 09:00 10/02/20 10:34 Ascorbic Acid 500 Mg Chewable Tablet PO 500 mg DAILY MONICA Administration Chlorhexidine Gluconate 15 ml 09/28/20 21:00 10/02/20 11:05 Chlorhexidine Gluconate 15 Ml Udcup SSP 15 ml BID MONICA Administration Escitalopram Oxalate 20 mg 09/28/20 21:00 10/01/20 20:45 Escitalopram Oxalate 20 Mg Tablet PO 20 mg HS MONICA Administration Famotidine 20 mg 09/27/20 21:00 10/02/20 10:34 Famotidine/Pf 20 Mg/2ml Vial SLOW IVP 20 mg Q12HR MONICA Administration Sodium Chloride 1,000 mls @ 75 mls/hr 09/27/20 21:00 10/02/20 03:10 Normal Saline 0.9% IV Not Given .[id number] MONICA Levofloxacin 750 mg/ Device 150 mls @ 100 mls/hr 09/28/20 03:00 10/02/20 02:39 IVPB 150 mls 0300 MONICA Administration Cefepime HCl 2 gm/ Sodium 100 mls @ 200 mls/hr 09/28/20 11:00 10/02/20 10:35 Chloride IVPB 100 mls 1100,2300 MONICA Administration Latanoprost 1 drop 09/28/20 21:00 10/01/20 20:43 Latanoprost 0.005% Ophth Soln 2.5 Ml Bottle L EYE 1 drop HS MONICA Administration Levetiracetam 500 mg 09/28/20 21:00 10/02/20 10:34 Levetiracetam 500 Mg Tab PO 500 mg BID MONICA Administration Metoclopramide HCl 10 mg 10/01/20 11:30 10/02/20 10:34 Metoclopramide Hcl 10 Mg Tab PO 10 mg ACHS MONICA Administration Oxcarbazepine 600 mg 09/28/20 21:00 10/01/20 20:44 Oxcarbazepine 300 Mg Tab PO 600 mg QPM MONICA Administration Oxcarbazepine 300 mg 09/29/20 09:00 10/02/20 10:34 Oxcarbazepine 300 Mg Tab PO 300 mg DAILY MONICA Administration Potassium Chloride 10 meq 09/28/20 21:00 10/02/20 10:34 Potassium Chloride 10 Meq Tab PO 10 meq BID MONICA Administration Thyroid 180 mg 09/29/20 09:00 10/02/20 10:34 Thyroid 90 Mg Tab PO 180 mg DAILY MONICA Administration - Exam Eye: PERRL, anicteric sclera Heart: RRR, no murmur, no gallops, no rubs Respiratory: CTAB, no wheezes, no rales, no ronchi, normal chest expansion Gastrointestinal: soft, non-tender, non-distended, normal bowel sounds, no palpable masses, no hepatomegaly Extremities: no cyanosis, 1+ LE edema Hosp A/P (1) UTI (urinary tract infection) Status: Acute (2) Septic shock Code(s): A41.9 - SEPSIS, UNSPECIFIED ORGANISM; R65.21 - SEVERE SEPSIS WITH SEPT IC SHOCK Status: Acute (3) H/O: CVA (cerebrovascular accident) Code(s): Z86.73 - PRSNL HX OF TIA (TIA), AND CEREB INFRC W/O RESID DEFICITS Status: Chronic (4) Hypertension Code(s): I10 - ESSENTIAL (PRIMARY) HYPERTENSION Status: Chronic (5) Hypothyroidism Code(s): E03.9 - HYPOTHYROIDISM, UNSPECIFIED Status: Chronic (6) Seizure disorder Code(s): G40.909 - EPILEPSY, UNSP, NOT INTRACTABLE, WITHOUT STATUS EPILEPTICUS Status: Chronic - Plan * UTI - sepsis has resolved- Urine culture is growing a gram negative nita, still awaiting sensitivities * Continue Levaquin and Cefepime * Seizure disorder- continue Keppra and Trileptal * Continue to encourage oral intake and continue tube feeds * Hypothyroidism- she is clinically euthyroid- continue thyroid hormone replacement * Home once culture results available
--- NOTE | 2020-10-02 15:24 | PDOC.FMACP ---
Advance Care Planning - Problem (1) Palliative care encounter Status: Acute Code(s): Z51.5 - ENCOUNTER FOR PALLIATIVE CARE (2) Declining functional status Status: Acute Code(s): R53.81 - OTHER MALAISE (3) COPD (chronic obstructive pulmonary disease) Status: Chronic (4) Left hemiplegia Status: Chronic Code(s): G81.94 - HEMIPLEGIA, UNSPECIFIED AFFECTING LEFT NONDOMINANT SIDE (5) Seizure disorder Status: Chronic Code(s): G40.909 - EPILEPSY, UNSP, NOT INTRACTABLE, WITHOUT STATUS EPILEPTICUS - Note Participants: patient, family, palliative care Summary: Palliative care has addressed Advanced Care Planning with Mrs Landaverde and her spouse. The diagnosis, prognosis and goals of care were discussed. Appropriate forms and documentation to accomplish the goals of care were discussed. All questions were answered. Elected to transition to a DNAR during this stay, confirmed OOHDNAR. Mrs Landaverde states she does not desire to "be on machines" but does desire other measures. Understanding of decline, hopeful for now to transition back to intermediate for continued care. Palliative care will sign off as goal of care is identified. If we can revisit Goal of care, assist with complex decision making, offer further support, coping or education in relation to disease prognosis please re consult our team. Thank you for this very appropriate consult, Palliative Care is grateful for the opportunity to assist in with the care of Mrs Landaverde. Please also refer to Palliative Care notes in note section. Time Spent (mins): 15
[2020-10-02] MEDS: Atorvastatin Calcium 10 MG TAB PO SCH (23:59)
[2020-10-02] MEDS: Escitalopram Oxalate 20 mg Tablet PO SCH (23:59)
[2020-10-03] MEDS: Cefepime 2 GM in Sodium Chloride 0.9% 100 ML IVPB SCH ×3 (00:01→22:33)
[2020-10-03 06:10] LABS: Band 7 % (5-11); Eosinophils 2 % (0-10); Hemoglobin 7.3 g/dL (12.0-16.0); Lymphocytes 11 % (21-51); MDiff Complete? YES; Mean Corpuscular HGB CONC 32.1 g/dL (32.0-36.0); Mean Corpuscular Hemoglobin 28.6 pg (27.0-31.0); Mean Corpuscular Volume 89.3 fL (78.0-98.0); Monocytes 2 % (0-10); Neutrophil 78 % (42-75); Platelet Count 115 thou/uL (130-400); Platelet Morphology Comment Appears Decreased; RBC Distribution Width 13.6 % (11.5-14.5); Red Blood Cell (RBC) Count 2.54 mill/uL (4.20-5.40); White Blood Cell (WBC) Count 6.4 thou/uL (4.8-10.8)
[2020-10-03] MEDS: Sodium Chloride 0.9% 1,000 ML IV SCH ×2 (09:40→16:47)
[2020-10-03] MEDS: Lactinex Tablet PO SCH (09:41)
[2020-10-03] MEDS: Metoclopramide HCl 10 MG TAB PO SCH ×4 (09:42→20:36)
[2020-10-03] MEDS: levETIRAcetam 500 MG TAB PO SCH ×3 (09:46→20:36)
[2020-10-03] MEDS: Oxybutynin 5 MG TAB PO SCH ×3 (09:46→20:36)
[2020-10-03] MEDS: Potassium Chloride 10 MEQ TAB PO SCH ×2 (09:48→20:36)
[2020-10-03] MEDS: Ascorbic Acid 500 mg Chewable Tablet PO SCH (09:50)
[2020-10-03] MEDS: Famotidine/PF 20 mg/2ml Vial SLOW IVP SCH ×3 (09:55→20:42)
[2020-10-03] MEDS: Chlorhexidine Gluconate 15 ML UDCUP SSP SCH ×2 (09:55→20:35)
[2020-10-03] MEDS: Multivitamin W/ Minerals 1 TAB PO SCH (09:56)
[2020-10-03] MEDS: OXcarbazepine 300 MG TAB PO SCH ×2 (09:56→20:36)
[2020-10-03] MEDS: Carvedilol 6.25 MG TAB PO SCH ×3 (09:59→20:41)
[2020-10-03] MEDS ORDERED: Acetaminophen 325 MG TAB PO PRN (10:16)
--- NOTE | 2020-10-03 12:22 | PDOC.HOSPP ---
- Subjective Encounter Date: 10/03/20 Encounter Time: 12:20 Subjective: Ms. Landaverde was seen today in follow-up of UTI and sepsis. She is sitting up, and is more interactive. She has a poor appetite. She also has been refusing to take in the tube feeds. - Objective Vital Signs & Weight: Vital Signs (12 hours) Temp Pulse Resp BP BP Pulse Ox 10/03/20 09:59 142/69 H 10/03/20 07:54 95 10/03/20 07:15 99.5 F 77 18 142/70 H 95 10/03/20 04:00 98.4 F 82 20 102/49 L 92 L Weight Admit Weight 203 lb 4.8 oz Weight 208 lb 1.6 oz Most Recent Monitor Data Heart Rate from ECG 79 NIBP 123/58 NIBP BP-Mean 79 Respiration from ECG 14 SpO2 100 I&O: 10/02/20 10/03/20 10/04/20 06:59 06:59 06:59 Intake Total 987 528 Output Total 1399 Balance -412 528 Result Diagrams: 10/03/20 05:03 10/01/20 04:30 Hospitalist ROS - Medication Medications: Active Medications Generic Name Dose Route Start Last Admin Trade Name Freq PRN Reason Stop Dose Admin Acetaminophen 650 mg 10/03/20 10:16 10/03/20 12:09 Acetaminophen 325 Mg Tab PO 650 mg Q6H PRN Administration Headache/Fever or Pain Acidophilus 1 tab 09/29/20 09:00 10/03/20 09:41 Lactinex Tablet PO 1 tab DAILY MONIAC Administration Ascorbic Acid 500 mg 09/29/20 09:00 10/03/20 09:50 Ascorbic Acid 500 Mg Chewable Tablet PO 500 mg DAILY MONICA Administration Atorvastatin Calcium 5 mg 10/02/20 21:00 10/02/20 23:59 Atorvastatin Calcium 10 Mg Tab PO 5 mg HS MONICA Administration Carvedilol 6.25 mg 10/02/20 21:00 10/03/20 09:59 Carvedilol 6.25 Mg Tab PO 6.25 mg BID MONICA Administration Chlorhexidine Gluconate 15 ml 09/28/20 21:00 10/03/20 09:55 Chlorhexidine Gluconate 15 Ml Udcup SSP 15 ml BID MONICA Administration Escitalopram Oxalate 20 mg 09/28/20 21:00 10/02/20 23:59 Escitalopram Oxalate 20 Mg Tablet PO 20 mg HS MONICA Administration Famotidine 20 mg 09/27/20 21:00 10/03/20 09:55 Famotidine/Pf 20 Mg/2ml Vial SLOW IVP 20 mg Q12HR MONICA Administration Sodium Chloride 1,000 mls @ 75 mls/hr 09/27/20 21:00 10/03/20 09:40 Normal Saline 0.9% IV 1,000 mls .[id number] MONICA Administration Levofloxacin 750 mg/ Device 150 mls @ 100 mls/hr 09/28/20 03:00 10/03/20 04:41 IVPB 150 mls 0300 MONICA Administration Cefepime HCl 2 gm/ Sodium 100 mls @ 200 mls/hr 09/28/20 11:00 10/03/20 09:57 Chloride IVPB 100 mls 1100,2300 MONICA Administration Iron/Minerals/Multivitamins 1 tab 10/03/20 09:00 10/03/20 09:56 Multivitamin W/ Minerals 1 Tab PO 1 tab DAILY MONICA Administration Latanoprost 1 drop 09/28/20 21:00 10/03/20 00:00 Latanoprost 0.005% Ophth Soln 2.5 Ml Bottle L EYE 1 drop HS MONICA Administration Levetiracetam 500 mg 09/28/20 21:00 10/03/20 09:46 Levetiracetam 500 Mg Tab PO 500 mg BID MONICA Administration Metoclopramide HCl 10 mg 10/01/20 11:30 10/03/20 12:03 Metoclopramide Hcl 10 Mg Tab PO Not Given ACHS MONICA Oxcarbazepine 600 mg 09/28/20 21:00 10/02/20 22:28 Oxcarbazepine 300 Mg Tab PO Not Given QPM MONICA Oxcarbazepine 300 mg 09/29/20 09:00 10/03/20 09:56 Oxcarbazepine 300 Mg Tab PO 300 mg DAILY MONICA Administration Oxybutynin Chloride 5 mg 10/02/20 21:00 10/03/20 09:46 Oxybutynin 5 Mg Tab PO 5 mg BID MONICA Administration Potassium Chloride 10 meq 09/28/20 21:00 10/03/20 09:48 Potassium Chloride 10 Meq Tab PO 10 meq BID MONICA Administration Thyroid 180 mg 09/29/20 09:00 10/03/20 09:37 Thyroid 90 Mg Tab PO 180 mg DAILY MONICA Administration - Exam Eye: PERRL Heart: RRR, no murmur, no gallops, no rubs, normal peripheral pulses Respiratory: CTAB, no wheezes, no rales, no ronchi, normal chest expansion, no tachypnea Gastrointestinal: soft, non-tender, non-distended, normal bowel sounds Extremities: no cyanosis, no edema Hosp A/P (1) UTI (urinary tract infection) Status: Acute (2) Septic shock Code(s): A41.9 - SEPSIS, UNSPECIFIED ORGANISM; R65.21 - SEVERE SEPSIS WITH SEPTIC SHOCK Status: Acute (3) H/O: CVA (cerebrovascular accident) Code(s): Z86.73 - PRSNL HX OF TIA (TIA), AND CEREB INFRC W/O RESID DEFICITS Status: Chronic (4) Hypertension Code(s): I10 - ESSENTIAL (PRIMARY) HYPERTENSION Status: Chronic (5) Hypothyroidism Code(s): E03.9 - HYPOTHYROIDISM, UNSPECIFIED Status: Chronic (6) Seizure disorder Code(s): G40.909 - EPILEPSY, UNSP, NOT INTRACTABLE, WITHOUT STATUS EPILEPTICUS Status: Chronic - Plan * UTI - sepsis has resolved- Urine culture is growing a gram negative nita, still awaiting sensitivities * Continue Levaquin and Cefepime * If her cultures have not resulted by tomorrow, will transition to Cefepime alone, and treat for 7 days * Seizure disorder- continue Keppra and Trileptal * Continue to encourage oral intake and continue tube feed prn * Hypothyroidism- she is clinically euthyroid- continue thyroid hormone replacement * The patient's is concerned about the patient poor oral intake, and weakness. He would like for her to go to a swing bed prior to being discharged back to the [facility].
[2020-10-03] MEDS: Acetaminophen 650 MG Suppository PR PRN (15:23)
[2020-10-03] MEDS ORDERED: Sodium Chloride 0.9% 500 ML IV SCH (16:15)
--- NOTE | 2020-10-03 16:49 | PDOC.BPN ---
- Brief Progress Note Encounter Date: 10/03/20 Encounter Time: 16:45 Came to evaluate patient due to hypotension. She had a l fluid bolus just prior to be seeing her. She was very lethargic and groggy. I checked her blood pressure in the right arm and it was 110/60 , followed by 108/54. In the left arm however ( which is the one affected by the stroke) it was barely audible, and was possibly 88/40. She became more alert during the encounter. Her last dose of Carvediolol was around 9:30am. Will place a consult for Neurology in the AM. 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
[2020-10-03] MEDS: Saccharomyces boulardii 250 MG CAP PO SCH (17:51)
[2020-10-03] MEDS: Atorvastatin Calcium 10 MG TAB PO SCH (20:35)
[2020-10-03] MEDS: Latanoprost 0.005% Ophth Soln 2.5 ml Bottle L EYE SCH ×2 (20:35)
[2020-10-03] MEDS: Escitalopram Oxalate 20 mg Tablet PO SCH (20:36)
[2020-10-04] MEDS: Sodium Chloride 0.9% 1,000 ML IV SCH (05:20)
[2020-10-04 06:19] LABS: Band 12 % (5-11); Eosinophils 2 % (0-10); Lymphocytes 11 % (21-51); MDiff Complete? YES; Mean Corpuscular HGB CONC 32.1 g/dL (32.0-36.0); Mean Corpuscular Hemoglobin 28.3 pg (27.0-31.0); Mean Corpuscular Volume 88.2 fL (78.0-98.0); Mean Platelet Volume 9.1 fL (7.4-10.4); Monocytes 6 % (0-10); Neutrophil 69 % (42-75); Platelet Count 102 thou/uL (130-400); Platelet Morphology Comment Appears Decreased; RBC Distribution Width 13.5 % (11.5-14.5); Red Blood Cell (RBC) Count 2.46 mill/uL (4.20-5.40); White Blood Cell (WBC) Count 7.5 thou/uL (4.8-10.8)
[2020-10-04] MEDS: Acetaminophen 650 MG Suppository PR PRN (10:07)
[2020-10-04] MEDS: Oxybutynin 5 MG TAB PO SCH ×2 (10:13→20:18)
[2020-10-04] MEDS: OXcarbazepine 300 MG TAB PO SCH ×2 (10:13→20:20)
[2020-10-04] MEDS: levETIRAcetam 500 MG TAB PO SCH ×2 (10:13→20:17)
[2020-10-04] MEDS: Metoclopramide HCl 10 MG TAB PO SCH ×4 (10:14→20:17)
[2020-10-04] MEDS: Famotidine/PF 20 mg/2ml Vial SLOW IVP SCH ×2 (10:14→20:17)
[2020-10-04] MEDS: Carvedilol 6.25 MG TAB PO SCH ×2 (10:19→20:18)
[2020-10-04] MEDS: Chlorhexidine Gluconate 15 ML UDCUP SSP SCH ×2 (10:22→20:20)
[2020-10-04] MEDS: Potassium Chloride 10 MEQ TAB PO SCH ×2 (10:22→20:18)
[2020-10-04] MEDS: Ascorbic Acid 500 mg Chewable Tablet PO SCH (10:22)
[2020-10-04] MEDS: Lactinex Tablet PO SCH (10:22)
[2020-10-04] MEDS: Multivitamin W/ Minerals 1 TAB PO SCH (10:22)
--- NOTE | 2020-10-04 11:40 | PDOC.HOSPP ---
- Subjective Encounter Date: 10/04/20 Encounter Time: 11:37 Subjective: Ms. Landaverde was seen today in follow-up of UTI and sepsis. She still has a poor appetite. She was able to rest ok last night. - Objective Vital Signs & Weight: Vital Signs (12 hours) Temp Pulse Resp BP BP Pulse Ox 10/04/20 10:19 114/54 L 10/04/20 07:52 100.2 F H 70 16 119/61 95 10/04/20 03:27 99.5 F 70 16 124/61 93 L Weight Admit Weight 203 lb 4.8 oz Weight 209 lb Most Recent Monitor Data Heart Rate from ECG 79 NIBP 123/58 NIBP BP-Mean 79 Respiration from ECG 14 SpO2 100 I&O: 10/03/20 10/04/20 10/05/20 06:59 06:59 06:59 Intake Total 528 3330 Output Total 1999 Balance 528 1330 Result Diagrams: 10/04/20 04:38 10/01/20 04:30 Hospitalist ROS - Medication Medications: Active Medications Generic Name Dose Route Start Last Admin Trade Name Freq PRN Reason Stop Dose Admin Acetaminophen 650 mg 10/03/20 14:55 10/04/20 10:07 Acetaminophen 650 Mg Suppository AL 650 mg Q6H PRN Administration Headache/Fever or Pain Acidophilus 1 tab 09/29/20 09:00 10/04/20 10:22 Lactinex Tablet PO 1 tab DAILY MONICA Administration Ascorbic Acid 500 mg 09/29/20 09:00 10/04/20 10:22 Ascorbic Acid 500 Mg Chewable Tablet PO 500 mg DAILY MONICA Administration Atorvastatin Calcium 5 mg 10/02/20 21:00 10/03/20 20:35 Atorvastatin Calcium 10 Mg Tab PO 5 mg HS MONICA Administration Carvedilol 6.25 mg 10/02/20 21:00 10/04/20 10:19 Carvedilol 6.25 Mg Tab PO 6.25 mg BID MONICA Administration Chlorhexidine Gluconate 15 ml 09/28/20 21:00 10/04/20 10:22 Chlorhexidine Gluconate 15 Ml Udcup SSP 15 ml BID MONICA Administration Escitalopram Oxalate 20 mg 09/28/20 21:00 10/03/20 20:36 Escitalopram Oxalate 20 Mg Tablet PO 20 mg HS MONICA Administration Famotidine 20 mg 09/27/20 21:00 10/04/20 10:14 Famotidine/Pf 20 Mg/2ml Vial SLOW IVP 20 mg Q12HR MONICA Administration Sodium Chloride 1,000 mls @ 75 mls/hr 09/27/20 21:00 10/04/20 05:20 Normal Saline 0.9% IV 1,000 mls .[id number] MONICA Administration Levofloxacin 750 mg/ Device 150 mls @ 100 mls/hr 09/28/20 03:00 10/04/20 02:16 IVPB 150 mls 0300 MONICA Administration Cefepime HCl 2 gm/ Sodium 100 mls @ 200 mls/hr 09/28/20 11:00 10/03/20 22:33 Chloride IVPB 100 mls 1100,2300 MONICA Administration Iron/Minerals/Multivitamins 1 tab 10/03/20 09:00 10/04/20 10:22 Multivitamin W/ Minerals 1 Tab PO 1 tab DAILY MONICA Administration Latanoprost 1 drop 09/28/20 21:00 10/03/20 20:35 Latanoprost 0.005% Ophth Soln 2.5 Ml Bottle L EYE 1 drop HS MONICA Administration Levetiracetam 500 mg 09/28/20 21:00 10/04/20 10:13 Levetiracetam 500 Mg Tab PO 500 mg BID MONICA Administration Metoclopramide HCl 10 mg 10/01/20 11:30 10/04/20 10:14 Metoclopramide Hcl 10 Mg Tab PO 10 mg ACHS MONICA Administration Oxcarbazepine 600 mg 09/28/20 21:00 10/03/20 20:36 Oxcarbazepine 300 Mg Tab PO 600 mg QPM MONICA Administration Oxcarbazepine 300 mg 09/29/20 09:00 10/04/20 10:13 Oxcarbazepine 300 Mg Tab PO 300 mg DAILY MONICA Administration Oxybutynin Chloride 5 mg 10/02/20 21:00 10/04/20 10:13 Oxybutynin 5 Mg Tab PO 5 mg BID MONICA Administration Potassium Chloride 10 meq 09/28/20 21:00 10/04/20 10:22 Potassium Chloride 10 Meq Tab PO 10 meq BID MONICA Administration Saccharomyces Boulardii 250 mg 10/03/20 18:00 10/03/20 17:51 Saccharomyces Boulardii 250 Mg Cap PO 250 mg 1800 MONICA Administration Thyroid 180 mg 09/29/20 09:00 10/04/20 10:13 Thyroid 90 Mg Tab PO 180 mg DAILY MONICA Administration - Exam Eye: PERRL, anicteric sclera Heart: RRR, no murmur, no gallops, no rubs, normal peripheral pulses Respiratory: CTAB (with the exception of an occasional rhonchi) Gastrointestinal: soft, non-tender, non-distended, normal bowel sounds, no palpable masses Extremities: no cyanosis, 2+ LE edema Hosp A/P (1) UTI (urinary tract infection) Status: Acute (2) Septic shock Code(s): A41.9 - SEPSIS, UNSPECIFIED ORGANISM; R65.21 - SEVERE SEPSIS WITH SEPTIC SHOCK Status: Acute (3) H/O: CVA (cerebrovascular accident) Code(s): Z86.73 - PRSNL HX OF TIA (TIA), AND CEREB INFRC W/O RESID DEFICITS Status: Chronic (4) Hypertension Code(s): I10 - ESSENTIAL (PRIMARY) HYPERTENSION Status: Chronic (5) Hypothyroidism Code(s): E03.9 - HYPOTHYROIDISM, UNSPECIFIED Status: Chronic (6) Seizure disorder Code(s): G40.909 - EPILEPSY, UNSP, NOT INTRACTABLE, WITHOUT STATUS EPILEPTICUS Status: Chronic - Plan * UTI - sepsis has resolved- Urine culture is growing presumptive Pseudomonas- still awaiting sensitivities * Continue Levaquin and Cefepime * Seizure disorder- continue Keppra and Trileptal * Continue to encourage oral intake and continue tube feed prn * Hypothyroidism- she is clinically euthyroid- continue thyroid hormone replacement * Patient has a tremor, and " masked facial expression, and labile hypotension- will consult Neurology * Screen for [facility]ing bed has been placed.
[2020-10-04] MEDS: Cefepime 2 GM in Sodium Chloride 0.9% 100 ML IVPB SCH ×2 (12:24→22:45)
--- NOTE | 2020-10-04 13:56 | CON ---
NEUROLOGY CONSULTATION DATE OF CONSULTATION: 10/04/2020 REASON FOR CONSULTATION: Parkinsonism. HISTORY OF PRESENT ILLNESS: Ms. Landaverde is a 75-year-old female with medical history significant for prior CVA with left hemiparesis in 2018, dysphagia, COPD, congestive heart failure, hypothyroidism, cardiac arrhythmia/atrial fibrillation, status post pacemaker placement, hyperlipidemia, hypertension, presented with failure to thrive and generalized weakness. She was admitted on 09/27/2020 from the [facility]ial because she has not been eating, drinking for few days. She did have a PEG tube. The patient had COVID infection 2 months ago and she recovered from that infection, but has been feeling extremely weak and lethargic for few days prior to the admission with failure to eat or drink. In the emergency room, she was found to have UTI for which she was given intravenous ceftriaxone and admitted for further evaluation. She was also found to have labile hypotension, which was managed and currently she is on the stroke floor. There is a concern about masked faces and intermittent tremor with hypotension, about parkinsonism plus syndrome. The patient is a poor historian and history is obtained from the at the bedside. Per , she has ongoing symptoms of flat effect and masked faces since stroke in 2018. He also noticed intermittent tremor off and on since that time and according to him that has not changed from the baseline. All these symptoms started after the stroke. REVIEW OF SYSTEMS: Unobtainable due to patient's mental status. PAST MEDICAL HISTORY: Prior CVA with left hemiplegia in 2018, dysphagia, COPD, congestive heart failure, hypothyroidism, cardiac arrhythmias/atrial fibrillation, hyperlipidemia, hypertension, sacral ulcer. PAST SURGICAL HISTORY: Five ablations, appendectomy, cholecystectomy, hysterectomy, PEG tube. PAST PSYCHIATRIC HISTORY: Depression and bipolar disorder. FAMILY HISTORY: No significant past family history. HOME MEDICATIONS: See home medication reconciliation form for updated medication. ALLERGIES: CODEINE, PENICILLIN, PROPAFENONE, AND CEFTRIAXONE. Vital Signs (12 hours) Temp Pulse Resp BP BP Pulse Ox 10/04/20 10:19 114/54 L 10/04/20 07:52 100.2 F H 70 16 119/61 95 10/04/20 03:27 99.5 F 70 16 124/61 93 L Weight Admit Weight 203 lb 4.8 oz Weight 209 lb Most Recent Monitor Data Heart Rate from ECG 79 NIBP 123/58 NIBP BP-Mean 79 Respiration from ECG 14 SpO2 100 I&O: 10/03/20 10/04/20 10/05/20 06:59 06:59 06:59 Intake Total 528 3330 Output Total 1999 Balance 528 3010 Active Medications Generic Name Dose Route Start Last Admin Trade Name Freq PRN Reason Stop Dose Admin Acetaminophen 650 mg 10/03/20 14:55 10/04/20 10:07 Acetaminophen 650 Mg Suppository WI 650 mg Q6H PRN Administration Headache/Fever or Pain Acidophilus 1 tab 09/29/20 09:00 10/04/20 10:22 Lactinex Tablet PO 1 tab DAILY MONICA Administration Ascorbic Acid 500 mg 09/29/20 09:00 10/04/20 10:22 Ascorbic Acid 500 Mg Chewable Tablet PO 500 mg DAILY MONICA Administration Atorvastatin Calcium 5 mg 10/02/20 21:00 10/03/20 20:35 Atorvastatin Calcium 10 Mg Tab PO 5 mg HS MONICA Administration Carvedilol 6.25 mg 10/02/20 21:00 10/04/20 10:19 Carvedilol 6.25 Mg Tab PO 6.25 mg BID MONICA Administration Chlorhexidine Gluconate 15 ml 09/28/20 21:00 10/04/20 10:22 Chlorhexidine Gluconate 15 Ml Udcup SSP 15 ml BID MONICA Administration Escitalopram Oxalate 20 mg 09/28/20 21:00 10/03/20 20:36 Escitalopram Oxalate 20 Mg Tablet PO 20 mg HS MONICA Administration Famotidine 20 mg 09/27/20 21:00 10/04/20 10:14 Famotidine/Pf 20 Mg/2ml Vial SLOW IVP 20 mg Q12HR MONICA Administration Sodium Chloride 1,000 mls @ 75 mls/hr 09/27/20 21:00 10/04/20 05:20 Normal Saline 0.9% IV 1,000 mls .[id number] MONICA Administration Levofloxacin 750 mg/ Device 150 mls @ 100 mls/hr 09/28/20 03:00 10/04/20 02:16 IVPB 150 mls 0300 MONICA Administration Cefepime HCl 2 gm/ Sodium 100 mls @ 200 mls/hr 09/28/20 11:00 10/03/20 22:33 Chloride IVPB 100 mls 1100,2300 MONICA Administration Iron/Minerals/Multivitamins 1 tab 10/03/20 09:00 10/04/20 10:22 Multivitamin W/ Minerals 1 Tab PO 1 tab DAILY MONICA Administration Latanoprost 1 drop 09/28/20 21:00 10/03/20 20:35 Latanoprost 0.005% Ophth Soln 2.5 Ml Bottle L EYE 1 drop HS MONICA Administration Levetiracetam 500 mg 09/28/20 21:00 10/04/20 10:13 Levetiracetam 500 Mg Tab PO 500 mg BID MONICA Administration Metoclopramide HCl 10 mg 10/01/20 11:30 10/04/20 10:14 Metoclopramide Hcl 10 Mg Tab PO 10 mg ACHS MONICA Administration Oxcarbazepine 600 mg 09/28/20 21:00 10/03/20 20:36 Oxcarbazepine 300 Mg Tab PO 600 mg QPM MONICA Administration Oxcarbazepine 300 mg 09/29/20 09:00 10/04/20 10:13 Oxcarbazepine 300 Mg Tab PO 300 mg DAILY MONICA Administration Oxybutynin Chloride 5 mg 10/02/20 21:00 10/04/20 10:13 Oxybutynin 5 Mg Tab PO 5 mg BID MONICA Administration Potassium Chloride 10 meq 09/28/20 21:00 10/04/20 10:22 Potassium Chloride 10 Meq Tab PO 10 meq BID MONICA Administration Saccharomyces Boulardii 250 mg 10/03/20 18:00 10/03/20 17:51 Saccharomyces Boulardii 250 Mg Cap PO 250 mg 1800 MONICA Administration Thyroid 180 mg 09/29/20 09:00 10/04/20 10:13 Thyroid 90 Mg Tab PO 180 mg DAILY MONICA Administration PHYSICAL EXAMINATION: VITAL SIGNS: Blood pressure 110/58, pulse 76, respiratory rate 14. GENERAL: The patient is awake, alert, but follows commands intermittently, when she is asked by the . NECK: Supple. CHEST: Clear. ABDOMEN: Soft. NEUROLOGICAL: Mental status, the patient is awake and alert. Follows commands intermittently. Cranial nerves, mild right left facial droop. She does not respond appropriately to questions. Cranial nerves except VII, mild left facial droop and mild dysarthria. Motor muscle tone is normal. Bulk is increase in muscle tone and normal and normal on right. Left hemiplegia, left arm contracture. Mental status, she is oriented to person and place. Sensory withdraws to nailbed pressure; right greater than left. Cerebellar, unable to perform on the left secondary to weakness. Gait deferred due to patient's safety reason. The patient cannot walk after the stroke due to left hemiplegia. ASSESSMENT AND PLAN: (1) UTI (urinary tract infection) Status: Acute (2) Septic shock Code(s): A41.9 - SEPSIS, UNSPECIFIED ORGANISM; R65.21 - SEVERE SEPSIS WITH SEPTIC SHOCK Status: Acute (3) H/O: CVA (cerebrovascular accident) Code(s): Z86.73 - PRSNL HX OF TIA (TIA), AND CEREB INFRC W/O RESID DEFICITS Status: Chronic (4) Hypertension Code(s): I10 - ESSENTIAL (PRIMARY) HYPERTENSION Status: Chronic (5) Hypothyroidism Code(s): E03.9 - HYPOTHYROIDISM, UNSPECIFIED Status: Chronic (6) Seizure disorder Code(s): G40.909 - EPILEPSY, UNSP, NOT INTRACTABLE, WITHOUT STATUS EPILEPTICUS Status: Chronic Ms. Kerry Landaverde is a 75-year-old female who presented with severe sepsis with septic shock due to urinary tract infection. There is a concern about labile hypotension with masked faces and intermittent tremor. Per , these symptoms have been ongoing since the stroke so most likely stroke has affected the basal ganglia resulting in parkinsonism like syndrome. However, labile hypotension can also due to be sepsis associated with urinary tract infection. The patient is also on Lexapro, which can also cause parkinsonism like symptoms. Per , she has been on Lexapro for the last several years because of bipolar disorder. She is also on Trileptal, which can also cause hypotension and dizziness. Check Trileptal level. Neuro checks every 4 hours. Consider MRI of the brain to assess intracranial process to rule out parkinsonism symptoms secondary to stroke . The definitive diagnosis of parkinsonism can be made as outpatient once acute issues are involved. She is to follow up with Dr. Vargas as outpatient. Continue PT/OT/Speech. Continue medical management per primary team. Plan discussed in detail with the patient, , and the nursing staff. Thank you for the consult. Job ID: [id number] MTDD
[2020-10-04] MEDS ORDERED: Furosemide 40 MG/4 ML VIAL SLOW IVP SCH (16:00)
[2020-10-04] MEDS: Saccharomyces boulardii 250 MG CAP PO SCH (18:02)
[2020-10-04] MEDS: Escitalopram Oxalate 20 mg Tablet PO SCH (20:17)
[2020-10-04] MEDS: Atorvastatin Calcium 10 MG TAB PO SCH (20:17)
[2020-10-04] MEDS: Latanoprost 0.005% Ophth Soln 2.5 ml Bottle L EYE SCH (20:20)
[2020-10-05 05:25] LABS: Band 4 % (5-11); Eosinophils 3 % (0-10); Hemoglobin 8.2 g/dL (12.0-16.0); Hypochromia SLIGHT = 6-15 cells (100X) (0-5/hpf); Lymphocytes 11 % (21-51); MDiff Complete? YES; Mean Corpuscular HGB CONC 33.7 g/dL (32.0-36.0); Mean Corpuscular Hemoglobin 29.5 pg (27.0-31.0); Mean Corpuscular Volume 87.6 fL (78.0-98.0); Mean Platelet Volume 11.4 fL (7.4-10.4); Monocytes 3 % (0-10); Neutrophil 79 % (42-75); Platelet Count 87 thou/uL (130-400); Platelet Morphology Comment Appears Decreased; RBC Distribution Width 13.5 % (11.5-14.5); Red Blood Cell (RBC) Count 2.79 mill/uL (4.20-5.40)
[2020-10-05] MEDS: Potassium Chloride 10 MEQ TAB PO SCH ×2 (10:12→21:50)
[2020-10-05] MEDS: Metoclopramide HCl 10 MG TAB PO SCH ×4 (10:13→21:49)
[2020-10-05] MEDS: Ascorbic Acid 500 mg Chewable Tablet PO SCH (10:14)
[2020-10-05] MEDS: levETIRAcetam 500 MG TAB PO SCH ×2 (10:15→21:49)
[2020-10-05] MEDS: Oxybutynin 5 MG TAB PO SCH ×2 (10:16→21:49)
[2020-10-05] MEDS: Multivitamin W/ Minerals 1 TAB PO SCH (10:18)
[2020-10-05] MEDS: Carvedilol 6.25 MG TAB PO SCH ×2 (10:20→21:49)
[2020-10-05] MEDS: Lactinex Tablet PO SCH (10:22)
[2020-10-05] MEDS: OXcarbazepine 300 MG TAB PO SCH ×2 (10:27→21:48)
[2020-10-05] MEDS: Famotidine/PF 20 mg/2ml Vial SLOW IVP SCH ×2 (10:28→21:51)
[2020-10-05] MEDS: Chlorhexidine Gluconate 15 ML UDCUP SSP SCH ×2 (10:28→21:48)
--- NOTE | 2020-10-05 11:40 | PDOC.HOSPP ---
- Subjective Encounter Date: 10/05/20 Encounter Time: 11:39 Subjective: Ms. Landaverde was seen today in follow-up of UTI and sepsis. She does not have any complaints today, but continues to have a poor appetite, and some vague abdominal discomfort. - Objective Vital Signs & Weight: Vital Signs (12 hours) Temp Pulse Resp BP BP Pulse Ox 10/05/20 10:20 115/55 L 10/05/20 07:38 97.6 F 73 18 127/63 96 10/05/20 03:20 97.4 F L 70 20 106/54 L 94 L 10/05/20 02:15 93 L Weight Admit Weight 203 lb 4.8 oz Weight 208 lb 3.2 oz Most Recent Monitor Data Heart Rate from ECG 60 NIBP 123/58 NIBP BP-Mean 79 Respiration from ECG 14 SpO2 100 I&O: 10/04/20 10/05/20 10/06/20 06:59 06:59 06:59 Intake Total 3330 3557 Output Total 1999 2175 Balance 1330 1382 Result Diagrams: 10/05/20 04:34 10/01/20 04:30 Hospitalist ROS - Medication Medications: Active Medications Generic Name Dose Route Start Last Admin Trade Name Freq PRN Reason Stop Dose Admin Acetaminophen 650 mg 10/03/20 14:55 10/04/20 10:07 Acetaminophen 650 Mg Suppository NM 650 mg Q6H PRN Administration Headache/Fever or Pain Acidophilus 1 tab 09/29/20 09:00 10/05/20 10:22 Lactinex Tablet PO 1 tab DAILY MONICA Administration Ascorbic Acid 500 mg 09/29/20 09:00 10/05/20 10:14 Ascorbic Acid 500 Mg Chewable Tablet PO 500 mg DAILY MONICA Administration Atorvastatin Calcium 5 mg 10/02/20 21:00 10/04/20 20:17 Atorvastatin Calcium 10 Mg Tab PO 5 mg HS MONICA Administration Carvedilol 6.25 mg 10/02/20 21:00 10/05/20 10:20 Carvedilol 6.25 Mg Tab PO 6.25 mg BID MONICA Administration Chlorhexidine Gluconate 15 ml 09/28/20 21:00 10/05/20 10:28 Chlorhexidine Gluconate 15 Ml Udcup SSP 15 ml BID MONICA Administration Escitalopram Oxalate 20 mg 09/28/20 21:00 11/26/20 20:17 Escitalopram Oxalate 20 Mg Tablet PO 20 mg HS MONICA Administration Famotidine 20 mg 09/27/20 21:00 10/05/20 10:28 Famotidine/Pf 20 Mg/2ml Vial SLOW IVP Not Given Q12HR MONICA Levofloxacin 750 mg/ Device 150 mls @ 100 mls/hr 09/28/20 03:00 10/05/20 01:33 IVPB 150 mls 0300 MONICA Administration Cefepime HCl 2 gm/ Sodium 100 mls @ 200 mls/hr 09/28/20 11:00 10/04/20 22:45 Chloride IVPB 100 mls 1100,2300 MONICA Administration Iron/Minerals/Multivitamins 1 tab 10/03/20 09:00 10/05/20 10:18 Multivitamin W/ Minerals 1 Tab PO 1 tab DAILY MONICA Administration Latanoprost 1 drop 09/28/20 21:00 10/04/20 20:20 Latanoprost 0.005% Ophth Soln 2.5 Ml Bottle L EYE 1 drop HS MONICA Administration Levetiracetam 500 mg 09/28/20 21:00 10/05/20 10:15 Levetiracetam 500 Mg Tab PO 500 mg BID MONICA Administration Metoclopramide HCl 10 mg 10/01/20 11:30 10/05/20 10:13 Metoclopramide Hcl 10 Mg Tab PO 10 mg ACHS MONICA Administration Oxcarbazepine 600 mg 09/28/20 21:00 10/04/20 20:20 Oxcarbazepine 300 Mg Tab PO 600 mg QPM MONICA Administration Oxcarbazepine 300 mg 09/29/20 09:00 10/05/20 10:27 Oxcarbazepine 300 Mg Tab PO 300 mg DAILY MONICA Administration Oxybutynin Chloride 5 mg 10/02/20 21:00 10/05/20 10:16 Oxybutynin 5 Mg Tab PO 5 mg BID MONICA Administration Potassium Chloride 10 meq 09/28/20 21:00 10/05/20 10:12 Potassium Chloride 10 Meq Tab PO 10 meq BID MONICA Administration Saccharomyces Boulardii 250 mg 10/03/20 18:00 10/04/20 18:02 Saccharomyces Boulardii 250 Mg Cap PO 250 mg 1800 MONICA Administration Thyroid 180 mg 09/29/20 09:00 10/05/20 10:22 Thyroid 90 Mg Tab PO 180 mg DAILY MONICA Administration - Exam General Appearance: NAD, awake alert Eye: PERRL, anicteric sclera Heart: RRR, no murmur, no gallops, no rubs, normal peripheral pulses Respiratory: CTAB, no wheezes, no rales, no ronchi, normal chest expansion, no tachypnea Gastrointestinal: soft (+ mild diffuse tenderness, no rebound or guarding), normal bowel sounds, no palpable masses, no hepatomegaly Extremities: no cyanosis, no clubbing, 2+ LE edema Hosp A/P (1) UTI (urinary tract infection) Status: Acute (2) Septic shock Code(s): A41.9 - SEPSIS, UNSPECIFIED ORGANISM; R65.21 - SEVERE SEPSIS WITH SEPTIC SHOCK Status: Acute (3) H/O: CVA (cerebrovascular accident) Code(s): Z86.73 - PRSNL HX OF TIA (TIA), AND CEREB INFRC W/O RESID DEFICITS Status: Chronic (4) Hypertension Code(s): I10 - ESSENTIAL (PRIMARY) HYPERTENSION Status: Chronic (5) Hypothyroidism Code(s): E03.9 - HYPOTHYROIDISM, UNSPECIFIED Status: Chronic (6) Seizure disorder Code(s): G40.909 - EPILEPSY, UNSP, NOT INTRACTABLE, WITHOUT STATUS EPILEPTICUS Status: Chronic - Plan * UTI - sepsis has resolved- Urine culture is growing Pseudomonas- which only has Intermediate Sensitivity to Cefepime * Will change to Meropenem ( She notes a penicillin allergy, but she does not know what the reaction is. Her is at bedside, and says she has taken other penicillin based antibiotics without difficulty) * Stop Levaquin and Cefepime * ID consult * Seizure disorder- continue Keppra and Trileptal * Continue to encourage oral intake and continue tube feed prn * Hypothyroidism- she is clinically euthyroid- continue thyroid hormone replacement * Parkinson like syndrome- Neurology input appreciated- this is difficult to assess in the midst of the current illness- This can be addressed outpatient- MRI has been ordered, but the remainder of the work-up can be done out patient. * Screen for [facility] bed has been placed. Given the culture results, she will likely need continued IV antibiotics
[2020-10-05] MEDS: Cefepime 2 GM in Sodium Chloride 0.9% 100 ML IVPB SCH (12:29)
[2020-10-05] MEDS: MEROPENEM 1 GM/50 ML 1 GM in Premix Bag 1 BAG IVPB SCH ×2 (14:03→21:52)
[2020-10-05] MEDS: Saccharomyces boulardii 250 MG CAP PO SCH (18:01)
[2020-10-05] MEDS ORDERED: AMIKACIN 500 MG/2 ML IVPB SCH (18:15)
--- NOTE | 2020-10-05 18:47 | CON ---
DATE OF CONSULTATION: 10/05/2020 REASON FOR CONSULTATION: Possible invasive UTI with resistant pathogen. HISTORY OF PRESENT ILLNESS: A 75-year-old patient whom I had seen in 2019 when she presented with a history of prior CVA with hemorrhagic transformation, left- sided plegia, atrial fibrillation with ablation in the past, trach and PEG at that time, trach removed and she kept the gastrostomy tube as needed. She also had a deep vein thrombosis in the left lower extremity and an IVC filter placed. When I saw her, there was moderate hydronephrosis on the right side without obstructing stone and she did not have a suprapubic catheter yet. She did have a Weiss catheter the last time I saw her. On April 14, 2019, the patient had a right retrograde pyelogram with stent placement on the right side to manage the area of hydronephrosis. In October 2019, she had a revision of the right ventricular lead and removal of the old right ventricular lead. So, now she gets readmitted from the [facility] with generalized weakness and decreased oral intake. She had a stage 2 sacral ulcer as well. There had been no fever or cough. A suprapubic catheter had been placed. Initial findings included BP 120/50, pulse 81, respirations 18, temperature 97.4, and O2 saturations were 100%. The initial impression was possible sepsis versus an allergic reaction to ceftriaxone. She basically was hypotensive after ceftriaxone was given and she remained so. Acute UTI, suprapubic catheter, CVA, COPD, atrial fibrillation. She was switched to levofloxacin and vancomycin. We have had urine culture submitted, but no blood cultures, which is strange. Urine culture with P aeruginosa, second gram-negative nita, and MRSA retrieved. P aeruginosa less than 10,000 CFUs. The gram-negative nita less than 10,000. MRSA less than 10,000 as well. Imaging included a chest x-ray with no acute pulmonary findings and pacemaker. Currently, Ms. Landaverde is awake. She is able to answer some questions and make some comments herself. She is still quite alert and has not had diarrhea. She is able to eat, but gets feedings through the G-tube as well. PAST MEDICAL HISTORY: Prior CVA with hemorrhagic transformation, left-sided plegia and contractures, spasticity, oropharyngeal dysphagia with gastrostomy tube, COPD, ischemic cardiomyopathy, hypothyroidism, atrial fibrillation with prior ablation and pacemaker placement, pacemaker lead replacement, hydronephrosis with recent placement of a stent in April of last year. PAST SURGICAL HISTORY: Appendectomy, cholecystectomy, hysterectomy, gastrostomy tube in addition to the above procedures. ALLERGIES: CODEINE, PENICILLIN, PROPAFENONE, AND CEFTRIAXONE POTENTIALLY. FAMILY HISTORY: Noncontributory. CURRENT MEDICATIONS: Meropenem. PHYSICAL EXAMINATION: VITAL SIGNS: She had a low-grade temperature elevation up to 100.6 and then 100.2, BP 127/74, heart rate 67, respiratory rate 18 to 20, O2 saturations are 95%. SKIN: Stage 2 presacral ulceration, quite small. She has a peripheral IV access for right upper extremity, and a suprapubic catheter and a G-tube with normal exit site appearance. Dense left hemiplegia with contractures. HEENT: Ocular movements are conjugate. She has only a few remaining teeth. NECK: Stiff to all directions. No jugular vein distention. LUNGS: Symmetric. Clear breath sounds. HEART: S1 and S2. Regular rate. No S3 or S4. ABDOMEN: Soft, not distended or tender. No bladder distention. NEUROLOGIC: She is awake. Some dysarthria with expressive aphasia, but she is able to have a limited conversation. LABORATORY DATA: White cell count on arrival was 7.1. The percentage neutrophils were 81%. Platelets were 154, now down to 87. Ferritin 488. SARS-CoV was not detected. Urinalysis greater than 50 wbc's. ASSESSMENT: 1. Cerebrovascular accident with hemorrhagic transformation and left hemiplegia. 2. Expressive aphasia. 3. Neurogenic bladder with initially urethral catheterization and now the patient has a suprapubic cath. 4. Episode of urosepsis in 2019, which was caused by Proteus mirabilis. At that time, she had positive blood cultures and she required treatment. She eventually had a stent placed. I do not know if that stent has been removed yet. She did not have a suprapubic catheter then, but now has one placed. 5. Failure to thrive and general malaise without fever and neutrophilia on admission and possible hypotension associated with sepsis and abnormal urine findings as noted above without any other explanation. DISCUSSION: The patient has very low numbers of Pseudomonas, second gram- negative nita, and MRSA in the urine. Nonetheless, this could represent an invasive process and I cannot rule out that possibility. We will have to treat this at face value and I would advise repeating the imaging study. I think a stone protocol CT would be enough. I would bet that the stent has been removed by Dr. Shin. Meropenem is not the best drug for Pseudomonas. Sometimes it can develop resistance in the middle of treatment and I will give her a dose of amikacin or maybe 2 or 3 doses and then stop. We will add vancomycin as well for the MRSA component. I do not think she would need more than a brief course of antimicrobial therapy, probably not more than 7 days, unless there are some complications found in the imaging study. Job ID: [id number] MTDD
--- NOTE | 2020-10-05 20:34 | CT ---
CT ABDOMEN AND PELVIS WITHOUT CONTRAST: 10/05/20 PROVIDED CLINICAL HISTORY: Urinary tract infection, abdominal pain. FINDINGS: Comparison 04/14/19. There is mild bilateral pleural fluid partially visualized. Probable subsegmental atelectatic change involving the adjacent lung parenchyma. Percutaneous gastrostomy tube is noted which appears appropriately positioned within the stomach. Th e liver, spleen, pancreas, kidneys, and adrenal glands demonstrate No acute abnormality. There are mu ltiple bilateral renal calculi, largest on the right measuring about 2 cm and largest on the left jovi suring about 11 mm. There is no hydronephrosis, hydroureter, ureteral or bladder calculus. The urinar y bladder is decompressed by suprapubic catheter. There is no bowel obstruction evident. There is no evidence for appendicitis. There is no free intrap eritoneal air apparent. There is somewhat eccentric and mass-like thickening of the wall of the rectum near the rectosigmoid junction right of midline. There is stranding of the surrounding fat. No additional inflammatory fat stranding is seen within the abdomen and pelvis. Extensive noncircumscribed fluid density is seen wit hin the subcutaneous adipose layer of both flank regions. The osseous structures demonstrate concerning lytic or blastic lesions. IVC filter is noted. IMPRESSION: 1. Focal mural thickening involving the rectum near the rectosigmoid junction with surrounding f at stranding. Findings may reflect a focal area of proctitis. Other etiologies are not excluded. Jese elation with direct visualization is recommended. 2. Large bilateral renal calculi without hydronephrosis. 3. Bilateral pleural fluid with adjacent probable passive atelectatic change. POS: DARIEL
[2020-10-05] MEDS: Amikacin Sulfate 1,000 MG in Sodium Chloride 0.9% 100 ML IVPB SCH (21:48)
[2020-10-05] MEDS: Escitalopram Oxalate 20 mg Tablet PO SCH (21:49)
[2020-10-05] MEDS: Atorvastatin Calcium 10 MG TAB PO SCH (21:49)
[2020-10-05] MEDS: Latanoprost 0.005% Ophth Soln 2.5 ml Bottle L EYE SCH (21:50)
[2020-10-05] MEDS: Vancomycin 1 GM in Premix Bag 1 BAG IVPB SCH (21:51)
[2020-10-06 05:30] LABS: Band 1 % (5-11); Eosinophils 4 % (0-10); Hemoglobin 8.4 g/dL (12.0-16.0); Lymphocytes 8 % (21-51); MDiff Complete? YES; Mean Corpuscular HGB CONC 33.5 g/dL (32.0-36.0); Mean Corpuscular Hemoglobin 29.3 pg (27.0-31.0); Mean Corpuscular Volume 87.5 fL (78.0-98.0); Mean Platelet Volume 11.9 fL (7.4-10.4); Monocytes 5 % (0-10); Neutrophil 82 % (42-75); Platelet Clumps MODERATE; Platelet Count 42 thou/uL (130-400); Platelet Morphology Comment Appears Decreased; RBC Distribution Width 13.7 % (11.5-14.5); RBC Morphology Normal; Red Blood Cell (RBC) Count 2.86 mill/uL (4.20-5.40); White Blood Cell (WBC) Count 7.1 thou/uL (4.8-10.8)
[2020-10-06] MEDS: MEROPENEM 1 GM/50 ML 1 GM in Premix Bag 1 BAG IVPB SCH (06:47)
[2020-10-06] MEDS: Metoclopramide HCl 10 MG TAB PO SCH ×4 (08:42→22:34)
[2020-10-06] MEDS: Lactinex Tablet PO SCH (08:44)
[2020-10-06] MEDS: Ascorbic Acid 500 mg Chewable Tablet PO SCH (08:44)
[2020-10-06] MEDS: Chlorhexidine Gluconate 15 ML UDCUP SSP SCH ×2 (08:45→20:26)
[2020-10-06] MEDS: Carvedilol 6.25 MG TAB PO SCH ×2 (08:45→20:25)
[2020-10-06] MEDS: Oxybutynin 5 MG TAB PO SCH ×2 (08:45→20:27)
[2020-10-06] MEDS: levETIRAcetam 500 MG TAB PO SCH ×2 (08:45→20:27)
[2020-10-06] MEDS: Potassium Chloride 10 MEQ TAB PO SCH ×2 (08:45→22:33)
[2020-10-06] MEDS: Multivitamin W/ Minerals 1 TAB PO SCH (08:45)
[2020-10-06] MEDS: OXcarbazepine 300 MG TAB PO SCH ×2 (08:45→22:33)
[2020-10-06] MEDS: Vancomycin 1 GM in Premix Bag 1 BAG IVPB SCH ×2 (08:46→21:53)
[2020-10-06] MEDS: Famotidine/PF 20 mg/2ml Vial SLOW IVP SCH ×2 (09:21→20:26)
[2020-10-06] MEDS: Docusate 100 MG CAP PO PRN (11:17)
--- NOTE | 2020-10-06 11:56 | PDOC.NEUPN ---
- Subjective Encounter Date: 10/06/20 Subjective: Patient is alert and oriented to person and place. at bedside. - Objective Vital Signs & Weight: Vital Signs (12 hours) Temp Pulse Resp BP Pulse Ox 10/06/20 08:00 97.4 F L 63 14 116/55 L 95 10/06/20 03:33 98.1 F 64 14 127/54 L 96 10/06/20 01:05 93 L 10/05/20 23:55 97.8 F 70 16 106/53 L 93 L Weight Admit Weight 203 lb 4.8 oz Weight 208 lb 12.444 oz Most Recent Monitor Data Heart Rate from ECG 60 NIBP 123/58 NIBP BP-Mean 79 Respiration from ECG 14 SpO2 100 I&O: 10/05/20 10/06/20 10/07/20 06:59 06:59 06:59 Intake Total 3557 950 Output Total 2175 1250 Balance 1382 -300 Result Diagrams: 10/06/20 04:44 10/01/20 04:30 Radiology Reviewed by me: Yes EKG Reviewed by me: Yes ROS - Review of Systems Eyes: denies: pain, vision change, conjunctivae inflammation, eyelid inflammation, redness, other ENT: denies: ear pain, ear discharge, nose pain, nose discharge, nose c ongestion, mouth pain, mouth swelling, throat pain, throat swelling, other Musculoskeletal: reports: back pain. denies: neck pain, shoulder pain, arm pain, hand pain, leg pain, foot pain, other All Systems: All other systems reviewed; all pertinent +/- noted in HPI/Subj - Medication Medications: Active Medications Generic Name Dose Route Start Last Admin Trade Name Yoni PRN Reason Stop Dose Admin Acetaminophen 650 mg 10/03/20 14:55 10/04/20 10:07 Acetaminophen 650 Mg Suppository SD 650 mg Q6H PRN Administration Headache/Fever or Pain Acidophilus 1 tab 09/29/20 09:00 10/06/20 08:44 Lactinex Tablet PO 1 tab DAILY MONICA Administration Ascorbic Acid 500 mg 09/29/20 09:00 10/06/20 08:44 Ascorbic Acid 500 Mg Chewable Tablet PO 500 mg DAILY MONICA Administration Atorvastatin Calcium 5 mg 10/02/20 21:00 10/05/20 21:49 Atorvastatin Calcium 10 Mg Tab PO 5 mg HS MONICA Administration Carvedilol 6.25 mg 10/02/20 21:00 10/06/20 08:45 Carvedilol 6.25 Mg Tab PO 6.25 mg BID MONICA Administration Chlorhexidine Gluconate 15 ml 09/28/20 21:00 10/06/20 08:45 Chlorhexidine Gluconate 15 Ml Udcup SSP 15 ml BID MONICA Administration Docusate Sodium 100 mg 10/05/20 16:37 10/06/20 11:17 Docusate 100 Mg Cap PO 100 mg BIDPRN PRN Administration Constipation Escitalopram Oxalate 20 mg 09/28/20 21:00 10/05/20 21:49 Escitalopram Oxalate 20 Mg Tablet PO 20 mg HS MONICA Administration Famotidine 20 mg 09/27/20 21:00 10/06/20 09:21 Famotidine/Pf 20 Mg/2ml Vial SLOW IVP Not Given Q12HR MONICA Meropenem 1 gm/ Device 50 mls @ 100 mls/hr 10/05/20 14:00 10/06/20 06:47 IVPB 50 mls Q8HR MONICA Administration Vancomycin HCl 1 gm/ Device 200 mls @ 133.333 mls/hr 10/05/20 21:00 10/06/20 08:46 IVPB 10/10/20 21:01 200 mls BID MONICA Administration Amikacin Sulfate 1,000 mg/ 104 mls @ 104 mls/hr 10/05/20 20:00 10/05/20 21:48 Sodium Chloride IVPB 10/07/20 20:59 104 mls Q24HR MONICA Administration Iron/Minerals/Multivitamins 1 tab 10/03/20 09:00 10/06/20 08:45 Multivitamin W/ Minerals 1 Tab PO 1 tab DAILY MONICA Administration Latanoprost 1 drop 09/28/20 21:00 10/05/20 21:50 Latanoprost 0.005% Ophth Soln 2.5 Ml Bottle L EYE 1 drop HS MONICA Administration Levetiracetam 500 mg 09/28/20 21:00 10/06/20 08:45 Levetiracetam 500 Mg Tab PO 500 mg BID MONICA Administration Metoclopramide HCl 10 mg 10/01/20 11:30 10/06/20 11:17 Metoclopramide Hcl 10 Mg Tab PO 10 mg ACHS MONICA Administration Oxcarbazepine 600 mg 09/28/20 21:00 10/05/20 21:48 Oxcarbazepine 300 Mg Tab PO 600 mg QPM MONICA Administration Oxcarbazepine 300 mg 09/29/20 09:00 10/06/20 08:45 Oxcarbazepine 300 Mg Tab PO 300 mg DAILY MONICA Administration Oxybutynin Chloride 5 mg 10/02/20 21:00 10/06/20 08:45 Oxybutynin 5 Mg Tab PO 5 mg BID MONICA Administration Potassium Chloride 10 meq 09/28/20 21:00 10/06/20 08:45 Potassium Chloride 10 Meq Tab PO 10 meq BID MONICA Administration Saccharomyces Boulardii 250 mg 10/03/20 18:00 10/05/20 18:01 Saccharomyces Boulardii 250 Mg Cap PO 250 mg 1800 MONICA Administration Sodium Chloride 10 ml 10/04/20 08:10 10/06/20 08:46 Flush - Normal Saline 10 Ml Syringe IVF 10 ml PRN PRN Administration Saline Flush Thyroid 180 mg 09/29/20 09:00 10/06/20 08:43 Thyroid 90 Mg Tab PO 180 mg DAILY MONICA Administration - Exam General Appearance: awake alert Eye: PERRL ENT: normocephalic atraumatic Neck: supple Respiratory: CTAB Cardiovascular: RRR Gastrointestinal: soft Extremities: no cyanosis Skin: normal turgor Neurological: no new deficit Musculoskeletal: no muscle wasting PSYCH: normal affect, normal behavior, oriented to person, oriented to place Results - Labs Result Diagrams: 10/06/20 04:44 10/01/20 04:30 Lab results: WBC 7.1 thou/uL (4.8-10.8) 10/06/20 04:44 Hgb 8.4 g/dL (12.0-16.0) L 10/06/20 04:44 Hct 25.0 % (36.0-47.0) L 10/06/20 04:44 MCV 87.5 fL (78.0-98.0) 10/06/20 04:44 Plt Count 42 thou/uL (130-400) L 10/06/20 04:44 Neutrophils % 74.0 % (42.0-75.0) 09/27/20 16:46 Band Neuts % (Manual) 1 % (5-11) L 10/06/20 04:44 Sodium 134 mmol/L (136-145) L 10/01/20 04:30 Potassium 3.8 mmol/L (3.5-5.1) 10/01/20 04:30 Chloride 110 mmol/L (98-107) H 10/01/20 04:30 Carbon Dioxide 17 mmol/L (23-31) L 10/01/20 04:30 BUN 22 mg/dL (9.8-20.1) H 10/01/20 04:30 Creatinine 1.02 mg/dL (0.6-1.1) 10/01/20 04:30 Glucose 126 mg/dL (83-110) H 10/01/20 04:30 Calcium 8.7 mg/dL (7.8-10.44) 10/01/20 04:30 Total Bilirubin 0.3 mg/dL (0.2-1.2) 10/01/20 04:30 AST 13 U/L (5-34) 10/01/20 04:30 ALT 8 U/L (8-55) 10/01/20 04:30 Alkaline Phosphatase 79 U/L (40-110) 10/01/20 04:30 Troponin I 0.028 ng/mL (< 0.028) 09/27/20 16:46 Serum Total Protein 5.4 g/dL (6.0-8.3) L 10/01/20 04:30 Albumin 2.6 g/dL (3.4-4.8) L 10/01/20 04:30 Lipase 12 U/L (8-78) 09/27/20 16:46 Urine Ketones Negative mg/dL (Negative) 09/27/20 17:05 Urine Blood Trace (Negative) A 09/27/20 17:05 Urine Nitrite Negative (Negative) 09/27/20 17:05 Ur Leukocyte Esterase 500 Jamison/uL (Negative) A 09/27/20 17:05 Urine RBC 11-20 HPF (0-3) A 09/27/20 17:05 Urine WBC Greater than 50 HPF (0-3) A 09/27/20 17:05 Ur Squamous Epith Cells None Seen HPF (0-3) 09/27/20 17:05 Urine Bacteria 4+ HPF (None Seen) A 09/27/20 17:05 PN A/P (1) Parkinsonism Code(s): G20 - PARKINSON'S DISEASE Status: Acute (2) Declining functional status Code(s): R53.81 - OTHER MALAISE Status: Acute (3) Severe sepsis with septic shock Code(s): A41.9 - SEPSIS, UNSPECIFIED ORGANISM; R65.21 - SEVERE SEPSIS WITH SEPTIC SHOCK Status: Acute (4) Left hemiplegia Code(s): G81.94 - HEMIPLEGIA, UNSPECIFIED AFFECTING LEFT NONDOMINANT SIDE Status: Chronic (5) Bacteremia due to Gram-negative bacteria Code(s): R78.81 - BACTEREMIA Status: Acute (6) Dyslipidemia Code(s): E78.5 - HYPERLIPIDEMIA, UNSPECIFIED Status: Chronic (7) Seizure disorder Code(s): G40.909 - EPILEPSY, UNSP, NOT INTRACTABLE, WITHOUT STATUS EPILEPTICUS Status: Chronic - Plan Daily Plan: plan discussed w/ family ( at bedside), continue antibiotics, PT/OT, speech therapy, DVT proph w/SCDs Ms. Landaverde is a 75-year-old female who presented with acute encephalopathy in the present in the setting of UTI and sepsis. Neurology consulted for Parkinson-like symptoms including tremor, and masked facies. Per , these are ongoing symptoms since the stroke in 2018. Altered mental status is improved and patient is alert and oriented to person and place and follows commands appropriately. As far as parkinsonian symptoms features are concerned, it is difficult to diagnose with Parkinson disease in the midst of current acute issues. The patient needs MRI of the brain was we can determine that AICD is compatible with MRI. The patient should be followed with Dr. Tinsley , the outpatient neurologist once acute issues are resolved to determine if she can benefit from Parkinson treatment. Continue neurochecks every 4 hours. Continue home medications. Continue Keppra and Trileptal for seizure prophylaxis. Telemetry DVT prophylaxis. Continue medical management per primary team and ID.
--- NOTE | 2020-10-06 12:20 | PDOC.HOSPP ---
- Subjective Encounter Date: 10/06/20 Encounter Time: 09:45 Subjective: Spouse at bedside. She looks fatigued and sleepy. MRSA and gram-negative rods in the urine. Dr. De La Torre note reviewed. - Objective Vital Signs & Weight: Vital Signs (12 hours) Temp Pulse Resp BP Pulse Ox 10/06/20 11:42 97.8 F 60 14 98/68 95 10/06/20 08:00 97.4 F L 63 14 116/55 L 95 10/06/20 03:33 98.1 F 64 14 127/54 L 96 10/06/20 01:05 93 L Weight Admit Weight 203 lb 4.8 oz Weight 208 lb 12.444 oz Most Recent Monitor Data Heart Rate from ECG 60 NIBP 123/58 NIBP BP-Mean 79 Respiration from ECG 14 SpO2 100 I&O: 10/05/20 10/06/20 10/07/20 06:59 06:59 06:59 Intake Total 3557 950 Output Total 2175 1250 Balance 1382 -300 Result Diagrams: 10/06/20 04:44 10/01/20 04:30 Hospitalist ROS - Medication Medications: Active Medications Generic Name Dose Route Start Last Admin Trade Name Freq PRN Reason Stop Dose Admin Acetaminophen 650 mg 10/03/20 14:55 10/04/20 10:07 Acetaminophen 650 Mg Suppository SC 650 mg Q6H PRN Administration Headache/Fever or Pain Acidophilus 1 tab 09/29/20 09:00 10/06/20 08:44 Lactinex Tablet PO 1 tab DAILY MONICA Administration Ascorbic Acid 500 mg 09/29/20 09:00 10/06/20 08:44 Ascorbic Acid 500 Mg Chewable Tablet PO 500 mg DAILY MONICA Administration Atorvastatin Calcium 5 mg 10/02/20 21:00 10/05/20 21:49 Atorvastatin Calcium 10 Mg Tab PO 5 mg HS MONICA Administration Carvedilol 6.25 mg 10/02/20 21:00 10/06/20 08:45 Carvedilol 6.25 Mg Tab PO 6.25 mg BID MONICA Administration Chlorhexidine Gluconate 15 ml 09/28/20 21:00 10/06/20 08:45 Chlorhexidine Gluconate 15 Ml Udcup SSP 15 ml BID MONICA Administration Docusate Sodium 100 mg 10/05/20 16:37 10/06/20 11:17 Docusate 100 Mg Cap PO 100 mg BIDPRN PRN Administration Constipation Escitalopram Oxalate 20 mg 09/28/20 21:00 10/05/20 21:49 Escitalopram Oxalate 20 Mg Tablet PO 20 mg HS MONICA Administration Famotidine 20 mg 09/27/20 21:00 10/06/20 09:21 Famotidine/Pf 20 Mg/2ml Vial SLOW IVP Not Given Q12HR MONICA Meropenem 1 gm/ Device 50 mls @ 100 mls/hr 10/05/20 14:00 10/06/20 06:47 IVPB 50 mls Q8HR MONICA Administration Vancomycin HCl 1 gm/ Device 200 mls @ 133.333 mls/hr 10/05/20 21:00 10/06/20 08:46 IVPB 10/10/20 21:01 200 mls BID MONICA Administration Amikacin Sulfate 1,000 mg/ 104 mls @ 104 mls/hr 10/05/20 20:00 10/05/20 21:48 Sodium Chloride IVPB 10/07/20 20:59 104 mls Q24HR MONICA Administration Iron/Minerals/Multivitamins 1 tab 10/03/20 09:00 10/06/20 08:45 Multivitamin W/ Minerals 1 Tab PO 1 tab DAILY MONICA Administration Latanoprost 1 drop 09/28/20 21:00 10/05/20 21:50 Latanoprost 0.005% Ophth Soln 2.5 Ml Bottle L EYE 1 drop HS MONICA Administration Levetiracetam 500 mg 09/28/20 21:00 10/06/20 08:45 Levetiracetam 500 Mg Tab PO 500 mg BID MONICA Administration Metoclopramide HCl 10 mg 10/01/20 11:30 10/06/20 11:17 Metoclopramide Hcl 10 Mg Tab PO 10 mg ACHS MONICA Administration Oxcarbazepine 600 mg 09/28/20 21:00 10/05/20 21:48 Oxcarbazepine 300 Mg Tab PO 600 mg QPM MONICA Administration Oxcarbazepine 300 mg 09/29/20 09:00 10/06/20 08:45 Oxcarbazepine 300 Mg Tab PO 300 mg DAILY MONICA Administration Oxybutynin Chloride 5 mg 10/02/20 21:00 10/06/20 08:45 Oxybutynin 5 Mg Tab PO 5 mg BID MONICA Administration Potassium Chloride 10 meq 09/28/20 21:00 10/06/20 08:45 Potassium Chloride 10 Meq Tab PO 10 meq BID MONICA Administration Saccharomyces Boulardii 250 mg 10/03/20 18:00 10/05/20 18:01 Saccharomyces Boulardii 250 Mg Cap PO 250 mg 1800 MONICA Administration Sodium Chloride 10 ml 10/04/20 08:10 10/06/20 08:46 Flush - Normal Saline 10 Ml Syringe IVF 10 ml PRN PRN Administration Saline Flush Thyroid 180 mg 09/29/20 09:00 10/06/20 08:43 Thyroid 90 Mg Tab PO 180 mg DAILY MONICA Administration - Exam General Appearance: NAD, awake alert Eye: PERRL ENT: normocephalic atraumatic Neck: supple Heart: RRR Respiratory: CTAB Gastrointestinal: soft, normal bowel sounds Neurological: no focal deficits Psychiatric: somnolent, lethargic Hosp A/P - Plan (1) Parkinsonism Code(s): G20 - PARKINSON'S DISEASE Status: Acute (2) Declining functional status Code(s): R53.81 - OTHER MALAISE Status: Acute (3) Severe sepsis with septic shock Code(s): A41.9 - SEPSIS, UNSPECIFIED ORGANISM; R65.21 - SEVERE SEPSIS WITH SEPTIC SHOCK Status: Acute (4) Left hemiplegia Code(s): G81.94 - HEMIPLEGIA, UNSPECIFIED AFFECTING LEFT NONDOMINANT SIDE Status: Chronic (5) Bacteremia due to Gram-negative bacteria Code(s): R78.81 - BACTEREMIA Status: Acute (6) Dyslipidemia Code(s): E78.5 - HYPERLIPIDEMIA, UNSPECIFIED Status: Chronic (7) Seizure disorder Code(s): G40.909 - EPILEPSY, UNSP, NOT INTRACTABLE, WITHOUT STATUS EPILEPTICUS Status: Chronic - Plan Daily Plan: plan discussed w/ family ( at bedside), continue antibiotics, PT/OT, speech therapy, DVT proph w/SCDs Ms. Landaverde is a 75-year-old female who presented with acute encephalopathy in the present in the setting of UTI and sepsis. Neurology consulted for Parkinson-like symptoms including tremor, and masked facies. Per , these are ongoing symptoms since the stroke in 2018. Altered mental status is improved and patient is alert and oriented to person and place and follows commands appropriately. As far as parkinsonian symptoms features are concerned, it is difficult to d iagnose with Parkinson disease in the midst of current acute issues. The patient needs MRI of the brain was we can determine that AICD is compatible with MRI. The patient should be followed with Dr. Tinsley , the outpatient neurologist once acute issues are resolved to determine if she can benefit from Parkinson treatment. --Pseudomonas and MRSA UTI. -Follow-up on CT protocol-focal area of proctitis-bilateral renal calculi without hydronephrosis---urology consult placed based on the recommendations from [facility] physician. -Merum discontinued and vancomycin as well as 3 doses of amikacin. -Plan for continue IV antibiotics for 7 days.--Previously there was a note for long duration of abx, that has been changed.
[2020-10-06] MEDS ORDERED: MEROPENEM 1 GM/50 ML 1 GM in Premix Bag 1 BAG IVPB SCH (14:00)
[2020-10-06] MEDS ORDERED: Sodium Chloride 0.9% 250 ML IVPB SCH (16:30)
[2020-10-06] MEDS: Saccharomyces boulardii 250 MG CAP PO SCH (17:04)
[2020-10-06] MEDS: Acetaminophen 650 MG Suppository PR PRN (18:03)
--- NOTE | 2020-10-06 18:37 | CON ---
DATE OF CONSULTATION: 10/06/2020 REASON FOR CONSULTATION: Bilateral renal calculi, urinary tract infection. HISTORY OF PRESENT ILLNESS: Ms. Landaverde is a 75-year-old female with past medical history significant for CVA with left hemiparesis in 2018, dysphagia, COPD, congestive heart failure, hypothyroidism, atrial fibrillation, neurogenic bladder with indwelling suprapubic catheter, and urolithiasis. She was admitted on 09/27/2020 from her nursing facility secondary to decreased p.o. intake and altered mental status. The patient had tested positive for COVID approximately 6 weeks ago, however, was more less asymptomatic from that. The patient was found to have a significant urinary tract infection. She has had some significant hypotension. Urine culture is growing Pseudomonas and MRSA, which was obtained from her suprapubic catheter. No blood cultures were obtained. A CT of the abdomen and pelvis was performed, which demonstrated bilateral nonobstructing nephrolithiasis as well as some possible proctitis. The stone on the right side was large up to 2 cm in diameter in the lower pole, and on the left the largest stone was approximately 11 mm. There was no hydronephrosis. Urology was consulted for further evaluation. The patient is well known to me. I have treated her for stones in the past. I also placed her a suprapubic catheter and have overseen management of this. It is changed approximately every 3 weeks at her nursing facility and this flushed daily to prevent it from calcifying which has been a problem in the past. I have not seen the patient in several months well prior to the COVID crisis. Overall, the patient's says she has been doing well until she tested positive for COVID and was transferred to a different facility and he does not believe she was getting she returned with sacral decubitus ulcers, a clogged catheter as well as other issues. The patient progressively deteriorated until her presentation to the hospital here. REVIEW OF SYSTEMS: The patient denies any fever or chills. No chest pain or shortness of breath. No dizziness. Otherwise negative other than that mentioned in HPI. PAST MEDICAL HISTORY: Prior CVA, left-sided hemiplegia, spasticity, oropharyngeal dysphagia with gastrostomy tube, COPD, ischemic cardiomyopathy, hypothyroidism, atrial fibrillation, nephrolithiasis. PAST SURGICAL HISTORY: Appendectomy, cholecystectomy, hysterectomy, gastrostomy, ureteral stent placement with ureteroscopy with laser lithotripsy to followup. ALLERGIES: CODEINE, PENICILLIN, PROPAFENONE, CEFTRIAXONE. FAMILY HISTORY: Noncontributory. MEDICATIONS: List was reviewed. Currently on meropenem PHYSICAL EXAMINATION: VITAL SIGNS: Temperature 98.5, pulse 68, respirations 14, oxygen saturation 96% on room air, blood pressure 98/68. GENERAL: She is awake and alert, no apparent distress. HEENT: Normocephalic, atraumatic. NECK: Supple. No masses or lymphadenopathy. CARDIOVASCULAR: Regular rate and rhythm. PULMONARY: Breathing unlabored. ABDOMEN: Obese, soft, nontender/nondistended. No masses or organomegaly. No suprapubic tenderness to palpation. No CVA tenderness. Suprapubic catheter draining clear yellow urine. EXTREMITIES: Warm and well perfused. No edema. LABORATORY DATA: White blood cell count 7.1, hemoglobin 8.4, hematocrit 25.0, platelets 42. Sodium 134, potassium 3.8, chloride 110, bicarb 17, BUN 22, creatinine 1.02. Cultures as stated above. ASSESSMENT: A 75-year-old female with urinary tract infection, sepsis, and multiple acute and chronic medical problems as listed above including bilateral nephrolithiasis. PLAN: I reviewed the patient's labs, her recent imaging with she and her in detail. She does have enlarging stone burden, particularly on her right side. None of this is obstructing at this time. I would not recommend any intervention given her current state. The source of her sepsis is likely urinary. She does have an indwelling catheter and will chronically be colonized. However, given her symptoms and current state, this is likely the source. Her stone burden on her right side is now up to 2 cm. This can be managed electively as an outpatient if the patient recovers back to her baseline, but unless obstruction is present, would not recommend doing anything in the meantime. The patient's agrees with this plan. She will follow up with Urology as an outpatient. Thank you for allowing me to participate in the care of this patient. Job ID: [id number]
[2020-10-06] MEDS: Atorvastatin Calcium 10 MG TAB PO SCH (20:25)
[2020-10-06] MEDS: Latanoprost 0.005% Ophth Soln 2.5 ml Bottle L EYE SCH (20:27)
[2020-10-06] MEDS: Amikacin Sulfate 1,000 MG in Sodium Chloride 0.9% 100 ML IVPB SCH (20:42)
[2020-10-06] MEDS ORDERED: Metoclopramide HCl 10 MG TAB PER TUBE SCH (21:00)
[2020-10-06] MEDS: OXcarbazepine 300 MG/5 ML UDCUP PER TUBE SCH (21:41)
[2020-10-06] MEDS: Metoclopramide 10 MG/10 ML UDCUP PO SCH (21:41)
[2020-10-06] MEDS: Escitalopram Oxalate 20 mg Tablet PER TUBE SCH (21:41)
[2020-10-06] MEDS: Escitalopram Oxalate 20 mg Tablet PO SCH (22:34)
[2020-10-06] MEDS: Meropenem 1 GM in Sodium Chloride 0.9% 100 ML IVPB SCH (23:58)
[2020-10-07 06:16] LABS: Hemoglobin 8.5 g/dL (12.0-16.0); Mean Corpuscular HGB CONC 33.3 g/dL (32.0-36.0); Mean Corpuscular Hemoglobin 29.6 pg (27.0-31.0); Mean Platelet Volume 12.3 fL (7.4-10.4); RBC Distribution Width 13.9 % (11.5-14.5); Red Blood Cell (RBC) Count 2.85 mill/uL (4.20-5.40); White Blood Cell (WBC) Count 8.2 thou/uL (4.8-10.8)
[2020-10-07] MEDS: Meropenem 1 GM in Sodium Chloride 0.9% 100 ML IVPB SCH ×2 (06:21→14:44)
[2020-10-07 06:31] LABS: Eosinophils 3 % (0-10); Lymphocytes 14 % (21-51); MDiff Complete? YES; Monocytes 2 % (0-10); Neutrophil 81 % (42-75); Platelet Clumps MARKED; Platelet Morphology Comment Appears Decreased
[2020-10-07] MEDS: Multivitamin W/ Minerals 1 TAB PO SCH (08:36)
[2020-10-07] MEDS: Ascorbic Acid 500 mg Chewable Tablet PO SCH (08:36)
[2020-10-07] MEDS: Oxybutynin 5 MG TAB PO SCH ×2 (08:36→22:19)
[2020-10-07] MEDS: Carvedilol 6.25 MG TAB PO SCH ×2 (08:37→22:04)
[2020-10-07] MEDS: Famotidine/PF 20 mg/2ml Vial SLOW IVP SCH ×2 (08:37→22:18)
[2020-10-07] MEDS: Lactinex Tablet PO SCH (08:48)
[2020-10-07] MEDS: Vancomycin 1 GM in Premix Bag 1 BAG IVPB SCH ×2 (08:48→23:08)
[2020-10-07] MEDS: Metoclopramide 10 MG/10 ML UDCUP PO SCH ×4 (08:49→22:19)
[2020-10-07 09:20] LABS: Hemoglobin 8.2 g/dL (12.0-16.0)
[2020-10-07] MEDS ORDERED: Carvedilol 6.25 MG TAB PO SCH (09:45)
[2020-10-07 10:19] LABS: Platelet Count 88 thou/uL (130-400)
[2020-10-07] MEDS: levETIRAcetam 500 MG TAB PO SCH ×2 (10:57→22:52)
[2020-10-07] MEDS: OXcarbazepine 300 MG TAB PO SCH (10:58)
[2020-10-07] MEDS ORDERED: Enoxaparin Sodium 40 MG/0.4 ML SYRINGE SC SCH (11:00)
[2020-10-07] MEDS: Chlorhexidine Gluconate 15 ML UDCUP SSP SCH ×2 (11:24→22:18)
--- NOTE | 2020-10-07 12:31 | PDOC.HOSPP ---
- Subjective Encounter Date: 10/07/20 Encounter Time: 09:10 Subjective: Patient sitting in the bed she appears well she is communicating. Spouse at bedside. MRI cannot be done until tomorrow as pacemaker has to be checked. Will request the robotics technician tomorrow to look into it adjust the settings so that MRI can be done.. Her platelets seems to be at baseline around 88,000. We will start her on Lovenox for DVT prophylaxis. - Objective Vital Signs & Weight: Vital Signs (12 hours) Temp Pulse Resp BP BP BP Pulse Ox 10/07/20 12:00 97.6 F 80 18 114/62 94 L 10/07/20 08:37 113/54 L 10/07/20 08:26 98.4 F 63 15 113/54 L 96 10/07/20 03:52 98.2 F 68 16 114/53 L 93 L 10/07/20 01:34 95 Weight Admit Weight 203 lb 4.8 oz Weight 207 lb 3.752 oz Most Recent Monitor Data Heart Rate from ECG 60 NIBP 123/58 NIBP BP-Mean 79 Respiration from ECG 14 SpO2 100 I&O: 10/06/20 10/07/20 10/08/20 06:59 06:59 06:59 Intake Total 950 1860 697 Output Total 1250 950 Balance -300 910 697 Result Diagrams: 10/07/20 08:20 10/01/20 04:30 Hospitalist ROS - Medication Medications: Active Medications Generic Name Dose Route Start Last Admin Trade Name Freq PRN Reason Stop Dose Admin Acetaminophen 650 mg 10/03/20 14:55 10/06/20 18:03 Acetaminophen 650 Mg Suppository [place] 650 mg Q6H PRN Administration Headache/Fever or Pain Acidophilus 1 tab 09/29/20 09:00 10/07/20 08:48 Lactinex Tablet PO 1 tab DAILY MONICA Administration Ascorbic Acid 500 mg 09/29/20 09:00 10/07/20 08:36 Ascorbic Acid 500 Mg Chewable Tablet PO 500 mg DAILY MONICA Administration Atorvastatin Calcium 5 mg 10/02/20 21:00 10/06/20 20:25 Atorvastatin Calcium 10 Mg Tab PO 5 mg HS MONICA Administration Chlorhexidine Gluconate 15 ml 09/28/20 21:00 10/07/20 11:24 Chlorhexidine Gluconate 15 Ml Udcup SSP 15 ml BID MONICA Administration Docusate Sodium 100 mg 10/05/20 16:37 10/06/20 11:17 Docusate 100 Mg Cap PO 100 mg BIDPRN PRN Administration Constipation Enoxaparin Sodium 40 mg 10/07/20 11:00 10/07/20 11:24 Enoxaparin Sodium 40 Mg/0.4 Ml Syringe SC 10/07/20 13:00 40 mg NOW MONICA Administration Escitalopram Oxalate 20 mg 10/06/20 21:00 10/06/20 21:41 Escitalopram Oxalate 20 Mg Tablet PER TUBE 20 mg HS MONICA Administration Famotidine 20 mg 09/27/20 21:00 10/07/20 08:37 Famotidine/Pf 20 Mg/2ml Vial SLOW IVP Not Given Q12HR MONICA Amikacin Sulfate 1,000 mg/ 104 mls @ 104 mls/hr 10/05/20 20:00 10/06/20 20:42 Sodium Chloride IVPB 10/07/20 20:59 104 mls Q24HR MONICA Administration Meropenem 1 gm/ Sodium 100 mls @ 200 mls/hr 10/06/20 22:00 10/07/20 06:21 Chloride IVPB 100 mls Q8HR MONICA Administration Iron/Minerals/Multivitamins 1 tab 10/03/20 09:00 10/07/20 08:36 Multivitamin W/ Minerals 1 Tab PO 1 tab DAILY MONICA Administration Latanoprost 1 drop 09/28/20 21:00 10/06/20 20:27 Latanoprost 0.005% Ophth Soln 2.5 Ml Bottle L EYE 1 drop HS MONICA Administration Levetiracetam 500 mg 09/28/20 21:00 10/07/20 10:57 Levetiracetam 500 Mg Tab PO Not Given BID MONICA Metoclopramide HCl 10 mg 10/06/20 21:00 10/07/20 11:24 Metoclopramide 10 Mg/10 Ml Udcup PO 10 mg ACHS MONICA Administration Oxcarbazepine 300 mg 09/29/20 09:00 10/07/20 10:58 Oxcarbazepine 300 Mg Tab PO Not Given DAILY MONICA Oxcarbazepine 600 mg 10/06/20 21:00 10/06/20 21:41 Oxcarbazepine 300 Mg/5 Ml Udcup PER TUBE 600 mg HS MONICA Administration Oxybutynin Chloride 5 mg 10/02/20 21:00 10/07/20 08:36 Oxybutynin 5 Mg Tab PO 5 mg BID MONICA Administration Potassium Chloride 10 meq 10/07/20 08:00 10/07/20 08:36 Potassium Chloride 20 Meq Packet PER TUBE 10 meq BID-WM MONICA Administration Saccharomyces Boulardii 250 mg 10/03/20 18:00 10/06/20 17:04 Saccharomyces Boulardii 250 Mg Cap PO 250 mg 1800 MONICA Administration Sodium Chloride 10 ml 10/04/20 08:10 10/06/20 08:46 Flush - Normal Saline 10 Ml Syringe IVF 10 ml PRN PRN Administration Saline Flush Thyroid 180 mg 09/29/20 09:00 10/07/20 08:48 Thyroid 90 Mg Tab PO 180 mg DAILY MONICA Administration - Exam General Appearance: NAD, awake alert Eye: PERRL ENT: normocephalic atraumatic Neck: supple Heart: RRR Respiratory: CTAB, normal chest expansion Gastrointestinal: soft, normal bowel sounds Neurological: no new deficit Psychiatric: A&O x 3 Hosp A/P - Plan (1) Parkinsonism Code(s): G20 - PARKINSON'S DISEASE Status: Acute (2) Declining functional status Code(s): R53.81 - OTHER MALAISE Status: Acute (3) Severe sepsis with septic shock Code(s): A41.9 - SEPSIS, UNSPECIFIED ORGANISM; R65.21 - SEVERE SEPSIS WITH SEPTIC SHOCK Status: Acute (4) Left hemiplegia Code(s): G81.94 - HEMIPLEGIA, UNSPECIFIED AFFECTING LEFT NONDOMINANT SIDE Status: Chronic (5) Bacteremia due to Gram-negative bacteria Code(s): R78.81 - BACTEREMIA Status: Acute (6) Dyslipidemia Code(s): E78.5 - HYPERLIPIDEMIA, UNSPECIFIED Status: Chronic (7) Seizure disorder Code(s): G40.909 - EPILEPSY, UNSP, NOT INTRACTABLE, WITHOUT STATUS EPILEPTICUS Status: Chronic - Plan Daily Plan: plan discussed w/ family ( at bedside), continue antibiotics, PT/OT, speech therapy, DVT proph w/SCDs Ms. Landaverde is a 75-year-old female who presented with acute encephalopathy in the present in the setting of UTI and sepsis. Neurology consulted for Parkinson-like symptoms including tremor, and masked facies. Per , these are ongoing symptoms since the stroke in 2018. Altered mental status is improved and patient is alert and oriented to person and place and follows commands appropriately. As far as parkinsonian symptoms features are concerned, it is difficult to diagnose with Parkinson disease in the midst of current acute issues. The patient needs MRI of the brain was we can determine that AICD is compatible with MRI. The patient should be followed with Dr. Tinsley , the outpatient neurologist once acute issues are resolved to determine if she can benefit from Parkinson treatment. --Pseudomonas and MRSA UTI. -Follow-up on CT protocol-focal area of proctitis-bilateral renal calculi without hydronephrosis---urology consult placed based on the recommendations from swing bed physician. -Merum discontinued and vancomycin as well as 3 doses of amikacin. -Plan for continue IV antibiotics for 7 days.--Previously there was a note for long duration of abx, that has been changed. MRI cannot be done until tomorrow as pacemaker has to be checked. Will request the robotics technician tomorrow to look into it to adjust the settings so that MRI can be done.. Thrombocytopenia Her platelets seems to be at baseline around 88,000. We will start her on Loven ox for DVT prophylaxis . Her creatinine normal range. Bilateral nephrolithiasis -Without any obstruction. -Urologist Dr. Hoskins evaluated and recommended outpatient follow-up. Swing bed placement after MRI completed.
[2020-10-07] MEDS: Saccharomyces boulardii 250 MG CAP PO SCH (17:39)
[2020-10-07] MEDS: Docusate 100 MG CAP PO PRN (17:40)
[2020-10-07] MEDS: Amikacin Sulfate 1,000 MG in Sodium Chloride 0.9% 100 ML IVPB SCH (21:58)
[2020-10-07] MEDS: Atorvastatin Calcium 10 MG TAB PO SCH (22:03)
[2020-10-07] MEDS: OXcarbazepine 300 MG/5 ML UDCUP PER TUBE SCH (22:17)
[2020-10-07] MEDS: Escitalopram Oxalate 20 mg Tablet PER TUBE SCH (22:18)
[2020-10-07] MEDS: Latanoprost 0.005% Ophth Soln 2.5 ml Bottle L EYE SCH (22:18)
[2020-10-07] MEDS ORDERED: levETIRAcetam 500 mg/5 ml Oral Solution PO SCH (22:30)
[2020-10-08] MEDS: Meropenem 1 GM in Sodium Chloride 0.9% 100 ML IVPB SCH ×3 (00:43→16:15)
[2020-10-08 07:24] LABS: Hemoglobin 9.7 g/dL (12.0-16.0); Mean Corpuscular HGB CONC 32.1 g/dL (32.0-36.0); Mean Corpuscular Hemoglobin 29.2 pg (27.0-31.0); Mean Corpuscular Volume 90.8 fL (78.0-98.0); Mean Platelet Volume 12.6 fL (7.4-10.4); RBC Distribution Width 14.5 % (11.5-14.5); Red Blood Cell (RBC) Count 3.34 mill/uL (4.20-5.40); White Blood Cell (WBC) Count 9.8 thou/uL (4.8-10.8)
[2020-10-08 08:17] LABS: Band 2 % (5-11); Eosinophils 2 % (0-10); Lymphocytes 13 % (21-51); MDiff Complete? YES; Monocytes 6 % (0-10); Neutrophil 74 % (42-75); Platelet Clumps MARKED; Platelet Morphology Comment PLT clumps seen-ADEQ; Polychromasia SLIGHT = 2-3 cells (100X) (0-2/hpf); Reactive Lymphocytes 3 % (0-10)
[2020-10-08] MEDS: levETIRAcetam 500 mg/5 ml Oral Solution PO SCH ×2 (08:50→22:19)
[2020-10-08] MEDS: Famotidine/PF 20 mg/2ml Vial SLOW IVP SCH ×2 (08:50→22:19)
[2020-10-08] MEDS: Potassium Bicarbonate/Cit Ac 20 MEQ TAB PO SCH ×2 (08:50→16:07)
[2020-10-08] MEDS: Chlorhexidine Gluconate 15 ML UDCUP SSP SCH ×3 (08:50→22:20)
[2020-10-08] MEDS: Oxybutynin 5 MG TAB PO SCH ×2 (08:51→22:20)
[2020-10-08] MEDS: Ascorbic Acid 500 mg Chewable Tablet PO SCH (08:51)
[2020-10-08] MEDS: Multivitamin W/ Minerals 1 TAB PO SCH (08:51)
[2020-10-08 08:55] LABS: Platelet Count 129 thou/uL (130-400)
[2020-10-08] MEDS: Carvedilol 6.25 MG TAB PO SCH (08:55)
[2020-10-08] MEDS: Metoclopramide 10 MG/10 ML UDCUP PO SCH ×4 (08:56→22:20)
[2020-10-08] MEDS: Lactinex Tablet PO SCH (08:57)
[2020-10-08] MEDS: Enoxaparin Sodium 40 MG/0.4 ML SYRINGE SC SCH (08:57)
[2020-10-08] MEDS: Vancomycin 1 GM in Premix Bag 1 BAG IVPB SCH ×2 (09:05→22:20)
[2020-10-08] MEDS: OXcarbazepine 300 MG TAB PO SCH (09:13)
--- NOTE | 2020-10-08 12:09 | PDOC.DS.DS ---
Provider - Provider Date of Admission: 09/27/20 20:47 Admitting Provider: Clemencia Joshua MD Primary Care Physician: Bong Winters MD Course - Hospital Course Hospital Course: Ms. Landaverde is a 75-year-old female who presented with acute encephalopathy in the present in the setting of UTI and sepsis. Neurology consulted for Parkinson-like symptoms including tremor, and masked facies. Per , these are ongoing symptoms since the stroke in 2018. (1) Parkinsonism Code(s): G20 - PARKINSON'S DISEASE Status: Acute (2) Declining functional status Code(s): R53.81 - OTHER MALAISE Status: Acute (3) Severe sepsis with septic shock Code(s): A41.9 - SEPSIS, UNSPECIFIED ORGANISM; R65.21 - SEVERE SEPSIS WITH SEP TIC SHOCK Status: Acute (4) Left hemiplegia Code(s): G81.94 - HEMIPLEGIA, UNSPECIFIED AFFECTING LEFT NONDOMINANT SIDE Status: Chronic (5) Bacteremia due to Gram-negative bacteria Code(s): R78.81 - BACTEREMIA Status: Acute (6) Dyslipidemia Code(s): E78.5 - HYPERLIPIDEMIA, UNSPECIFIED Status: Chronic (7) Seizure disorder Code(s): G40.909 - EPILEPSY, UNSP, NOT INTRACTABLE, WITHOUT STATUS EPILEPTICUS Status: Chronic As far as parkinsonian symptoms features are concerned, it is difficult to d iagnose with Parkinson disease in the midst of current acute issues. The patient should be followed with Dr. Tinsley , the outpatient neurologist once acute issues are resolved to determine if she can benefit from Parkinson treatment. certain difficulties for the last 10 days of getting the MRI due to pacer placement. Currently does not appear to be required. --Pseudomonas and MRSA UTI. -Follow-up on CT protocol-focal area of proctitis-bilateral renal calculi without hydronephrosis---urology recommendations is follow-up as an outpatient. -she got Merum and vancomycin as well as 3 doses of amikacin.-Does not require any further antibiotics MRI cannot be done until tomorrow as pacemaker has to be checked. Thrombocytopenia Her platelets seems to be at baseline around 88,000. Her creatinine normal range. Bilateral nephrolithiasis -Without any obstruction. -Urologist Dr. Hoskins evaluated and recommended outpatient follow-up. Swing bed placement after MRI completed. She is stable to be discharged to the swing bed. Resuscitation Status: 09/28/20 10:28 Resuscitation Status Routine Resuscitation Status: DNAR: NO Resuscitation Discussed with: Pt. and her - Labs Lab Results: 10/08/20 06:43 10/01/20 04:30 Abnormal Lab Results - Last 48 hrs 10/07/20 05:45: RBC 2.85 L, Hgb 8.5 L, Hct 25.4 L, MPV 12.3 H, Neutrophils % (Manual) 81 H, Lymphocytes % (Manual) 14 L, Clumped Platelets MARKED H, Plt Morphology Comment Appears Decreased L 10/07/20 08:20: Hgb 8.2 L, Hct 25.6 L, Plt Count 88 L 10/08/20 06:43: RBC 3.34 L, Hgb 9.7 L, Hct 30.3 L, Plt Count 129 L, MPV 12.6 H, Band Neuts % (Manual) 2 L, Lymphocytes % (Manual) 13 L, Clumped Platelets MARKED H Microbiology - Entire Visit 09/29/20 14:15 Urine Suprapubic catheter Urine Culture - Final Pseudomonas aeruginosa Methicillin resistant S.aureus - Physical Exam Vitals: Vital Signs (12 hours) Temp Pulse Resp BP BP BP Pulse Ox 10/08/20 11:36 97.8 F 67 20 99/49 L 96 10/08/20 08:55 124/70 10/08/20 07:19 97.5 F L 67 20 124/70 93 L 10/08/20 03:52 98.7 F 69 16 118/50 L 94 L Weight Admit Weight 203 lb 4.8 oz Weight 208 lb 8.663 oz Most Recent Monitor Data Heart Rate from ECG 60 NIBP 123/58 NIBP BP-Mean 79 Respiration from ECG 14 SpO2 100 Physical Exam: The patient was seen and examined on the day of discharge. Patient seen today. Spouse at bedside. It appears that infectious disease does not want any further antibiotic course. She is cleared from their point of view. Currently she is stable. Her mentation seems to be at baseline. certain difficulties for the last 10 days of getting the MRI due to pacer placement. Currently does not appear required. She is stable to be discharged to the swing bed. Plan - Discharge Medications Home Medications: Medication Instructions Recorded Confirmed Type Lisinopril 20 mg PO BID 11/23/14 09/28/20 History OXcarbazepine [Trileptal] 300 mg PO DAILY 11/23/14 09/28/20 History Ascorbic Acid [Vitamin C] 500 mg PO DAILY 07/15/18 09/28/20 History Acetaminophen 650 mg PO Q4H PRN 10/06/18 09/28/20 History Carvedilol [Coreg] 6.25 mg PO BID 10/06/18 09/28/20 History Oxybutynin Chloride 5 mg PO BID 10/06/18 09/28/20 History levETIRAcetam [Keppra] 500 mg PO BID 10/06/18 09/28/20 History Escitalopram Oxalate [Lexapro] 20 mg PO HS 11/08/18 09/28/20 History Furosemide 40 mg PO BID 11/08/18 09/28/20 History OXcarbazepine [Oxcarbazepine] 600 mg PO QPM 11/08/18 09/28/20 History Polyethylene Glycol 3350 [Miralax] 17 gm PO DAILY PRN 11/08/18 09/28/20 History Potassium Chloride [K-Dur] 10 meq PO BID 11/08/18 09/28/20 History Thyroid,Pork [[place] Thyroid] 180 mg PO DAILY 11/08/18 09/28/20 History Atorvastatin Calcium [Lipitor] 5 mg PO HS 04/14/19 09/28/20 History Chlorhexidine Gluconate 15 ml SSP BID 04/14/19 09/28/20 History [Chlorhexidine Gluconate 0.12% Oral Rinse] Famotidine [Pepcid] 20 mg PO DAILY PRN 04/14/19 09/28/20 History Ipratropium/Albuterol Sulfate 3 ml NEB Q4HR PRN 04/30/19 09/28/20 History [Duoneb] Multivitamin W/ Minerals 1 tab PO DAILY 04/30/19 09/28/20 History [Theragran M] Lactobacillus [Floranex] 1 tab PO DAILY 09/28/20 09/28/20 History Latanoprost/Pf [Latanoprost 0.005% 7.5 ml L EYE HS 09/28/20 09/28/20 History Eye Drop] hydrALAZINE [Apresoline] 10 mg PO BID 09/28/20 09/28/20 History Aspirin 81 mg PO DAILY #30 tab.chew 10/08/20 Rx Allergies: codeine Allergy (Verified 09/28/20 00:21) Fish Containing Products Allergy (Verified 09/28/20 00:21) Penicillins Allergy (Verified 09/28/20 00:21) propafenone HCl [From Rythmol] Allergy (Verified 09/28/20 00:21) shellfish derived Allergy (Verified 09/28/20 00:21) - Discharge Instructions Discharge Instructions:: Follow-up with the PCP in 1 to 2-weeks after the rehab Nourishment:: Tube Feeding Diet - Follow up Plan Referrals: Bong Winters MD [Primary Care Provider] - Eder Morrow MD [Active] - 3-4 Weeks Disposition: ASSISTED FACILITY Quality - Care Measures CORE MEASURES:: Stroke/TIA - Stroke/TIA Did you prescribe antithrombotic therapy?: Yes Did you prescribe anticoagulant for A Fib/Flutter?: No Specify reason for no DC anticoagulant: Anticoagulant not tolerated Did you prescribe a statin medication?: Yes
--- NOTE | 2020-10-08 12:15 | PDOC.NEUPN ---
- Subjective Encounter Date: 10/08/20 Subjective: Patient is somewhat somnolent this morning. at bedside - Objective Vital Signs & Weight: Vital Signs (12 hours) Temp Pulse Resp BP BP BP Pulse Ox 10/08/20 11:36 97.8 F 67 20 99/49 L 96 10/08/20 08:55 124/70 10/08/20 07:19 97.5 F L 67 20 124/70 93 L 10/08/20 03:52 98.7 F 69 16 118/50 L 94 L Weight Admit Weight 203 lb 4.8 oz Weight 208 lb 8.663 oz Most Recent Monitor Data Heart Rate from ECG 60 NIBP 123/58 NIBP BP-Mean 79 Respiration from ECG 14 SpO2 100 I&O: 10/07/20 10/08/20 10/09/20 06:59 06:59 06:59 Intake Total 1860 2134 297 Output Total 950 1100 Balance 910 1034 297 Result Diagrams: 10/08/20 06:43 10/01/20 04:30 Radiology Reviewed by me: Yes EKG Reviewed by me: Yes ROS - Review of Systems ROS unobtainable: due to mental status (Aphasia) - Medication Medications: Active Medications Generic Name Dose Route Start Last Admin Trade Name Freq PRN Reason Stop Dose Admin Acetaminophen 650 mg 10/03/20 14:55 10/06/20 18:03 Acetaminophen 650 Mg Suppository [place] 650 mg Q6H PRN Administration Headache/Fever or Pain Acidophilus 1 tab 09/29/20 09:00 10/08/20 08:57 Lactinex Tablet PO 1 tab DAILY MONICA Administration Ascorbic Acid 500 mg 09/29/20 09:00 10/08/20 08:51 Ascorbic Acid 500 Mg Chewable Tablet PO 500 mg DAILY MONICA Administration Atorvastatin Calcium 5 mg 10/02/20 21:00 10/07/20 22:03 Atorvastatin Calcium 10 Mg Tab PO 5 mg HS MONICA Administration Carvedilol 3.125 mg 10/07/20 21:00 10/08/20 08:55 Carvedilol 6.25 Mg Tab PO 3.125 mg BID MONICA Administration Chlorhexidine Gluconate 15 ml 09/28/20 21:00 10/08/20 09:06 Chlorhexidine Gluconate 15 Ml Udcup SSP 15 ml BID MONICA Administration Docusate Sodium 100 mg 10/05/20 16:37 10/07/20 17:40 Docusate 100 Mg Cap PO 100 mg BIDPRN PRN Administration Constipation Enoxaparin Sodium 40 mg 10/08/20 09:00 10/08/20 08:57 Enoxaparin Sodium 40 Mg/0.4 Ml Syringe SC 40 mg 0900 MONICA Administration Escitalopram Oxalate 20 mg 10/06/20 21:00 10/07/20 22:18 Escitalopram Oxalate 20 Mg Tablet PER TUBE 20 mg HS MONICA Administration Famotidine 20 mg 09/27/20 21:00 10/08/20 08:50 Famotidine/Pf 20 Mg/2ml Vial SLOW IVP 20 mg Q12HR MONICA Administration Vancomycin HCl 1 gm/ Device 200 mls @ 133.333 mls/hr 10/07/20 21:00 10/08/20 09:05 IVPB 10/10/20 21:01 200 mls BID MONICA Administration Meropenem 1 gm/ Sodium 100 mls @ 200 mls/hr 10/08/20 09:00 10/08/20 08:57 Chloride IVPB 100 mls 0100,0900,1700 MONICA Administration Iron/Minerals/Multivitamins 1 tab 10/03/20 09:00 10/08/20 08:51 Multivitamin W/ Minerals 1 Tab PO 1 tab DAILY MONICA Administration Latanoprost 1 drop 09/28/20 21:00 10/07/20 22:18 Latanoprost 0.005% Ophth Soln 2.5 Ml Bottle L EYE 1 drop HS MONICA Administration Levetiracetam 500 mg 10/08/20 09:00 10/08/20 08:50 Levetiracetam 500 Mg/5 Ml Oral Solution PO 500 mg BID MONICA Administration Metoclopramide HCl 10 mg 10/06/20 21:00 10/08/20 11:50 Metoclopramide 10 Mg/10 Ml Udcup PO Not Given ACHS MONICA Oxcarbazepine 300 mg 09/29/20 09:00 10/08/20 09:13 Oxcarbazepine 300 Mg Tab PO 300 mg DAILY MONICA Administration Oxcarbazepine 600 mg 10/06/20 21:00 10/07/20 22:17 Oxcarbazepine 300 Mg/5 Ml Udcup PER TUBE 600 mg HS MONICA Administration Oxybutynin Chloride 5 mg 10/02/20 21:00 10/08/20 08:51 Oxybutynin 5 Mg Tab PO 5 mg BID MONICA Administration Potassium Bicarbonate/Citric Acid 10 meq 10/08/20 08:00 10/08/20 08:50 Potassium Bicarbonate/Cit Ac 20 Meq Tab PO 10 meq BID-WM MONICA Administration Saccharomyces Boulardii 250 mg 10/03/20 18:00 10/07/20 17:39 Saccharomyces Boulardii 250 Mg Cap PO 250 mg 1800 MONICA Administration Sodium Chloride 10 ml 10/04/20 08:10 10/06/20 08:46 Flush - Normal Saline 10 Ml Syringe IVF 10 ml PRN PRN Administration Saline Flush Thyroid 180 mg 09/29/20 09:00 10/08/20 09:00 Thyroid 90 Mg Tab PO 180 mg DAILY MONICA Administration - Exam General Appearance: NAD Eye: PERRL ENT: normocephalic atraumatic Neck: supple Respiratory: CTAB Cardiovascular: RRR Gastrointestinal: soft Extremities: no cyanosis Skin: normal turgor Neurological: no new deficit, facial droop, hemiplegia, speech deficit Musculoskeletal: normal tone, no muscle wasting PSYCH: somnolent Results - Labs Result Diagrams: 10/08/20 06:43 10/01/20 04:30 Lab results: WBC 9.8 thou/uL (4.8-10.8) 10/08/20 06:43 Hgb 9.7 g/dL (12.0-16.0) L 10/08/20 06:43 Hct 30.3 % (36.0-47.0) L 10/08/20 06:43 MCV 90.8 fL (78.0-98.0) 10/08/20 06:43 Plt Count 129 thou/uL (130-400) L 10/08/20 06:43 Neutrophils % 74.0 % (42.0-75.0) 09/27/20 16:46 Band Neuts % (Manual) 2 % (5-11) L 10/08/20 06:43 Sodium 134 mmol/L (136-145) L 10/01/20 04:30 Potassium 3.8 mmol/L (3.5-5.1) 10/01/20 04:30 Chloride 110 mmol/L (98-107) H 10/01/20 04:30 Carbon Dioxide 17 mmol/L (23-31) L 10/01/20 04:30 BUN 22 mg/dL (9.8-20.1) H 10/01/20 04:30 Creatinine 1.02 mg/dL (0.6-1.1) 10/01/20 04:30 Glucose 126 mg/dL (83-110) H 10/01/20 04:30 Calcium 8.7 mg/dL (7.8-10.44) 10/01/20 04:30 Total Bilirubin 0.3 mg/dL (0.2-1.2) 10/01/20 04:30 AST 13 U/L (5-34) 10/01/20 04:30 ALT 8 U/L (8-55) 10/01/20 04:30 Alkaline Phosphatase 79 U/L (40-110) 10/01/20 04:30 Troponin I 0.028 ng/mL (< 0.028) 09/27/20 16:46 Serum Total Protein 5.4 g/dL (6.0-8.3) L 10/01/20 04:30 Albumin 2.6 g/dL (3.4-4.8) L 10/01/20 04:30 Lipase 12 U/L (8-78) 09/27/20 16:46 Urine Ketones Negative mg/dL (Negative) 09/27/20 17:05 Urine Blood Trace (Negative) A 09/27/20 17:05 Urine Nitrite Negative (Negative) 09/27/20 17:05 Ur Leukocyte Esterase 500 [place]/uL (Negative) A 09/27/20 17:05 Urine RBC 11-20 HPF (0-3) A 09/27/20 17:05 Urine WBC Greater than 50 HPF (0-3) A 09/27/20 17:05 Ur Squamous Epith Cells None Seen HPF (0-3) 09/27/20 17:05 Urine Bacteria 4+ HPF (None Seen) A 09/27/20 17:05 PN A/P (1) Parkinsonism Code(s): G20 - PARKINSON'S DISEASE Status: Acute (2) Declining functional status Code(s): R53.81 - OTHER MALAISE Status: Acute (3) Severe sepsis with septic shock Code(s): A41.9 - SEPSIS, UNSPECIFIED ORGANISM; R65.21 - SEVERE SEPSIS WITH SEPTIC SHOCK Status: Acute (4) Left hemiplegia Code(s): G81.94 - HEMIPLEGIA, UNSPECIFIED AFFECTING LEFT NONDOMINANT SIDE Status: Chronic (5) Bacteremia due to Gram-negative bacteria Code(s): R78.81 - BACTEREMIA Status: Acute (6) Dyslipidemia Code(s): E78.5 - HYPERLIPIDEMIA, UNSPECIFIED Status: Chronic (7) Seizure disorder Code(s): G40.909 - EPILEPSY, UNSP, NOT INTRACTABLE, WITHOUT STATUS EPILEPTICUS Status: Chronic - Plan Daily Plan: PT/OT, speech therapy, DVT proph w/SCDs Ms. Landaverde is a 75-year-old female who presented with acute encephalopathy in the present in the setting of UTI and sepsis. Neurology consulted for Parkinson-like symptoms including tremor, and masked facies. Per , these are ongoing symptoms since the stroke in 2018. Patient is somewhat somnolent today so we will arrange for EEG since she is on multiple seizure medication to a certain if she needs adjustment of any of the medications before discharge. As far as parkinsonian symptoms features are concerned, it is difficult to diagnose with Parkinson disease in the midst of current acute issues. The patient needs MRI of the brain was we can determine that AICD is compatible with MRI. The patient should be followed with Dr. Tinsley , the outpatient neurologist once acute issues are resolved to determine if she can benefit from Parkinson treatment. Continue neurochecks every 4 hours. Continue home medications. Continue Keppra and Trileptal for seizure prophylaxis. Telemetry DVT prophylaxis. Continue medical management per primary team and ID. Plan discussed in detail with the at bedside.
[2020-10-08] MEDS: Sodium Chloride 0.9% 250 ML IVPB PRN (12:20)
--- NOTE | 2020-10-08 12:50 | PDOC.HOSPP ---
- Subjective Encounter Date: 10/08/20 Encounter Time: 09:40 Subjective: Plan for discharge today. - Objective Vital Signs & Weight: Vital Signs (12 hours) Temp Pulse Resp BP BP BP Pulse Ox 10/08/20 11:36 97.8 F 67 20 99/49 L 96 10/08/20 08:55 124/70 10/08/20 07:19 97.5 F L 67 20 124/70 93 L 10/08/20 03:52 98.7 F 69 16 118/50 L 94 L Weight Admit Weight 203 lb 4.8 oz Weight 208 lb 8.663 oz Most Recent Monitor Data Heart Rate from ECG 60 NIBP 123/58 NIBP BP-Mean 79 Respiration from ECG 14 SpO2 100 I&O: 10/07/20 10/08/20 10/09/20 06:59 06:59 06:59 Intake Total 1860 2134 297 Output Total 950 1100 Balance 910 1034 297 Result Diagrams: 10/08/20 06:43 10/01/20 04:30 Hospitalist ROS - Medication Medications: Active Medications Generic Name Dose Route Start Last Admin Trade Name Freq PRN Reason Stop Dose Admin Acetaminophen 650 mg 10/03/20 14:55 10/06/20 18:03 Acetaminophen 650 Mg Suppository MT 650 mg Q6H PRN Administration Headache/Fever or Pain Acidophilus 1 tab 09/29/20 09:00 10/08/20 08:57 Lactinex Tablet PO 1 tab DAILY MONICA Administration Ascorbic Acid 500 mg 09/29/20 09:00 10/08/20 08:51 Ascorbic Acid 500 Mg Chewable Tablet PO 500 mg DAILY MONICA Administration Atorvastatin Calcium 5 mg 10/02/20 21:00 10/07/20 22:03 Atorvastatin Calcium 10 Mg Tab PO 5 mg HS MONICA Administration Chlorhexidine Gluconate 15 ml 09/28/20 21:00 10/08/20 09:06 Chlorhexidine Gluconate 15 Ml Udcup SSP 15 ml BID MONICA Administration Docusate Sodium 100 mg 10/05/20 16:37 10/07/20 17:40 Docusate 100 Mg Cap PO 100 mg BIDPRN PRN Administration Constipation Enoxaparin Sodium 40 mg 10/08/20 09:00 10/08/20 08:57 Enoxaparin Sodium 40 Mg/0.4 Ml Syringe SC 40 mg 0900 MONICA Administration Escitalopram Oxalate 20 mg 10/06/20 21:00 10/07/20 22:18 Escitalopram Oxalate 20 Mg Tablet PER TUBE 20 mg HS MONICA Administration Famotidine 20 mg 09/27/20 21:00 10/08/20 08:50 Famotidine/Pf 20 Mg/2ml Vial SLOW IVP 20 mg Q12HR MONICA Administration Vancomycin HCl 1 gm/ Device 200 mls @ 133.333 mls/hr 10/07/20 21:00 10/08/20 09:05 IVPB 10/10/20 21:01 200 mls BID MONICA Administration Meropenem 1 gm/ Sodium 100 mls @ 200 mls/hr 10/08/20 09:00 10/08/20 08:57 Chloride IVPB 100 mls 0100,0900,1700 MONICA Administration Iron/Minerals/Multivitamins 1 tab 10/03/20 09:00 10/08/20 08:51 Multivitamin W/ Minerals 1 Tab PO 1 tab DAILY MONICA Administration Latanoprost 1 drop 09/28/20 21:00 10/07/20 22:18 Latanoprost 0.005% Ophth Soln 2.5 Ml Bottle L EYE 1 drop HS MONICA Administration Levetiracetam 500 mg 10/08/20 09:00 10/08/20 08:50 Levetiracetam 500 Mg/5 Ml Oral Solution PO 500 mg BID MONICA Administration Metoclopramide HCl 10 mg 10/06/20 21:00 10/08/20 11:50 Metoclopramide 10 Mg/10 Ml Udcup PO Not Given ACHS MONICA Oxcarbazepine 300 mg 09/29/20 09:00 10/08/20 09:13 Oxcarbazepine 300 Mg Tab PO 300 mg DAILY MONICA Administration Oxcarbazepine 600 mg 10/06/20 21:00 10/07/20 22:17 Oxcarbazepine 300 Mg/5 Ml Udcup PER TUBE 600 mg HS MONICA Administration Oxybutynin Chloride 5 mg 10/02/20 21:00 10/08/20 08:51 Oxybutynin 5 Mg Tab PO 5 mg BID MONICA Administration Potassium Bicarbonate/Citric Acid 10 meq 10/08/20 08:00 10/08/20 08:50 Potassium Bicarbonate/Cit Ac 20 Meq Tab PO 10 meq BID-WM MONICA Administration Saccharomyces Boulardii 250 mg 10/03/20 18:00 10/07/20 17:39 Saccharomyces Boulardii 250 Mg Cap PO 250 mg 1800 MONICA Administration Sodium Chloride 10 ml 10/04/20 08:10 10/06/20 08:46 Flush - Normal Saline 10 Ml Syringe IVF 10 ml PRN PRN Administration Saline Flush Thyroid 180 mg 09/29/20 09:00 10/08/20 09:00 Thyroid 90 Mg Tab PO 180 mg DAILY MONICA Administration - Exam General Appearance: NAD, awake alert Hosp A/P - Plan (1) Parkinsonism Code(s): G20 - PARKINSON'S DISEASE Status: Acute (2) Declining functional status Code(s): R53.81 - OTHER MALAISE Status: Acute (3) Severe sepsis with septic shock Code(s): A41.9 - SEPSIS, UNSPECIFIED ORGANISM; R65.21 - SEVERE SEPSIS WITH SEPTIC SHOCK Status: Acute (4) Left hemiplegia Code(s): G81.94 - HEMIPLEGIA, UNSPECIFIED AFFECTING LEFT NONDOMINANT SIDE Status: Chronic (5) Bacteremia due to Gram-negative bacteria Code(s): R78.81 - BACTEREMIA Status: Acute (6) Dyslipidemia Code(s): E78.5 - HYPERLIPIDEMIA, UNSPECIFIED Status: Chronic (7) Seizure disorder Code(s): G40.909 - EPILEPSY, UNSP, NOT INTRACTABLE, WITHOUT STATUS EPILEPTICUS Status: Chronic - Plan Daily Plan: plan discussed w/ family ( at bedside), continue antibiotics, PT/OT, speech therapy, DVT proph w/SCDs Ms. Landaverde is a 75-year-old female who presented with acute encephalopathy in the present in the setting of UTI and sepsis. Neurology consulted for Parkinson-like symptoms including tremor, and masked facies. Per , these are ongoing symptoms since the stroke in 2018. Altered mental status is improved and patient is alert and oriented to person and place and follows commands appropriately. As far as parkinsonian symptoms features are concerned, it is difficult to diagnose with Parkinson disease in the midst of current acute issues. The patient needs MRI of the brain was we can determine that AICD is compatible with MRI. The patient should be followed with Dr. Tinsley , the outpatient neurologist once acute issues are resolved to determine if she can benefit from Parkinson treatment. --Pseudomonas and MRSA UTI. -Follow-up on CT protocol-focal area of proctitis-bilateral renal calculi without hydronephrosis---urology consult placed based on the recommendations from swing bed physician. -Merum discontinued and vancomycin as well as 3 doses of amikacin. -Plan for continue IV antibiotics for 7 days.--Previously there was a note for long duration of abx, that has been changed. MRI cannot be done until tomorrow as pacemaker has to be checked. Will request the cad technician tomorrow to look into it to adjust the settings so that MRI can be done.. Thrombocytopenia Her platelets seems to be at baseline around 88,000. We will start her on Lovenox for DVT prophylaxis . Her creatinine normal range. Bilateral nephrolithiasis -Without any obstruction. -Urologist Dr. Hoskins evaluated and recommended outpatient follow-up. Swing bed placement after MRI completed. Discharge process completed however patient has hypotension with the systolic in the 70s 80s range. Plan to hold the discharge until her blood pressure is better.
[2020-10-08] MEDS: Sodium Chloride 0.9% 1,000 ML IV SCH ×2 (12:57→22:48)
--- NOTE | 2020-10-08 15:37 | PDOC.EEG ---
Neurology EEG Report - Report Report: This EEG was performed using 24 channel Jibestream video digital EEG machine with 24 disc electrodes. This was an extended 2-hour 7 minutes of inpatient video EEG recording. Digital analysis of the EEG was done for Abhi and seizure detection which revealed no abnormalities Background: The posterior background rhythm is 6-7 Hz. Minimal reactivity seen with eye opening and closure. Hyperventilation: Not performed. Photic stimulation. Bioccipital symmetric response not seen with photic stimulation. EEG diagnosis: Intermittent irregular theta activity seen during the recording (Right > Left). Nonsustained slow posterior background rhythm. Clinical interpretation: This EEG is consistent with focal cerebral dysfunction in the right cerebral hemisphere. There is also evidence of mild to moderate generalized nonspecific cerebral dysfunction.
[2020-10-08] MEDS: Saccharomyces boulardii 250 MG CAP PO SCH (16:07)
--- NOTE | 2020-10-08 18:52 | PRG ---
DATE OF SERVICE: 10/08/2020 SUBJECTIVE: Ms. Landaverde is in the stroke unit. She is not waking up at this moment. She will grimace when I try to wake her up, but does not interact with the examiner. She is a two-person assist for care. OBJECTIVE: VITAL SIGNS: Her vital signs with T-max 98.7, blood pressure ranging from 99/50 to 102/51, breathing at 16 times a minute, and O2 sats 95% on room air. LUNGS: With symmetric air entry. No obvious crackles or wheezing. HEART: S1 and S2. Regular rate. No S3 or S4. ABDOMEN: Soft, not distended. Gastrostomy tube in place with normal-appearing exit site. EXTREMITIES: Quadriplegia. LABORATORY DATA: Sodium 134. Chemistry has not been repeated since the . The last white cell count 9.8, hemoglobin 9.7, and platelets 129. ASSESSMENT AND DISCUSSION: Cerebrovascular accident with hemorrhagic transformation. She has 4-limb weakness, worse in the left side, but she has some weakness on the right as well. Expressive aphasia, neurogenic bladder with suprapubic catheterization. She had the abdomen and pelvis CT, which showed thickening of the rectum near the rectosigmoid junction. Large bilateral renal calculi without hydronephrosis, so the stent has been removed with suprapubic catheter as the urine will always be abnormal and somewhat difficult to decide when to treat unless there are obvious other clinical findings. In this case, she does not have leukocytosis. On this blood pressure issue, I am not totally sure that it is something that needs to be treated. It could represent dysautonomia. I would recommend discontinuing antimicrobials upon discharge from this hospital. Job ID: [id number] MTDD
[2020-10-08] MEDS: Escitalopram Oxalate 20 mg Tablet PER TUBE SCH (22:20)
[2020-10-08] MEDS: Latanoprost 0.005% Ophth Soln 2.5 ml Bottle L EYE SCH (22:20)
[2020-10-08] MEDS: OXcarbazepine 300 MG/5 ML UDCUP PER TUBE SCH (22:20)
[2020-10-08] MEDS: Atorvastatin Calcium 10 MG TAB PO SCH (22:20)
[2020-10-09] MEDS: Meropenem 1 GM in Sodium Chloride 0.9% 100 ML IVPB SCH (02:49)
[2020-10-09] MEDS: Sodium Chloride 0.9% 250 ML IVPB PRN (04:38)
[2020-10-09 07:18] LABS: Hemoglobin 8.5 g/dL (12.0-16.0); Mean Corpuscular HGB CONC 32.8 g/dL (32.0-36.0); Mean Corpuscular Hemoglobin 29.7 pg (27.0-31.0); Mean Corpuscular Volume 90.4 fL (78.0-98.0); Mean Platelet Volume 9.1 fL (7.4-10.4); Platelet Count 132 thou/uL (130-400); RBC Distribution Width 14.5 % (11.5-14.5); Red Blood Cell (RBC) Count 2.87 mill/uL (4.20-5.40); White Blood Cell (WBC) Count 7.8 thou/uL (4.8-10.8)
[2020-10-09 08:01] LABS: Band 3 % (5-11); Eosinophils 5 % (0-10); Lymphocytes 18 % (21-51); MDiff Complete? YES; Monocytes 9 % (0-10); Neutrophil 65 % (42-75); Platelet Clumps MARKED; Platelet Morphology Comment Appears Adequate; Polychromasia SLIGHT = 2-3 cells (100X) (0-2/hpf)
[2020-10-09 08:12] LABS: Vancomycin, Trough 35.9 ug/mL
[2020-10-09] MEDS ORDERED: MEROPENEM 1 GM/50 ML 1 GM in Premix Bag 1 BAG IVPB SCH (09:00)
[2020-10-09] MEDS: Chlorhexidine Gluconate 15 ML UDCUP SSP SCH ×2 (09:30→21:10)
[2020-10-09] MEDS: Enoxaparin Sodium 40 MG/0.4 ML SYRINGE SC SCH (09:30)
[2020-10-09] MEDS: levETIRAcetam 500 mg/5 ml Oral Solution PO SCH ×2 (10:05→21:09)
[2020-10-09] MEDS: Lactinex Tablet PO SCH (10:06)
[2020-10-09] MEDS: Multivitamin W/ Minerals 1 TAB PO SCH (10:06)
[2020-10-09] MEDS: Potassium Bicarbonate/Cit Ac 20 MEQ TAB PO SCH ×2 (10:07→17:56)
[2020-10-09] MEDS: Ascorbic Acid 500 mg Chewable Tablet PO SCH (10:07)
[2020-10-09] MEDS: Oxybutynin 5 MG TAB PO SCH ×2 (10:08→10:24)
[2020-10-09] MEDS: OXcarbazepine 300 MG TAB PO SCH (10:10)
[2020-10-09] MEDS: Famotidine/PF 20 mg/2ml Vial SLOW IVP SCH (10:24)
[2020-10-09] MEDS: Metoclopramide 10 MG/10 ML UDCUP PO SCH (10:25)
--- NOTE | 2020-10-09 12:19 | MRI ---
Exam: Brain MRI without contrast HISTORY: Altered mental status. Previous diagnosis of COVID. Evaluate for CVA. COMPARISON: 12/13/2009 FINDINGS: Calvarial marrow signal intensity: Limited evaluation the T1 sagittal images due to motion degradatio n. Gradient echo sequence: There is evidence of hemorrhage involving the right deep awad matter structur es, right temporal and right occipital parietal region. The periphery demonstrates hypointensity on the gradient echo sequence followed central aspect demonstrates intrinsic T1 and T2 hyperintensity. A cute hemorrhage cannot be excluded. Brain parenchyma: There is encephalomalacia and gliosis involving the right cerebrum. Findings favor a remote right MCA distribution infarct. Cortical awad-white matter differentiation: There is loss of cortical awad-white matter differentiati on in the right temporal lobe with associated gliosis. There is preservation of cortical awad-white matter differentiation in the left cerebrum Restricted diffusion: Central arterial flow voids are maintained. Absent restricted diffusion. There is T2 shine through in the right deep awad matter structures White matter signal intensities:Extensive right cerebral T2 and FLAIR hyperintensities in part due to vasogenic edema Sinuses: Opacification of the sinuses. Partial ethmoidal mucosal disease IMPRESSION: 1. Findings suggesting a remote MCA distribution infarct with associated hemorrhage. Noncontrast head CT is recommended for further characterization. 2. There does appear to be component of vasogenic edema involving the right cerebrum, etiology is unc ertain. Postcontrast imaging would be beneficial. Findings conveyed to Dr.Kirmani Guerra connect 11/28/2019 at 12:15 PM Code CR
--- NOTE | 2020-10-09 14:36 | CT ---
CT BRAIN NONCONTRAST: DATE: 10/09/2020 1:49 PM HISTORY: 75-year-old female with altered mental status and CVA. Evaluate apparent hemorrhagic lesion in right basal ganglia. COMPARISON: 10/09/2020 Noncontrast MRI of brain. CT's of 11/10/2018, 11/08/2018 and 07/15/2018 FINDINGS: On 07/15/2018, there was a large right cerebral intra-axial hematoma measuring approximately 7 x 3.5 cm . It had involuted by the time of the 11/08/2018 CT, then further slightly more involuted on the 11/10/2018 CT in which the dimensions were approximately 3 x 5 cm. Its density was still intermediate, between that of brain parenchyma and CSF. On today's MRI, it has further involuted to dimensions of 1.5 x 4 x 2 cm, in which there is a hemosiderin rim, and the rest of it having hyperintense signal on T1 WI, T2 WI, and FLAIR, which was thought to represent extracellular methemoglobin. However, the current CT shows a combination of a mixture of CSF density fluid within this cavity, plus serpentine course calcifications within this cavity, which probably accounts for the intrinsic T1 shortening. This does not appear to be extracellular methemoglobin. The mass effect has resolved. In fact, there is now mild ex vacuo dilation of the body and trigone of right lateral ventricle. The lesion is centered at the right external capsule, with involvement of putamen. Superior to this, there is one moderately large region or several contiguous patchy regions of low at tenuation, mostly involving deep cerebral white matter (centrum semiovale and valencia radiata) and subcortical white matter of the upper and lateral portions of the right upper lobe, and also extendin g posteriorly into the right parietal lobe, which is new or more extensive than on most recent CT of 11/10/2018. This may represent additional areas of encephalomalacia and gliosis, broad there is a po ssibility that this could represent vasogenic edema (less likely). No obstructive hydrocephalus, mass effect, midline shift, acute intracranial hemorrhage, extra-axial fluid collection, or destructive calvarial lesion. New finding of severe partial opacification of the dominant left sphenoid air cell, and partial opaci fication of right sphenoid air cell. The maxillary, anterior ethmoid, and right frontal, sinuses, are clear. Left frontal sinus is not pne umatized. Bilateral tympanomastoid cavities are clear. IMPRESSION: 1) the large right cerebral intra-axial hematoma, centered in the right basal ganglia, that was acute on 07/15/2018, has progressively involuted. 2) its internal contents currently consist of CSF-density fluid plus dystrophic calcification. There does not appear to be any subacute hemorrhage. 3) a large region of right cerebral hemispheric intra-axial low attenuation, much more extensive than on the most recent CT of 11/10/2018. This is favored to represent encephalomalacia and gliosis from chronic ischemic insult/infarction in the right cerebrum, new since 11/10/2018. There is a much smaller chance that these could represent vasogenic edema from neoplasm or infection. Contrast-enhanced MRI of the brain with useful to rule out the less likely possibility of such edema.
--- NOTE | 2020-10-09 16:24 | PDOC.HOSPP ---
- Subjective Encounter Date: 10/09/20 Encounter Time: 09:10 Subjective: Patient remains same. Her blood pressure seems to be much better. MRI report reviewed. There was a concern about vasogenic edema for chronic infarct. Follow-up CT was done. Patient not worsening neurologically. - Objective Vital Signs & Weight: Vital Signs (12 hours) Temp Pulse Resp BP Pulse Ox 10/09/20 15:41 98.3 F 72 16 115/52 L 95 10/09/20 11:11 98.7 F 74 20 122/82 95 10/09/20 07:29 97.8 F 68 16 120/80 95 10/09/20 04:50 97.9 F 69 20 93 L Weight Admit Weight 203 lb 4.8 oz Weight 210 lb 3.2 oz Most Recent Monitor Data Heart Rate from ECG 60 NIBP 123/58 NIBP BP-Mean 79 Respiration from ECG 14 SpO2 100 I&O: 10/08/20 10/09/20 10/10/20 06:59 06:59 06:59 Intake Total 2134 2831 804 Output Total 1100 2150 Balance 1034 681 804 Result Diagrams: 10/09/20 07:16 10/01/20 04:30 Hospitalist ROS - Medication Medications: Active Medications Generic Name Dose Route Start Last Admin Trade Name Freq PRN Reason Stop Dose Admin Acetaminophen 650 mg 10/03/20 14:55 10/06/20 18:03 Acetaminophen 650 Mg Suppository RI 650 mg Q6H PRN Administration Headache/Fever or Pain Acidophilus 1 tab 09/29/20 09:00 10/09/20 10:06 Lactinex Tablet PO 1 tab DAILY MONICA Administration Ascorbic Acid 500 mg 09/29/20 09:00 10/09/20 10:07 Ascorbic Acid 500 Mg Chewable Tablet PO 500 mg DAILY MONICA Administration Atorvastatin Calcium 5 mg 10/02/20 21:00 10/08/20 22:20 Atorvastatin Calcium 10 Mg Tab PO 5 mg HS MONICA Administration Chlorhexidine Gluconate 15 ml 09/28/20 21:00 10/09/20 09:30 Chlorhexidine Gluconate 15 Ml Udcup SSP 15 ml BID MONICA Administration Docusate Sodium 100 mg 10/05/20 16:37 10/07/20 17:40 Docusate 100 Mg Cap PO 100 mg BIDPRN PRN Administration Constipation Enoxaparin Sodium 40 mg 10/08/20 09:00 10/09/20 09:30 Enoxaparin Sodium 40 Mg/0.4 Ml Syringe SC 40 mg 0900 MONICA Administration Escitalopram Oxalate 20 mg 10/06/20 21:00 10/08/20 22:20 Escitalopram Oxalate 20 Mg Tablet PER TUBE 20 mg HS MONICA Administration Sodium Chloride 250 mls @ 0 mls/hr 10/06/20 16:26 10/09/20 04:38 Normal Saline 0.9% IVPB 250 mls Q6H PRN Administration SBP <90 As Directed Meropenem 1 gm/ Device 50 mls @ 200 mls/hr 10/09/20 09:00 10/09/20 09:35 IVPB 50 mls 0100,0900,1700 MONICA Administration Iron/Minerals/Multivitamins 1 tab 10/03/20 09:00 10/09/20 10:06 Multivitamin W/ Minerals 1 Tab PO 1 tab DAILY MONICA Administration Latanoprost 1 drop 09/28/20 21:00 10/08/20 22:20 Latanoprost 0.005% Ophth Soln 2.5 Ml Bottle L EYE 1 drop HS MONICA Administration Levetiracetam 500 mg 10/08/20 09:00 10/09/20 10:05 Levetiracetam 500 Mg/5 Ml Oral Solution PO 500 mg BID MONICA Administration Oxcarbazepine 300 mg 09/29/20 09:00 10/09/20 10:10 Oxcarbazepine 300 Mg Tab PO 300 mg DAILY MONICA Administration Oxcarbazepine 600 mg 10/06/20 21:00 10/08/20 22:20 Oxcarbazepine 300 Mg/5 Ml Udcup PER TUBE 600 mg HS MONICA Administration Oxybutynin Chloride 5 mg 10/10/20 09:00 10/09/20 10:08 Oxybutynin 5 Mg Tab PO 5 mg DAILY MONICA Administration Potassium Bicarbonate/Citric Acid 10 meq 10/08/20 08:00 10/09/20 10:07 Potassium Bicarbonate/Cit Ac 20 Meq Tab PO 10 meq BID-WM MONICA Administration Saccharomyces Boulardii 250 mg 10/03/20 18:00 10/08/20 16:07 Saccharomyces Boulardii 250 Mg Cap PO 250 mg 1800 MONICA Administration Sodium Chloride 10 ml 10/04/20 08:10 10/06/20 08:46 Flush - Normal Saline 10 Ml Syringe IVF 10 ml PRN PRN Administration Saline Flush Thyroid 180 mg 09/29/20 09:00 10/09/20 10:06 Thyroid 90 Mg Tab PO 180 mg DAILY MONICA Administration - Exam General Appearance: NAD, awake alert, ill appearing Eye: PERRL ENT: normocephalic atraumatic Neck: supple Respiratory: CTAB, normal chest expansion Gastrointestinal: soft, normal bowel sounds Neurological: no new deficit, hemiplegia, speech deficit Psychiatric: oriented to person Hosp A/P - Plan (1) Parkinsonism Code(s): G20 - PARKINSON'S DISEASE Status: Acute (2) Declining functional status Code(s): R53.81 - OTHER MALAISE Status: Acute (3) Severe sepsis with septic shock Code(s): A41.9 - SEPSIS, UNSPECIFIED ORGANISM; R65.21 - SEVERE SEPSIS WITH SEPTIC SHOCK Status: Acute (4) Left hemiplegia Code(s): G81.94 - HEMIPLEGIA, UNSPECIFIED AFFECTING LEFT NONDOMINANT SIDE Status: Chronic (5) Bacteremia due to Gram-negative bacteria Code(s): R78.81 - BACTEREMIA Status: Acute (6) Dyslipidemia Code(s): E78.5 - HYPERLIPIDEMIA, UNSPECIFIED Status: Chronic (7) Seizure disorder Code(s): G40.909 - EPILEPSY, UNSP, NOT INTRACTABLE, WITHOUT STATUS EPILEPTICUS Status: Chronic - Plan Daily Plan: plan discussed w/ family ( at bedside), continue antibiotics, PT/OT, speech therapy, DVT proph w/SCDs Ms. Landaverde is a 75-year-old female who presented with acute encephalopathy in the present in the setting of UTI and sepsis. Neurology consulted for Par kinson-like symptoms including tremor, and masked facies. Per , these are ongoing symptoms since the stroke in 2018. Altered mental status is improved and patient is alert and oriented to person and place and follows commands appropriately. As far as parkinsonian symptoms features are concerned, it is difficult to diagnose with Parkinson disease in the midst of current acute issues. The patient needs MRI of the brain was we can determine that AICD is compatible with MRI. The patient should be followed with Dr. Tinsley , the outpatient neurologist once acute issues are resolved to determine if she can benefit from Parkinson treatment. --Pseudomonas and MRSA UTI. -Follow-up on CT protocol-focal area of proctitis-bilateral renal calculi without hydronephrosis---urology consult placed based on the recommendations from swing bed physician. -Merum discontinued and vancomycin as well as 3 doses of amikacin. -Plan for continue IV antibiotics for 7 days.--Previously there was a note for long duration of abx, that has been changed. MRI cannot be done until tomorrow as pacemaker has to be checked. Will request the animal care technician tomorrow to look into it to adjust the settings so that MRI can be done.. Thrombocytopenia Her platelets seems to be at baseline around 88,000. We will start her on Lovenox for DVT prophylaxis . Her creatinine normal range. Bilateral nephrolithiasis -Without any obstruction. -Urologist Dr. Hoskins evaluated and recommended outpatient follow-up. Swing bed placement after MRI completed. Discharge process completed however patient has hypotension with the systolic in the 70s 80s range. Plan to hold the discharge until her blood pressure is bet ter. 1st MRI report reviewed. There was a concern about vasogenic edema from chronic infarct. Follow-up CT was done. Repeat CT head shows "changes from right cerebral intra-axial hematoma from July 2018, repeat CT head on October 2018 showed involuted by then. The MRI shows 1.45 x 4 x 2 cm involuted hyperintense signal -which is combination of mixture of CSF density fluid in the cavity Mass-effect has resolved now Dystrophic calcification representing possibly encephalomalacia and gliosis from chronic ischemic infarction in the right cerebrum since November 2018 Very low probability as a vasogenic edema from neoplasm and infection." Patient not worsening neurologically. Will leave this new information from the MRI and CT head to the discretion of neurology for any additional imaging study/workup at this time. Blood pressure is much better. Off Coreg for now. -No antibiotics at the time of discharge required. Pending neurology clearance as well as swing bed availability.
[2020-10-09] MEDS: MEROPENEM 1 GM/50 ML 1 GM in Premix Bag 1 BAG IVPB SCH (17:46)
[2020-10-09] MEDS: Saccharomyces boulardii 250 MG CAP PO SCH (17:56)
[2020-10-09] MEDS: OXcarbazepine 300 MG/5 ML UDCUP PER TUBE SCH (21:09)
[2020-10-09] MEDS: Latanoprost 0.005% Ophth Soln 2.5 ml Bottle L EYE SCH (21:09)
[2020-10-09] MEDS: Escitalopram Oxalate 20 mg Tablet PER TUBE SCH (21:09)
[2020-10-09] MEDS: Atorvastatin Calcium 10 MG TAB PO SCH (21:09)
[2020-10-09] MEDS: Acetaminophen 650 MG Suppository PR PRN (21:18)
[2020-10-10] MEDS: MEROPENEM 1 GM/50 ML 1 GM in Premix Bag 1 BAG IVPB SCH ×2 (01:10→10:46)
[2020-10-10 05:42] LABS: Eosinophils 3 % (0-10); Hemoglobin 8.6 g/dL (12.0-16.0); Lymphocytes 18 % (21-51); MDiff Complete? YES; Mean Corpuscular Hemoglobin 28.9 pg (27.0-31.0); Mean Corpuscular Volume 90.2 fL (78.0-98.0); Mean Platelet Volume 11.1 fL (7.4-10.4); Monocytes 3 % (0-10); Neutrophil 76 % (42-75); Platelet Count 101 thou/uL (130-400); Platelet Morphology Comment Appears Decreased; RBC Distribution Width 14.7 % (11.5-14.5); Red Blood Cell (RBC) Count 2.98 mill/uL (4.20-5.40); White Blood Cell (WBC) Count 7.8 thou/uL (4.8-10.8)
[2020-10-10] MEDS: levETIRAcetam 500 mg/5 ml Oral Solution PO SCH ×2 (10:46→21:24)
[2020-10-10] MEDS: Chlorhexidine Gluconate 15 ML UDCUP SSP SCH ×2 (10:46→21:19)
[2020-10-10] MEDS: Potassium Bicarbonate/Cit Ac 20 MEQ TAB PO SCH ×2 (10:47→21:19)
[2020-10-10] MEDS: Ascorbic Acid 500 mg Chewable Tablet PO SCH (10:47)
[2020-10-10] MEDS: Enoxaparin Sodium 40 MG/0.4 ML SYRINGE SC SCH (10:47)
[2020-10-10] MEDS: Lactinex Tablet PO SCH (10:47)
[2020-10-10] MEDS: Oxybutynin 5 MG TAB PO SCH (10:48)
[2020-10-10] MEDS: Multivitamin W/ Minerals 1 TAB PO SCH (10:48)
[2020-10-10] MEDS: OXcarbazepine 300 MG TAB PO SCH (10:48)
[2020-10-10 12:35] VITALS: BMI 31.0
--- NOTE | 2020-10-10 13:02 | PDOC.NEUPN ---
- Subjective Encounter Date: 10/10/20 Subjective: Ms. Calderon has no acute events in the last 24 hours. - Objective Vital Signs & Weight: Vital Signs (12 hours) Temp Pulse Resp BP BP Pulse Ox 10/10/20 11:31 99.0 F 77 16 109/59 L 94 L 10/10/20 07:20 98.4 F 78 18 91/49 L 94 L 10/10/20 04:00 98.3 F 69 18 109/59 L 92 L 10/10/20 02:47 93 L Weight Admit Weight 203 lb 4.8 oz Weight 210 lb 3.2 oz Most Recent Monitor Data Heart Rate from ECG 60 NIBP 123/58 NIBP BP-Mean 79 Respiration from ECG 14 SpO2 100 I&O: 10/09/20 10/10/20 10/11/20 06:59 06:59 06:59 Intake Total 2831 2384 Output Total 2150 2100 Balance 681 284 Result Diagrams: 10/10/20 05:15 10/01/20 04:30 Radiology Reviewed by me: Yes EKG Reviewed by me: Yes ROS - Review of Systems ROS unobtainable: due to mental status (Aphasia) - Medication Medications: Active Medications Generic Name Dose Route Start Last Admin Trade Name Freq PRN Reason Stop Dose Admin Acetaminophen 650 mg 10/03/20 14:55 10/09/20 21:18 Acetaminophen 650 Mg Suppository CO 650 mg Q6H PRN Administration Headache/Fever or Pain Acidophilus 1 tab 09/29/20 09:00 10/10/20 10:47 Lactinex Tablet PO 1 tab DAILY MONICA Administration Ascorbic Acid 500 mg 09/29/20 09:00 10/10/20 10:47 Ascorbic Acid 500 Mg Chewable Tablet PO 500 mg DAILY MONICA Administration Atorvastatin Calcium 5 mg 10/02/20 21:00 10/09/20 21:09 Atorvastatin Calcium 10 Mg Tab PO 5 mg HS MONICA Administration Chlorhexidine Gluconate 15 ml 09/28/20 21:00 10/10/20 10:46 Chlorhexidine Gluconate 15 Ml Udcup SSP 15 ml BID MONICA Administration Docusate Sodium 100 mg 10/05/20 16:37 10/07/20 17:40 Docusate 100 Mg Cap PO 100 mg BIDPRN PRN Administration Constipation Enoxaparin Sodium 40 mg 10/08/20 09:00 10/10/20 10:47 Enoxaparin Sodium 40 Mg/0.4 Ml Syringe SC 40 mg 0900 MONICA Administration Escitalopram Oxalate 20 mg 10/06/20 21:00 10/09/20 21:09 Escitalopram Oxalate 20 Mg Tablet PER TUBE 20 mg HS MONICA Administration Sodium Chloride 250 mls @ 0 mls/hr 10/06/20 16:26 10/09/20 04:38 Normal Saline 0.9% IVPB 250 mls Q6H PRN Administration SBP <90 As Directed Meropenem 1 gm/ Device 50 mls @ 100 mls/hr 10/09/20 17:00 10/10/20 10:46 IVPB 50 mls 0100,0900,1700 MONICA Administration Iron/Minerals/Multivitamins 1 tab 10/03/20 09:00 10/10/20 10:48 Multivitamin W/ Minerals 1 Tab PO 1 tab DAILY MONICA Administration Latanoprost 1 drop 09/28/20 21:00 10/09/20 21:09 Latanoprost 0.005% Ophth Soln 2.5 Ml Bottle L EYE 1 drop HS MONICA Administration Levetiracetam 500 mg 10/08/20 09:00 10/10/20 10:46 Levetiracetam 500 Mg/5 Ml Oral Solution PO 500 mg BID MONICA Administration Oxcarbazepine 300 mg 09/29/20 09:00 10/10/20 10:48 Oxcarbazepine 300 Mg Tab PO 300 mg DAILY MONICA Administration Oxcarbazepine 600 mg 10/06/20 21:00 10/09/20 21:09 Oxcarbazepine 300 Mg/5 Ml Udcup PER TUBE 600 mg HS MONICA Administration Oxybutynin Chloride 5 mg 10/10/20 09:00 10/10/20 10:48 Oxybutynin 5 Mg Tab PO 5 mg DAILY MONICA Administration Potassium Bicarbonate/Citric Acid 10 meq 10/08/20 08:00 10/10/20 10:47 Potassium Bicarbonate/Cit Ac 20 Meq Tab PO 10 meq BID-WM MONICA Administration Saccharomyces Boulardii 250 mg 10/03/20 18:00 10/09/20 17:56 Saccharomyces Boulardii 250 Mg Cap PO 250 mg 1800 MONICA Administration Sodium Chloride 10 ml 10/04/20 08:10 10/06/20 08:46 Flush - Normal Saline 10 Ml Syringe IVF 10 ml PRN PRN Administration Saline Flush Thyroid 180 mg 09/29/20 09:00 10/10/20 10:46 Thyroid 90 Mg Tab PO 180 mg DAILY MONICA Administration - Exam General Appearance: awake alert Eye: PERRL ENT: normocephalic atraumatic Neck: supple Respiratory: CTAB Cardiovascular: RRR Gastrointestinal: soft Extremities: no cyanosis Skin: normal turgor Neurological: no new deficit, hemiplegia, speech deficit Musculoskeletal: normal tone, generalized weakness PSYCH: normal affect, normal behavior Results - Labs Result Diagrams: 10/10/20 05:15 10/01/20 04:30 Lab results: WBC 7.8 thou/uL (4.8-10.8) 10/10/20 05:15 Hgb 8.6 g/dL (12.0-16.0) L 10/10/20 05:15 Hct 26.9 % (36.0-47.0) L 10/10/20 05:15 MCV 90.2 fL (78.0-98.0) 10/10/20 05:15 Plt Count 101 thou/uL (130-400) L 10/10/20 05:15 Neutrophils % 74.0 % (42.0-75.0) 09/27/20 16:46 Band Neuts % (Manual) 3 % (5-11) L 10/09/20 07:16 Sodium 134 mmol/L (136-145) L 10/01/20 04:30 Potassium 3.8 mmol/L (3.5-5.1) 10/01/20 04:30 Chloride 110 mmol/L (98-107) H 10/01/20 04:30 Carbon Dioxide 17 mmol/L (23-31) L 10/01/20 04:30 BUN 22 mg/dL (9.8-20.1) H 10/01/20 04:30 Creatinine 1.02 mg/dL (0.6-1.1) 10/01/20 04:30 Glucose 126 mg/dL (83-110) H 10/01/20 04:30 Calcium 8.7 mg/dL (7.8-10.44) 10/01/20 04:30 Total Bilirubin 0.3 mg/dL (0.2-1.2) 10/01/20 04:30 AST 13 U/L (5-34) 10/01/20 04:30 ALT 8 U/L (8-55) 10/01/20 04:30 Alkaline Phosphatase 79 U/L (40-110) 10/01/20 04:30 Troponin I 0.028 ng/mL (< 0.028) 09/27/20 16:46 Serum Total Protein 5.4 g/dL (6.0-8.3) L 10/01/20 04:30 Albumin 2.6 g/dL (3.4-4.8) L 10/01/20 04:30 Lipase 12 U/L (8-78) 09/27/20 16:46 Urine Ketones Negative mg/dL (Negative) 09/27/20 17:05 Urine Blood Trace (Negative) A 09/27/20 17:05 Urine Nitrite Negative (Negative) 09/27/20 17:05 Ur Leukocyte Esterase 500 Jamison/uL (Negative) A 09/27/20 17:05 Urine RBC 11-20 HPF (0-3) A 09/27/20 17:05 Urine WBC Greater than 50 HPF (0-3) A 09/27/20 17:05 Ur Squamous Epith Cells None Seen HPF (0-3) 09/27/20 17:05 Urine Bacteria 4+ HPF (None Seen) A 09/27/20 17:05 - Radiology Interpretation MRI - head Additional Comment: MRI of the brain reviewed which was consistent with old infarction and encephalomalacia PN A/P (1) Parkinsonism Code(s): G20 - PARKINSON'S DISEASE Status: Acute (2) Declining functional status Code(s): R53.81 - OTHER MALAISE Status: Acute (3) Severe sepsis with septic shock Code(s): A41.9 - SEPSIS, UNSPECIFIED ORGANISM; R65.21 - SEVERE SEPSIS WITH SEPTIC SHOCK Status: Acute (4) Left hemiplegia Code(s): G81.94 - HEMIPLEGIA, UNSPECIFIED AFFECTING LEFT NONDOMINANT SIDE Status: Chronic (5) Bacteremia due to Gram-negative bacteria Code(s): R78.81 - BACTEREMIA Status: Acute (6) Dyslipidemia Code(s): E78.5 - HYPERLIPIDEMIA, UNSPECIFIED Status: Chronic (7) Seizure disorder Code(s): G40.909 - EPILEPSY, UNSP, NOT INTRACTABLE, WITHOUT STATUS EPILEPTICUS Status: Chronic - Plan Daily Plan: plan discussed w/ family ( at bedside), continue antibiotics, PT/OT, speech therapy, DVT proph w/SCDs Ms. Landaverde is a 75-year-old female who presented with acute encephalopathy in the present in the setting of UTI and sepsis. Neurology consulted for Parkinson-like symptoms including tremor, and masked facies. Per , these are ongoing symptoms since the stroke in 2018. MRI of the brain reviewed which does show evidence of encephalomalacia due to old stroke in the right middle cerebral artery distribution and prior hemorrhage which involves the basal ganglia which can mimic Parkinson-like picture in terms of symptoms. Follow-up head CT confirmed no acute intracranial bleed Complete evaluation for the diagnosis of Parkinson disease is still an outpatient option once acute issues are resolved. The patient should be followed with Dr. Tinsley , the outpatient neurologist once acute issues are resolved to determine if she can benefit from Parkinson treatment. Continue neurochecks every 4 hours. Continue home medications. EEG reviewed which was negative for seizure activity. Continue Keppra and Trileptal for seizure prophylaxis. Telemetry DVT prophylaxis. Continue medical management per primary team and ID. Case management on board regarding discharge planning Plan discussed in detail with the at bedside, case management and also with the primary attending Dr. Smalls
--- NOTE | 2020-10-10 13:13 | PDOC.HOSPP ---
- Subjective Encounter Date: 10/10/20 Encounter Time: 10:10 Subjective: Talk to the spouse. Patient stable neurologically no acute events noted overnight. Her tube feed being increased. She is tolerating so far. Will at least give free water 1000 L a day to make sure that she is not dehydrated etc. discussed with RN - Objective Vital Signs & Weight: Vital Signs (12 hours) Temp Pulse Resp BP BP Pulse Ox 10/10/20 11:31 99.0 F 77 16 109/59 L 94 L 10/10/20 07:20 98.4 F 78 18 91/49 L 94 L 10/10/20 04:00 98.3 F 69 18 109/59 L 92 L 10/10/20 02:47 93 L Weight Admit Weight 203 lb 4.8 oz Weight 210 lb 3.2 oz Most Recent Monitor Data Heart Rate from ECG 60 NIBP 123/58 NIBP BP-Mean 79 Respiration from ECG 14 SpO2 100 I&O: 10/09/20 10/10/20 10/11/20 06:59 06:59 06:59 Intake Total 2831 2384 Output Total 2150 2100 Balance 681 284 Result Diagrams: 10/10/20 05:15 10/01/20 04:30 Hospitalist ROS - Medication Medications: Active Medications Generic Name Dose Route Start Last Admin Trade Name Freq PRN Reason Stop Dose Admin Acetaminophen 650 mg 10/03/20 14:55 10/09/20 21:18 Acetaminophen 650 Mg Suppository ID 650 mg Q6H PRN Administration Headache/Fever or Pain Acidophilus 1 tab 09/29/20 09:00 10/10/20 10:47 Lactinex Tablet PO 1 tab DAILY MONICA Administration Ascorbic Acid 500 mg 09/29/20 09:00 10/10/20 10:47 Ascorbic Acid 500 Mg Chewable Tablet PO 500 mg DAILY MONICA Administration Atorvastatin Calcium 5 mg 10/02/20 21:00 10/09/20 21:09 Atorvastatin Calcium 10 Mg Tab PO 5 mg HS MONICA Administration Chlorhexidine Gluconate 15 ml 09/28/20 21:00 10/10/20 10:46 Chlorhexidine Gluconate 15 Ml Udcup SSP 15 ml BID MONICA Administration Docusate Sodium 100 mg 10/05/20 16:37 10/07/20 17:40 Docusate 100 Mg Cap PO 100 mg BIDPRN PRN Administration Constipation Enoxaparin Sodium 40 mg 10/08/20 09:00 10/10/20 10:47 Enoxaparin Sodium 40 Mg/0.4 Ml Syringe SC 40 mg 0900 MONICA Administration Escitalopram Oxalate 20 mg 10/06/20 21:00 10/09/20 21:09 Escitalopram Oxalate 20 Mg Tablet PER TUBE 20 mg HS MONICA Administration Sodium Chloride 250 mls @ 0 mls/hr 10/06/20 16:26 10/09/20 04:38 Normal Saline 0.9% IVPB 250 mls Q6H PRN Administration SBP <90 As Directed Meropenem 1 gm/ Device 50 mls @ 100 mls/hr 10/09/20 17:00 10/10/20 10:46 IVPB 50 mls 0100,0900,1700 MONICA Administration Iron/Minerals/Multivitamins 1 tab 10/03/20 09:00 10/10/20 10:48 Multivitamin W/ Minerals 1 Tab PO 1 tab DAILY MONICA Administration Latanoprost 1 drop 09/28/20 21:00 10/09/20 21:09 Latanoprost 0.005% Ophth Soln 2.5 Ml Bottle L EYE 1 drop HS MONICA Administration Levetiracetam 500 mg 10/08/20 09:00 10/10/20 10:46 Levetiracetam 500 Mg/5 Ml Oral Solution PO 500 mg BID MONICA Administration Oxcarbazepine 300 mg 09/29/20 09:00 10/10/20 10:48 Oxcarbazepine 300 Mg Tab PO 300 mg DAILY MONICA Administration Oxcarbazepine 600 mg 10/06/20 21:00 10/09/20 21:09 Oxcarbazepine 300 Mg/5 Ml Udcup PER TUBE 600 mg HS MONICA Administration Oxybutynin Chloride 5 mg 10/10/20 09:00 10/10/20 10:48 Oxybutynin 5 Mg Tab PO 5 mg DAILY MONICA Administration Potassium Bicarbonate/Citric Acid 10 meq 10/08/20 08:00 10/10/20 10:47 Potassium Bicarbonate/Cit Ac 20 Meq Tab PO 10 meq BID-WM MONICA Administration Saccharomyces Boulardii 250 mg 10/03/20 18:00 10/09/20 17:56 Saccharomyces Boulardii 250 Mg Cap PO 250 mg 1800 MONICA Administration Sodium Chloride 10 ml 10/04/20 08:10 10/06/20 08:46 Flush - Normal Saline 10 Ml Syringe IVF 10 ml PRN PRN Administration Saline Flush Thyroid 180 mg 09/29/20 09:00 10/10/20 10:46 Thyroid 90 Mg Tab PO 180 mg DAILY MONICA Administration - Exam General Appearance: NAD, awake alert Eye: PERRL ENT: normocephalic atraumatic Neck: supple Heart: RRR Respiratory: CTAB, normal chest expansion Neurological: cranial nerve grossly intact, no focal deficits Psychiatric: A&O x 3 Hosp A/P - Plan (1) Parkinsonism Code(s): G20 - PARKINSON'S DISEASE Status: Acute (2) Declining functional status Code(s): R53.81 - OTHER MALAISE Status: Acute (3) Severe sepsis with septic shock Code(s): A41.9 - SEPSIS, UNSPECIFIED ORGANISM; R65.21 - SEVERE SEPSIS WITH SEPTIC SHOCK Status: Acute (4) Left hemiplegia Code(s): G81.94 - HEMIPLEGIA, UNSPECIFIED AFFECTING LEFT NONDOMINANT SIDE Status: Chronic (5) Bacteremia due to Gram-negative bacteria Code(s): R78.81 - BACTEREMIA Status: Acute (6) Dyslipidemia Code(s): E78.5 - HYPERLIPIDEMIA, UNSPECIFIED Status: Chronic (7) Seizure disorder Code(s): G40.909 - EPILEPSY, UNSP, NOT INTRACTABLE, WITHOUT STATUS EPILEPTICUS Status: Chronic - Plan Daily Plan: plan discussed w/ family ( at bedside), continue antibiotics, PT/OT, speech therapy, DVT proph w/SCDs Ms. Landaverde is a 75-year-old female who presented with acute encephalopathy in the present in the setting of UTI and sepsis. Neurology consulted for Parkinson-like symptoms including tremor, and masked facies. Per , these are ongoing symptoms since the stroke in 2018. Altered mental status is improved and patient is alert and oriented to person and place and follows commands appropriately. As far as parkinsonian symptoms features are concerned, it is difficult to diagnose with Parkinson disease in the midst of current acute issues. The patient needs MRI of the brain was we can determine that AICD is compatible with MRI. The patient should be followed with Dr. Tinsley , the outpatient neurologist once acute issues are resolved to determine if she can benefit from Parkinson treatment. --Pseudomonas and MRSA UTI. -Follow-up on CT protocol-focal area of proctitis-bilateral renal calculi without hydronephrosis---urology consult placed based on the recommendations from swing bed physician. -Merum discontinued and vancomycin as well as 3 doses of amikacin. -Plan for continue IV antibiotics for 7 days.--Previously there was a note for long duration of abx, that has been changed. MRI cannot be done until tomorrow as pacemaker has to be checked. Will request the library information technician tomorrow to look into it to adjust the settings so that MRI can be done.. Thrombocytopenia Her platelets seems to be at baseline around 88,000. We will start her on Lovenox for DVT prophylaxis . Her creatinine normal range. Bilateral nephrolithiasis -Without any obstruction. -Urologist Dr. Hoskins evaluated and recommended outpatient follow-up. Swing bed placement after MRI completed. Discharge process completed however patient has hypotension with the systolic in the 70s 80s range. Plan to hold the discharge until her blood pressure is better. 1st MRI report reviewed. There was a concern about vasogenic edema from chronic infarct. Follow-up CT was done. Repeat CT head shows "changes from right cerebral intra-axial hematoma from July 2018, repeat CT head on October 2018 showed involuted by then. The MRI shows 1.45 x 4 x 2 cm involuted hyperintense signal -which is combination of mixture of CSF density fluid in the cavity Mass-effect has resolved now Dystrophic calcification representing possibly encephalomalacia and gliosis from chronic ischemic infarction in the right cerebrum since November 2018 Very low probability as a vasogenic edema from neoplasm and infection." Patient not worsening neurologically. Will leave this new information from the MRI and CT head to the discretion of neurology for any additional imaging study/workup at this time. Blood pressure is much better. Off Coreg for now. -No antibiotics at the time of discharge required. Pending neurology clearance as well as swing bed availability. 2nd Neurology cleared follow-up with Dr. Mckay for outpatient evaluation for Parkinson's. We will stop the antibiotics. Pending swing bed availability now.
[2020-10-10] MEDS: Saccharomyces boulardii 250 MG CAP PO SCH (18:03)
[2020-10-10] MEDS: Escitalopram Oxalate 20 mg Tablet PER TUBE SCH (21:19)
[2020-10-10] MEDS: Latanoprost 0.005% Ophth Soln 2.5 ml Bottle L EYE SCH (21:19)
[2020-10-10] MEDS: Atorvastatin Calcium 10 MG TAB PO SCH (21:19)
[2020-10-10] MEDS: OXcarbazepine 300 MG/5 ML UDCUP PER TUBE SCH (21:20)
[2020-10-11 07:28] LABS: Hemoglobin 8.6 g/dL (12.0-16.0); Mean Corpuscular HGB CONC 31.9 g/dL (32.0-36.0); Mean Corpuscular Hemoglobin 29.4 pg (27.0-31.0); Mean Corpuscular Volume 92.2 fL (78.0-98.0); Mean Platelet Volume 7.7 fL (7.4-10.4); Platelet Count 192 thou/uL (130-400); RBC Distribution Width 14.8 % (11.5-14.5); Red Blood Cell (RBC) Count 2.91 mill/uL (4.20-5.40); White Blood Cell (WBC) Count 7.9 thou/uL (4.8-10.8)
[2020-10-11 08:49] LABS: Eosinophils 1 % (0-10); Hypochromia SLIGHT = 6-15 cells (100X) (0-5/hpf); Lymphocytes 14 % (21-51); MDiff Complete? YES; Monocytes 7 % (0-10); Neutrophil 77 % (42-75); Platelet Clumps MODERATE; Platelet Morphology Comment Appears Adequate; Polychromasia SLIGHT = 2-3 cells (100X) (0-2/hpf)
[2020-10-11] MEDS: levETIRAcetam 500 mg/5 ml Oral Solution PO SCH (09:26)
[2020-10-11] MEDS: Enoxaparin Sodium 40 MG/0.4 ML SYRINGE SC SCH (09:26)
[2020-10-11] MEDS: Multivitamin W/ Minerals 1 TAB PO SCH (09:27)
[2020-10-11] MEDS: Lactinex Tablet PO SCH (09:28)
[2020-10-11] MEDS: Ascorbic Acid 500 mg Chewable Tablet PO SCH (09:28)
[2020-10-11] MEDS: OXcarbazepine 300 MG TAB PO SCH (09:28)
[2020-10-11] MEDS: Oxybutynin 5 MG TAB PO SCH (09:28)
[2020-10-11] MEDS: Chlorhexidine Gluconate 15 ML UDCUP SSP SCH (09:28)
[2020-10-11] MEDS: Potassium Bicarbonate/Cit Ac 20 MEQ TAB PO SCH (10:32)
[2020-10-11 12:05] VITALS: TEMP 98.5
--- NOTE | 2020-10-11 12:14 | PDOC.NEUPN ---
- Subjective Encounter Date: 10/11/20 Subjective: Ms. Calderon has no acute events in the last 24 hours. She has been doing well. at bedside. - Objective Vital Signs & Weight: Vital Signs (12 hours) Temp Pulse Resp BP BP Pulse Ox 10/11/20 12:00 98.5 F 80 18 116/59 L 94 L 10/11/20 08:04 96 10/11/20 07:25 98.2 F 78 16 133/70 92 L 10/11/20 04:00 98.9 F 82 18 96/70 96 Weight Admit Weight 203 lb 4.8 oz Weight 215 lb 9.793 oz Most Recent Monitor Data Heart Rate from ECG 60 NIBP 123/58 NIBP BP-Mean 79 Respiration from ECG 14 SpO2 100 I&O: 10/10/20 10/11/20 10/12/20 06:59 06:59 06:59 Intake Total 2384 1863 Output Total 2100 1175 Balance 284 688 Result Diagrams: 10/11/20 07:23 10/01/20 04:30 Radiology Reviewed by me: Yes EKG Reviewed by me: Yes ROS - Review of Systems ROS unobtainable: due to mental status - Medication Medications: Active Medications Generic Name Dose Route Start Last Admin Trade Name Freq PRN Reason Stop Dose Admin Acetaminophen 650 mg 10/03/20 14:55 10/09/20 21:18 Acetaminophen 650 Mg Suppository SD 650 mg Q6H PRN Administration Headache/Fever or Pain Acidophilus 1 tab 09/29/20 09:00 10/11/20 09:28 Lactinex Tablet PO 1 tab DAILY MONICA Administration Ascorbic Acid 500 mg 09/29/20 09:00 10/11/20 09:28 Ascorbic Acid 500 Mg Chewable Tablet PO 500 mg DAILY MONICA Administration Atorvastatin Calcium 5 mg 10/02/20 21:00 10/10/20 21:19 Atorvastatin Calcium 10 Mg Tab PO 5 mg HS MONICA Administration Chlorhexidine Gluconate 15 ml 09/28/20 21:00 10/11/20 09:28 Chlorhexidine Gluconate 15 Ml Udcup SSP 15 ml BID MONICA Administration Docusate Sodium 100 mg 10/05/20 16:37 10/07/20 17:40 Docusate 100 Mg Cap PO 100 mg BIDPRN PRN Administration Constipation Enoxaparin Sodium 40 mg 10/08/20 09:00 10/11/20 09:26 Enoxaparin Sodium 40 Mg/0.4 Ml Syringe SC 40 mg 0900 MONICA Administration Escitalopram Oxalate 20 mg 10/06/20 21:00 10/10/20 21:19 Escitalopram Oxalate 20 Mg Tablet PER TUBE 20 mg HS MONICA Administration Sodium Chloride 250 mls @ 0 mls/hr 10/06/20 16:26 10/09/20 04:38 Normal Saline 0.9% IVPB 250 mls Q6H PRN Administration SBP <90 As Directed Iron/Minerals/Multivitamins 1 tab 10/03/20 09:00 10/11/20 09:27 Multivitamin W/ Minerals 1 Tab PO 1 tab DAILY MONICA Administration Latanoprost 1 drop 09/28/20 21:00 10/10/20 21:19 Latanoprost 0.005% Ophth Soln 2.5 Ml Bottle L EYE 1 drop HS MONICA Administration Levetiracetam 500 mg 10/08/20 09:00 10/11/20 09:26 Levetiracetam 500 Mg/5 Ml Oral Solution PO 500 mg BID MONICA Administration Oxcarbazepine 300 mg 09/29/20 09:00 10/11/20 09:28 Oxcarbazepine 300 Mg Tab PO 300 mg DAILY MONICA Administration Oxcarbazepine 600 mg 10/06/20 21:00 10/10/20 21:20 Oxcarbazepine 300 Mg/5 Ml Udcup PER TUBE 600 mg HS MONICA Administration Oxybutynin Chloride 5 mg 10/10/20 09:00 10/11/20 09:28 Oxybutynin 5 Mg Tab PO 5 mg DAILY MONICA Administration Potassium Bicarbonate/Citric Acid 10 meq 10/08/20 08:00 10/11/20 10:32 Potassium Bicarbonate/Cit Ac 20 Meq Tab PO Not Given BID-WM MONICA Saccharomyces Boulardii 250 mg 10/03/20 18:00 10/10/20 18:03 Saccharomyces Boulardii 250 Mg Cap PO 250 mg 1800 MONICA Administration Sodium Chloride 10 ml 10/04/20 08:10 10/10/20 21:24 Flush - Normal Saline 10 Ml Syringe IVF 10 ml PRN PRN Administration Saline Flush - Exam General Appearance: awake alert Eye: PERRL ENT: normocephalic atraumatic Neck: supple Respiratory: CTAB Cardiovascular: RRR Gastrointestinal: soft Extremities: no cyanosis Skin: normal turgor Neurological: no new deficit, facial droop, hemiplegia, speech deficit PSYCH: not oriented (Aphasic) Results - Labs Result Diagrams: 10/11/20 07:23 10/01/20 04:30 Lab results: WBC 7.9 thou/uL (4.8-10.8) 10/11/20 07:23 Hgb 8.6 g/dL (12.0-16.0) L 10/11/20 07:23 Hct 26.8 % (36.0-47.0) L 10/11/20 07:23 MCV 92.2 fL (78.0-98.0) 10/11/20 07:23 Plt Count 192 thou/uL (130-400) 10/11/20 07:23 Neutrophils % 74.0 % (42.0-75.0) 09/27/20 16:46 Band Neuts % (Manual) 3 % (5-11) L 10/09/20 07:16 Sodium 134 mmol/L (136-145) L 10/01/20 04:30 Potassium 3.8 mmol/L (3.5-5.1) 10/01/20 04:30 Chloride 110 mmol/L (98-107) H 10/01/20 04:30 Carbon Dioxide 17 mmol/L (23-31) L 10/01/20 04:30 BUN 22 mg/dL (9.8-20.1) H 10/01/20 04:30 Creatinine 1.02 mg/dL (0.6-1.1) 10/01/20 04:30 Glucose 126 mg/dL (83-110) H 10/01/20 04:30 Calcium 8.7 mg/dL (7.8-10.44) 10/01/20 04:30 Total Bilirubin 0.3 mg/dL (0.2-1.2) 10/01/20 04:30 AST 13 U/L (5-34) 10/01/20 04:30 ALT 8 U/L (8-55) 10/01/20 04:30 Alkaline Phosphatase 79 U/L (40-110) 10/01/20 04:30 Troponin I 0.028 ng/mL (< 0.028) 09/27/20 16:46 Serum Total Protein 5.4 g/dL (6.0-8.3) L 10/01/20 04:30 Albumin 2.6 g/dL (3.4-4.8) L 10/01/20 04:30 Lipase 12 U/L (8-78) 09/27/20 16:46 Urine Ketones Negative mg/dL (Negative) 09/27/20 17:05 Urine Blood Trace (Negative) A 09/27/20 17:05 Urine Nitrite Negative (Negative) 09/27/20 17:05 Ur Leukocyte Esterase 500 Jamison/uL (Negative) A 09/27/20 17:05 Urine RBC 11-20 HPF (0-3) A 09/27/20 17:05 Urine WBC Greater than 50 HPF (0-3) A 09/27/20 17:05 Ur Squamous Epith Cells None Seen HPF (0-3) 09/27/20 17:05 Urine Bacteria 4+ HPF (None Seen) A 09/27/20 17:05 - Radiology Interpretation MRI - head Additional Comment: No acute intracranial pathology PN A/P (1) Parkinsonism Code(s): G20 - PARKINSON'S DISEASE Status: Acute (2) Declining functional status Code(s): R53.81 - OTHER MALAISE Status: Acute (3) Severe sepsis with septic shock Code(s): A41.9 - SEPSIS, UNSPECIFIED ORGANISM; R65.21 - SEVERE SEPSIS WITH SEPTIC SHOCK Status: Acute (4) Left hemiplegia Code(s): G81.94 - HEMIPLEGIA, UNSPECIFIED AFFECTING LEFT NONDOMINANT SIDE Status: Chronic (5) Bacteremia due to Gram-negative bacteria Code(s): R78.81 - BACTEREMIA Status: Acute (6) Dyslipidemia Code(s): E78.5 - HYPERLIPIDEMIA, UNSPECIFIED Status: Chronic (7) Seizure disorder Code(s): G40.909 - EPILEPSY, UNSP, NOT INTRACTABLE, WITHOUT STATUS EPILEPTICUS Status: Chronic - Plan Daily Plan: plan discussed w/ family ( at bedside), PT/OT, speech therapy, DVT proph w/SCDs Ms. Landaverde is a 75-year-old female who presented with acute encephalopathy in the present in the setting of UTI and sepsis. Patient stable and has been doing well and back to her baseline in terms of mental status. She does have left hemiplegia, aphasia and left facial droop is residual neurological deficits from the prior stroke. Neurology was consulted for Parkinson-like symptoms including tremor, and masked facies. Per , these are ongoing symptoms since the stroke in 2018. MRI of the brain reviewed which does show evidence of encephalomalacia due to old stroke in the right middle cerebral artery distribution and prior hemorrhage which involves the basal ganglia which can mimic Parkinson-like picture in terms of symptoms. Follow-up head CT confirmed no acute intracranial bleed Complete evaluation for the diagnosis of Parkinson disease is still an outpatient option once acute issues are resolved. The patient should be followed with Dr. Tinsley , the outpatient neurologist once acute issues are resolved to determine if she can benefit from Parkinson treatment. Continue neurochecks every 4 hours. Continue home medications. EEG reviewed which was negative for seizure activity. Continue Keppra and Trileptal for seizure prophylaxis. Telemetry DVT prophylaxis. Continue medical management per primary team and ID. Case management on board regarding discharge planning. Awaiting for swing bed. Plan discussed in detail with the at bedside.
--- NOTE | 2020-10-11 12:25 | PDOC.DS.DS ---
Provider - Provider Date of Admission: 09/27/20 20:47 Admitting Provider: Clemencia Joshua MD Primary Care Physician: Bong Winters MD Course - Hospital Course Hospital Course: Ms. Landaverde is a 75-year-old female who presented with acute encephalopathy in the present in the setting of UTI and sepsis. Neurology consulted for Parkinson-like symptoms including tremor, and masked facies. Per , these are ongoing symptoms since the stroke in 2018. (1) Parkinsonism Code(s): G20 - PARKINSON'S DISEASE Status: Acute (2) Declining functional status Code(s): R53.81 - OTHER MALAISE Status: Acute (3) Severe sepsis with septic shock Code(s): A41.9 - SEPSIS, UNSPECIFIED ORGANISM; R65.21 - SEVERE SEPSIS WITH SEP TIC SHOCK Status: Acute (4) Left hemiplegia Code(s): G81.94 - HEMIPLEGIA, UNSPECIFIED AFFECTING LEFT NONDOMINANT SIDE Status: Chronic (5) Bacteremia due to Gram-negative bacteria Code(s): R78.81 - BACTEREMIA Status: Acute (6) Dyslipidemia Code(s): E78.5 - HYPERLIPIDEMIA, UNSPECIFIED Status: Chronic (7) Seizure disorder Code(s): G40.909 - EPILEPSY, UNSP, NOT INTRACTABLE, WITHOUT STATUS EPILEPTICUS Status: Chronic As far as parkinsonian symptoms features are concerned, it is difficult to d iagnose with Parkinson disease in the midst of current acute issues. The patient should be followed with Dr. Tinsley , the outpatient neurologist once acute issues are resolved to determine if she can benefit from Parkinson treatment. certain difficulties for the last 10 days of getting the MRI due to pacer placement. Currently does not appear to be required. --Pseudomonas and MRSA UTI. -Follow-up on CT protocol-focal area of proctitis-bilateral renal calculi without hydronephrosis---urology recommendations is follow-up as an outpatient. -she got Merum and vancomycin as well as 3 doses of amikacin.-Does not require any further antibiotics MRI cannot be done until tomorrow as pacemaker has to be checked. Thrombocytopenia Her platelets seems to be at baseline around 88,000. Her creatinine normal range. Bilateral nephrolithiasis -Without any obstruction. -Urologist Dr. Hoskins evaluated and recommended outpatient follow-up. MRI report reviewed. There was a concern about vasogenic edema from chronic infarct. Follow-up CT was done. Repeat CT head shows "changes from right cerebral intra-axial hematoma from July 2018, repeat CT head on October 2018 showed involuted by then. The MRI shows 1.45 x 4 x 2 cm involuted hyperintense signal -which is combination of mixture of CSF density fluid in the cavity Mass-effect has resolved now Dystrophic calcification representing possibly encephalomalacia and gliosis from chronic ischemic infarction in the right cerebrum since November 2018 Very low probability as a vasogenic edema from neoplasm and infection." Patient not worsening neurologically. Blood pressure is much better. only home coreg dose can be resumed in swing bed if BP above 120/70. if not that should also be on hold. all her other home BP meds are discontinued as she continually exhibited low normal blood pressure. neurology cleared. Transferring today to the swing bed. Discharge time took over 30 minutes. Resuscitation Status: 09/28/20 10:28 Resuscitation Status Routine Resuscitation Status: DNAR: NO Resuscitation Discussed with: Pt. and her - Labs Lab Results: 10/11/20 07:23 10/01/20 04:30 Abnormal Lab Results - Last 48 hrs 10/10/20 05:15: RBC 2.98 L, Hgb 8.6 L, Hct 26.9 L, RDW 14.7 H, Plt Count 101 L, MPV 11.1 H, Neutrophils % (Manual) 76 H, Lymphocytes % (Manual) 18 L, Plt Morphology Comment Appears Decreased L 10/11/20 04:23: Free T4 0.59 L 10/11/20 07:23: RBC 2.91 L, Hgb 8.6 L, Hct 26.8 L, MCHC 31.9 L, RDW 14.8 H, Neutrophils % (Manual) 77 H, Lymphocytes % (Manual) 14 L, Clumped Platelets MODERATE H Microbiology - Entire Visit 09/29/20 14:15 Urine Suprapubic catheter Urine Culture - Final Pseudomonas aeruginosa Methicillin resistant S.aureus - Physical Exam Vitals: Vital Signs (12 hours) Temp Pulse Resp BP BP Pulse Ox 10/11/20 12:00 98.5 F 80 18 116/59 L 94 L 10/11/20 08:04 96 10/11/20 07:25 98.2 F 78 16 133/70 92 L 10/11/20 04:00 98.9 F 82 18 96/70 96 Weight Admit Weight 203 lb 4.8 oz Weight 215 lb 9.793 oz Most Recent Monitor Data Heart Rate from ECG 60 NIBP 123/58 NIBP BP-Mean 79 Respiration from ECG 14 SpO2 100 Physical Exam: The patient was seen and examined on the day of discharge. d/w the patient's spouse. She will be discharged today to the rehab. Plan - Discharge Medications Prescriptions: Aspirin 81 mg PO DAILY #30 tab.chew Home Medications: Medication Instructions Recorded Confirmed Type Acetaminophen 650 mg PO Q4H PRN 10/06/18 09/28/20 History Chlorhexidine Gluconate 15 ml SSP BID 04/14/19 09/28/20 History [Chlorhexidine Gluconate 0.12% Oral Rinse] Ipratropium/Albuterol Sulfate 3 ml NEB Q4HR PRN 04/30/19 09/28/20 History [Duoneb] Lactobacillus [Floranex] 1 tab PO DAILY 09/28/20 09/28/20 History Latanoprost/Pf [Latanoprost 0.005% 7.5 ml L EYE HS 09/28/20 09/28/20 History Eye Drop] Aspirin 81 mg PO DAILY #30 tab.chew 10/08/20 Rx Ascorbic Acid [Vitamin C] 500 mg PER TUBE DAILY #0 10/11/20 09/28/20 Rx Atorvastatin Calcium [Lipitor] 5 mg PER TUBE HS #0 10/11/20 09/28/20 Rx Carvedilol [Coreg] 6.25 mg PER TUBE BID #0 10/11/20 09/28/20 Rx Escitalopram Oxalate [Lexapro] 20 mg PER TUBE HS #0 10/11/20 09/28/20 Rx OXcarbazepine [Oxcarbazepine] 600 mg PER TUBE QPM #0 10/11/20 09/28/20 Rx OXcarbazepine [Trileptal] 300 mg PER TUBE DAILY #0 10/11/20 09/28/20 Rx Oxybutynin Chloride 5 mg PER TUBE BID #0 10/11/20 09/28/20 Rx Potassium Chloride [K-Dur] 10 meq PER TUBE DAILY #0 10/11/20 09/28/20 Rx levETIRAcetam [Keppra] 500 mg PER TUBE BID #0 10/11/20 09/28/20 Rx Allergies: codeine Allergy (Verified 09/28/20 00:21) Fish Containing Products Allergy (Verified 09/28/20 00:21) Penicillins Allergy (Verified 09/28/20 00:21) propafenone HCl [From Rythmol] Allergy (Verified 09/28/20 00:21) shellfish derived Allergy (Verified 09/28/20 00:21) - Discharge Instructions Discharge Instructions:: Follow-up with the PCP in 1 to 2-weeks after the rehab Follow-up with Dr. Morrow as needed. Follow-up with Dr. Mosley urologist in 2 to 3 weeks Take thyroid supplement. need to check TSH in 1 week. Activity:: Activity as Tolerated Nourishment:: Heart Healthy Diet, Tube Feeding Diet - Follow up Plan Referrals: Bong Winters MD [Primary Care Provider] - Eder Morrow MD [Active] - 3-4 Weeks Disposition: [facility] Quality - Care Measures CORE MEASURES:: Stroke/TIA - Stroke/TIA Did you prescribe antithrombotic therapy?: Yes Did you prescribe anticoagulant for A Fib/Flutter?: Yes Did you prescribe a statin medication?: Yes
[2020-10-11 13:54] VITALS: BP 116/60
== END 2020-10-11 15:13 | DRG 698 ==
LOC: ERS 16:11 → CCU 20:47 → 2SE 09-29 20:21
PROVIDERS: ADMIT Internal Medicine; ATTEND Internal Medicine
PROC: 3E033XZ Introduction of Vasopressor into Peripheral Vein, Percutaneous Approach (ICD-10-PCS; principal; 2020-09-27)
PROC: 06HY33Z Insertion of Infusion Device into Lower Vein, Percutaneous Approach (ICD-10-PCS; 2020-09-27)
DX: T83.511A Infection and inflammatory reaction due to indwelling urethral catheter, initial encounter (principal); A41.50 Gram-negative sepsis, unspecified; R65.21 Severe sepsis with septic shock; G93.6 Cerebral edema; G93.41 Metabolic encephalopathy; I69.354 Hemiplegia and hemiparesis following cerebral infarction affecting left non-dominant side; I48.20 Chronic atrial fibrillation, unspecified; R47.01 Aphasia; N39.0 Urinary tract infection, site not specified; R62.7 Adult failure to thrive; J44.9 Chronic obstructive pulmonary disease, unspecified; F31.9 Bipolar disorder, unspecified; I11.0 Hypertensive heart disease with heart failure; E78.5 Hyperlipidemia, unspecified; R53.1 Weakness; E03.9 Hypothyroidism, unspecified; I50.9 Heart failure, unspecified; Z51.5 Encounter for palliative care; I48.91 Unspecified atrial fibrillation; G40.909 Epilepsy, unspecified, not intractable, without status epilepticus; G20 Parkinson's disease; L89.152 Pressure ulcer of sacral region, stage 2; I25.5 Ischemic cardiomyopathy; B95.62 Methicillin resistant Staphylococcus aureus infection as the cause of diseases classified elsewhere; B96.5 Pseudomonas (aeruginosa) (mallei) (pseudomallei) as the cause of diseases classified elsewhere; D69.6 Thrombocytopenia, unspecified; N20.0 Calculus of kidney; R53.81 Other malaise; Z20.828 Contact with and (suspected) exposure to other viral communicable diseases; Z93.1 Gastrostomy status; Z88.0 Allergy status to penicillin; Z88.6 Allergy status to analgesic agent; Z91.013 Allergy to seafood; Z95.0 Presence of cardiac pacemaker; Z90.49 Acquired absence of other specified parts of digestive tract; Z90.710 Acquired absence of both cervix and uterus; Z86.718 Personal history of other venous thrombosis and embolism
CPT/HCPCS: 36415; 36430; 36556; 70450; 70551; 71045; 74176; 80053; 80202; 81003; 81015; 82533; 82728; 83540; 83550; 83690; 84439; 84443; 84484; 85007; 85025; 85027; 86850; 86900; 86901; 87077; 87086; 87186; 93005; 95712; 95819; 95957; 96360; 96361; 96365; 96366; 96367; 96372; 99292; J0171; J0278; J0692; J0696; J1650; J1940; J1956; J2185; J2920; J3370; J3490; J7030; J7070; P9016; P9045; S0028; U0002

== ENCOUNTER 2020-10-20 11:25 | Inpatient (IN) | payer MEDICARE, MEDICAID ==
[2020-10-20 12:05] LABS: Bilirubin Negative (Negative); Blood, Urine Negative (Negative); Clarity Clear (Clear); Glucose, Urine (Dipstick) Normal (Negative); Ketone, Urine Negative (Negative); Leukocyte 500 Leu/uL (Negative); Nitrite Negative (Negative); Protein, Urine (Dipstick) 10 mg/dL (Neg-Trace); Specific Gravity, Urine 1.007 (1.002-1.036); Squamous Epithelial None Seen HPF (0-3); Urobilinogen Normal mg/dL (Less than 2); WBC/HPF Greater than 50 HPF (0-3); pH, Urine 7.5 (5.0-9.0)
[2020-10-20 12:13] LABS: Bacteria/HPF None Seen HPF (None Seen); RBC/HPF 0-3 HPF (0-3)
--- NOTE | 2020-10-20 12:14 | RAD ---
SINGLE VIEW CHEST: Date: 10/20/2020 COMPARISON: 09/27/2020. HISTORY: Shortness of breath and cough. FINDINGS: Single view of the chest shows an enlarged but stable cardiomediastinal silhouette with atherosclerot ic calcifications in the aorta. The pacemaker is unchanged in position. Multifocal scattered opacitie s are seen in the left lower lobe and entire right lung. Small pleural effusions may be present. IMPRESSION: 1. Cardiomegaly. 2. Multifocal infiltrates. POS: EAA
[2020-10-20 12:22] LABS: #Eosinphils 0.4 thou/uL (0.0-0.7); #Lymphocytes 0.8 thou/uL (1.20-3.40); #Monocytes 0.4 thou/uL (0.11-0.59); %Basophils 0.6 % (0.0-1.0); %Eosinophils 4.6 % (0.0-10.0); %Lymphocytes 10.2 % (21.0-51.0); %Monocytes 5.7 % (0.0-10.0); %Neutrophils 78.9 % (42.0-75.0); Hemoglobin 8.8 g/dL (12.0-16.0); Mean Corpuscular HGB CONC 32.8 g/dL (32.0-36.0); Mean Corpuscular Hemoglobin 29.4 pg (27.0-31.0); Mean Corpuscular Volume 89.7 fL (78.0-98.0); Mean Platelet Volume 9.1 fL (7.4-10.4); Platelet Count 197 thou/uL (130-400); RBC Distribution Width 14.9 % (11.5-14.5); Red Blood Cell (RBC) Count 2.98 mill/uL (4.20-5.40); White Blood Cell (WBC) Count 7.6 thou/uL (4.8-10.8)
[2020-10-20 12:22] LABS: Base Excess-Venous 6.1 mmol/L (-2.0 to 3.0); Bicarbonate (HCO3v) 31.3 mmol/L (22.0-28.0); CO2 Tension (PvCO2) 47.7 mmHg (40.0-50.0); Calcium, Ionized 1.11 mmol/L (1.15-1.33); Chloride 92 mmol/L (98-107); Hemoglobin - Calc 9.2 g/dL (12.0-16.0); Potassium 5.3 mmol/L (3.5-5.1); Sodium 131 mmol/L (138-145); T. Carbon Dioxide 32.8 mmol/L (22.0-28.0); vO2 Saturation-calc 73.7 % (60.0-85.0)
[2020-10-20] MEDS ORDERED: Cefepime 2 GM VIAL ONE (12:35)
[2020-10-20 12:46] LABS: ALT (SGPT) 9 U/L (8-55); AST (SGOT) 13 U/L (5-34); Albumin 2.9 g/dL (3.4-4.8); Alkaline Phosphatase 124 U/L (40-110); Anion Gap 11 mmol/L (10-20); BUN (Urea Nitrogen) 24 mg/dL (9.8-20.1); Bilirubin, Total 0.3 mg/dL (0.2-1.2); Calc. Creatinine Clearance 0 mL/min (70-130); Calcium 8.9 mg/dL (7.8-10.44); Carbon Dioxide 32 mmol/L (23-31); Chloride 92 mmol/L (98-107); Globulin 3.9 g/dL (2.4-3.5); Glucose 132 mg/dL (83-110); Potassium 5.1 mmol/L (3.5-5.1); Protein, Total 6.8 g/dL (6.0-8.3); Sodium 130 mmol/L (136-145)
[2020-10-20 14:23] LABS: SARS-CoV-2 NAA Rapid Test Not Detected (NotDetected)
--- NOTE | 2020-10-20 15:41 | HP ---
PRIMARY CARE PROVIDER: Bong Winters MD CHIEF COMPLAINT: Shortness of breath. HISTORY OF PRESENT ILLNESS: This is a 75-year-old female, who presents to [facility] Emergency Department in transfer from [facility], where the patient is a current resident when nursing staff noted the patient to be short of breath with increased oxygen requirement above her baseline level of 2 L/minute by nasal cannula. The patient was given a bronchodilator therapy according to the son, who provides the history at the bedside as the patient is minimally conversant due to a remote CVA. The patient normally uses 2 L/minute by nasal cannula with oxygen concentrator, but had progressive shortness of breath despite the therapy. The patient with significant history of approximate two-week hospital stay from 09/28/2020 through 10/11/2020 due to severe sepsis and septic shock due to a polymicrobial urinary tract infection in the context of a chronic suprapubic catheter. The patient was treated with broad-spectrum IV antibiotics; however, was not discharged back to [facility] on antibiotic therapy as the patient had completed treatment during her hospital stay. In the emergency room, the patient was placed on 4 L of oxygen per nasal cannula with chest imaging showing a showing large infiltrate of the right hemithorax concerning for pneumonia. The patient received IV cefepime, Levaquin, and vancomycin and referred to the Hospitalist Service for admission. PAST MEDICAL HISTORY: 1. Remote CVA with residual left hemiparesis and dysarthria/dysphagia and nonambulatory status. 2. Dysphagia with limited oral intake of liquids and pureed texture food. 3. Chronic obstructive pulmonary disease. 4. Chronic hypoxic respiratory failure on chronic oxygen supplementation at 2.5 L/minute by nasal cannula. 5. Hypothyroidism. 6. Chronic atrial fibrillation. 7. Hyperlipidemia. 8. Hypertension. 9. Sacral decubitus ulcer. 10. Nonambulatory status. PAST SURGICAL HISTORY: 1. Status post cardiac ablation x5. 2. Status post appendectomy. 3. Status post cholecystectomy. 4. Status post hysterectomy. 5. Status post PEG tube placement. 6. Status post suprapubic catheter placement. CURRENT MEDICATIONS: 1. DuoNeb 3 mL nebulized q.i.d. p.r.n. 2. Latanoprost one drop to the left eye at bedtime. 3. Aspirin 81 mg p.o. daily. 4. Coreg 6.25 mg per PEG tube b.i.d. 5. Potassium chloride 10 mEq per PEG tube daily. 6. Keppra 500 mg per PEG tube b.i.d. 7. Lexapro 20 mg per PEG tube daily. 8. Lipitor 10 mg per PEG tube daily. 9. Oxcarbazepine 300 mg per PEG tube daily and 600 mg per PEG tube at bedtime. 10. Oxybutynin 5 mg per PEG tube b.i.d. 11. Vitamin C 500 mg per PEG tube daily. ALLERGIES: CODEINE, FISH CONTAINING PRODUCTS, PENICILLIN, AND PROPAFENONE. FAMILY HISTORY: Positive for hypertension and coronary artery disease. SOCIAL HISTORY: Resides at [facility], requiring supervised medical care and maximal assistance with activities of daily living. Nonambulatory status. No current alcohol, tobacco, or illicit drug use. Son is medical power of family law attorney. REVIEW OF SYSTEMS: CONSTITUTIONAL: Negative for weight loss or gain, ability to conduct usual activities. SKIN: Negative for rash, itching. EYES: Negative for double vision, pain. ENT/MOUTH: Negative for nose bleeding, neck stiffness, pain, tenderness. CARDIOVASCULAR: Negative for palpitations, dyspnea on exertion, orthopnea. RESPIRATORY: Negative for shortness of breath, wheezing, cough, hemoptysis, fever or night sweats. GASTROINTESTINAL: Negative for poor appetite, abdominal pain, heartburn, nausea, vomiting, constipation, or diarrhea. GENITOURINARY: Negative for urgency, frequency, dysuria, nocturia. MUSCULOSKELETAL: Negative for pain, swelling. NEUROLOGIC/PSYCHIATRIC: Negative for anxiety, depression. ALLERGY/IMMUNOLOGIC: Negative for skin rash, bleeding tendency. Otherwise negative except as stated per HPI. PHYSICAL EXAMINATION: VITAL SIGNS: On admission; blood pressure 101/45, pulse 61, respiratory rate 18, temperature 98.1 degrees Fahrenheit, and O2 saturation 100% on 4 L/minute by nasal cannula. GENERAL APPEARANCE: This is a 75-year-old female, alert and responsive, in no acute distress. HEENT: Pupils are equal, round, and reactive to light and accommodation. Extraocular muscles are intact. No scleral icterus. No conjunctival injection. Nares patent. OP is clear. Oral mucosa dry. NECK: Supple. No cervical adenopathy. No thyromegaly. No carotid bruits. No JVD appreciated. Cervical spine with full active and passive range of motion. No meningeal signs noted. CHEST: Diminished breath sounds in the right greater than left lung may. Occasional rhonchi. CARDIOVASCULAR: S1 and S2 with irregular rate and rhythm. ABDOMEN: Rounded, soft, nontender, and nondistended. Bowel sounds are positive in all 4 quadrants. PEG tube in place. Suprapubic catheter in place. EXTREMITIES: Warm and dry with fair turgor. No clubbing, cyanosis, or asymmetric edema appreciated. Pulses palpable distally at the dorsalis pedis, posterior tibial, and popliteal arteries bilaterally. Capillary refill less than 2 seconds. NEUROLOGIC: Cranial nerves 2 through 12 are grossly intact. Positive dysarthria. Left hemiparesis, chronic. Nonambulatory status. PERTINENT LABORATORY AND X-RAY FINDINGS: Sodium 131, potassium 5.3, chloride 92, CO2 of 32, BUN 24, creatinine 0.80, glucose 132, and lactic acid level 1.5. Troponin I negative x1. BNP 307, previously noted 289 on 11/08/2018. TSH 4.46. CBC showed a white blood cell count of 7.6, hemoglobin 8.8, hematocrit 27, and platelet count 197 with 79% neutrophils. Venous blood gas dated 10/20/2020, showed a pH of 7.43, pCO2 of 48, pO2 of 39, and bicarb of 31.3. Urinalysis dated 10/20/2020, showed positive leukocyte esterase with greater than 50 to [id number] wbc's per high-power field. Telemetry monitoring shows atrial fibrillation with controlled rate in the 70s. Portable chest x-ray dated 10/20/2020, showed multifocal infiltrates, right greater than left. ASSESSMENT AND PLAN: 1. Healthcare associated right-sided pneumonia, suspected gram-positive cocci. The patient will be admitted to the medical floor. We will continue broad-spectrum IV antibiotic therapy with cefepime 2 g IV q.12 hours with additional Levaquin 750 mg IV daily and vancomycin 1 g IV q.12 hours. Add DuoNeb q.4 hours p.r.n. Continue oxygen supplementation to maintain O2 saturations greater than or equal to 90%. 2. Acute on chronic hypoxic respiratory failure. Continue general pulmonary supportive management. Oxygen supplementation to maintain O2 saturations greater than or equal to 90%. DuoNeb q.4 hours p.r.n. 3. Hyponatremia. Suspect secondary to poor oral intake prior to admission. We will continue low volume IV fluids and repeat sodium level in the a.m. 4. Urinary tract infection. Suspected given chronic suprapubic catheter. Continue broad-spectrum IV antibiotics as outlined above and await final urine culture results. Likely will produce polymicrobial culture results. 5. Cerebrovascular accident with left hemiparesis bed-bound status. Continue general supportive management. Supervised medical care. Fall and aspiration risk precautions. 6. Prophylaxis. Sequential compression devices while in bed. Pepcid 20 mg IV b.i.d. 7. Code status. Do not attempt resuscitation confirmed by the patient's son, who is medical power of family law attorney. Job ID: [id number]
[2020-10-20] MEDS ORDERED: Acetaminophen 500 MG TAB PO PRN (16:25)
[2020-10-20] MEDS ORDERED: Sodium Chloride 0.9% 1,000 ML IV SCH (16:25)
[2020-10-20] MEDS ORDERED: hydrALAZINE 20 MG/ML VIAL SLOW IVP PRN (16:25)
[2020-10-20] MEDS ORDERED: Ondansetron ODT 4 MG TAB PO PRN (16:25)
[2020-10-20] MEDS ORDERED: Diabetic Tussin 200 MG/10 ML UDCUP PO PRN (16:25)
[2020-10-20 17:03] VITALS: BMI 32.6
[2020-10-20] MEDS ORDERED: OXcarbazepine 600 MG TAB PER TUBE SCH (21:00)
[2020-10-20] MEDS: Famotidine/PF 20 mg/2ml Vial SLOW IVP SCH (21:03)
[2020-10-20] MEDS: OXcarbazepine 300 MG TAB PER TUBE SCH (21:03)
[2020-10-20] MEDS: Latanoprost 0.005% Ophth Soln 2.5 ml Bottle EA EYE SCH (21:03)
[2020-10-20] MEDS: levETIRAcetam 500 MG TAB PER TUBE SCH (21:04)
[2020-10-20] MEDS: Oxybutynin 5 MG TAB PER TUBE SCH (21:04)
[2020-10-20] MEDS ORDERED: Furosemide 40 MG/4 ML VIAL SLOW IVP SCH ×2 (23:00→23:45)
[2020-10-20] MEDS: Ondansetron PF 4 MG/2 ML Vial IVP PRN (23:39)
[2020-10-21] MEDS: Cefepime 2 GM in Sodium Chloride 0.9% 100 ML IVPB SCH ×2 (02:45→14:33)
[2020-10-21] MEDS: Vancomycin 1 GM in Premix Bag 1 BAG IVPB SCH ×2 (03:24→15:17)
[2020-10-21 05:11] LABS: #Lymphocytes 0.4 thou/uL (1.20-3.40); #Monocytes 0.3 thou/uL (0.11-0.59); #Neutrophils 10.8 thou/uL (1.40-6.50); %Basophils 0.1 % (0.0-1.0); %Eosinophils 0.3 % (0.0-10.0); %Lymphocytes 3.7 % (21.0-51.0); %Monocytes 2.7 % (0.0-10.0); %Neutrophils 93.1 % (42.0-75.0); Hemoglobin 8.1 g/dL (12.0-16.0); Mean Corpuscular HGB CONC 33.1 g/dL (32.0-36.0); Mean Corpuscular Hemoglobin 29.2 pg (27.0-31.0); Mean Corpuscular Volume 88.3 fL (78.0-98.0); Mean Platelet Volume 8.6 fL (7.4-10.4); Platelet Count 190 thou/uL (130-400); RBC Distribution Width 14.7 % (11.5-14.5); Red Blood Cell (RBC) Count 2.77 mill/uL (4.20-5.40); White Blood Cell (WBC) Count 11.6 thou/uL (4.8-10.8)
[2020-10-21 05:35] LABS: Anion Gap 12 mmol/L (10-20); BUN (Urea Nitrogen) 22 mg/dL (9.8-20.1); Calc. Creatinine Clearance 97 mL/min (70-130); Calcium 8.6 mg/dL (7.8-10.44); Carbon Dioxide 30 mmol/L (23-31); Chloride 95 mmol/L (98-107); Glucose 143 mg/dL (83-110); Potassium 4.6 mmol/L (3.5-5.1); Sodium 132 mmol/L (136-145)
[2020-10-21] MEDS: Oxybutynin 5 MG TAB PER TUBE SCH ×2 (08:14→20:25)
[2020-10-21] MEDS: Famotidine/PF 20 mg/2ml Vial SLOW IVP SCH (08:14)
[2020-10-21] MEDS: levETIRAcetam 500 MG TAB PER TUBE SCH ×2 (08:14→20:25)
[2020-10-21] MEDS: OXcarbazepine 300 MG TAB PER TUBE SCH ×2 (08:15→20:25)
--- NOTE | 2020-10-21 11:47 | PDOC.HOSPP ---
- Subjective Encounter Date: 10/21/20 Encounter Time: 11:15 Subjective: awake, talks a bit at bedside sob is better - Objective Vital Signs & Weight: Vital Signs (12 hours) Temp Pulse Resp BP Pulse Ox 10/21/20 10:54 68 20 98 10/21/20 08:15 96 10/21/20 08:05 67 20 96 10/21/20 07:34 97.4 F L 70 18 136/73 92 L 10/21/20 02:04 90 L 10/21/20 01:09 66 93 L 10/21/20 00:37 67 91 L 10/21/20 00:10 68 18 92 L 10/20/20 23:50 98.0 F Weight Weight 215 lb I&O: 10/20/20 10/21/20 10/22/20 06:59 06:59 06:59 Intake Total 900 Output Total 2825 Balance -1925 Result Diagrams: 10/21/20 05:01 10/21/20 05:01 Hospitalist ROS - Medication Medications: Active Medications Generic Name Dose Route Start Last Admin Trade Name Freq PRN Reason Stop Dose Admin Albuterol/Ipratropium 3 ml 10/20/20 19:00 10/21/20 10:54 Ipratropium/Albuterol Sulfate 3 Ml Neb NEB 3 ml [id number] MONICA Administration Famotidine 20 mg 10/20/20 21:00 10/21/20 08:14 Famotidine/Pf 20 Mg/2ml Vial SLOW IVP 20 mg Q12HR MONICA Administration Cefepime HCl 2 gm/ Sodium 100 mls @ 200 mls/hr 10/21/20 02:00 10/21/20 02:45 Chloride IVPB 100 mls 0200,1400 MONICA Administration Vancomycin HCl 1 gm/ Device 200 mls @ 200 mls/hr 10/21/20 03:00 10/21/20 03:24 IVPB 200 mls 0300,1500 MONICA Administration Latanoprost 1 drop 10/20/20 21:00 10/20/20 21:03 Latanoprost 0.005% Ophth Soln 2.5 Ml Bottle EA EYE 1 drop HS MONICA Administration Levetiracetam 500 mg 10/20/20 21:00 10/21/20 08:14 Levetiracetam 500 Mg Tab PER TUBE 500 mg BID MONICA Administration Ondansetron HCl 4 mg 10/20/20 16:25 10/20/20 23:39 Ondansetron Pf 4 Mg/2 Ml Vial IVP 4 mg Q6H PRN Administration Nausea/Vomiting Oxcarbazepine 300 mg 10/21/20 09:00 10/21/20 08:15 Oxcarbazepine 300 Mg Tab PER TUBE 300 mg DAILY MONICA Administration Oxcarbazepine 600 mg 10/20/20 21:00 10/20/20 21:03 Oxcarbazepine 300 Mg Tab PER TUBE 600 mg QPM MONICA Administration Oxybutynin Chloride 5 mg 10/20/20 21:00 10/21/20 08:14 Oxybutynin 5 Mg Tab PER TUBE 5 mg BID MONICA Administration - Exam General Appearance: awake alert, ill appearing Eye: PERRL, anicteric sclera ENT: no oropharyngeal lesions, dry oral mucosa Neck: supple, no JVD Heart: RRR, no murmur Respiratory: no wheezes, rales, rhonchi Gastrointestinal: soft, non-tender, non-distended, normal bowel sounds Gastrointestinal - other findings: peg+ Extremities: no cyanosis, 2+ LE edema Neurological: cranial nerve grossly intact, hemiplegia Hosp A/P (1) Aspiration pneumonia Code(s): J69.0 - PNEUMONITIS DUE TO INHALATION OF FOOD AND VOMIT Status: Acute Qualifiers: Aspiration pneumonia type: due to regurgitated food Laterality: bilateral (2) Moderate protein malnutrition Code(s): E44.0 - MODERATE PROTEIN-CALORIE MALNUTRITION Status: Chronic (3) FTT (failure to thrive) in adult Status: Chronic (4) Anemia, normocytic normochromic Code(s): D64.9 - ANEMIA, UNSPECIFIED Status: Chronic (5) Anxiety and depression Code(s): F41.9 - ANXIETY DISORDER, UNSPECIFIED; F32.9 - MAJOR DEPRESSIVE DISORDER, SINGLE EPISODE, UNSPECIFIED Status: Chronic (6) Asthma Code(s): J45.909 - UNSPECIFIED ASTHMA, UNCOMPLICATED Status: Chronic Qualifiers: Asthma severity: mild Asthma persistence: intermittent Asthma complication type: uncomplicated Qualified Code(s): J45.20 - Mild intermittent asthma, uncomplicated (7) Dyslipidemia Code(s): E78.5 - HYPERLIPIDEMIA, UNSPECIFIED Status: Chronic (8) H/O: CVA (cerebrovascular accident) Code(s): Z86.73 - PRSNL HX OF TIA (TIA), AND CEREB INFRC W/O RESID DEFICITS Status: Chronic (9) Hypertension Code(s): I10 - ESSENTIAL (PRIMARY) HYPERTENSION Status: Chronic Qualifiers: Hypertension type: essential hypertension Qualified Code(s): I10 - Essential (primary) hypertension (10) Hypothyroidism Code(s): E03.9 - HYPOTHYROIDISM, UNSPECIFIED Status: Chronic Qualifiers: Hypothyroidism type: unspecified Qualified Code(s): E03.9 - Hypothyroidism, unspecified (11) Seizure disorder Code(s): G40.909 - EPILEPSY, UNSP, NOT INTRACTABLE, WITHOUT STATUS EPILEPTICUS Status: Chronic - Plan covid and influenza tests are -ve is on cefepime, levaquin and vanc, nebs on nasal canula O2 her peg will be exchanged by , per family has been more than 2 yrs now. poor prognosis, has multiple med issues, bed bound, low alb, anasarca, likely aspirated food, has peg and spc cath, b/l foot drops with severe deconditioning, left hemiplegia and contractures of upper limb continue keppra, oxcarbazepine and peg feeding once tube is exchanged alb level is 2.9, sodium is 132, bnp is 307, will gently diurese d/w at bedside and gave full updates.
--- NOTE | 2020-10-21 11:55 | OP ---
DATE OF PROCEDURE: 10/21/2020 PROCEDURE PERFORMED: Bedside exchange of a percutaneous gastrostomy tube. 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 Subsequently, the patient underwent percutaneous gastrostomy tube placement as part of management of her oropharyngeal dysphagia. However, at one point in time the patient's PEG tube became dislodged and it did need to be replaced with Dr. Villareal replacing the PEG tube on November 21, 2018, with a [employer] 20-[place] percutaneous gastrostomy tube. Since that time, the gastrostomy tube itself seems like it has not been replaced, other than the adapter at the end of the gastrostomy tube was [facility] by the [facility] due to malfunction of the main and accessory ports. Upon evaluation of the gastrostomy tube today, the stoma site itself looked very well healed with no evidence of skin erythema, purulence, or skin breakdown. However, the percutaneous gastrostomy tube itself appeared to be caked with tube feeds on the inside of the tubing itself as well as semi-brittle and not flexible to manipulation. With malfunctioning of the existing gastrostomy tube, a [employer] 20-[place] percutaneous gastrostomy tube replacement was acquired. The previous tube was removed using gentle traction and noted to be significantly degradated on the inside of the internal bumper due to exposure to stomach acid. There was some mild oozing of blood with removal of the previous gastrostomy tube, but quickly stopped with direct visualization. The [employer] percutaneous gastrostomy tube was then tested with the internal balloon inflated to 10 mL with no evidence of breaks or leaking. The balloon itself was then deflated and using some Surgilube was advanced through the existing gastrostomy tube tract without difficulty. The balloon was then inflated back to 10 mL using normal saline and pulled back to be adjacent to the anterior wall of the stomach. The external bumper was then tightened down to approximately 1 cm within the skin and the procedure was terminated. IMPRESSION: Successful replacement of a percutaneous gastrostomy tube with a [employer] 20-[place] gastrostomy tube. RECOMMENDATIONS: 1. The patient may have a little bit of soreness after the maneuver. Pain control per Primary Team. 2. Tube feeds can be re-initiated immediately. We will sign off at this time. Please call with any questions. Job ID: [id number]
[2020-10-21] MEDS: Furosemide 40 MG/4 ML VIAL SLOW IVP SCH (13:26)
[2020-10-21] MEDS: Latanoprost 0.005% Ophth Soln 2.5 ml Bottle EA EYE SCH (20:25)
[2020-10-22] MEDS: Cefepime 2 GM in Sodium Chloride 0.9% 100 ML IVPB SCH ×2 (02:38→14:13)
[2020-10-22] MEDS: Vancomycin 1 GM in Premix Bag 1 BAG IVPB SCH ×2 (03:40→15:41)
[2020-10-22] MEDS: Furosemide 40 MG/4 ML VIAL SLOW IVP SCH ×2 (05:29→13:38)
[2020-10-22] MEDS: Oxybutynin 5 MG TAB PER TUBE SCH ×2 (08:28→20:18)
[2020-10-22] MEDS: OXcarbazepine 300 MG TAB PER TUBE SCH ×2 (08:28→20:18)
[2020-10-22] MEDS: levETIRAcetam 500 MG TAB PER TUBE SCH ×2 (08:28→20:18)
--- NOTE | 2020-10-22 13:28 | PDOC.HOSPP ---
- Subjective Encounter Date: 10/22/20 Encounter Time: 11:45 Subjective: awake, responds with few words, no sob at bedside - Objective Vital Signs & Weight: Vital Signs (12 hours) Temp Pulse Resp BP Pulse Ox 10/22/20 11:45 98.6 F 66 18 102/65 96 10/22/20 11:13 96 10/22/20 07:48 98.5 F 67 16 117/69 90 L 10/22/20 07:06 65 18 95 10/22/20 05:23 94 L 10/22/20 03:54 98.2 F 66 18 105/67 94 L Weight Admit Weight 215 lb Weight 215 lb I&O: 10/21/20 10/22/20 10/23/20 06:59 06:59 06:59 Intake Total 900 650 Output Total 2829 1350 Balance -1875 700 Result Diagrams: 10/21/20 05:01 10/21/20 05:01 Hospitalist ROS - Medication Medications: Active Medications Generic Name Dose Route Start Last Admin Trade Name Freq PRN Reason Stop Dose Admin Albuterol/Ipratropium 3 ml 10/20/20 19:00 10/22/20 11:13 Ipratropium/Albuterol Sulfate 3 Ml Neb NEB 3 ml [id number] MONICA Administration Furosemide 40 mg 10/21/20 14:00 10/22/20 05:29 Furosemide 40 Mg/4 Ml Vial SLOW IVP 40 mg 0600,1400 MONICA Administration Cefepime HCl 2 gm/ Sodium 100 mls @ 200 mls/hr 10/21/20 02:00 10/22/20 02:38 Chloride IVPB 100 mls 0200,1400 MONICA Administration Levofloxacin 750 mg/ Device 150 mls @ 100 mls/hr 10/21/20 12:00 10/21/20 11:47 IVPB 150 mls Q24HR MONICA Administration Vancomycin HCl 1 gm/ Device 200 mls @ 200 mls/hr 10/21/20 03:00 10/22/20 03:40 IVPB 200 mls 0300,1500 MONICA Administration Latanoprost 1 drop 10/20/20 21:00 10/21/20 20:25 Latanoprost 0.005% Ophth Soln 2.5 Ml Bottle EA EYE 1 drop HS MONICA Administration Levetiracetam 500 mg 10/20/20 21:00 10/22/20 08:28 Levetiracetam 500 Mg Tab PER TUBE 500 mg BID MONICA Administration Ondansetron HCl 4 mg 10/20/20 16:25 10/20/20 23:39 Ondansetron Pf 4 Mg/2 Ml Vial IVP 4 mg Q6H PRN Administration Nausea/Vomiting Oxcarbazepine 300 mg 10/21/20 09:00 10/22/20 08:28 Oxcarbazepine 300 Mg Tab PER TUBE 300 mg DAILY MONICA Administration Oxcarbazepine 600 mg 10/20/20 21:00 10/21/20 20:25 Oxcarbazepine 300 Mg Tab PER TUBE 600 mg QPM MONICA Administration Oxybutynin Chloride 5 mg 10/20/20 21:00 10/22/20 08:28 Oxybutynin 5 Mg Tab PER TUBE 5 mg BID MONICA Administration - Exam General Appearance: awake alert Eye: PERRL, anicteric sclera ENT: no oropharyngeal lesions, dry oral mucosa Neck: supple, no JVD Heart: RRR, no murmur Respiratory: no wheezes, rales, rhonchi Gastrointestinal: soft, non-tender, non-distended, normal bowel sounds Extremities: no cyanosis, 2+ LE edema Neurological: cranial nerve grossly intact, no new deficit Psychiatric: A&O x 3 Hosp A/P (1) Aspiration pneumonia Code(s): J69.0 - PNEUMONITIS DUE TO INHALATION OF FOOD AND VOMIT Status: Acute Qualifiers: Aspiration pneumonia type: due to regurgitated food Laterality: bilateral (2) Moderate protein malnutrition Code(s): E44.0 - MODERATE PROTEIN-CALORIE MALNUTRITION Status: Chronic (3) FTT (failure to thrive) in adult Status: Chronic (4) Anemia, normocytic normochromic Code(s): D64.9 - ANEMIA, UNSPECIFIED Status: Chronic (5) Anxiety and depression Code(s): F41.9 - ANXIETY DISORDER, UNSPECIFIED; F32.9 - MAJOR DEPRESSIVE DISORDER, SINGLE EPISODE, UNSPECIFIED Status: Chronic (6) Asthma Code(s): J45.909 - UNSPECIFIED ASTHMA, UNCOMPLICATED Status: Chronic Qualifiers: Asthma severity: mild Asthma persistence: intermittent Asthma complication type: uncomplicated Qualified Code(s): J45.20 - Mild intermittent asthma, uncomplicated (7) Dyslipidemia Code(s): E78.5 - HYPERLIPIDEMIA, UNSPECIFIED Status: Chronic (8) H/O: CVA (cerebrovascular accident) Code(s): Z86.73 - PRSNL HX OF TIA (TIA), AND CEREB INFRC W/O RESID DEFICITS Status: Chronic (9) Hypertension Code(s): I10 - ESSENTIAL (PRIMARY) HYPERTENSION Status: Chronic Qualifiers: Hypertension type: essential hypertension Qualified Code(s): I10 - Essential (primary) hypertension (10) Hypothyroidism Code(s): E03.9 - HYPOTHYROIDISM, UNSPECIFIED Status: Chronic Qualifiers: Hypothyroidism type: unspecified Qualified Code(s): E03.9 - Hypothyroidism, unspecified (11) Seizure disorder Code(s): G40.909 - EPILEPSY, UNSP, NOT INTRACTABLE, WITHOUT STATUS EPILEPTICUS Status: Chronic - Plan covid and influenza tests are -ve is on cefepime, levaquin and vanc, nebs on nasal canula O2, will switch to oral antibiotics in am. her peg was exchanged by 10/21 poor prognosis, has multiple med issues, bed bound, low alb, anasarca, likely aspirated food, has peg and spc cath, b/l foot drops with severe deconditioning, left hemiplegia and contractures of upper limb continue keppra, oxcarbazepine and peg bolus feeding 1 can qid, if residuals are high may come down to tid. alb level is 2.9, sodium is 132, bnp is 307, is on gentle diuresis d/w at bedside and gave full updates.
[2020-10-22 15:19] LABS: Vancomycin, Trough 33.1 ug/mL
[2020-10-22] MEDS: Latanoprost 0.005% Ophth Soln 2.5 ml Bottle EA EYE SCH (20:19)
[2020-10-23] MEDS: Cefepime 2 GM in Sodium Chloride 0.9% 100 ML IVPB SCH ×2 (01:00→14:15)
[2020-10-23] MEDS ORDERED: Vancomycin 1 GM in Premix Bag 1 BAG IVPB SCH (03:00)
[2020-10-23] MEDS: Furosemide 40 MG/4 ML VIAL SLOW IVP SCH ×2 (06:04→14:15)
[2020-10-23] MEDS: Oxybutynin 5 MG TAB PER TUBE SCH ×2 (09:15→20:01)
[2020-10-23] MEDS: OXcarbazepine 300 MG TAB PER TUBE SCH ×2 (09:15→20:01)
[2020-10-23] MEDS: levETIRAcetam 500 MG TAB PER TUBE SCH ×2 (09:15→20:01)
[2020-10-23] MEDS ORDERED: Fluconazole 100 MG TAB PO SCH (13:28)
--- NOTE | 2020-10-23 13:31 | PDOC.HOSPP ---
- Subjective Encounter Date: 10/23/20 Encounter Time: 10:45 Subjective: awake, responds well to verbal stimuli no sob, is on nasal canula, tolerating tube feeds - Objective Vital Signs & Weight: Vital Signs (12 hours) Temp Pulse Resp BP Pulse Ox 10/23/20 11:47 98.6 F 70 16 102/66 96 10/23/20 10:32 65 18 95 10/23/20 07:30 98.8 F 66 16 119/75 100 10/23/20 07:22 94 L 10/23/20 07:20 74 18 94 L 10/23/20 04:17 97.7 F 64 18 101/65 100 Weight Admit Weight 215 lb Weight 215 lb I&O: 10/22/20 10/23/20 10/24/20 06:59 06:59 06:59 Intake Total 650 1342 Output Total 1350 2625 Balance -860 -7694 Result Diagrams: 10/21/20 05:01 10/21/20 05:01 Hospitalist ROS - Medication Medications: Active Medications Generic Name Dose Route Start Last Admin Trade Name Freq PRN Reason Stop Dose Admin Albuterol/Ipratropium 3 ml 10/20/20 19:00 10/23/20 10:32 Ipratropium/Albuterol Sulfate 3 Ml Neb NEB 3 ml [id number] MONICA Administration Furosemide 40 mg 10/21/20 14:00 10/23/20 06:04 Furosemide 40 Mg/4 Ml Vial SLOW IVP 40 mg 0600,1400 MONICA Administration Cefepime HCl 2 gm/ Sodium 100 mls @ 200 mls/hr 10/21/20 02:00 10/23/20 01:00 Chloride IVPB 100 mls 0200,1400 MONICA Administration Latanoprost 1 drop 10/20/20 21:00 10/22/20 20:19 Latanoprost 0.005% Ophth Soln 2.5 Ml Bottle EA EYE 1 drop HS MONICA Administration Levetiracetam 500 mg 10/20/20 21:00 10/23/20 09:15 Levetiracetam 500 Mg Tab PER TUBE 500 mg BID MONICA Administration Ondansetron HCl 4 mg 10/20/20 16:25 10/20/20 23:39 Ondansetron Pf 4 Mg/2 Ml Vial IVP 4 mg Q6H PRN Administration Nausea/Vomiting Oxcarbazepine 300 mg 10/21/20 09:00 10/23/20 09:15 Oxcarbazepine 300 Mg Tab PER TUBE 300 mg DAILY MONICA Administration Oxcarbazepine 600 mg 10/20/20 21:00 10/22/20 20:18 Oxcarbazepine 300 Mg Tab PER TUBE 600 mg QPM MONICA Administration Oxybutynin Chloride 5 mg 10/20/20 21:00 10/23/20 09:15 Oxybutynin 5 Mg Tab PER TUBE 5 mg BID MONICA Administration - Exam General Appearance: ill appearing Eye: PERRL, anicteric sclera ENT: no oropharyngeal lesions, dry oral mucosa Neck: supple, no JVD Heart: RRR, no murmur Respiratory: no wheezes, no rales, rhonchi Gastrointestinal: soft, non-tender, non-distended, normal bowel sounds Gastrointestinal - other findings: peg+, spc+ Extremities: no cyanosis, 1+ LE edema Neurological: no new deficit, hemiplegia Hosp A/P (1) Aspiration pneumonia Code(s): J69.0 - PNEUMONITIS DUE TO INHALATION OF FOOD AND VOMIT Status: Acute Qualifiers: Aspiration pneumonia type: due to regurgitated food Laterality: bilateral (2) Moderate protein malnutrition Code(s): E44.0 - MODERATE PROTEIN-CALORIE MALNUTRITION Status: Chronic (3) FTT (failure to thrive) in adult Status: Chronic (4) Anemia, normocytic normochromic Code(s): D64.9 - ANEMIA, UNSPECIFIED Status: Chronic (5) Anxiety and depression Code(s): F41.9 - ANXIETY DISORDER, UNSPECIFIED; F32.9 - MAJOR DEPRESSIVE DISORDER, SINGLE EPISODE, UNSPECIFIED Status: Chronic (6) Asthma Code(s): J45.909 - UNSPECIFIED ASTHMA, UNCOMPLICATED Status: Chronic Qualifiers: Asthma severity: mild Asthma persistence: intermittent Asthma complication type: uncomplicated Qualified Code(s): J45.20 - Mild intermittent asthma, uncomplicated (7) Dyslipidemia Code(s): E78.5 - HYPERLIPIDEMIA, UNSPECIFIED Status: Chronic (8) H/O: CVA (cerebrovascular accident) Code(s): Z86.73 - PRSNL HX OF TIA (TIA), AND CEREB INFRC W/O RESID DEFICITS Status: Chronic (9) Hypertension Code(s): I10 - ESSENTIAL (PRIMARY) HYPERTENSION Status: Chronic Qualifiers: Hypertension type: essential hypertension Qualified Code(s): I10 - Essential (primary) hypertension (10) Hypothyroidism Code(s): E03.9 - HYPOTHYROIDISM, UNSPECIFIED Status: Chronic Qualifiers: Hypothyroidism type: unspecified Qualified Code(s): E03.9 - Hypothyroidism, unspecified (11) Seizure disorder Code(s): G40.909 - EPILEPSY, UNSP, NOT INTRACTABLE, WITHOUT STATUS EPILEPTICUS Status: Chronic - Plan covid and influenza tests are -ve is on cefepime, diflucan, nebs, on nasal canula O2, will switch to oral antibiotics in am. her peg was exchanged by 10/21 poor prognosis, has multiple med issues, bed bound, low alb, anasarca, likely aspirated food, has peg and spc cath, b/l foot drops with severe deconditioning, left hemiplegia and contractures of upper limb continue keppra, oxcarbazepine and peg bolus feeding 1 can qid, if residuals are high may come down to tid. alb level is 2.9, sodium is 132, bnp is 307, is on gentle diuresis continue diuresis x 24hrs, labs in am dc plan on to [facility]
--- NOTE | 2020-10-23 13:56 | PQF ---
CLINICAL DOCUMENTATION CLARIFICATION FORM: Dear Dr. KAY SUAREZ Date: 10-23-20 Please exercise your independent, professional judgment in responding to the clarification form. Clinical indicators are provided on the bottom of this form for your review. Please check appropriate box(es): [ x] UTI please specify if due to or related to (as applicable): [ x] Suprapubic catheter [ ] Contaminated urine specimen without UTI [ ] Other diagnosis [ ] Unable to determine In addition, please specify: Present on Admission (POA): [ x ] Yes [ ] No [ ] Unable to determine For continuity of documentation, please document condition throughout progress notes and discharge summary. Thank You. To be completed by CDI/Coding staff for physician review: CLINICAL INDICATORS - SIGNS / SYMPTOMS / LABS / RESULTS AND LOCATION IN MR: H&P 10-20-20: ACUTE ON CHRONIC HYPOXIC RESPIRATORY FAILURE, [employer]ALTH[employer]ATED RIGHT SIDED PNEUMONIA, SUSPECT GRAM-POSITIVE COCCI, HYPONATREMIA, URINARY TRACT INFECTION. SUSPECTED GIVEN CHRONIC SUPRAPUBIC CATHETER. CONTINUE BROAD-SPECTRUM IV ANTIBIOTICS OUTLINED ABOVE AND AWAIT FINAL URINE CULTURE RESULTS. LIKELY WILL PRODUCE POLYMICROBIAL CULTURE RESULTS. RISK FACTORS / RESULTS AND LOCATION IN MR: H&P 10-20-20: URINARY TRACT INFECTION. SUSPECTED GIVEN CHRONIC SUPRAPUBIC CATHETER. TREATMENT / RESULTS AND LOCATION IN MR: H&P 10-20-20: CONTINUE BROAD-SPECTRUM IV ANTIBIOTICS OUTLINED ABOVE AND AWAIT FINAL URINE CULTURE RESULTS. LIKELY WILL PRODUCE POLYMICROBIAL CULTURE RESULTS. CDS Signature: La Martinez Phone #: [phone] Date:10-23-20 This is a permanent part of the Medical Record [facility]
[2020-10-23] MEDS: Latanoprost 0.005% Ophth Soln 2.5 ml Bottle EA EYE SCH (20:01)
[2020-10-24] MEDS: Cefepime 2 GM in Sodium Chloride 0.9% 100 ML IVPB SCH ×2 (01:51→14:27)
[2020-10-24] MEDS: Furosemide 40 MG/4 ML VIAL SLOW IVP SCH (06:27)
[2020-10-24 07:53] LABS: #Eosinphils 0.6 thou/uL (0.0-0.7); #Lymphocytes 0.8 thou/uL (1.20-3.40); #Monocytes 0.4 thou/uL (0.11-0.59); #Neutrophils 4.6 thou/uL (1.40-6.50); %Basophils 0.2 % (0.0-1.0); %Eosinophils 9.7 % (0.0-10.0); %Lymphocytes 12.2 % (21.0-51.0); %Monocytes 6.8 % (0.0-10.0); %Neutrophils 71.1 % (42.0-75.0); Hemoglobin 8.6 g/dL (12.0-16.0); Mean Corpuscular HGB CONC 32.1 g/dL (32.0-36.0); Mean Corpuscular Volume 90.2 fL (78.0-98.0); Mean Platelet Volume 8.8 fL (7.4-10.4); Platelet Count 219 thou/uL (130-400); RBC Distribution Width 14.9 % (11.5-14.5); Red Blood Cell (RBC) Count 2.98 mill/uL (4.20-5.40); White Blood Cell (WBC) Count 6.4 thou/uL (4.8-10.8)
[2020-10-24 08:04] LABS: ALT (SGPT) 8 U/L (8-55); AST (SGOT) 11 U/L (5-34); Albumin 2.7 g/dL (3.4-4.8); Alkaline Phosphatase 98 U/L (40-110); Anion Gap 13 mmol/L (10-20); BUN (Urea Nitrogen) 17 mg/dL (9.8-20.1); Bilirubin, Total 0.3 mg/dL (0.2-1.2); Calc. Creatinine Clearance 95 mL/min (70-130); Calcium 8.8 mg/dL (7.8-10.44); Carbon Dioxide 32 mmol/L (23-31); Chloride 95 mmol/L (98-107); Globulin 3.6 g/dL (2.4-3.5); Glucose 148 mg/dL (83-110); Potassium 3.1 mmol/L (3.5-5.1); Protein, Total 6.3 g/dL (6.0-8.3); Sodium 137 mmol/L (136-145)
--- NOTE | 2020-10-24 08:29 | RAD ---
PORTABLE CHEST: Date: 10/24/2020 HISTORY: Follow-up of aspiration pneumonia. COMPARISON: 10/20/2020 exam. FINDINGS: Heart size appears enlarged with a pacemaker in place. Pulmonary vessels are engorged. Somewhat asymm etric right-sided lung changes are again noted. Overall changes appear fairly similar given the diffe rences in technique. IMPRESSION: 1. Essentially stable exam. 2. Incidentally note is made of a n incompletely healed right humeral shaft fracture. POS: [facility]
[2020-10-24] MEDS: levETIRAcetam 500 MG TAB PER TUBE SCH ×2 (10:13→19:55)
[2020-10-24] MEDS: Oxybutynin 5 MG TAB PER TUBE SCH ×2 (10:13→19:56)
[2020-10-24] MEDS: OXcarbazepine 300 MG TAB PER TUBE SCH ×2 (10:13→19:56)
[2020-10-24] MEDS: Fluconazole 100 MG TAB PO SCH (10:13)
--- NOTE | 2020-10-24 13:02 | PDOC.HOSPP ---
- Subjective Encounter Date: 10/24/20 Encounter Time: 12:15 Subjective: no sob, feels better at bedside - Objective Vital Signs & Weight: Vital Signs (12 hours) Temp Pulse Resp BP Pulse Ox 10/24/20 10:56 64 16 95 10/24/20 07:46 68 14 96 10/24/20 07:45 98.9 F 68 18 112/69 96 10/24/20 03:58 98.4 F 68 16 130/70 96 Weight Admit Weight 215 lb Weight 215 lb I&O: 10/23/20 10/24/20 10/25/20 06:59 06:59 06:59 Intake Total 1342 467 617 Output Total 7622 1507 Balance -9951 564 -911 Result Diagrams: 10/24/20 07:32 10/24/20 07:32 Hospitalist ROS - Medication Medications: Active Medications Generic Name Dose Route Start Last Admin Trade Name Freq PRN Reason Stop Dose Admin Albuterol/Ipratropium 3 ml 10/20/20 19:00 10/24/20 10:56 Ipratropium/Albuterol Sulfate 3 Ml Neb NEB 3 ml [id number] MONICA Administration Fluconazole 100 mg 10/24/20 09:00 10/24/20 10:13 Fluconazole 100 Mg Tab PO 100 mg DAILY MONICA Administration Furosemide 40 mg 10/21/20 14:00 10/24/20 06:27 Furosemide 40 Mg/4 Ml Vial SLOW IVP 40 mg 0600,1400 MONICA Administration Cefepime HCl 2 gm/ Sodium 100 mls @ 200 mls/hr 10/21/20 02:00 10/24/20 01:51 Chloride IVPB 100 mls 0200,1400 MONICA Administration Latanoprost 1 drop 10/20/20 21:00 10/23/20 20:01 Latanoprost 0.005% Ophth Soln 2.5 Ml Bottle EA EYE 1 drop HS MONICA Administration Levetiracetam 500 mg 10/20/20 21:00 10/24/20 10:13 Levetiracetam 500 Mg Tab PER TUBE 500 mg BID MONICA Administration Ondansetron HCl 4 mg 10/20/20 16:25 10/20/20 23:39 Ondansetron Pf 4 Mg/2 Ml Vial IVP 4 mg Q6H PRN Administration Nausea/Vomiting Oxcarbazepine 300 mg 10/21/20 09:00 10/24/20 10:13 Oxcarbazepine 300 Mg Tab PER TUBE 300 mg DAILY MONICA Administration Oxcarbazepine 600 mg 10/20/20 21:00 10/23/20 20:01 Oxcarbazepine 300 Mg Tab PER TUBE 600 mg QPM MONICA Administration Oxybutynin Chloride 5 mg 10/20/20 21:00 10/24/20 10:13 Oxybutynin 5 Mg Tab PER TUBE 5 mg BID MONICA Administration Sodium Chloride 10 ml 10/23/20 21:00 10/24/20 10:14 Flush - Normal Saline 10 Ml Syringe IVF Not Given Q12HR MONICA - Exam General Appearance: awake alert Eye: PERRL, anicteric sclera ENT: no oropharyngeal lesions, moist mucosa Neck: supple, no JVD Heart: RRR, no murmur Respiratory: no wheezes, rhonchi Gastrointestinal: soft, non-tender, non-distended, normal bowel sounds Gastrointestinal - other findings: peg+, spc+ Extremities: no cyanosis, 1+ LE edema Neurological: cranial nerve grossly intact, hemiplegia Hosp A/P (1) Aspiration pneumonia Code(s): J69.0 - PNEUMONITIS DUE TO INHALATION OF FOOD AND VOMIT Status: Acute Qualifiers: Aspiration pneumonia type: due to regurgitated food Laterality: bilateral (2) Moderate protein malnutrition Code(s): E44.0 - MODERATE PROTEIN-CALORIE MALNUTRITION Status: Chronic (3) FTT (failure to thrive) in adult Status: Chronic (4) Anemia, normocytic normochromic Code(s): D64.9 - ANEMIA, UNSPECIFIED Status: Chronic (5) Anxiety and depression Code(s): F41.9 - ANXIETY DISORDER, UNSPECIFIED; F32.9 - MAJOR DEPRESSIVE DISORDER, SINGLE EPISODE, UNSPECIFIED Status: Chronic (6) Asthma Code(s): J45.909 - UNSPECIFIED ASTHMA, UNCOMPLICATED Status: Chronic Qualifiers: Asthma severity: mild Asthma persistence: intermittent Asthma complication type: uncomplicated Qualified Code(s): J45.20 - Mild intermittent asthma, uncomplicated (7) Dyslipidemia Code(s): E78.5 - HYPERLIPIDEMIA, UNSPECIFIED Status: Chronic (8) H/O: CVA (cerebrovascular accident) Code(s): Z86.73 - PRSNL HX OF TIA (TIA), AND CEREB INFRC W/O RESID DEFICITS Status: Chronic (9) Hypertension Code(s): I10 - ESSENTIAL (PRIMARY) HYPERTENSION Status: Chronic Qualifiers: Hypertension type: essential hypertension Qualified Code(s): I10 - Essential (primary) hypertension (10) Hypothyroidism Code(s): E03.9 - HYPOTHYROIDISM, UNSPECIFIED Status: Chronic Qualifiers: Hypothyroidism type: unspecified Qualified Code(s): E03.9 - Hypothyroidism, unspecified (11) Seizure disorder Code(s): G40.909 - EPILEPSY, UNSP, NOT INTRACTABLE, WITHOUT STATUS EPILEPTICUS Status: Chronic - Plan covid and influenza tests are -ve is on cefepime, diflucan, nebs, on nasal canula O2, will dc antibiotics in am. her peg was exchanged by 10/21 poor prognosis, has multiple med issues, bed bound, low alb, anasarca, likely aspirated food, has peg and spc cath, b/l foot drops with severe deconditioning, left hemiplegia and contractures of upper limb continue keppra, oxcarbazepine and peg bolus feeding 1 can qid, if residuals are high may come down to tid. alb level is 2.9, sodium is 132, bnp is 307, is on gentle diuresis continue diuresis x 24hrs, labs in am dc plan in am to snf d/w at bedside
[2020-10-24] MEDS ORDERED: Potassium Chloride 10 MEQ in Premix Bag 1 BAG IVPB SCH (14:00)
[2020-10-24] MEDS: Potassium Chloride 20 MEQ TAB PO SCH ×2 (14:26→19:55)
[2020-10-24] MEDS: Ondansetron PF 4 MG/2 ML Vial IVP PRN (14:55)
[2020-10-24] MEDS: Latanoprost 0.005% Ophth Soln 2.5 ml Bottle EA EYE SCH (19:55)
[2020-10-25] MEDS: Potassium Chloride 20 MEQ TAB PO SCH (01:11)
[2020-10-25] MEDS: Cefepime 2 GM in Sodium Chloride 0.9% 100 ML IVPB SCH (01:12)
[2020-10-25 05:21] LABS: #Eosinphils 0.7 thou/uL (0.0-0.7); #Lymphocytes 0.8 thou/uL (1.20-3.40); #Monocytes 0.4 thou/uL (0.11-0.59); #Neutrophils 3.2 thou/uL (1.40-6.50); %Basophils 0.3 % (0.0-1.0); %Eosinophils 13.4 % (0.0-10.0); %Lymphocytes 16.2 % (21.0-51.0); %Monocytes 8.2 % (0.0-10.0); %Neutrophils 61.9 % (42.0-75.0); Mean Corpuscular HGB CONC 32.5 g/dL (32.0-36.0); Mean Corpuscular Hemoglobin 29.2 pg (27.0-31.0); Mean Platelet Volume 8.6 fL (7.4-10.4); Platelet Count 206 thou/uL (130-400); RBC Distribution Width 15.1 % (11.5-14.5); Red Blood Cell (RBC) Count 2.74 mill/uL (4.20-5.40); White Blood Cell (WBC) Count 5.2 thou/uL (4.8-10.8)
[2020-10-25 05:43] LABS: ALT (SGPT) 7 U/L (8-55); AST (SGOT) 10 U/L (5-34); Albumin 2.4 g/dL (3.4-4.8); Alkaline Phosphatase 88 U/L (40-110); Anion Gap 8 mmol/L (10-20); BUN (Urea Nitrogen) 18 mg/dL (9.8-20.1); Bilirubin, Total 0.3 mg/dL (0.2-1.2); Calc. Creatinine Clearance 106 mL/min (70-130); Calcium 8.6 mg/dL (7.8-10.44); Carbon Dioxide 36 mmol/L (23-31); Chloride 96 mmol/L (98-107); Globulin 3.5 g/dL (2.4-3.5); Glucose 92 mg/dL (83-110); Potassium 4.1 mmol/L (3.5-5.1); Protein, Total 5.9 g/dL (6.0-8.3); Sodium 136 mmol/L (136-145)
[2020-10-25] MEDS: OXcarbazepine 300 MG TAB PER TUBE SCH (09:44)
[2020-10-25] MEDS: Fluconazole 100 MG TAB PO SCH (09:44)
[2020-10-25] MEDS: Oxybutynin 5 MG TAB PER TUBE SCH (09:44)
[2020-10-25] MEDS: levETIRAcetam 500 MG TAB PER TUBE SCH (09:44)
--- NOTE | 2020-10-25 13:16 | PDOC.HOSPP ---
- Subjective Encounter Date: 10/25/20 Encounter Time: 09:00 Subjective: no sob, feels good at bedside - Objective Vital Signs & Weight: Vital Signs (12 hours) Temp Pulse Resp BP Pulse Ox 10/25/20 12:10 97.3 F L 67 20 142/80 H 20 L 10/25/20 08:00 98 10/25/20 07:45 98.3 F 64 20 108/71 98 10/25/20 07:28 65 14 94 L 10/25/20 03:59 98 10/25/20 03:49 98.4 F 65 16 112/73 98 Weight Admit Weight 215 lb Weight 215 lb I&O: 10/24/20 10/25/20 10/26/20 06:59 06:59 06:59 Intake Total 467 2521 Output Total 2900 Balance 467 -379 Result Diagrams: 10/25/20 05:06 10/25/20 05:06 Hospitalist ROS - Medication Medications: Active Medications Generic Name Dose Route Start Last Admin Trade Name Freq PRN Reason Stop Dose Admin Albuterol/Ipratropium 3 ml 10/20/20 19:00 10/25/20 10:42 Ipratropium/Albuterol Sulfate 3 Ml Neb NEB Not Given [id number] MONICA Fluconazole 100 mg 10/24/20 09:00 10/25/20 09:44 Fluconazole 100 Mg Tab PO 100 mg DAILY MONICA Administration Cefepime HCl 2 gm/ Sodium 100 mls @ 200 mls/hr 10/21/20 02:00 10/25/20 01:12 Chloride IVPB 100 mls 0200,1400 MONICA Administration Latanoprost 1 drop 10/20/20 21:00 10/24/20 19:55 Latanoprost 0.005% Ophth Soln 2.5 Ml Bottle EA EYE 1 drop HS MONICA Administration Levetiracetam 500 mg 10/20/20 21:00 10/25/20 09:44 Levetiracetam 500 Mg Tab PER TUBE 500 mg BID MONICA Administration Ondansetron HCl 4 mg 10/20/20 16:25 10/24/20 14:55 Ondansetron Pf 4 Mg/2 Ml Vial IVP 4 mg Q6H PRN Administration Nausea/Vomiting Oxcarbazepine 300 mg 10/21/20 09:00 10/25/20 09:44 Oxcarbazepine 300 Mg Tab PER TUBE 300 mg DAILY MONICA Administration Oxcarbazepine 600 mg 10/20/20 21:00 10/24/20 19:56 Oxcarbazepine 300 Mg Tab PER TUBE 600 mg QPM MONICA Administration Oxybutynin Chloride 5 mg 10/20/20 21:00 10/25/20 09:44 Oxybutynin 5 Mg Tab PER TUBE 5 mg BID MONICA Administration Sodium Chloride 10 ml 10/23/20 21:00 10/24/20 19:57 Flush - Normal Saline 10 Ml Syringe IVF 10 ml Q12HR MONICA Administration - Exam General Appearance: awake alert Eye: PERRL, anicteric sclera ENT: no oropharyngeal lesions, moist mucosa Neck: supple, no JVD Heart: RRR, no murmur Respiratory: no wheezes, no rales Gastrointestinal: soft, non-tender, non-distended, normal bowel sounds Gastrointestinal - other findings: peg+ Extremities: no cyanosis, 1+ LE edema Neurological: cranial nerve grossly intact, hemiplegia Hosp A/P (1) Aspiration pneumonia Code(s): J69.0 - PNEUMONITIS DUE TO INHALATION OF FOOD AND VOMIT Status: Acute Qualifiers: Aspiration pneumonia type: due to regurgitated food Laterality: bilateral (2) Moderate protein malnutrition Code(s): E44.0 - MODERATE PROTEIN-CALORIE MALNUTRITION Status: Chronic (3) FTT (failure to thrive) in adult Status: Chronic (4) Anemia, normocytic normochromic Code(s): D64.9 - ANEMIA, UNSPECIFIED Status: Chronic (5) Anxiety and depression Code(s): F41.9 - ANXIETY DISORDER, UNSPECIFIED; F32.9 - MAJOR DEPRESSIVE DISORDER, SINGLE EPISODE, UNSPECIFIED Status: Chronic (6) Asthma Code(s): J45.909 - UNSPECIFIED ASTHMA, UNCOMPLICATED Status: Chronic Qualifiers: Asthma severity: mild Asthma persistence: intermittent Asthma complica tion type: uncomplicated Qualified Code(s): J45.20 - Mild intermittent asthma, uncomplicated (7) Dyslipidemia Code(s): E78.5 - HYPERLIPIDEMIA, UNSPECIFIED Status: Chronic (8) H/O: CVA (cerebrovascular accident) Code(s): Z86.73 - PRSNL HX OF TIA (TIA), AND CEREB INFRC W/O RESID DEFICITS Status: Chronic (9) Hypertension Code(s): I10 - ESSENTIAL (PRIMARY) HYPERTENSION Status: Chronic Qualifiers: Hypertension type: essential hypertension Qualified Code(s): I10 - Essential (primary) hypertension (10) Hypothyroidism Code(s): E03.9 - HYPOTHYROIDISM, UNSPECIFIED Status: Chronic Qualifiers: Hypothyroidism type: unspecified Qualified Code(s): E03.9 - Hypothyroidism, unspecified (11) Seizure disorder Code(s): G40.909 - EPILEPSY, UNSP, NOT INTRACTABLE, WITHOUT STATUS EPILEPTICUS Status: Chronic - Plan covid and influenza tests are -ve is on nebs, on nasal canula O2 her peg was exchanged by 10/21 poor prognosis, has multiple med issues, bed bound, low alb, anasarca, likely aspirated food, has peg and spc cath, b/l foot drops with severe deconditioning, left hemiplegia and contractures of upper limb continue keppra, oxcarbazepine and peg bolus feeding 1 can qid, tolerating peg feeding well. NPO except ice chips due to risk of aspiration. alb level is 2.9, sodium is 132, bnp is 307, had gentle diuresis dc plan to snf d/w at bedside
[2020-10-25 17:08] VITALS: BP 132/81; TEMP 98.4
--- NOTE | 2020-10-26 18:09 | DIS ---
DATE OF ADMISSION: 10/20/2020 DATE OF DISCHARGE: 10/25/2020 DISCHARGE DISPOSITION: [facility]. PRIMARY DISCHARGE DIAGNOSES: 1. Aspiration pneumonia. 2. Moderate protein malnutrition. 3. Failure to thrive. 4. Chronic anemia. 5. History of cerebrovascular accident with left hemiplegia and contractures, dysphagia. 6. Poor functional status with the patient bed-bound. 7. Hypothyroidism. 8. Seizure disorder. 9. Dyslipidemia. 10. History of asthma. 11. History of PEG tube and a suprapubic catheter. PROCEDURES DONE DURING HOSPITALIZATION: The patient has had exchange of her old PEG tube with a new one done by Dr. Mendoza on 10/21/2020. Echo with 2D Doppler showed ejection fraction of 60% to 65%. Chest x-ray done on the day of admission showed cardiomegaly with multifocal infiltrates. Urine culture grew Moira albicans and pseudomonas. Pseudomonas was less than 25,000 colony-forming units. Blood cultures x2, no growth. Influenza A and B antigens were negative. COVID-19 PCR was not detected on 10/20/2020. BUN 18, creatinine 0.7, albumin 2.4. H and H of 8 and 24, platelet count 206, MCV 90, white count of 5. DISCHARGE MEDICATIONS: 1. DuoNeb q.4 hourly p.r.n. 2. Floranex one tab daily. 3. Lasix 40 mg twice daily. 4. Latanoprost eye drops as before. 5. Pepcid 20 mg daily. 6. Synthroid 175 mcg p.o. daily. 7. Aspirin 81 mg p.o. daily. 8. Carvedilol 6.25 mg twice daily. 9. K-Dur 10 mEq p.o. daily. 10. Keppra 500 mg p.o. twice daily. 11. Lexapro 20 mg p.o. at bedtime. 12. Lipitor 5 mg p.o. at bedtime. 13. Lisinopril 5 mg p.o. twice daily. 14. Oxcarbazepine 600 mg q.p.m. 15. Oxybutynin 5 mg twice daily. 16. Trileptal 300 mg daily. 17. Vitamin C 500 mg daily. ALLERGIES: ALLERGIC TO CODEINE, FISH, PENICILLIN, PROPAFENONE, SHELLFISH. DISCHARGE PLAN: The patient to follow up with Dr. Winters in 1 week. BRIEF COURSE DURING HOSPITALIZATION: The patient initially got admitted on the with complaints of shortness of breath. She was found to have had aspiration pneumonia. The patient has history of prior CVA with left hemiplegia and is chronically bed bound at [facility]. She also has a PEG tube and a suprapubic catheter. The patient likely aspirated with multifocal infiltrates. She was placed on oxygen and broad-spectrum antibiotics. Kelly- cultures were obtained. Her urinalysis and urine culture grew pseudomonas, which was less than 25,000 colony-forming units and moira was noted. Likely, these two were contaminant with chronic indwelling suprapubic catheter. The patient had exchange of her PEG tube done for the old one with a new one by Dr. Mendoza. She is tolerating Ensure one can four times daily with no residuals. Within 36 hours, the patient's mental status also improved. She is responding well to verbal questions. Her was at bedside all through her stay here. Her antibiotics have been discontinued after 5 days. The patient likely can have Tushar or ProStat either one of those twice daily, whichever is easier to push through the PEG tube. She is hemodynamically stable. The patient's overall long-term prognosis is poor due to multiple medical issues and being bed-bound, which leads to issues of urinary tract infection, pneumonia, or pressure sores in the long run. She currently has aspiration pneumonia, but not the other two at present. The patient also had anasarca with low albumin levels and had gentle diuresis done during her last 4 days here. She is hemodynamically stable and will be shortly discharged back to [facility]. Please see a [id number] documentation for the day of discharge on [facility]. A total of 35 minutes was spent on discharge plan. Job ID: [id number] [facility]
== END 2020-10-25 18:00 | DRG 177 ==
LOC: ERS 11:25 → SURG A 14:10
PROVIDERS: ADMIT Family Medicine; ATTEND Internal Medicine
PROC: 0D20XUZ Change Feeding Device in Upper Intestinal Tract, External Approach (ICD-10-PCS; principal; 2020-10-21)
DX: J69.0 Pneumonitis due to inhalation of food and vomit (principal); J96.21 Acute and chronic respiratory failure with hypoxia; E87.1 Hypo-osmolality and hyponatremia; I69.354 Hemiplegia and hemiparesis following cerebral infarction affecting left non-dominant side; I48.20 Chronic atrial fibrillation, unspecified; E44.0 Moderate protein-calorie malnutrition; K94.23 Gastrostomy malfunction; Z20.828 Contact with and (suspected) exposure to other viral communicable diseases; E78.5 Hyperlipidemia, unspecified; I10 Essential (primary) hypertension; E03.9 Hypothyroidism, unspecified; R62.7 Adult failure to thrive; D64.9 Anemia, unspecified; F41.9 Anxiety disorder, unspecified; F32.9 Major depressive disorder, single episode, unspecified; J45.20 Mild intermittent asthma, uncomplicated; J44.9 Chronic obstructive pulmonary disease, unspecified; G40.909 Epilepsy, unspecified, not intractable, without status epilepticus; R53.81 Other malaise; Y83.3 Surgical operation with formation of external stoma as the cause of abnormal reaction of the patient, or of later complication, without mention of misadventure at the time of the procedure; Y84.6 Urinary catheterization as the cause of abnormal reaction of the patient, or of later complication, without mention of misadventure at the time of the procedure; Z74.01 Bed confinement status; Z90.49 Acquired absence of other specified parts of digestive tract; Z90.710 Acquired absence of both cervix and uterus; Z79.82 Long term (current) use of aspirin; Z88.5 Allergy status to narcotic agent; Z88.0 Allergy status to penicillin; Z88.8 Allergy status to other drugs, medicaments and biological substances; Z91.013 Allergy to seafood; Z68.32 Body mass index [BMI] 32.0-32.9, adult
CPT/HCPCS: 36415; 71045; 80048; 80053; 80202; 81003; 81015; 82330; 82803; 83605; 83735; 83880; 84443; 84484; 85025; 87040; 87077; 87086; 87186; 87804; 93005; 93306; 96365; 96367; J0692; J1940; J1956; J2405; J3370; J3480; J3490; J7030; J7620; S0028; U0002